=== PATIENT | male | born 1965 | race African-American/Black ===

== ENCOUNTER 2023-01-06 08:31 | Inpatient (IN) | payer MEDICAID, SELFPAY ==
[2023-01-06] VITALS (7 sets, daily range): BP systolic 112–145; BP diastolic 61–96; PULSE 72–96; RESP 14–16; TEMP 36.4–36.8; O2SAT 95–100; BMI 23.1; BMI 22.1
--- NOTE | 2023-01-06 08:40 | ED.VIS.LOWEX ---
HPI History of Present Illness HPI Narrative: Patient presents with pain in his left fifth toe that has been getting worse over the past 2 months. Patient states he has poor circulation in his left leg. Patient states he has been unable to see his doctor for this. Patient states the pain is gradually getting worse. Patient describes it as aching and throbbing. Patient states nothing makes it worse and nothing makes it better. Patient denies any fevers or chills. Patient denies any paresthesias or weakness. Patient denies any trauma or injury. Chief Complaint: Lower Extremity Injury Informant: patient Onset/Context/Timing Onset: Month(s) Context: Gradual Onset Timing: Continuous Quality of Pain: Aching and Throbbing Location: Left fifth toe Worsened by: Nothing Relieved by: Nothing Associated Symptoms Associated Symptoms: Negative for Parasthesia, Weakness or Loss of Funtion PFSH PFS Medical History (Updated 01/06/23 @ 10:[address] Richard Mosley DO) Peripheral arterial disease Home Medications naproxen sodium 220 mg capsule (Aleve) 220 mg PO Q6H PRN pain 01/06/23 [History Last Taken 01/06/23] Allergy/AdvReac Type Severity Reaction Status Date / Time No Known Allergies Allergy Verified 01/06/23 08:32 Surgical History no surgical history no surgical history Social History (Updated 01/06/23 @ 08:[address] Richard Mosley DO) Smoking Status: Current every day smoker tobacco type: cigarettes Smoking packs per day: 0.5 Smoking cigarettes per day: 10.0 ROS ROS ED Constitutional Constitutional ED: Denies chills or fever(s) Eyes Eyes: Denies blurry vision or change in vision ENT ENT ED: Denies rhinorrhea or sore throat Cardiovascular Cardiovascular: Denies chest pain or palpitations Respiratory/Chest Respiratory/Chest: Denies cough or dyspnea Gastrointestinal Gastrointestinal: Denies nausea or vomiting Genitourinary Genitourinary ED: Denies dysuria or hematuria Musculoskeletal Musculoskeletal: Denies back pain or neck pain Integumentary Reports rash; Denies abscess Neurologic Neurologic: Denies headache(s) or weakness Allergic/Immunologic Allergic/Immunologic ED: Denies mouth swelling or urticaria EXAM Physical Exam Const Vital Signs: 01/06/23 08:32 Temperature 97.6 F L Temperature Source Temporal Pulse Rate 96 Respiratory Rate 14 Blood Pressure 128/82 H Blood Pressure Mean 97 Pulse Ox 100 Oxygen Delivery Method Room Air Positive well nourished and well developed General Appearance ED: well developed and NAD HEENT Reports moist mucous membranes Neck full ROM and supple Extremity Extremity Narrative: There is dry gangrene noted of the left fifth toe. Sensation was intact to light touch in all digits. Capillary refill was less than 2 seconds in the first through fourth toes. Pedal pulse is palpable. There is no calf tenderness noted. There is full range of motion. Neuro oriented x3, CN's II-XII intact bilaterally, moves all extremities and no sensory deficits noted Sensorium / Orientation: alert Motor Exam: strength 5/5 throughout Psych mental status grossly normal Skin Skin Narrative: There are superficial skin ulcerations noted over the dorsum of the left foot and anterior aspect of the left lower leg. There is no surrounding erythema. There is no discharge or drainage noted. MDM MDM MDM Narrative Medical decision making narrative: Differential diagnosis includes dry gangrene, osteomyelitis, cellulitis, and sepsis. X-rays of the left foot will be obtained to assess for osteomyelitis. CBC will be obtained to assess for leukocytosis and anemia. Basic metabolic profile will be obtained to assess for electrolyte abnormality and renal function. Serum lactate will be obtained to assess for sepsis. PT with INR and PTT will be obtained to assess for coagulopathy. Lab Data Attestation: I reviewed the patient's lab results. Lab results narrative: BC was reviewed. There is a mild anemia with a hemoglobin of 12.8 and hematocrit 38.1. White blood cell count was normal. PT was INR and PTT were reviewed and were within normal limits. Basic metabolic profile was reviewed and was within normal limits. Labs: Laboratory Results - last 24 hr 01/06/23 09:08 WBC 8.9 RBC 4.11 L Hgb 12.8 L Hct 38.1 L MCV 92.7 MCH 31.1 MCHC 33.6 RDW Std Deviation 46.4 H RDW Coeff of Mario Alberto 13.4 Plt Count 349 MPV 8.5 Immature Gran % (Auto) 0.200 Neut % (Auto) 62.6 Lymph % (Auto) 21.0 [place] % (Auto) 14.8 H Eos % (Auto) 1.1 Baso % (Auto) 0.3 Absolute Neuts (auto) 5.6 Absolute Lymphs (auto) 1.88 Nucleated RBC % 0 PT 13.3 INR 1.0 APTT 34.9 Sodium 137 Potassium 3.8 Chloride 99 Carbon Dioxide 30.0 Anion Gap 8 BUN 15 Creatinine 0.93 Estim Creat Clear Calc 97.43 Est GFR (MDRD) Af Amer 107 Est GFR (MDRD) Non-Af 89 BUN/Creatinine Ratio 16.1 Glucose 82 Lactic Acid 1.7 Calcium 9.2 Radiography Diagnostic Testing: Clinical Impression(s) from Imaging Studies Foot X-Ray 01/06/23 09:10 IMPRESSION: Soft tissue swelling overlying the fifth oh. No bony destruction is seen at this time. Electronically Signed: Abbe Smith MD at 9:58 EDT , X-rays of the left foot were obtained. There are 3 views. On my independent interpretation, there is soft tissue swelling over the fifth toe but there is no bony destruction or gas formation. There is no evidence of osteomyelitis. Radiologist also interpreted the x-rays and agrees. Management Discussion w/another healthcare provider: Hospitalist and Forensic Social Worker Treatment and Re-Evaluation Narrative: Patient was given a dose of Unasyn here. Patient was given a tetanus booster. Case was discussed with Dr. Sandhu from podiatry. He will see the patient in consultation. Case was discussed with the hospitalist. He will admit the patient to his service. Patient understood and was agreeable with plan. All questions were answered. Discharge Plan Dx/Rx/DC Orders Clinical Impression: Peripheral vascular disease, Gangrene of toe of left foot Disposition Disposition: Acute Care Hospital [facility]
--- NOTE | 2023-01-06 09:10 | RAD_ITS ---
STUDY: X-RAY - LEFT FOOT CLINICAL: Male, 57 years old. Infection. Necrotic changes overlying the fifth digit. TECHNIQUE: 3 view(s) of the foot. COMPARISON: None. FINDINGS: Normal talus, calcaneus, and tarsal bones. Normal visualized subtalar, talonavicular, calcaneocuboid, tarsal and tarsometatarsal articulations. Normal metatarsi. Normal metatarsophalangeal joint of the great toe. Normal tibial and fibular sesamoid bones. Normal interphalangeal joint of the great toe. Normal phalanges of the great toe. Normal second through fifth metatarsophalangeal joints. Normal interphalangeal joints and phalanges of the lesser toes. Soft tissue swelling overlying the fifth toe. No bony destruction is seen at this time. RAD/Foot min 3 Views IMPRESSION: Soft tissue swelling overlying the fifth oh. No bony destruction is seen at this time. Electronically Signed: Abbe Smith MD at 9:58 EDT ,
[2023-01-06 09:19] LABS: Absolute Lymphocyte Count 1.88 X10^3/uL (0.83-4.51); Absolute Neutrophil Count 5.6 X10^3/uL (2.0-7.7); Basophil# 0.03 X10^3/uL; Basophil% 0.3 % (0-1); Eosinophils% 1.1 % (0-5); Hematocrit 38.1 % (40-54); Hemoglobin 12.8 g/dL (13.0-16.5); Lymphocyte # 1.88 X10^3/ul (0.83-4.51); Mean Corp Hgb Conc 33.6 g/dL (32-36); Mean Corpuscular Hgb 31.1 pg (27.0-32.0); Mean Corpuscular Volume 92.7 fL (80-94); Mean Platelet Vol. 8.5 fl (6.2-12.0); Monocyte# 1.32 X10^3/uL; Monocyte% 14.8 % (0-10); NRBC Flagged by Analyzer 0 % (0-5); Neutrophil # 5.59 X10^3/uL (2.7-7.7); Neutrophil % 62.6 % (47-70); Platelet Count 349 K/mm3 (150-450); RBC Distribution Width CV 13.4 % (11.6-14.6); RBC Distribution Width SD 46.4 fl (35.1-43.9); Red Blood Count 4.11 M/mm3 (4.6-6.2); White Blood Count 8.9 K/mm3 (4.4-11.0)
[2023-01-06 09:26] LABS: Prothrombin Time (Protime)PT. 13.3 SECONDS (11.7-14.9)
[2023-01-06 09:34] LABS: Anion Gap 8 (5-15); BUN 15 mg/dL (7-18); BUN/Creat Ratio 16.1 RATIO (10-20); Calcium,Total 9.2 mg/dL (8.5-10.1); Chloride 99 mmol/L (98-107); Creatinine, Serum 0.93 mg/dL (0.70-1.30); EST Glomerular Filtration Rate 89 mL/min (>60); Est Glom Filt Rate - Afr Amer 107 mL/min (>60); Estimated Creatinine Clearance 97.43 ml/min; Glucose 82 mg/dL (74-106); Partial Thromboplast Time 34.9 Seconds (24.1-36.2); Potassium 3.8 mmol/L (3.5-5.1); Sodium Level 137 mmol/L (136-145)
[2023-01-06 09:48] LABS: Lactic Acid 1.7 mmol/L (0.4-1.9)
[2023-01-06] MEDS: Diphth,Pertuss(Acell),Tet Vac 0.5 ML Vial IM (10:03)
[2023-01-06] MEDS: Ampicillin/Sulbactam 3 GM in 0.9% Normal Saline (100mL MB+) 100 ML IV ×3 (10:03→21:01)
--- NOTE | 2023-01-06 10:38 | PCM.PN.HOSP ---
Subjective Subjective 57-year-old male presents to the hospital with no medical history as he does not see doctors. He has low blood flow in his left lower extremity and was recently at [facility] where they want to put stents in however he refused. His left fifth toe appears to be necrotic and so he was admitted for podiatry evaluation and possibly surgical intervention. No fevers or chills and white count in the ER is normal, does not appear to be infected though he was covered with a dose of Unasyn Objective Data Objective Data Vital Signs: Vital Signs Temp Pulse Resp BP Pulse Ox O2 Del Method 97.6 F L 96 14 128/82 H 100 Room Air 01/06/23 08:32 01/06/23 08:32 01/06/23 08:32 01/06/23 08:32 01/06/23 08:32 01/06/23 08:32 Oxygen Delivery Method Room Air Weight: 175 lb 6.4 oz Body Mass Index (BMI) 23.1 Lab / Micro Data 01/06/23 09:08 01/06/23 09:08 Labs: Laboratory Results - last 24 hr 01/06/23 09:08: WBC 8.9, RBC 4.11 L, Hgb 12.8 L, Hct 38.1 L, MCV 92.7, MCH 31.1, MCHC 33.6, RDW Std Deviation 46.4 H, RDW Coeff of Mario Alberto 13.4, Plt Count 349, MPV 8.5, Immature Gran % (Auto) 0.200, Neut % (Auto) 62.6, Lymph % (Auto) 21.0, [place] % (Auto) 14.8 H, Eos % (Auto) 1.1, Baso % (Auto) 0.3, Absolute Neuts (auto) 5.6, Absolute Lymphs (auto) 1.88, Nucleated RBC % 0, PT 13.3, INR 1.0, APTT 34.9, Sodium 137, Potassium 3.8, Chloride 99, Carbon Dioxide 30.0, Anion Gap 8, BUN 15, Creatinine 0.93, Estim Creat Clear Calc 97.43, Est GFR (MDRD) Af Amer 107, Est GFR (MDRD) Non-Af 89, BUN/Creatinine Ratio 16.1, Glucose 82, Lactic Acid 1.7, Calcium 9.2 Radiography Diagnostic Testing: Radiology Impression Foot X-Ray 01/06/23 09:10 IMPRESSION: Soft tissue swelling overlying the fifth oh. No bony destruction is seen at this time. Electronically Signed: Abbe Smith MD at 9:58 EDT , Physical Exam Narrative General: Alert, Oriented x3, Cooperative, No apparent distress HEENT: Atraumatic, PERRLA, EOMI, Normocephalic Oral: Moist Mucosa Neck: Supple, No JVD Lungs: Diminished, Normal air movement, basilar rhonchi, No wheeze, No rales Cardiovascular: Regular rate, Regular Rhythm, Normal S1, Normal S2, No murmurs Abdomen: Soft, Non Tender, Non-Distended, No Hepato-splenomegaly Extremities: No edema, Capillary Refill Less than 3 Seconds Skin: Gangrenous necrotic left fifth toe, very little to no hair on his shins and he does have an anterior left fabian wound that is currently healing Musculoskeletal: No Tenderness to Palpation of Joints or Extremities Neurological: Cranial nerves II-XII grossly intact, Motor Exam 5/5 strength throughout, Sensory exam intact to light touch and pain Psych/Mental Status: Normal Affect, Appropriate Assessment & Plan Assessment/Plan (1) Atherosclerosis of both lower extremities with rest pain: (2) Gangrene of toe of left foot: (3) Peripheral vascular disease: PLAN: Plan 1. Gangrene of the left toe with rest pain atherosclerosis/tobacco abuse ? Intervention per primary ? We will obtain arterial studies as he will likely need vascular intervention as well ? Will obtain an A1c and a lipid panel as he does not see any healthcare professional in the outpatient side ? He does smoke so provided with a 14 mg patch, discussed cessation ? We will continue with Unasyn ? He is low risk for surgery DVT: Ambulation Charges/Coding Visit Charges Inpatient E&M: 81623 Subs Hosp L2
[2023-01-06] MEDS: Morphine 4 MG/ML Syringe IV (11:55)
--- NOTE | 2023-01-06 13:50 | ART_ITS ---
Reason For Study: Gangrene Procedure A bilateral lower extremity continuous wave Doppler with analog waveform analysis,segmental pressures,and ankle brachial indexes without exercise. Left Segmental Pressures Left brachial= 177mmHg. Left thigh = 105mmHg. Left calf = 40mmHg. Left posterior tibial artery = 24mmHg. Left dorsalis pedis artery = 24mmHg. Left digit = 0 mmHg. The left dorsalis pedis waveforms are monophasic. The left posterior tibial artery waveforms are monophasic. Right Segmental Pressures Right brachial= 184mmHg. Right thigh = 134mmHg. Right calf = 93mmHg. Right posterior tibial artery = 82mmHg. Right dorsalis pedis artery = 84mmHg. Right digit = 67 mmHg. The right dorsalis pedis waveforms are monophasic. The right posterior tibial artery waveforms are monophasic. Indices The right ankle brachial index by the dorsalis pedis is 0.46. The right ankle brachial index by the posterior tibial artery is 0.45. The right digital-brachial index is 0.36. The left ankle brachial index by the dorsalis pedis is 0.13. The left ankle brachial index by the posterior tibial artery is 0.13. . Preliminary report given to Dr. Sandhu and Meli BERGERON. VL/Lower Ext Art Exam w/o Exercis Interpretation Summary Right RONI 0.46, severe arterial insufficieny. Doppler/PVR waveforms and segment al pressures reveal [id number] femoral, distal SFA/popliteal disease. Left RONI 0.13, critical arterial insufficiency. Doppler/PVR waveforms and segme ntal pressures reveal [id number] femoral, distal SFA/popliteal disease Ordering Physician: Bronson Castillo Performed By: Marilia Fritz RVT
--- NOTE | 2023-01-06 14:20 | WOUNDNOTE ---
wound photo: left lower leg
--- NOTE | 2023-01-06 14:20 | WOUNDNOTE ---
wound photo: left foot
--- NOTE | 2023-01-06 14:20 | PCM.HP.STD ---
HPI - General General Date of Admission: 01/06/23 Date of Service: 01/06/23 Chief Complaint: Fifth digit dry gangrene HPI Narrative ALON MERRITT, is a 57 M who presented to [facility] emergency department with a chief complaint of pain to the left fifth digit. Patient admits that the toe has been, more painful the past 2 months. He was currently at an outside facility where it was recommended for him to have intervention to the left lower extremity secondary to decreased blood flow. The patient declined. Thus presenting to the hospital today for a more worsening condition of the left foot. He mitts his pain is aching and throbbing in nature. He was told that his toe has dry gangrene. He admits to cramping in the buttock thighs and calfs and has to get up or hang his legs over the side of the bed to help decrease his pain. Patient admits to being a smoker, half a pack per day for 37+ years. He denies any trauma to the area. Denies constitutional symptoms. Patient will be admitted under podiatry with consultation to medicine for medical management and vascular surgery for intervention. No other pedal complaints at this time. [facility] Medical History Peripheral arterial disease Home Medications naproxen sodium 220 mg capsule (Aleve) 220 mg PO Q6H PRN pain 01/06/23 [History Last Taken 01/06/23] Allergy/AdvReac Type Severity Reaction Status Date / Time No Known Allergies Allergy Verified 01/06/23 08:32 Surgical History no surgical history Social History Smoking Status: Current every day smoker tobacco type: cigarettes Smoking packs per day: 0.5 Smoking cigarettes per day: 10.0 Vital Signs Vital Signs Vital Signs: 01/06/23 08:32 Temperature 97.6 F L Temperature Source Temporal Pulse Rate 96 Respiratory Rate 14 Blood Pressure 128/82 H Blood Pressure Mean 97 Pulse Ox 100 Oxygen Delivery Method Room Air Weight Weight: 79.56 kg Body Mass Index (BMI) 23.1 Physical Exam Narrative Vascular: DP and PT pulses are faintly palpable. CFT is delayed. Evidence of dry gangrene appreciated to the left fifth digit. Skin temperature gradient is warm to cool from proximal ankle to distal digits bilateral. No increase in warmth appreciated to the fifth ray of the left foot. Neurological: Light touch intact. Protective sensation is slightly diminished. Patient does respond to painful stimuli. Dermatological: Dry gangrene with mild erythema appreciated to the left fifth ray. No drainage. No proximal streaking. Concern for underlying infection. Musculoskeletal: Severe palpatory tenderness appreciated to the left fifth digit. No evidence of palpable bogginess is appreciated. No pain with calf compression. Const alert, oriented x3 and no apparent distress General Appearance: cooperative and comfortable Orientation / Consciousness: awake Results Lab / Micro Data 01/06/23 09:08 01/06/23 09:08 Labs: Laboratory Results - last 24 hr 01/06/23 09:08: WBC 8.9, RBC 4.11 L, Hgb 12.8 L, Hct 38.1 L, MCV 92.7, MCH 31.1, MCHC 33.6, RDW Std Deviation 46.4 H, RDW Coeff of Mario Alberto 13.4, Plt Count 349, MPV 8.5, Immature Gran % (Auto) 0.200, Neut % (Auto) 62.6, Lymph % (Auto) 21.0, [place] % (Auto) 14.8 H, Eos % (Auto) 1.1, Baso % (Auto) 0.3, Absolute Neuts (auto) 5.6, Absolute Lymphs (auto) 1.88, Nucleated RBC % 0, PT 13.3, INR 1.0, APTT 34.9, Sodium 137, Potassium 3.8, Chloride 99, Carbon Dioxide 30.0, Anion Gap 8, BUN 15, Creatinine 0.93, Estim Creat Clear Calc 97.43, Est GFR (MDRD) Af Amer 107, Est GFR (MDRD) Non-Af 89, BUN/Creatinine Ratio 16.1, Glucose 82, Lactic Acid 1.7, Calcium 9.2 Radiology Impression Foot X-Ray 01/06/23 09:10 IMPRESSION: Soft tissue swelling overlying the fifth oh. No bony destruction is seen at this time. Electronically Signed: Abbe Smith MD at 9:58 EDT , Assessment & Plan Assessment/Plan (1) Gangrene of toe of left foot: PLAN: Patient was examined and evaluated. All findings were discussed with the patient. All questions were answered to the patient's satisfaction. Discussion with the patient and family present at bedside regarding fifth ray amputation with advancement flap closure, left foot. Patient is currently n.p.o. and will be added on for afternoon case today. Patient would like to move forward with surgery. All risk and benefits were discussed with the patient in great detail. Noninvasive vascular studies: Right: PT and DP are monophasic, TBI: 0.36, RONI 0.46 Left: PT and DP are monophasic, TBI: 0.00, RONI 0.13 Consultation will be put in for vascular intervention. Dr. Valle's PA will see and evaluate the patient today. Medicine: On board for medical management Emergency department: Patient was given 1 dose of Unasyn. Tetanus updated. Please reach out to Dr. Sandhu with any questions or concerns. (2) Peripheral vascular disease: PLAN: Based on noninvasive vascular studies recommend surgical intervention by vascular team.
--- NOTE | 2023-01-06 14:21 | WOUNDNOTE ---
wound photo: left foot
--- NOTE | 2023-01-06 14:30 | FOOT_PTH ---
PATIENT: ALON MERRITT LOC: ICU U#:[id number] AGE/SX: 57/M ROOM: [place] [address] RE01/06/[address]: Dr. Amor Beaver MD : 1965 BED: 1 DIS: 01/10/2023 SPEC #: [id number] RECD: 01/06/23 18:30 STATUS: [place] RERic #: [id number] GE: 01/06/23 14:[address]: Hebert Sandhu DEPT: SURGICAL PATHOLOGY RECD BY: Ese Arreaga ENTERED: 01/09/23 08:00 SP TYPE: FOOT OTHR DR: Dr. Bronson Castillo MD Tissues: Toe, NOS Procedures: Decalcification bone/plaque Surgery Specimen Level IV HEADER OPERATION: Incision left fifth ray with advancement flap PRE-OP DIAGNOSIS: Gangrene of toe of left foot TISSUE SUBMITTED: fifth toe left foot MICROSCOPIC DIAGNOSIS Fifth toe left foot, amputation: Skin and soft tissue with ulceration and associated acute and chronic inflammation and granulation. Bone with acute osteomyelitis. AM:suzy 01/12/2023 MICROSCOPIC DESCRIPTION Slides are reviewed. GROSS DESCRIPTION Received in fixative is one container labeled with the patient's name and designated fifth toe left foot. The specimen consists of a portion of toe measuring 4.5 x 2.0 x 2.0 cm. The skin is brownish-black and gangrenous. Scissors Sharpener sections are submitted in three cassettes as follows: 1 - skin, 2 & 3 - bone after decalcification. / ANDRÉS:suzy 01/09/2023 TC:2 CPT: 97976, 78415
--- NOTE | 2023-01-06 14:55 | CT_ITS ---
ACR Level 3 findings have been noted. An addendum which confirms receipt of the report will follow. EXAM: CT ANGIOGRAPHY ABDOMEN AND PELVIS WITH RUNOFF TO THE LOWER EXTREMITIES WITH INTRAVENOUS CONTRAST CLINICAL INDICATION: LLE gangrene TECHNIQUE: Helically acquired angiography images were obtained of the abdomen, pelvis and lower extremities with intravenous contrast using CTA runoff protocol. This CT exam was performed using one or more of the following dose reduction techniques: automated exposure control, adjustment of the mA and/or kV according to patient size, and/or use of iterative reconstruction technique. MIP reconstructed images were created and reviewed. CONTRAST: IV 100mL Isovue-370 RADIATION DOSE: CTDIvol = multiple values provided for. mGy, DLP = 1068.60 mGy-cm. COMPARISON: No relevant prior studies available. FINDINGS: VASCULATURE: AORTA: Distal descending thoracic aorta is 2.8 cm. Moderately calcified, no aneurysm or dissection. CELIAC TRUNK AND MESENTERIC ARTERIES: No acute findings. No occlusion or significant stenosis. No dissection. RENAL ARTERIES: No acute findings. No occlusion or significant stenosis. No dissection. RIGHT ILIAC ARTERIES: No acute findings. No occlusion or significant stenosis. Calcifications and mild narrowing of right common iliac and proximal external iliac artery. No dissection. RIGHT FEMORAL/POPLITEAL ARTERIES: Heavily calcified and stenotic right femoral artery bifurcation. Patent profunda. Occluded right SFA at its origin. Peripherally calcified nonopacified SFA to the level of the mid to distal thigh. Recanalized flow into the distal SFA proximal to the adductor canal by a muscular branch. Heavily calcified and markedly stenotic segment proximal to the popliteal artery. Mildly small but patent popliteal artery with moderate stenosis just proximal to the knee. RIGHT CALF/FOOT ARTERIES: Calcification and narrowing at the proximal calf arteries. Long segment of calcifications and high-grade stenoses of proximal segment of SHARON. Small mid to distal SHARON is patent to the dorsalis pedis. Patent [employer]W MEMBER to the level of the medial foot, only slight flow in the foot. Calcification at its origin. Multifocal calcifications and multifocal long segment occlusion of proximal-mid peroneal artery, it is recanalized at the mid calf, and patent to the distal calf. LEFT ILIAC ARTERIES: Moderately peripherally calcified moderate narrowing, and proximal and mid external iliac, at least moderate stenosis. LEFT FEMORAL/POPLITEAL ARTERIES: Heavily calcified left common femoral artery, patent bifurcation. Patent left SFA to the level of the proximal-mid thigh. SFA is occluded throughout the remainder of the thigh, with slight recanalized flow in popliteal artery. Collateral vessel supplies small popliteal artery. LEFT CALF/FOOT ARTERIES: Heavily calcified proximal calf arteries. Heavily calcified subtotal stenosis of a segment of peroneal artery. It is patent to the distal calf with discontinuous flow superior to the ankle. Coarse calcification and high-grade stenosis origin of posterior tibial artery and roughly 1 cm distal to its origin. There is discontinuous flow in the artery at the level of the distal calf. Heavily calcified segment of proximal SHARON with severe stenosis and discontinuous flow proximally. Flow demonstrated in the mid to distal vessel and dorsalis pedis. LOWER THORAX: Calcified granuloma in the left lingula. Lung bases are clear. No cardiomegaly. No significant pericardial effusion. ABDOMEN: LIVER: Unremarkable. Homogeneous. No focal mass. GALLBLADDER AND BILE DUCTS: Unremarkable. No calcified gallstones. No gallbladder distention or wall edema. No intra- or extrahepatic biliary ductal dilation. PANCREAS: Unremarkable. No focal cystic or solid mass. SPLEEN: Unremarkable. Normal size without focal cystic or solid mass. ADRENALS: Unremarkable. No nodules. KIDNEYS AND URETERS: Unremarkable. Normal renal size and position. No hydronephrosis. STOMACH AND BOWEL: Moderate fluid and gas in the stomach, tortuous distended pylorus, mild fluid in duodenal bulb. No dilated small bowel loops. Moderate gas in much of the colon. No stomach or bowel distention. No focal inflammatory change. PELVIS: APPENDIX: No evidence of acute appendicitis. BLADDER: Unremarkable. REPRODUCTIVE: Unremarkable as visualized. No mass. ABDOMEN, PELVIS and LOWER EXTREMITIES: INTRAPERITONEAL SPACE: Unremarkable. No ascites or other fluid collection. No free air. BONES/JOINTS: Marked disc space narrowing at L5-S1 with moderate sclerosis of the opposing vertebral bodies. Mild vacuum disc at L3-4 and L4-5 with mild endplate sclerosis. Straightening of the usual lordotic curvature of the lumbar spine, at least mild multilevel spinal canal narrowing. SOFT TISSUES: small presumed lipoma in right lateral lower chest wall muscle,, 2 cm maximum diameter. LYMPH NODES: Unremarkable. No enlarged lymph nodes. CT/CTA Abd w/Runoff W/WO Contrast IMPRESSION: Bilateral SFA occlusions. Recanalized flow to both distal SFA-popliteal arteries. Multifocal stenoses of distal SFAs and popliteal arteries. Discontinuous flow in the calf arteries, multifocal stenoses and occlusions of runoff vessels. No visible flow in distal left [employer]W MEMBER the distal calf or foot. Heavily calcified aortoiliac vessels and iliac narrowing. No high-grade iliac stenosis. Amputation of left fifth digit distal to the metatarsal. Soft tissue swelling. Single tiny soft tissue gas bubble inferior to the distal left fifth metatarsal. No enhancing vessels in the foot distal to the dorsalis pedis at the dorsum of the foot. Electronically Signed: Lyla Cartagena MD at 9:28 EDT ,
--- NOTE | 2023-01-06 15:01 | PCM.OPRPT ---
Problems Associated Problem List Diagnoses (1) Gangrene of toe of left foot: (2) Peripheral vascular disease: (3) Atherosclerosis of left lower extremity with gangrene: Report of Operation Date of Procedure: 01/06/23 Pre-Operative Diagnosis: 1. Dry gangrene, fifth digit, left foot 2. Peripheral vascular disease, bilateral lower extremity Post-Operative Diagnosis: 1. Dry gangrene, fifth digit, left foot 2. Peripheral vascular disease, bilateral lower extremity Surgery/Procedure Performed:: 1. Incision of bone cortex, fifth digit, left foot 2. Advancement flap closure, left foot Description of Surgical Findings:: 1. Removal of the mummified dry gangrene fifth digit, left foot 2. Advancement flap type closure, left foot 3. Evidence of sanguinous drainage appreciated at amputation site of the left foot. 4. Soft bone to the proximal phalanx of the left fifth digit. Surgeon: Hebert Sandhu front line supervisor: Mara Penny Type of Anesthesia: Local and MAC Anesthesiologist: Luciano Pretty Special Medications: None Specimen's removed: 1. Fifth digit bone, microbiology culture and sensitivity, left foot 2. Fifth digit, pathology, left foot Drains: None Estimated Blood Loss (mL): 5 mL Fluids Replaced: Per anesthesia Description of Procedure: Indications For Operation: Mr. Medina is a 57-year-old male who was admitted to [facility] for worsening dry gangrene to left fifth digit. Patient admits this has been ongoing for the last few months. He admits to rest pain to the bilateral lower extremity. He has a smoking history for half a pack for the past 37 years. The patient did admit to not seeing doctors and does not follow-up with doctors for care. Due to nature of the worsening dry gangrene and concern for wet gangrene the patient will be sent to the operating room for incision of bone cortex with advancement flap of the left foot. The patient has diminished pulses as seen on initial presentation and will be consulted for vascular intervention. The nature of the problem, anticipated procedures, postop recovery/convalences and risk/complications include but not limited to infection, wound healing complications, hypertrophic scarring, numbness, tingling, chronic pain, CRPS, over and under correction, recurrence of deformity, DVT and or PE and the need for further surgery have been discussed in great detail with the patient. All questions have been answered to the patient's satisfaction. There are no guarantees given as to the outcome of the procedure. Description of Procedure: Under mild sedation, the patient was brought into the operating room and placed on the operating table in supine position. Once the patient was under monitored anesthesia care anesthesia, the left lower extremity was blocked using approximately 20 cc 0.5% Marcaine plain. No tourniquet was used to the left lower extremity. Next, the left lower extremity was prepped and draped in normal aseptic manner. Next, a timeout was then undertaken verifying the correct patient, extremity, visibility of preoperative markings, availability of the equipment. Next, attention was directed to the left lower extremity to the level of the fifth digit. Using a sterile skin marker a racquet type incision was marked out. Using a #15 blade the incision was carried down to bone along the fifth metatarsal circumferentially around the dry gangrene mummified left digit. The left fifth digit was disarticulated from the metatarsal phalangeal joint and passed the back table to be split for half to pathology and have to be sent off for microbiology culture and sensitivity. Using a [place] the integrity of the fifth metatarsal head showed no evidence of softening nor did the surgical neck and diaphysis of the metatarsal. The adjacent skin was undermined and via blunt dissection to allow for advancement flap type closure. It was noted that there was evidence of sanguinous drainage to the amputation site. The incision was flushed with copious primitivo of normal warm saline. The deep layer was reapproximated with 3-0 Vicryl in running locking suture technique. The skin was closed via advancement flap closure, and reapproximated using 2-0 nylon in horizontal and simple interrupted suture technique. An additional 10 cc of 0.5% Marcaine plain was administered to the fifth metatarsal ray. The left lower extremities were cleaned and patted dry. The incision was dressed with Betadine soaked Adaptic, dry sterile dressing and a light single layer Larson compression bandage was donned. The patient tolerated the procedure and anesthesia well and apparent satisfactory condition and was transported to the PACU for further monitoring prior to discharge back to the floor. Vital signs stable and vascular status intact to all digits bilateral. Post Operative Plan: Weightbearing: No weightbearing to the left foot. Full weightbearing to right lower extremity Antibiotics: Unasyn per medicine DVT Prophylaxis: Ambulation Anderson: None Dressing: Betadine soaked Adaptic, dry sterile dressing and a light single layer Larson compression bandage X-Rays: None Pain Medication: Percocet 5/325, 1 mg morphine as needed Follow-up: Patient will be staying in the hospital for vascular work-up and will be followed by Dr. Valle. Grafts/Implants Used: None Complications None Admit VTE Documentation VTE Present on Admission: Yes VTE Mechan Device Prophylaxis: SCD's VTE Pharm Prophylaxis ordered?: No Reason prophylaxis not ordered:: Procedure Not Indicated
--- NOTE | 2023-01-06 15:45 | EX.PCM.CON.S ---
Assessment & Plan Assessment/Plan (1) Atherosclerosis of left lower extremity with gangrene: QUALIFIERS: Peripheral atherosclerosis artery type: [place] artery Qualified Code(s): I70.262 - Atherosclerosis of [place] arteries of extremities with gangrene, left leg PLAN: Dr. Valle is going to be out of town next week but will be available through Monday. Case was discussed with both Dr. Sandhu and Dr. Valle. Patient will be going for fifth digit amputation by Dr. Sandhu this afternoon and we will plan to coordinate subsequent revascularization pending advanced imaging. Plan is for CTA with runoff to determine if his disease would be amenable to endovascular versus open surgical intervention. If endovascular intervention, anticipate angiogram with intervention on Tuesday 01/09. If he will require open surgical intervention, then would need further imaging/work-up and plan would be for surgery when Dr. Valle returns the week of 01/16 (ideally Monday) pending OR availability. If his symptoms or surgical site were to deteriorate in the interval then would need to transfer to outside hospital for more urgent intervention. We will initiate atorvastatin 80 mg daily. Additionally, once acceptable by Dr. Sandhu following surgery today, would recommend initiating aspirin 81 mg daily and Plavix 75 mg daily. Further plan will be pending imaging as noted above. We will continue to follow closely. HPI Consult Data Date of Consult: 01/06/23 HPI Narrative HPI Narrative: ALON MERRITT, is a 57 M who presented to the [facility] ER today with complaint of worsening pain in left fifth toe. He has dry gangrene of the left fifth toe which he states has been present for approximately 2 months and just continuing to worsen. He tells me that he has had bilateral lower extremity thigh and calf claudication for many years and it has just gotten progressively worse especially over the last year. He does have rest pain in the left foot that is constantly aching/throbbing. This is somewhat relieved by dangling his leg at the edge of the bed/chair and covering with a blanket for warmth. He he was previously evaluated at [facility] and informed that he should see vascular surgery, but he has not yet followed up with any vascular specialist. He has never been treated for peripheral arterial disease. He does not have a primary care and really has not had any medical attention for many years. He does not take any medications at home other than OTC pain relievers. To his knowledge, no history of heart disease, kidney disease, lung disease, diabetes, VTE, CVA/TIA, GI bleeding. He is a current daily smoker, somewhere between 1/2 to 2 packs/day for the last 20 to 30 years. He does not have any nausea, vomiting, fevers, chills. LEAS was completed in the ER and revealed right RONI 0.46 and left RONI 0.13. He has not yet had any more advanced imaging. He has been evaluated by podiatry and is admitted under Dr. Sandhu. He is currently on IV Unasyn. Plan is for left fifth ray amputation with advancement flap closure this afternoon. [facility] Medical History Peripheral arterial disease Home Medications naproxen sodium 220 mg capsule (Aleve) 220 mg PO Q6H PRN pain 01/06/23 [History Last Taken 01/06/23] Allergy/AdvReac Type Severity Reaction Status Date / Time No Known Allergies Allergy Verified 01/06/23 08:32 Surgical History no surgical history Social History Smoking Status: Current every day smoker tobacco type: cigarettes Smoking packs per day: 0.5 Smoking cigarettes per day: 10.0 Physical Exam Const alert, oriented x3 and no apparent distress General Appearance: cooperative HEENT normocephalic, head/scalp atraumatic, hearing grossly normal bilaterally and external ears normal Eyes EOMs intact bilaterally General Eye: normal appearance of both eyes Resp normal respiratory effort, no retractions and no use of accessory muscles Effort and Inspection: able to speak in complete sentences Cardio Rate: regular rate Rhythm: regular rhythm Extremity Extremity Narrative: Left 5th toe with dry gangrene. No extending erythema, focal swelling, notable drainage, foul odor. The L foot is not excessively cool to touch or pale/cyanotic, no other toes with apparent ischemic tissue damage There are three small ulcerations to the L fabian which have dry bases with no surrounding erythema, focal swelling, fluctuance/induration, foul odor. Do not appear to have significant depth. L DP/PT doppler signals weakly monophasic, R DP/PT doppler signals monophasic Skin Skin Narrative: Wounds as noted above. Neuro oriented x3, CN's II-XII intact bilaterally, moves all extremities and no focal motor deficits Psych mental status grossly normal Appearance: grossly normal Attitude: calm and engaged Activity / Motor Behavior: appropriate eye contact Speech: normal speech Mood & Affect: euthymic mood Judgement: judgement good Lab / Micro Data 01/06/23 09:08 01/06/23 09:08 Labs: Laboratory Results - last 24 hr 01/06/23 09:08: WBC 8.9, RBC 4.11 L, Hgb 12.8 L, Hct 38.1 L, MCV 92.7, MCH 31.1, MCHC 33.6, RDW Std Deviation 46.4 H, RDW Coeff of Mario Alberto 13.4, Plt Count 349, MPV 8.5, Immature Gran % (Auto) 0.200, Neut % (Auto) 62.6, Lymph % (Auto) 21.0, [place] % (Auto) 14.8 H, Eos % (Auto) 1.1, Baso % (Auto) 0.3, Absolute Neuts (auto) 5.6, Absolute Lymphs (auto) 1.88, Nucleated RBC % 0, PT 13.3, INR 1.0, APTT 34.9, Sodium 137, Potassium 3.8, Chloride 99, Carbon Dioxide 30.0, Anion Gap 8, BUN 15, Creatinine 0.93, Estim Creat Clear Calc 97.43, Est GFR (MDRD) Af Amer 107, Est GFR (MDRD) Non-Af 89, BUN/Creatinine Ratio 16.1, Glucose 82, Lactic Acid 1.7, Calcium 9.2 Radiology Impression Foot X-Ray 01/06/23 09:10 IMPRESSION: Soft tissue swelling overlying the fifth oh. No bony destruction is seen at this time. Electronically Signed: Abbe Smith MD at 9:58 EDT , Charges/Coding Visit Charges Inpatient E&M: 68114 Init Hosp L2
[2023-01-06] MEDS: Bupivacaine Mpf 0.5% 30 ML VIAL (16:30)
[2023-01-06 18:17] LABS: Hemoglobin A1c 5.6 % (3.8-5.6)
[2023-01-06] MEDS: oxyCODONE 5 MG Tablet PO (18:54)
[2023-01-06] MEDS: 0.9% Normal Saline (250mL Bag) 250 ML 15 ML IV (21:00)
[2023-01-06] MEDS: 0.9% Saline Lock 10 ML Syringe IV (21:01)
[2023-01-06] MEDS: Morphine 2 MG/ML Syringe 1 MG IV (21:01)
[2023-01-06] MEDS: Atorvastatin Calcium 80 MG Tablet PO (21:01)
[2023-01-07 03:00] VITALS: BP 146/85; PULSE 76; RESP 16; TEMP 36.7; O2SAT 98
[2023-01-07] MEDS: Ampicillin/Sulbactam 3 GM in 0.9% Normal Saline (100mL MB+) 100 ML IV ×3 (05:58→21:32)
[2023-01-07] MEDS: Morphine 2 MG/ML Syringe 1 MG IV ×3 (06:40→20:48)
[2023-01-07] MEDS: 0.9% Saline Lock 10 ML Syringe IV ×5 (06:41→22:36)
[2023-01-07] MEDS: oxyCODONE 5 MG Tablet PO ×3 (07:47→19:42)
[2023-01-07 08:37] LABS: Absolute Lymphocyte Count 1.65 X10^3/uL (0.83-4.51); Basophil# 0.03 X10^3/uL; Basophil% 0.5 % (0-1); Eosinophil# 0.13 X10^3/uL; Hematocrit 38.8 % (40-54); Hemoglobin 12.6 g/dL (13.0-16.5); Lymphocyte # 1.65 X10^3/ul (0.83-4.51); Lymphocyte % 25.5 % (19-41); Mean Corp Hgb Conc 32.5 g/dL (32-36); Mean Corpuscular Hgb 30.2 pg (27.0-32.0); Mean Platelet Vol. 9.1 fl (6.2-12.0); Monocyte# 0.68 X10^3/uL; Monocyte% 10.5 % (0-10); NRBC Flagged by Analyzer 0 % (0-5); Neutrophil # 3.97 X10^3/uL (2.7-7.7); Neutrophil % 61.3 % (47-70); Platelet Count 358 K/mm3 (150-450); RBC Distribution Width CV 13.8 % (11.6-14.6); RBC Distribution Width SD 46.7 fl (35.1-43.9); Red Blood Count 4.17 M/mm3 (4.6-6.2); White Blood Count 6.5 K/mm3 (4.4-11.0)
[2023-01-07 09:00] VITALS: BP 126/76; PULSE 91; RESP 16; TEMP 37.2; O2SAT 98
[2023-01-07 09:03] LABS: Anion Gap 2 (5-15); BUN 13 mg/dL (7-18); BUN/Creat Ratio 14.5 RATIO (10-20); Chloride 105 mmol/L (98-107); Cholesterol 157 mg/dL (200); EST Glomerular Filtration Rate 93 mL/min (>60); Est Glom Filt Rate - Afr Amer 112 mL/min (>60); Estimated Creatinine Clearance 96.55 ml/min; Glucose 135 mg/dL (74-106); High Density Lipoprotein 60 mg/dL; Potassium 3.8 mmol/L (3.5-5.1); Sodium Level 134 mmol/L (136-145); Triglycerides 66 mg/dL; Very Low Density Lipoprotein 13 mg/dL (5-40)
[2023-01-07 09:18] VITALS: RESP 18
--- NOTE | 2023-01-07 09:18 | PCM.PN.SRG ---
Subjective Subjective Mr. Medina is a 57-year-old male seen at bedside today with family present for left lower extremity dressing change. Patient is status post incision of bone cortex to left fifth digit with advancement flap to left foot. Patient denies any pain to the left lower extremity at today's interview. Patient admits to using 1 Percocet and 1 IV push of morphine after the surgery but otherwise is pain-free. He denies any cramping to the left calf or pain to the left foot specifically at the surgery site. He denies any weightbearing to the left lower extremity. Dressing was left clean dry and intact. He denies constitutional symptoms. No other pedal complaints at this time. Objective Data Objective Data Vital Signs: Vital Signs Temp Pulse Resp BP Pulse Ox O2 Del Method 98.1 F 76 16 146/85 H 98 Room Air 01/07/23 03:00 01/07/23 03:00 01/07/23 03:00 01/07/23 03:00 01/07/23 03:00 01/07/23 05:00 Oxygen Delivery Method Room Air Weight: 76.3 kg Body Mass Index (BMI) 22.1 Intake & Output: Intake and Output for Last 24 Hours 01/05/23 01/06/23 01/07/23 23:59 23:59 23:59 Intake Total 336 / 836 812 / 812 Balance 336 / 836 812 / 812 Lab / Micro Data Attestation: I reviewed the patient's lab results. 01/07/23 07:40 01/07/23 07:40 Labs: Laboratory Results - last 24 hr 01/06/23 09:08: WBC 8.9, RBC 4.11 L, Hgb 12.8 L, Hct 38.1 L, MCV 92.7, MCH 31.1, MCHC 33.6, RDW Std Deviation 46.4 H, RDW Coeff of Mario Alberto 13.4, Plt Count 349, MPV 8.5, Immature Gran % (Auto) 0.200, Neut % (Auto) 62.6, Lymph % (Auto) 21.0, [place] % (Auto) 14.8 H, Eos % (Auto) 1.1, Baso % (Auto) 0.3, Absolute Neuts (auto) 5.6, Absolute Lymphs (auto) 1.88, Nucleated RBC % 0, PT 13.3, INR 1.0, APTT 34.9, Sodium 137, Potassium 3.8, Chloride 99, Carbon Dioxide 30.0, Anion Gap 8, BUN 15, Creatinine 0.93, Estim Creat Clear Calc 97.43, Est GFR (MDRD) Af Amer 107, Est GFR (MDRD) Non-Af 89, BUN/Creatinine Ratio 16.1, Glucose 82, Hemoglobin A1c 5.6, Lactic Acid 1.7, Calcium 9.2 01/07/23 07:40: WBC 6.5, RBC 4.17 L, Hgb 12.6 L, Hct 38.8 L, MCV 93.0, MCH 30.2, MCHC 32.5, RDW Std Deviation 46.7 H, RDW Coeff of Mario Alberto 13.8, Plt Count 358, MPV 9.1, Immature Gran % (Auto) 0.200, Neut % (Auto) 61.3, Lymph % (Auto) 25.5, [place] % (Auto) 10.5 H, Eos % (Auto) 2.0, Baso % (Auto) 0.5, Absolute Neuts (auto) 4.0, Absolute Lymphs (auto) 1.65, Nucleated RBC % 0, Sodium 134 L, Potassium 3.8, Chloride 105, Carbon Dioxide 27.0, Anion Gap 2 L, BUN 13, Creatinine 0.90, Estim Creat Clear Calc 96.55, Est GFR (MDRD) Af Amer 112, Est GFR (MDRD) Non-Af 93, BUN/Creatinine Ratio 14.5, Glucose 135 H, Calcium 9.0, Triglycerides 66, Cholesterol 157, LDL Cholesterol 84, VLDL Cholesterol 13, HDL Cholesterol 60 Radiography Diagnostic Testing: Radiology Impression Foot X-Ray 01/06/23 09:10 IMPRESSION: Soft tissue swelling overlying the fifth oh. No bony destruction is seen at this time. Electronically Signed: Abbe Smith MD at 9:58 EDT , Physical Exam Narrative Neurovascular status is unchanged. Nonpitting edema appreciated to the left foot incision site. Advancement flap is well coapted with suture. No evidence of drainage, surgical wound dehiscence, erythema, proximal streaking or sign of infection. Mild pain on palpation to the incision site of the left foot. Active and passive range of motion of left digits to left foot is pain-free. No pain with calf pressure. Const alert, oriented x3 and no apparent distress Assessment & Plan Assessment/Plan (1) Gangrene of toe of left foot: PLAN: Patient was examined and evaluated. All findings were discussed with the patient. All questions were answered to the patient's satisfaction. Patient is recovering well from his surgery consisting of incision of bone cortex of the left fifth digit with advancement flap to left lower extremity. There is no evidence of flap failure at this time. The incision was dressed with Betadine soaked Adaptic, dry sterile dressing and a light single layer Larson compression bandage was applied. Patient is to be nonweightbearing to the left foot. Full weightbearing to the right lower extremity with crutches or walker. WBC: 8.9 -> 6.5 HbA1c: 5.6 Sx Cx (Bone): pending Pathology: pending PT/OT: Consult pending Medicine: On board, medical management Vascular surgery: On board, optimizing patient for Endo versus open vascular surgery. Plan for ECHO, Vein Mapping. Angio Schedule for 01/16 pending environmental laboratory technician availability. CTA: CTA shows L popliteal occlusion, which reconstitutes distally. Please reach out to Dr. Sandhu with any questions or concerns. (2) Atherosclerosis of both lower extremities with rest pain: (3) Atherosclerosis of left lower extremity with gangrene: QUALIFIERS: Peripheral atherosclerosis artery type: [place] artery Qualified Code(s): I70.262 - Atherosclerosis of [place] arteries of extremities with gangrene, left leg
[2023-01-07] MEDS: Aspirin 81 MG TAB.CHEW PO (10:15)
[2023-01-07] MEDS: Clopidogrel Bisulfate 75 MG Tablet PO (10:16)
--- NOTE | 2023-01-07 12:15 | CASEMGMT ---
RN CM Face to Face with patient for initial transition planning/care coordination assessment. RN CM introduced self and role at [facility]. Patient lying in bed, alert and oriented, at bedside. Patient willing to participate in assessment and is able to answer all questions appropriately. Care providers, pharmacy, and demographics verified. Patient wishes to discharge home, will monitor for HHC or outpatient care pending course of treatment. Patient states he has no further needs or concerns at this time. CM to follow for discharge planning needs that may arise. PCP: No PCP, list provided to patient Specialists: none Preferred Pharmacy: [facility] Insurance: [employer] Prescription Benefit: yes Living Will/HPOA: none LNOK: , daughter Living Arrangements: Patient lives with in a 2 story home with 4 steps and railing to enter the home. Patient states he is independent at home and able to ambulate stairs Transportation: daughter DME/HHC: Patient denies DME in the home. Will monitor for walker. No previous HHC or SNF Disposition Plan: Patient to discharge home. Will monitor for HHC vs outpatient care pending course of treatment. Marilia PRIEST, RN, CM
--- NOTE | 2023-01-07 14:13 | PCM.PN.SRG ---
Subjective Subjective Patient was seen today with his family at bedside. He is s/p incision of bone cortex to left fifth digit with advancement flap to left foot. He tolerated the surgery well. Dr. Sandhu noted sanguineous drainage at the operative site. He reports significant improvement in his L foot pain following surgery. He denies any N/V, F/C, CP, SOB. Objective Data Objective Data Vital Signs: Vital Signs Temp Pulse Resp BP Pulse Ox O2 Del Method 98.9 F 91 18 126/76 H 98 Room Air 01/07/23 09:00 01/07/23 09:00 01/07/23 09:18 01/07/23 09:00 01/07/23 09:00 01/07/23 09:18 Oxygen Delivery Method Room Air Weight: 168 lb 3.403 oz Body Mass Index (BMI) 22.1 Intake & Output: Intake and Output for Last 24 Hours 01/05/23 01/06/23 01/07/23 23:59 23:59 23:59 Intake Total 336 / 836 1792 / 1792 Balance 336 / 836 1792 / 1792 Lab / Micro Data 01/07/23 07:40 01/07/23 07:40 Labs: Laboratory Results - last 24 hr 01/06/23 09:08: Hemoglobin A1c 5.6 01/07/23 07:40: WBC 6.5, RBC 4.17 L, Hgb 12.6 L, Hct 38.8 L, MCV 93.0, MCH 30.2, MCHC 32.5, RDW Std Deviation 46.7 H, RDW Coeff of Mario Alberto 13.8, Plt Count 358, MPV 9.1, Immature Gran % (Auto) 0.200, Neut % (Auto) 61.3, Lymph % (Auto) 25.5, [place] % (Auto) 10.5 H, Eos % (Auto) 2.0, Baso % (Auto) 0.5, Absolute Neuts (auto) 4.0, Absolute Lymphs (auto) 1.65, Nucleated RBC % 0, Sodium 134 L, Potassium 3.8, Chloride 105, Carbon Dioxide 27.0, Anion Gap 2 L, BUN 13, Creatinine 0.90, Estim Creat Clear Calc 96.55, Est GFR (MDRD) Af Amer 112, Est GFR (MDRD) Non-Af 93, BUN/Creatinine Ratio 14.5, Glucose 135 H, Calcium 9.0, Triglycerides 66, Cholesterol 157, LDL Cholesterol 84, VLDL Cholesterol 13, HDL Cholesterol 60 Micro: Microbiology 01/06/23 Unknown Bone - Toe Wound Culture - Preliminary Staphylococcus aureus GNR lactose bingo attendant Radiography Diagnostic Testing: Radiology Impression Abdomen/Pelvis CTA 01/06/23 14:55 IMPRESSION: Bilateral SFA occlusions. Recanalized flow to both distal SFA-popliteal arteries. Multifocal stenoses of distal SFAs and popliteal arteries. Discontinuous flow in the calf arteries, multifocal stenoses and occlusions of runoff vessels. No visible flow in distal left PUNCH PRESS OPERATOR HELPER the distal calf or foot. Heavily calcified aortoiliac vessels and iliac narrowing. No high-grade iliac stenosis. Amputation of left fifth digit distal to the metatarsal. Soft tissue swelling. Single tiny soft tissue gas bubble inferior to the distal left fifth metatarsal. No enhancing vessels in the foot distal to the dorsalis pedis at the dorsum of the foot. Electronically Signed: Lyla Cartagena MD at 9:28 EDT Reading Location ID and State: [facility] / [place] Tel , Service support , ADDENDUM: 01/07/23 0950 IMPRESSION: Bilateral SFA occlusions. Recanalized flow to both distal SFA-popliteal arteries. Multifocal stenoses of distal SFAs and popliteal arteries. Discontinuous flow in the calf arteries, multifocal stenoses and occlusions of runoff vessels. No visible flow in distal left PUNCH PRESS OPERATOR HELPER the distal calf or foot. Heavily calcified aortoiliac vessels and iliac narrowing. No high-grade iliac stenosis. Amputation of left fifth digit distal to the metatarsal. Soft tissue swelling. Single tiny soft tissue gas bubble inferior to the distal left fifth metatarsal. No enhancing vessels in the foot distal to the dorsalis pedis at the dorsum of the foot. N.B. : XIANG Garcia, confirmed on 01/07/2023 09:43:57 (ET) that the healthcare facility has received the radiology report. Electronically Signed: Lyla Cartagena MD at 9:28 EDT , Physical Exam Const alert, oriented x3 and no apparent distress General Appearance: cooperative HEENT normocephalic, head/scalp atraumatic, hearing grossly normal bilaterally and external ears normal Eyes EOMs intact bilaterally General Eye: normal appearance of both eyes Resp normal respiratory effort, no retractions and no use of accessory muscles Effort and Inspection: able to speak in complete sentences Cardio Rate: regular rate Rhythm: regular rhythm Extremity Extremity Narrative: Left foot surgical site skin flap satisfactory in appearance and no signs/symptoms of infection. There are three small ulcerations to the L fabian which have dry bases with no surrounding erythema, focal swelling, fluctuance/induration, foul odor. Do not appear to have significant depth. L DP/PT doppler signals weakly monophasic, R DP/PT doppler signals monophasic Skin Skin Narrative: Wounds as noted above. Neuro oriented x3, CN's II-XII intact bilaterally, moves all extremities and no focal motor deficits Psych mental status grossly normal Appearance: grossly normal Attitude: calm and engaged Activity / Motor Behavior: appropriate eye contact Speech: normal speech Mood & Affect: euthymic mood Judgement: judgement good Assessment & Plan Assessment/Plan (1) Atherosclerosis of left lower extremity with gangrene: QUALIFIERS: Peripheral atherosclerosis artery type: [place] artery Qualified Code(s): I70.262 - Atherosclerosis of [place] arteries of extremities with gangrene, left leg PLAN: He did well with surgery yesterday and so far surgical site remains satisfactory in appearance. His pain is significantly improved. CTA runoff was reviewed with Dr. Valle and a L popliteal occlusion seems the most significant contributor to his decreased inflow to the L foot. The lesion appears like it would be amenable to endovascular intervention. I discussed this procedure, risks, benefits, and recovery with the patient and his daughter. He is agreeable to proceed. Will plan for LLE angiogram the week Dr. Valle returns from vacation, ideally 01/16 pending availability. Will obtain vein mapping and cardiac testing in case open intervention were ultimately required. Continue atorvastatin 80mg daily. Will initiate ASA 81mg daily and Plavix 75mg daily to further optimize. A1c was 5.6 and lipid levels were within normal limits. Also discussed with patient the importance of tobacco cessation. We discussed that smoking is a significant contributor to vascular disease. In addition, continuing to smoke after vascular interventions significantly increases the risk of intervention failure and need for re-intervention. We discussed the pathophysiology of smoking addiction including its dual addictive components of nicotine addiction and psychological addiction. We discussed that there are nicotine replacements and medications to assist with cessation available, he is currently using nicotine patches. We also discussed behavioral modifications such as preoccupying the mind during trigger times such as to chew gum or utilize hands for an activity such as drawing or even with a fidget-type toy. He does indicate that he intends to stop smoking now. Charges/Coding Visit Charges Inpatient E&M: 53280 Subs Hosp L2
--- NOTE | 2023-01-07 14:27 | VDLE_ITS ---
Reason For Study: BLE SVM Pre-OP RIGHT LEFT GSV Prox Thigh - 0.20cm x 0.25cm GSV Prox Thigh - 0.45cm x 0.41cm GSV Mid Thigh - 0.21cm x 0.26cm GSV Mid Thigh - 0.31cm x 0.38cm GSV Dist Thigh - 0.28cm x 0.34cm GSV Dist Thigh - 0.38cm x 0.40cm GSV Knee - 0.21cm x 0.24cm GSV Knee - 0.40cm x 0.39cm GSV Prox Calf - 0.23cm x 0.28cm GSV Prox Calf - 0.38cm x 0.49cm GSV Mid Calf - 0.21cm x 0.31cm GSV Mid Calf - 0.28cm x 0.28cm GSV Dist Calf - 0.24cm x 0.29cm GSV Dist Calf - 0.25cm x 0.31cm SSV Prox Calf - 0.37cm x 0.45cm ASV Mid Calf - 0.24cm x 0.26cm SSV Mid Calf - 0.25cm x 0.24cm ASV Dist Calf - 0.31cm x 0.36cm SSV Dist Calf - 0.23cm x 0.30cm SSV Prox Calf - 0.22cm x 0.23cm GSV is compressible throughout. SSV Mid Calf - 0.18cm x 0.20cm SSV has vein wall thickening at prox and SSV Dist Calf - 0.21cm x 0.21cm bright intraluminal echoes consistent with chronic SVT in the distal portion. GSV, SSV, ASV are compressible throughout. Procedure This is a venous duplex using B-mode, color flow and spectral Doppler. Exam performed portable in patient room. The exam was diagnostic. VL/Saphenous Vein Mapping, Bilat Interpretation Summary Right great saphenous vein patent with measurements above. Right small saphenous vein with chronic superficial vein thrombosis and measure ments above. Left great saphenous vein patent with measurements above. Left small saphenous vein patent with measurements above. Ordering Physician: Meli Edwards Referring Physician: oG Sandhu Performed By: Adán Patel RVT
[2023-01-07 15:21] VITALS: BP 144/96; PULSE 84; RESP 18; TEMP 37.2; O2SAT 98
[2023-01-07 15:39] VITALS: RESP 18
[2023-01-07] MEDS: cycloBENZAPRine HCl 10 MG Tablet PO ×2 (18:08→21:32)
[2023-01-07] MEDS: Ketorolac 15 MG/ML Vial IV (18:11)
[2023-01-07] MEDS: Gabapentin 100 MG Capsule PO ×2 (18:53→21:32)
[2023-01-07 19:46] VITALS: BP 152/72; PULSE 95; RESP 18; TEMP 36.6; O2SAT 99
[2023-01-07] MEDS: Atorvastatin Calcium 80 MG Tablet PO (20:50)
[2023-01-07] MEDS: Acetaminophen 325 MG Tablet 650 MG PO (22:36)
[2023-01-07] MEDS: Morphine 2 MG/ML Syringe IV (22:36)
[2023-01-08] MEDS: 0.9% Saline Lock 10 ML Syringe IV ×6 (00:25→18:19)
[2023-01-08] MEDS: Ketorolac 15 MG/ML Vial IV ×4 (00:26→18:19)
[2023-01-08] MEDS: Morphine 2 MG/ML Syringe IV ×3 (00:26→10:36)
[2023-01-08] MEDS: oxyCODONE 5 MG Tablet PO ×3 (01:50→20:10)
[2023-01-08 02:42] VITALS: BP 144/96; PULSE 94; RESP 16; TEMP 37.1; O2SAT 93
[2023-01-08] MEDS: Acetaminophen 325 MG Tablet 650 MG PO ×3 (05:18→22:03)
[2023-01-08] MEDS: Ampicillin/Sulbactam 3 GM in 0.9% Normal Saline (100mL MB+) 100 ML IV ×2 (05:18→14:00)
[2023-01-08] MEDS: cycloBENZAPRine HCl 10 MG Tablet PO ×3 (05:19→22:03)
[2023-01-08] MEDS: Gabapentin 100 MG Capsule PO ×3 (05:19→22:03)
[2023-01-08 08:03] VITALS: BP 149/66; PULSE 50; RESP 16; TEMP 36.8; O2SAT 94
--- NOTE | 2023-01-08 09:22 | PN.HOSP_ITS ---
Subjective Subjective No issues overnight, pain is controlled Objective Data Objective Data Vital Signs: Vital Signs Temp Pulse Resp BP Pulse Ox O2 Del Method 98.2 F 50 L 16 149/66 H 94 Room Air 01/08/23 08:03 01/08/23 08:03 01/08/23 08:03 01/08/23 08:03 01/08/23 08:03 01/08/23 08:03 Oxygen Delivery Method Room Air Weight: 168 lb 3.403 oz Body Mass Index (BMI) 22.1 Intake & Output: Intake and Output for Last 24 Hours 01/07/23 01/08/23 01/09/23 03:59 03:59 03:59 Intake Total 836 / 836 3166 / 3166 712 / 712 Balance 836 / 836 3166 / 3166 712 / 712 Lab / Micro Data 01/07/23 07:40 01/07/23 07:40 Micro: Microbiology 01/06/23 Unknown Bone - Toe Gram Stain - Final 01/06/23 Unknown Bone - Toe Wound Culture - Preliminary Staphylococcus aureus Enterobacter cloacae complex Radiography Diagnostic Testing: Radiology Impression Abdomen/Pelvis CTA 01/06/23 14:55 IMPRESSION: Bilateral SFA occlusions. Recanalized flow to both distal SFA-popliteal arteries. Multifocal stenoses of distal SFAs and popliteal arteries. Discontinuous flow in the calf arteries, multifocal stenoses and occlusions of runoff vessels. No visible flow in distal left SPRAYER OPERATOR the distal calf or foot. Heavily calcified aortoiliac vessels and iliac narrowing. No high-grade iliac stenosis. Amputation of left fifth digit distal to the metatarsal. Soft tissue swelling. Single tiny soft tissue gas bubble inferior to the distal left fifth metatarsal. No enhancing vessels in the foot distal to the dorsalis pedis at the dorsum of the foot. Electronically Signed: Lyla Cartagena MD at 9:28 EDT , ADDENDUM: 01/07/23 0950 IMPRESSION: Bilateral SFA occlusions. Recanalized flow to both distal SFA-popliteal arteries. Multifocal stenoses of distal SFAs and popliteal arteries. Discontinuous flow in the calf arteries, multifocal stenoses and occlusions of runoff vessels. No visible flow in distal left SPRAYER OPERATOR the distal calf or foot. Heavily calcified aortoiliac vessels and iliac narrowing. No high-grade iliac stenosis. Amputation of left fifth digit distal to the metatarsal. Soft tissue swelling. Single tiny soft tissue gas bubble inferior to the distal left fifth metatarsal. No enhancing vessels in the foot distal to the dorsalis pedis at the dorsum of the foot. N.B. : XIANG Garcia, confirmed on 01/07/2023 09:43:57 (ET) that the healthcare facility has received the radiology report. Electronically Signed: Lyla Cartagena MD at 9:28 EDT , Physical Exam Narrative General: Alert, Oriented x3, Cooperative, No apparent distress HEENT: Atraumatic, PERRLA, EOMI, Normocephalic Oral: Moist Mucosa Neck: Supple, No JVD Lungs: Diminished, Normal air movement, basilar rhonchi, No wheeze, No rales Cardiovascular: Regular rate, Regular Rhythm, Normal S1, Normal S2, No murmurs Abdomen: Soft, Non Tender, Non-Distended, No Hepato-splenomegaly Extremities: No edema, Capillary Refill Less than 3 Seconds Skin: Status post fifth toe amputation bandage in place Musculoskeletal: No Tenderness to Palpation of Joints or Extremities Neurological: Cranial nerves II-XII grossly intact, Motor Exam 5/5 strength throughout, Sensory exam intact to light touch and pain Psych/Mental Status: Normal Affect, Appropriate Assessment & Plan Assessment/Plan (1) Atherosclerosis of both lower extremities with rest pain: (2) Gangrene of toe of left foot: (3) Peripheral vascular disease: PLAN: Plan 1. Gangrene of the left toe with rest pain atherosclerosis status post amputation on 01/06/2023/tobacco abuse ? Intervention per primary ? We will obtain arterial studies as he will likely need vascular intervention as well ? A1c is unremarkable, and lipids were normal ? Vascular surgery has been consulted by primary recommending Lipitor as well as aspirin and Plavix ? He does smoke so provided with a 14 mg patch, discussed cessation ? We will continue with Unasyn ? Plan for stress test tomorrow for cardiac evaluation as intervention on his left lower extremity will likely happen on the week of 01/16/2023 We will continue to follow peripherally DVT: Ambulation Charges/Coding Visit Charges Inpatient E&M: 82168 Subs Hosp L2
--- NOTE | 2023-01-08 10:20 | PN.SURG_ITS ---
Subjective Subjective Mr. Medina is a 57-year-old male seen at bedside today for follow-up and evaluation of incision of bone cortex with advancement flap to left lower extremity. Patient was having pain overnight which was controlled with oral pain medication. Patient admits she is having 6-7 out of 10 pain to left lower extremity. He relates this to the anticoagulated medication and getting blood flow to the bottom of his leg. He is being weightbearing very minimally to the left lower extremity with assistance of crutches. He admits to elevating his left lower extremity however it does cause pain whenever at rest. He denies any new onset of trauma. Denies constitutional symptoms. No other pedal complaints at this time. Objective Data Objective Data Vital Signs: Vital Signs Temp Pulse Resp BP Pulse Ox O2 Del Method 98.2 F 50 L 16 149/66 H 94 Room Air 01/08/23 08:03 01/08/23 08:03 01/08/23 08:03 01/08/23 08:03 01/08/23 08:03 01/08/23 08:03 Oxygen Delivery Method Room Air Weight: 76.3 kg Body Mass Index (BMI) 22.1 Intake & Output: Intake and Output for Last 24 Hours 01/06/23 01/07/23 01/08/23 23:59 23:59 23:59 Intake Total 336 / 836 2866 / 3666 1512 / 1512 Balance 336 / 836 2866 / 3666 1512 / 1512 Lab / Micro Data Attestation: I reviewed the patient's lab results. 01/08/23 11:26 01/08/23 11:26 Micro: Microbiology 01/06/23 Unknown Bone - Toe Gram Stain - Final 01/06/23 Unknown Bone - Toe Wound Culture - Preliminary Staphylococcus aureus Enterobacter cloacae complex Assessment & Plan Assessment/Plan (1) Gangrene of toe of left foot: PLAN: Patient was examined and evaluated. All findings were discussed with the patient. All questions were answered to the patient satisfaction. 3 view foot radiographs: Postoperative films taken today at bedside for concerns of CTA showing evidence of gas bubble. Eccentric joint space loss with arthritic changes appreciated to the first metatarsophalangeal joint. No evidence of emphysema appreciated on 3 view plain films in all 3 views. Evidence of status post changes with amputation of the fifth digit. Articular cartilage as well as integrity of the fifth metatarsal shows no evidence of lytic changes or change in architecture, no concern for osteomyelitis to adjacent bones. Increase in soft tissue volume without defect. No additional abnormalities or fractures are noted. The patient's incision is well coapted with suture. There is evidence of sanguinous crust appreciated to the incision site. Evidence of sanguinous drainage to the under dressing with dressing change. Incision was dressed with Betadine soaked Adaptic, dry sterile dressing and a light single layer Larson compression bandage was applied. A1c is within normal limits (5.6). Lipid panel is normal. Discussed continued smoking sensation,14 mg nicotine patch is provided. Medicine: On board, medical management, will continue Unasyn IV antibiotics Vascular: On board, recommended Lipitor, aspirin and Plavix. We will plan for cardiac stress test for evaluation and intervention to the left lower extremity Monday. Patient will be n.p.o. midnight tonight. Plan for lower extremity intervention by vascular 01/16/2023. PT/OT: on board WBC: 8.9 -> 6.5 -> 8.0 HbA1c: 5.6 Sx Cx (Bone): S aureus, E cloacae Pathology: pending Please reach out to Dr. Sandhu with any questions or concerns. (2) Peripheral vascular disease: (3) Atherosclerosis of left lower extremity with gangrene: QUALIFIERS: Peripheral atherosclerosis artery type: [place] artery Qualified Code(s): I70.262 - Atherosclerosis of [place] arteries of extremities with gangrene, left leg (4) Atherosclerosis of both lower extremities with rest pain:
[2023-01-08] MEDS: Aspirin 81 MG TAB.CHEW PO (10:38)
[2023-01-08] MEDS: Clopidogrel Bisulfate 75 MG Tablet PO (10:38)
--- NOTE | 2023-01-08 10:50 | RAD_ITS ---
STUDY: X-RAY - LEFT FOOT CLINICAL: Male, 57 years old. post op films, left foot TECHNIQUE: 3 view(s) of the foot. COMPARISON: 01/06/2023 FINDINGS: Normal talus, calcaneus, and tarsal bones. Normal visualized subtalar, talonavicular, calcaneocuboid, tarsal and tarsometatarsal articulations. Normal metatarsi. There is degenerative arthrosis of the metatarsophalangeal joint of the hallux . Normal tibial and fibular sesamoid bones. Normal interphalangeal joint of the great toe. Normal phalanges of the great toe. Normal second through fifth metatarsophalangeal joints. Normal interphalangeal joints and phalanges of the lesser toes. Interval amputation of the fifth digit. The soft tissue structures are unremarkable. RAD/Foot min 3 Views IMPRESSION: Interval amputation of the fifth digit Electronically Signed: Ray Orantes MD at 11:20 EDT ,
[2023-01-08 11:32] LABS: Absolute Lymphocyte Count 1.55 X10^3/uL (0.83-4.51); Basophil# 0.05 X10^3/uL; Basophil% 0.6 % (0-1); Eosinophil# 0.22 X10^3/uL; Eosinophils% 2.8 % (0-5); Hematocrit 36.7 % (40-54); Hemoglobin 12.1 g/dL (13.0-16.5); Lymphocyte # 1.55 X10^3/ul (0.83-4.51); Lymphocyte % 19.4 % (19-41); Mean Corpuscular Hgb 30.2 pg (27.0-32.0); Mean Corpuscular Volume 91.5 fL (80-94); Mean Platelet Vol. 8.3 fl (6.2-12.0); Monocyte# 1.21 X10^3/uL; Monocyte% 15.1 % (0-10); NRBC Flagged by Analyzer 0 % (0-5); Neutrophil # 4.95 X10^3/uL (2.7-7.7); Neutrophil % 61.8 % (47-70); Platelet Count 314 K/mm3 (150-450); RBC Distribution Width CV 13.6 % (11.6-14.6); RBC Distribution Width SD 45.9 fl (35.1-43.9); Red Blood Count 4.01 M/mm3 (4.6-6.2)
[2023-01-08 11:44] LABS: Anion Gap 7 (5-15); BUN 18 mg/dL (7-18); Chloride 101 mmol/L (98-107); EST Glomerular Filtration Rate 82 mL/min (>60); Est Glom Filt Rate - Afr Amer 99 mL/min (>60); Glucose 107 mg/dL (74-106); Potassium 3.6 mmol/L (3.5-5.1); Sodium Level 134 mmol/L (136-145)
[2023-01-08 12:01] VITALS: BP 164/105; PULSE 90; RESP 16; TEMP 36.8; O2SAT 96
--- NOTE | 2023-01-08 13:05 | PN.SURG_ITS ---
Subjective Subjective Saw patient with his at bedside. Patient reports that he did have increased pain overnight, primarily in the area of the surgery site but also some pain that would shoot up his leg. He says since different medications were added the pain is better. The pain is also better with his leg dependent. Otherwise, no complaints. He denies any N/V, F/C, CP, SOB, palpitations, MIMS. Objective Data Objective Data Vital Signs: Vital Signs Temp Pulse Resp BP Pulse Ox O2 Del Method 98.2 F 90 16 164/105 H 96 Room Air 01/08/23 12:01 01/08/23 12:01 01/08/23 12:01 01/08/23 12:01 01/08/23 12:01 01/08/23 12:01 Oxygen Delivery Method Room Air Weight: 168 lb 3.403 oz Body Mass Index (BMI) 22.1 Intake & Output: Intake and Output for Last 24 Hours 01/06/23 01/07/23 01/08/23 23:59 23:59 23:59 Intake Total 336 / 836 2866 / 3666 1612 / 1612 Balance 336 / 836 2866 / 3666 1612 / 1612 Lab / Micro Data 01/08/23 11:26 01/08/23 11:26 Labs: Laboratory Results - last 24 hr 01/08/23 11:26: WBC 8.0, RBC 4.01 L, Hgb 12.1 L, Hct 36.7 L, MCV 91.5, MCH 30.2, MCHC 33.0, RDW Std Deviation 45.9 H, RDW Coeff of Mario Alberto 13.6, Plt Count 314, MPV 8.3, Immature Gran % (Auto) 0.300, Neut % (Auto) 61.8, Lymph % (Auto) 19.4, [place] % (Auto) 15.1 H, Eos % (Auto) 2.8, Baso % (Auto) 0.6, Absolute Neuts (auto) 5.0, Absolute Lymphs (auto) 1.55, Nucleated RBC % 0, Sodium 134 L, Potassium 3.6, Chloride 101, Carbon Dioxide 26.0, Anion Gap 7, BUN 18, Creatinine 1.00, Estim Creat Clear Calc 86.90, Est GFR (MDRD) Af Amer 99, Est GFR (MDRD) Non-Af 82, BUN/Creatinine Ratio 18.0, Glucose 107 H, Calcium 9.0 Micro: Microbiology 01/06/23 Unknown Bone - Toe Gram Stain - Final 01/06/23 Unknown Bone - Toe Wound Culture - Preliminary Staphylococcus aureus Enterobacter cloacae complex Gram negative krystian Radiography Diagnostic Testing: Radiology Impression Foot X-Ray 01/08/23 10:50 IMPRESSION: Interval amputation of the fifth digit Electronically Signed: Ray Orantes MD at 11:20 EDT , Physical Exam Const alert, oriented x3 and no apparent distress General Appearance: cooperative HEENT normocephalic, head/scalp atraumatic, hearing grossly normal bilaterally and external ears normal Eyes EOMs intact bilaterally General Eye: normal appearance of both eyes Neck General: normal visual inspection and trachea midline Carotids: Negative for bruit Resp normal respiratory effort, no retractions and no use of accessory muscles Effort and Inspection: able to speak in complete sentences Auscultation: wheezes and diminished lung sounds Cardio regular rate, regular rhythm and no murmurs Bruits: Negative for carotid bruit Extremity Extremity Narrative: Dressings C/D/I L foot. L toes are appropriately warm to touch. There is mild swelling LLE compared to RLE, but soft and without pain to palpation. There are three small ulcerations to the L fabian which have dry bases with no surrounding erythema, focal swelling, fluctuance/induration, foul odor. Skin Skin Narrative: Wounds as noted above. Neuro oriented x3, CN's II-XII intact bilaterally, moves all extremities and no focal motor deficits Psych mental status grossly normal Appearance: grossly normal Attitude: calm and engaged Activity / Motor Behavior: appropriate eye contact Speech: normal speech Mood & Affect: euthymic mood Judgement: judgement good Assessment & Plan Assessment/Plan (1) Atherosclerosis of left lower extremity with gangrene: QUALIFIERS: Peripheral atherosclerosis artery type: [place] artery Qualified Code(s): I70.262 - Atherosclerosis of [place] arteries of extremities with gangrene, left leg PLAN: Surgical site still with satisfactory appearance and some sanguineous drainage noted per podiatry. Continue ASA, Plavix, statin. Will add cilostazol 50mg BID to see if this provides additional pain control. He is instructed to notify nursing if he experiences diarrhea, SOB, palpitations, MIMS which can all be side effects of this medication, we can adjust dose/discontinue as needed. Stress test is planned for tomorrow. He will be NPO at midnight for this. Still with plan for LLE angiogram 01/16 pending availability/scheduling. Will continue to follow. Charges/Coding Visit Charges Inpatient E&M: 23746 Subs Hosp L2
[2023-01-08 15:07] VITALS: BP 148/100; PULSE 90; RESP 16; TEMP 36.7; O2SAT 99
[2023-01-08] MEDS: Cilostazol 50 MG Tablet PO (16:49)
[2023-01-08 20:03] VITALS: BP 136/91; PULSE 102; RESP 16; TEMP 36.8; O2SAT 98
[2023-01-08] MEDS: Smz/Tmp Ds Tablet 1 TABLET PO (22:02)
[2023-01-08] MEDS: Atorvastatin Calcium 80 MG Tablet PO (22:03)
[2023-01-09] VITALS (15 sets, daily range): BP systolic 128–208; BP diastolic 76–111; PULSE 98–118; RESP 16–29; TEMP 36.3–37.2; O2SAT 94–99
[2023-01-09] MEDS: Ketorolac 15 MG/ML Vial IV (00:29)
[2023-01-09] MEDS: 0.9% Saline Lock 10 ML Syringe IV ×2 (00:31→10:28)
[2023-01-09] MEDS: Gabapentin 100 MG Capsule PO (07:59)
[2023-01-09] MEDS: oxyCODONE 5 MG Tablet PO (07:59)
--- NOTE | 2023-01-09 08:20 | PCM.PN.SRG ---
Subjective Subjective Mr. Medina is a 57-year-old male status post incision bone cortex with advancement flap to left lower extremity. At time of interview patient was down to getting a stress test. Conversation with the patient's today admits that the patient's pain is improved to left lower extremity. She denies any falls while in the hospital. Denies any constitutional symptoms. No other pedal complaints at this time. Objective Data Objective Data Vital Signs: Vital Signs Temp Pulse Resp BP Pulse Ox O2 Del Method 98.3 F 106 H 18 128/94 H 96 Room Air 01/09/23 08:11 01/09/23 08:11 01/09/23 08:11 01/09/23 08:11 01/09/23 08:11 01/09/23 08:13 Oxygen Delivery Method Room Air Weight: 76.3 kg Body Mass Index (BMI) 22.1 Intake & Output: Intake and Output for Last 24 Hours 01/07/23 01/08/23 01/09/23 23:59 23:59 23:59 Intake Total 2866 / 3666 2524 / 3024 500 / 500 Balance 2866 / 3666 2524 / 3024 500 / 500 Lab / Micro Data Attestation: I reviewed the patient's lab results. 01/08/23 11:26 01/08/23 11:26 Labs: Laboratory Results - last 24 hr 01/08/23 11:26: WBC 8.0, RBC 4.01 L, Hgb 12.1 L, Hct 36.7 L, MCV 91.5, MCH 30.2, MCHC 33.0, RDW Std Deviation 45.9 H, RDW Coeff of Mario Alberto 13.6, Plt Count 314, MPV 8.3, Immature Gran % (Auto) 0.300, Neut % (Auto) 61.8, Lymph % (Auto) 19.4, [place] % (Auto) 15.1 H, Eos % (Auto) 2.8, Baso % (Auto) 0.6, Absolute Neuts (auto) 5.0, Absolute Lymphs (auto) 1.55, Nucleated RBC % 0, Sodium 134 L, Potassium 3.6, Chloride 101, Carbon Dioxide 26.0, Anion Gap 7, BUN 18, Creatinine 1.00, Estim Creat Clear Calc 86.90, Est GFR (MDRD) Af Amer 99, Est GFR (MDRD) Non-Af 82, BUN/Creatinine Ratio 18.0, Glucose 107 H, Calcium 9.0 Micro: Microbiology 01/06/23 Unknown Bone - Toe Gram Stain - Final 01/06/23 Unknown Bone - Toe Wound Culture - Preliminary Staphylococcus aureus Enterobacter cloacae complex Gram negative krystian Radiography Diagnostic Testing: Radiology Impression Foot X-Ray 01/08/23 10:50 IMPRESSION: Interval amputation of the fifth digit Electronically Signed: Ray Orantes MD at 11:20 EDT , Physical Exam Narrative Physical exam deferred secondary to patient being down and getting a stress test today. Will reeval tomorrow. Assessment & Plan Assessment/Plan (1) Gangrene of toe of left foot: PLAN: Patient was unavailable at time of interview today. Discussion with the patient's today, admitts to improvement and minimal pain. She admits to no acute events overnight. Leave left lower extremity dressing clean dry and intact will change tomorrow with wound care. A1c is within normal limits (5.6). Lipid panel is normal. Discussed continued smoking sensation,14 mg nicotine patch is provided. Stopped IV Unasyn and will place the patient on Bactrim DS for 2 weeks. Medicine: On board, medical management Vascular: On board, recommended Lipitor, aspirin and Plavix. Patient getting stress test today. PVRs: TBI Right-0.36, Left-0.00 / RONI: Right-0.46, Left-0.13 HbA1c: 5.6 Sx Cx (Bone): S aureus, E cloacae, Myroides spp Pathology: pending Please reach out to Dr. Sandhu with any questions or concerns. (2) Peripheral vascular disease: (3) Atherosclerosis of both lower extremities with rest pain:
[2023-01-09] MEDS: Morphine 2 MG/ML Syringe IV (10:28)
[2023-01-09] MEDS: Aspirin 81 MG TAB.CHEW PO (11:59)
[2023-01-09] MEDS: Clopidogrel Bisulfate 75 MG Tablet PO (11:59)
[2023-01-09] MEDS: Smz/Tmp Ds Tablet 1 TABLET PO ×2 (11:59→20:42)
[2023-01-09] MEDS: cycloBENZAPRine HCl 10 MG Tablet PO (11:59)
[2023-01-09 12:40] LABS: Absolute Lymphocyte Count 1.96 X10^3/uL (0.83-4.51); Absolute Neutrophil Count 6.4 X10^3/uL (2.0-7.7); Basophil# 0.04 X10^3/uL; Basophil% 0.4 % (0-1); Eosinophil# 0.18 X10^3/uL; Eosinophils% 1.8 % (0-5); Hematocrit 35.6 % (40-54); Hemoglobin 11.8 g/dL (13.0-16.5); Lymphocyte # 1.96 X10^3/ul (0.83-4.51); Lymphocyte % 19.9 % (19-41); Mean Corp Hgb Conc 33.1 g/dL (32-36); Mean Corpuscular Volume 90.6 fL (80-94); Mean Platelet Vol. 8.2 fl (6.2-12.0); Monocyte# 1.26 X10^3/uL; Monocyte% 12.8 % (0-10); NRBC Flagged by Analyzer 0 % (0-5); Neutrophil # 6.37 X10^3/uL (2.7-7.7); Neutrophil % 64.6 % (47-70); Platelet Count 294 K/mm3 (150-450); RBC Distribution Width CV 13.6 % (11.6-14.6); RBC Distribution Width SD 45.7 fl (35.1-43.9); Red Blood Count 3.93 M/mm3 (4.6-6.2); White Blood Count 9.9 K/mm3 (4.4-11.0)
--- NOTE | 2023-01-09 12:51 | STRESSREP_ITS ---
Stress Test Report Pharmacologic myocardial perfusion stress test. 57-year-old man with a history of peripheral vascular disease Resting EKG demonstrates sinus tachycardia with a rate of 105 bpm. Resting blood pressure is 144/90 mmHg. 0.4 mg of regadenoson was infused per usual protocol followed by rapid intravenous saline flush injection. Continuous EKG m onitoring was performed. The maximum heart rate was 123 bpm which was 75% of max impacted heart rate the maximum workload was 1 metabolic equivalent. At rest there were no ST or T wave changes noted to suggest ischemia and at peak infusion nonspecific ST changes were noted which did not meet the criteria for ischemia. No clinical angina is noted. The final blood pressure was 130/64 mmHg. Myocardial perfusion protocol. 12.0 mCi of technetium 99m sestamibi was injected at rest. 0.4 mg of regadenoson was infused per usual protocol. At peak infusion 36 mCi of technetium 99m sestamibi was injected stress images were obtained stress and rest images were reconstructed and compared in the short axis vertical long and horizontal long axis. Gated images were also obtained. Perfusion SPECT analysis: Review of the stress images demonstrate normal uptake of tracer noted in all areas of the myocardium except for the mid anterior wall with reduced perfusion. The resting images similar demonstrated normal uptake of tracer noted in all areas of the myocardium with noted improvement in the anterior wall suggestive of ischemic zone in this territory of a moderate size.. Gated SPECT analysis: The gated ejection fraction is 24%. Conclusion: Abnormal pharmacologic myocardial perfusion stress test. Reduced ejection fraction. Anterior ischemia is present.
--- NOTE | 2023-01-09 13:01 | PN.HOSP_ITS ---
Subjective Subjective Doing well, no issues overnight. Pain appears to be controlled Objective Data Objective Data Vital Signs: Vital Signs Temp Pulse Resp BP Pulse Ox O2 Del Method 98.3 F 106 H 18 128/94 H 96 Room Air 01/09/23 08:11 01/09/23 08:11 01/09/23 08:11 01/09/23 08:11 01/09/23 08:11 01/09/23 08:13 Oxygen Delivery Method Room Air Weight: 168 lb 3.403 oz Body Mass Index (BMI) 22.1 Intake & Output: Intake and Output for Last 24 Hours 01/08/23 01/09/23 01/10/23 03:59 03:59 03:59 Intake Total 3166 / 3166 2224 / 2224 Balance 3166 / 3166 2224 / 2224 Lab / Micro Data 01/09/23 12:34 01/08/23 11:26 Labs: Laboratory Results - last 24 hr 01/09/23 12:34: WBC 9.9, RBC 3.93 L, Hgb 11.8 L, Hct 35.6 L, MCV 90.6, MCH 30.0, MCHC 33.1, RDW Std Deviation 45.7 H, RDW Coeff of Mario Alberto 13.6, Plt Count 294, MPV 8.2, Immature Gran % (Auto) 0.500, Neut % (Auto) 64.6, Lymph % (Auto) 19.9, [place] % (Auto) 12.8 H, Eos % (Auto) 1.8, Baso % (Auto) 0.4, Absolute Neuts (auto) 6.4, Absolute Lymphs (auto) 1.96, Nucleated RBC % 0 Micro: Microbiology 01/06/23 Unknown Bone - Toe Gram Stain - Final 01/06/23 Unknown Bone - Toe Wound Culture - Preliminary Staphylococcus aureus Enterobacter cloacae complex Myroides spp 01/06/23 Unknown Bone - Toe Anaerobic Culture - Preliminary Checking for anaerobes, further studies to follow. Physical Exam Narrative General: Alert, Oriented x3, Cooperative, No apparent distress HEENT: Atraumatic, PERRLA, EOMI, Normocephalic Oral: Moist Mucosa Neck: Supple, No JVD Lungs: Diminished, Normal air movement, basilar rhonchi, No wheeze, No rales Cardiovascular: Regular rate, Regular Rhythm, Normal S1, Normal S2, No murmurs Abdomen: Soft, Non Tender, Non-Distended, No Hepato-splenomegaly Extremities: No edema, Capillary Refill Less than 3 Seconds Skin: Status post fifth toe amputation bandage in place Musculoskeletal: No Tenderness to Palpation of Joints or Extremities Neurological: Cranial nerves II-XII grossly intact, Motor Exam 5/5 strength t hroughout, Sensory exam intact to light touch and pain Psych/Mental Status: Normal Affect, Appropriate Assessment & Plan Assessment/Plan (1) Atherosclerosis of both lower extremities with rest pain: (2) Gangrene of toe of left foot: (3) Peripheral vascular disease: PLAN: Plan 1. Gangrene of the left toe with rest pain atherosclerosis status post amputation on 01/06/2023/tobacco abuse ? Intervention per primary ?Arterial study read still pending ? A1c is unremarkable, and lipids were normal ? Vascular surgery has been consulted by primary recommending Lipitor as well as aspirin and Plavix ? CTA with runoff shows bilateral SFA occlusions that get recanalized further down with multiple stenoses in the distal SFAs and popliteal arteries with discontinuous flow in the calf arteries and there is no flow in the distal left [employer] ? He does smoke so provided with a 14 mg patch, discussed cessation ?Continue with p.o. Bactrim, renal function is stable ?Stress test is abnormal, will likely need a heart cath. No current changes to medication management he is already on aspirin and Plavix which will need to be continued after his heart cath DVT: Ambulation Charges/Coding Visit Charges Inpatient E&M: 36950 Subs Hosp L2
[2023-01-09 13:21] LABS: Anion Gap 4 (5-15); BUN 16 mg/dL (7-18); BUN/Creat Ratio 14.3 RATIO (10-20); Calcium,Total 9.1 mg/dL (8.5-10.1); Chloride 98 mmol/L (98-107); Creatinine, Serum 1.12 mg/dL (0.70-1.30); EST Glomerular Filtration Rate 72 mL/min (>60); Est Glom Filt Rate - Afr Amer 87 mL/min (>60); Estimated Creatinine Clearance 77.59 ml/min; Glucose 91 mg/dL (74-106); Potassium 3.5 mmol/L (3.5-5.1); Sodium Level 130 mmol/L (136-145)
--- NOTE | 2023-01-09 14:27 | PCM.CONS.C ---
Assessment & Plan Assessment/Plan (1) Abnormal stress test: PLAN: The patient was noted to have an abnormal stress test and was scheduled to undergo a cardiac catheterization. This was performed and demonstrated a subtotally occluded mid left anterior descending artery lesion concurrent with the stress testing. He was recommended to undergo PCI of the above. Postprocedure therapy will be as follows. Aspirin 81 mg daily. High intensity statin with Lipitor 80 mg a day. Toprol XL 50 mg a day. PY12 inhibitor Thank you for allowing me to participate in the care of your patient. Please don't hesitate to call if any issues arise. HPI Consult Data Date of Consult: 01/09/23 HPI Narrative HPI Narrative: ALON MERRITT, is a 57 M who presents to the heart emergency room with pain in his left fifth toe. This has apparently been going on for the last 2 months and was seen at an outside facility and recommended to have an intervention on his left lower extremity secondary to reduced blood flow however he declined and presented to the hospital over the weekend with dry gangrene of his toe. He also admits to cramping of the buttocks and thighs and calf and underwent a CT scan of his abdomen pelvis which demonstrated significant vascular calcification. He underwent amputation of his toe successfully and this morning was scheduled to undergo a pharmacologic stress test which demonstrated evidence of anterior ischemia. Cardiology was called after the report was sent to the physician. He denies any chest pain paroxysmal nocturnal dyspnea or pedal edema. He does have an extensive smoking history. [facility] Medical History Peripheral arterial disease Home Medications naproxen sodium 220 mg capsule (Aleve) 220 mg PO Q6H PRN pain 01/06/23 [History Last Taken 01/06/23] Allergy/AdvReac Type Severity Reaction Status Date / Time No Known Allergies Allergy Verified 01/06/23 08:32 Surgical History no surgical history Social History Smoking Status: Current every day smoker tobacco type: cigarettes ROS Constitutional Constitutional: Denies fever(s) or weight loss Eyes Eyes: Reports systems reviewed and no addt'l complaints, except as documented ENT HEENT: Reports systems reviewed and no addt'l complaints, except as documented Cardiovascular Cardiovascular: Denies chest pain at rest, chest pain with activity, dyspnea at rest, dyspnea on exertion, edema, palpitations or paroxysmal nocturnal dyspnea Respiratory/Chest Respiratory/Chest: Denies dyspnea on exertion, productive cough, shortness of breath at rest or shortness of breath with exertion Gastrointestinal Gastrointestinal: Denies change in bowel habits, nausea, vomiting or weight changes Genitourinary Genitourinary: Denies difficulty urinating Musculoskeletal Musculoskeletal: Reports other Details: Left foot pain ; Denies joint stiffness or muscle weakness Integumentary Integumentary: Denies lesions Neurologic Neurologic: Denies dizziness or syncope Psychiatric Psychiatric: Denies anxiety Endocrine Endocrinology: Denies excessive sweating or fatigue Hematologic/Lymphatic Hematologic/Lymphatic: Denies anemia Allergic/Immunologic Allergic/Immunologic: Denies seasonal rhinorrhea Physical Exam Const alert, oriented x3 and no apparent distress General Appearance: cooperative HEENT hearing grossly normal bilaterally Head and Scalp: atraumatic Eyes EOMs intact bilaterally Neck General: normal visual inspection Chest inspection of chest normal and palpation of chest normal Resp normal respiratory effort Auscultation: clear to auscultation bilaterally Cardio regular rate, regular rhythm, S1 normal heart sound and S2 normal heart sound Jugular Venous Distention: JVD GI normal to inspection, nondistended, normoactive bowel sounds Extremity Extremity Narrative: Left foot toe amputation Peripheral Pulses: Yes pulses 2+ throughout and femoral pulses present Skin no rashes or lesions noted Neuro oriented x3 and CN's II-XII intact bilaterally Psych Appearance: grossly normal and appropriate Risk Stratification Risk Stratification Applicable: No Objective Data Vital Signs: Vital Signs Temp Pulse Resp BP Pulse Ox O2 Del Method 98.3 F 106 H 18 128/94 H 96 Room Air 01/09/23 08:11 01/09/23 08:11 01/09/23 08:11 01/09/23 08:11 01/09/23 08:11 01/09/23 08:13 Oxygen Delivery Method Room Air Weight: 168 lb 3.403 oz Body Mass Index (BMI) 22.1 Intake & Output: Intake and Output for Last 24 Hours 01/07/23 01/08/23 01/09/23 23:59 23:59 23:59 Intake Total 2866 / 3666 2524 / 3024 500 / 500 Balance 2866 / 3666 2524 / 3024 500 / 500 Lab / Micro Data 01/09/23 12:34 01/09/23 12:34 Labs: Laboratory Results - last 24 hr 01/09/23 12:34: WBC 9.9, RBC 3.93 L, Hgb 11.8 L, Hct 35.6 L, MCV 90.6, MCH 30.0, MCHC 33.1, RDW Std Deviation 45.7 H, RDW Coeff of Mario Alberto 13.6, Plt Count 294, MPV 8.2, Immature Gran % (Auto) 0.500, Neut % (Auto) 64.6, Lymph % (Auto) 19.9, [place] % (Auto) 12.8 H, Eos % (Auto) 1.8, Baso % (Auto) 0.4, Absolute Neuts (auto) 6.4, Absolute Lymphs (auto) 1.96, Nucleated RBC % 0, Sodium 130 L, Potassium 3.5, Chloride 98, Carbon Dioxide 28.0, Anion Gap 4 L, BUN 16, Creatinine 1.12, Estim Creat Clear Calc 77.59, Est GFR (MDRD) Af Amer 87, Est GFR (MDRD) Non-Af 72, BUN/Creatinine Ratio 14.3, Glucose 91, Calcium 9.1 Micro: Microbiology 01/06/23 Unknown Bone - Toe Gram Stain - Final 01/06/23 Unknown Bone - Toe Wound Culture - Preliminary Staphylococcus aureus Enterobacter cloacae complex Myroides spp 01/06/23 Unknown Bone - Toe Anaerobic Culture - Preliminary Checking for anaerobes, further studies to follow. Cardiology Labs/Tests 01/09/23 12:34: WBC 9.9, RBC 3.93 L, Hgb 11.8 L, Hct 35.6 L, MCV 90.6, MCH 30.0, MCHC 33.1, Plt Count 294, MPV 8.2, Immature Gran % (Auto) 0.500, Neut % (Auto) 64.6, Lymph % (Auto) 19.9, [place] % (Auto) 12.8 H, Eos % (Auto) 1.8, Baso % (Auto) 0.4, Absolute Neuts (auto) 6.4, Nucleated RBC % 0, Sodium 130 L, Potassium 3.5, Chloride 98, Carbon Dioxide 28.0, Anion Gap 4 L, BUN 16, Creatinine 1.12, Est GFR (MDRD) Af Amer 87, Est GFR (MDRD) Non-Af 72, BUN/Creatinine Ratio 14.3, Glucose 91, Calcium 9.1 Rhythm: EKG: ECHO: Stress Test: Cardiac Cath: PCI: CT Surgery: Holter monitor: EPS: PPM: CXR: Chest CT Scan:
--- NOTE | 2023-01-09 15:31 | CL.I_ITS ---
Patient Name: ALON MERRITT Study Date: 01/09/2023 Performing: Selam Lopez MD Ht: 73 inches 185.42 cm : 1965 Wt: 168.4 lbs 76.3 kg Age: 57 Gender: male BSA: 2 PROCEDURE(S) PERFORMED IC12-(13102/C9600)ELIZA W/WO PTCA, SINGLE CORONARY ARTERY CLINICAL PROFILE AND CO-MORBIDITIES Heart Failure: None CAD Presentations: Other: Abnormal stress test CONCLUSIONS Successful ELIZA to mLAD RECOMMENDATIONS DESCRIPTION OF PROCEDURE The patient arrived to the procedure lab. The risks and benefits of the procedure as well as a full description of our services here and current unavailability of surgical backup were fully explained to the patient and/or their significant other prior to the catheterization. The Timeout was completed, verifying the correct patient and procedure. The patient's procedural site was prepped and draped in the usual fashion. Local anesthetic was given subcutaneously to right radial region with Lidocaine 2% Using a modified Seldinger technique,arterial access was obtained via the right radial artery, a 6Fr sheath was inserted. Right Coronary Artery selective angiography was then performed in multiple views using a 5 Fr. 4.0 [place] catheter. Left Coronary Artery selective angiography was performed in multiple views using a 5 Fr. 4.0 [place] catheter. Left Ventriculography was performed in TURNER projection using a 5 Fr. Pigtail catheter. LV to AO pullback pressures were then recorded.The images were reviewed and options discussed. A decision was then made to proceed with an Intervention, IVUS or other adjunct procedure. xb3 Guide catheter was inserted and engaged into the LCA. bmw Guide wire was advanced to the LAD. whisper Guide wire was advanced to the LAD. Guide wire was inserted as a baron wire emerge 2x15 Balloon catheter was inserted. Balloon catheter was advanced across lesion in the LAD, mid. Angiogram performed pre balloon dilatation. Angiogram performed post balloon dilatation. PTCA balloon inflated at 6 atms for 7 secs. PTCA balloon inflated at 10 atms for 10 secs. PTCA balloon inflated at 8 atms for 10 secs. PTCA balloon inflated at 10 atms for 9 secs. PTCA balloon inflated at 12 atms for 5 secs. PTCA balloon inflated at 12 atms for 2 secs. Angiogram performed post balloon dilatation. yony 2.25x26 Drug Eluting stent was inserted. Drug Eluting stent was advanced across the lesion in the LAD, mid. Angiogram performed pre stent deployment. Angiogram performed post stent deployment. Angiogram performed post stent deployment. The arterial sheath was pulled and a TR Band was applied for hemostasis INTERVENTION INFORMATION LESION SITE: LAD (Mid) Lesion Complexity: High/C, chronic total occlusion: Yes, lesion at bifurcation: Yes, thrombus present: No, lesion length: 26 mm, culprit lesion: Yes, Previously treated lesion: No Pre Stenosis: 99 % Pre intervention CHRISTA flow: 1 PROCEDURE: Drug Eluting Stent with pre dilatation. Post Stenosis: 0 % Post intervention CHRISTA flow: 3 Lesion Devices: Paulino .014 190cm BMW [place] Straight Cordis 6 Fr XB3.0 100cm Guide Catheter Paulino .014 190cm HT Whisper MS Straight Leighton Sci EMERGE MR 2.00x15 BALLOON Medtronic 2.25 x 26 YONY FRONTIER ELIZA COMPLICATIONS No Complications PROCEDURE MEDICATIONS Versed 2 mg IV Fentanyl 50 mcg IV Fentanyl 25 mcg IV Fentanyl 25 mcg IV Oxygen: 2 L/min via nasal cannula Brilinta 180 mg PO @ 01/09/2023 14:42:02 Heparin given IA 01/09/2023 14:09:13 Heparin 4000 unit(s) IV 01/09/2023 14:42:24 Nitro 200 mcg IC 01/09/2023 15:00:55 IV Fluids: .9 NaCl IV started @ 100 ml/hr 01/09/2023 14:42:15 SUMMARY OF HEMODYNAMIC DATA Time AIR REST ECG 13:51:35 AO 117/76 (93) SA 14:15:39 LV 121/-1, 8 14:19:59 LV 118/1, 5 14:20:05 LV 0/4, 0 14:20:54 LV 118/2, 4 14:21:00 LVp 121/0, 3 14:21:04 AOp 126/73 (94) 14:21:09 15:19:26 Signed By Selam Lopez MD On 01/09/2023 15:31:03 Selam Lopez MD
--- NOTE | 2023-01-09 15:43 | CRPHASE1_ITS ---
Patient Communication Patient Information Former Patient:: Phase I PHII Cardiac Rehab Discussed with Patient:: Yes Guide to Cardiac Rehab Given to Patient:: Yes Cardiac Rehab Facility Choice List Given to Patient:: Yes Communication to Cardiac Rehab Sessions:: 36 sessions - 3 days/wk, 12 weeks Cardiac Rehabilitation Info Program Information Cardiac Rehabilitation Program Information: Cardiac Rehab The cardiac rehab team at [facility] consists of highly skilled exercise physiologists, nurses, respiratory therapists and physicians working together with you. Our purpose is to help you have a full recovery and achieve the goals you set for yourself. Over the years many of our patients have returned to activities they assumed they would never do again! We can help restore your confidence and motivation to make lifestyle changes that can have a significant impact on your health and quality of life! We can help answer questions and concerns you may have about exercise, lifestyle, medications, diet, stress and anxiety which are common following a hospitalization. WE monitor ECG and vital signs during exercise and discuss your progress with you and report to your physician(s). Cardiac Rehab is proven to help reduce readmissions, improve functional capacity and lower recurrence of problems with your heart. Our Cardiac Rehab program is Certified by the [place] [employer]io-Vascular and Pulmonary [employer] (AACVPR) and Accredited by the [place] [employer] through our [facility]. You can contact us at . We invite you to call us with your questions or to get started in our program. If you have other questions or concerns be sure to ask your physician/provider during your follow-up visit. WE look forward to seeing you!
--- NOTE | 2023-01-09 15:44 | CRPH1.INSTRU ---
General Education Discussed with Patient CAD and cardiac anatomy and function:: Patient communicates acknowledgment Explanation of diagnoses and procedures:: Patient communicates acknowledgment Sign/Symptoms of NV:: Patient communicates acknowledgment Antiplatelet therapy: Patient communicates acknowledgment Proper use of NTG-SL: Patient communicates acknowledgment Emergency procedures and activation of EMS: Patient communicates acknowledgment Compliance of all prescribed medications: Patient communicates acknowledgment Smoking Risk Factors Patient Nicotine/Smoking Risk Factors Are:: Cigarettes Recommendations Recommendations Include:: Smoking cessation strategies/Smoking packet Response Code Nicotine/Smoking Response Code:: Needs reinforcement Dyslipidemia Recommendations Recommendations Include:: Lipid profile not available Response Code Dyslipidemia Response Code:: Patient communicates acknowledgment Overweight/Obesity Risk Factors Patient Overweight/Obesity Risk Factors Are:: BMI Normal [18-25 & < 65 years old] Hypertension Recommendations Recommendations Include:: Maintain BP <130/85 Response Code Hypertension:: Patient communicates acknowledgment Heart Disease Recommendations Recommendations Include:: Educated family members of their risk and Educated family members of importance of prevention of heart disease Response Code Heart Disease Response Code:: Patient communicates acknowledgment Diabetes Response Code Diabetes:: Not instructed Metabolic Syndrome Risk Factors Patient Metabolic Syndrome Risk Factors Are [3 of 5]:: Hypertension Response Code Metabolic Syndrome Response Code:: Patient communicates acknowledgment Sedentary Recommendations Recommendations Include:: Benefits of regular exercise Response Code Sedentary Response Code:: Patient communicates acknowledgment Stress Recommendations Recommendations Include:: Identification of stressors, and assessment of coping skills and Stress management techniques Response Code Stress Response Code:: Patient communicates acknowledgment
--- NOTE | 2023-01-09 15:46 | CRPHASE1_ITS ---
Patient Communication Patient Information Former Patient:: Phase I PHII Cardiac Rehab Discussed with Patient:: Yes Guide to Cardiac Rehab Given to Patient:: Yes Cardiac Rehab Facility Choice List Given to Patient:: Yes Communication to Cardiac Rehab Choice Program [facility] CR PHII:: Communication Given to CR Grading Clerk:: Julian Lopez Phase II Cardiac Rehab:: Yes Sessions:: 36 sessions - 3 days/wk, 12 weeks Cardiac Rehabilitation Info Program Information Cardiac Rehabilitation Program Information: Cardiac Rehab The cardiac rehab team at [facility] consists of highly skilled exercise physiologists, nurses, respiratory therapists and physicians working together with you. Our purpose is to help you have a full recovery and achieve the goals you set for yourself. Over the years many of our patients have returned to activities they assumed they would never do again! We can help restore your confidence and motivation to make lifestyle changes that can have a significant impact on your health and quality of life! We can help answer questions and concerns you may have about exercise, lifestyle, medications, diet, stress and anxiety which are common following a hospitalization. WE monitor ECG and vital signs during exercise and discuss your progress with you and report to your physician(s). Cardiac Rehab is proven to help reduce readmissions, improve functional capacity and lower recurrence of problems with your heart. Our Cardiac Rehab program is Certified by the [place] [employer] of Cardio-Vascular and Pulmonary Rehabilitation (AACVPR) and Accredited by the [place] [employer] through our [facility]. You can contact us at . We invite you to call us with your questions or to get started in our program. If you have other questions or concerns be sure to ask your physician/provider during your follow-up visit. WE look forward to seeing you!
[2023-01-09] MEDS: 0.9% Normal Saline (1000mL) 1,000 ML 70 ML IV (16:00)
[2023-01-09] MEDS: Acetaminophen 325 MG Tablet 650 MG PO ×2 (16:00→20:41)
--- NOTE | 2023-01-09 16:04 | EKG12_ITS ---
Test Reason : POST PCI Blood Pressure : / mmHG Vent. Rate : 100 BPM Atrial Rate : 100 BPM P-R Int : 146 ms QRS Dur : 086 ms QT Int : 358 ms P-R-T Axes : 078 051 046 degrees QTc Int : 461 ms Normal sinus rhythm Normal ECG No previous ECGs available Confirmed by GUZMAN SHELLEY, ARABELLA ([id number]), tape editor MIRANDA DUKES ([id number]) on 01/11/2023 6:34:10 AM Referred By: TONY Confirmed By:ARABELLA HINDS MD
--- NOTE | 2023-01-09 16:44 | CHAPLAIN ---
Type of Pastoral Visit ___ Initial Visit ___ Follow-up Visit ___ On-call Visit ___ General Patient Visit ___ Spiritual Assessment ___ Family Conference ___ Bereavement ___ Rapid Response ___ Code Blue _x__ Other (describe below) Pastoral Care Referral From _x__ Patient ___ Family ___ Nurse ___ Physician ___ Paver Installer ___ Dope Worker ___ Other (describe below) Sacrament/Intervention ___ Active listening ___ Anointing ___ Religious ___ Bereavement ___ Communion ___ Patricia exploration ___ ___ Life review ___ Prayer ___ Reconciliation ___ Sacrament of Sick ___ Supportive presence ___ Wedding ___ Other (describe below) Pastoral Comments patient was [place] [facility] so a calling card was left
[2023-01-09] MEDS: Metoprolol(XL)Succ 50 MG Tablet PO (17:05)
[2023-01-09] MEDS: amLODIPine 5 MG Tablet PO (17:06)
[2023-01-09] MEDS: Juven (unflavored) Packet 1 PACKET PO (17:06)
[2023-01-09] MEDS: TICAGRELOR 90 MG TABLET PO (20:41)
[2023-01-09] MEDS: Gabapentin 100 MG Capsule 200 MG PO (20:41)
[2023-01-09] MEDS: Atorvastatin Calcium 80 MG Tablet PO (20:41)
[2023-01-10 02:00] VITALS: BP 138/90; PULSE 97; RESP 21; TEMP 37; O2SAT 99
[2023-01-10] MEDS: oxyCODONE 5 MG Tablet PO ×2 (02:48→10:12)
[2023-01-10 03:12] LABS: Hematocrit 38.6 % (40-54); Hemoglobin 12.7 g/dL (13.0-16.5); Mean Corp Hgb Conc 32.9 g/dL (32-36); Mean Corpuscular Hgb 30.2 pg (27.0-32.0); Mean Corpuscular Volume 91.9 fL (80-94); Mean Platelet Vol. 8.6 fl (6.2-12.0); Platelet Count 331 K/mm3 (150-450); RBC Distribution Width CV 13.5 % (11.6-14.6); RBC Distribution Width SD 45.7 fl (35.1-43.9); White Blood Count 11.7 K/mm3 (4.4-11.0)
[2023-01-10 04:10] LABS: ALB/GLOB Ratio 0.7 RATIO (0.9-2.4); AST(SGOT) 47 U/L (15-37); Alanine Aminotransfer ALT/SGPT 23 U/L (16-61); Albumin, Serum 3.4 g/dL (3.2-5.0); Alkaline Phosphatase 91 U/L (45-117); Anion Gap 6 (5-15); BUN 14 mg/dL (7-18); BUN/Creat Ratio 13.2 RATIO (10-20); Calcium,Total 9.5 mg/dL (8.5-10.1); Chloride 101 mmol/L (98-107); Creatinine, Serum 1.06 mg/dL (0.70-1.30); EST Glomerular Filtration Rate 76 mL/min (>60); Est Glom Filt Rate - Afr Amer 92 mL/min (>60); Estimated Creatinine Clearance 81.98 ml/min; Globulin 4.6 g/dL (2.2-4.2); Glucose 101 mg/dL (74-106); Potassium 3.6 mmol/L (3.5-5.1); Sodium Level 132 mmol/L (136-145)
[2023-01-10] MEDS: Gabapentin 100 MG Capsule 200 MG PO ×2 (05:41→14:55)
[2023-01-10] MEDS: Acetaminophen 325 MG Tablet 650 MG PO ×2 (05:41→14:55)
--- NOTE | 2023-01-10 07:27 | PCM.PN.SRG ---
Subjective Subjective Mr. Medina is a 57-year-old male seen at bedside today in the ICU for dressing change to left lower extremity. Patient is status post incision of bone cortex with advancement flap. Patient underwent a cardiac stress test yesterday which resulted in abnormal findings. There was evidently subtotal occluded mid left anterior descending artery. Patient underwent PCI with Dr. Spencer. Patient is recovering well. He is denying any chest pain at this time. He does admit to some pain to left lower extremity especially with a raise position. His relief in pain is when his left foot is in a dependent position. He is still being worked up by the vascular team. He denies any trauma. Denies constitutional symptoms. No other pedal complaints at this time. Objective Data Objective Data Vital Signs: Vital Signs Temp Pulse Resp BP Pulse Ox O2 Del Method 98.6 F 97 21 H 138/90 H 99 Room Air 01/10/23 02:00 01/10/23 02:00 01/10/23 02:00 01/10/23 02:00 01/10/23 02:00 01/10/23 04:00 Oxygen Delivery Method Room Air Weight: 76.3 kg Body Mass Index (BMI) 22.1 Intake & Output: Intake and Output for Last 24 Hours 01/08/23 01/09/23 01/10/23 23:59 23:59 23:59 Intake Total 2524 / 3024 500 / 500 1000 / 1000 Balance 2524 / 3024 500 / 500 1000 / 1000 Lab / Micro Data Attestation: I reviewed the patient's lab results. 01/10/23 03:00 01/10/23 03:00 Labs: Laboratory Results - last 24 hr 01/09/23 12:34: WBC 9.9, RBC 3.93 L, Hgb 11.8 L, Hct 35.6 L, MCV 90.6, MCH 30.0, MCHC 33.1, RDW Std Deviation 45.7 H, RDW Coeff of Mario Alberto 13.6, Plt Count 294, MPV 8.2, Immature Gran % (Auto) 0.500, Neut % (Auto) 64.6, Lymph % (Auto) 19.9, Glenn % (Auto) 12.8 H, Eos % (Auto) 1.8, Baso % (Auto) 0.4, Absolute Neuts (auto) 6.4, Absolute Lymphs (auto) 1.96, Nucleated RBC % 0, Sodium 130 L, Potassium 3.5, Chloride 98, Carbon Dioxide 28.0, Anion Gap 4 L, BUN 16, Creatinine 1.12, Estim Creat Clear Calc 77.59, Est GFR (MDRD) Af Amer 87, Est GFR (MDRD) Non-Af 72, BUN/Creatinine Ratio 14.3, Glucose 91, Calcium 9.1 01/10/23 03:00: WBC 11.7 H, RBC 4.20 L, Hgb 12.7 L, Hct 38.6 L, MCV 91.9, MCH 30.2, MCHC 32.9, RDW Std Deviation 45.7 H, RDW Coeff of Mario Alberto 13.5, Plt Count 331, MPV 8.6, Sodium 132 L, Potassium 3.6, Chloride 101, Carbon Dioxide 25.0, Anion Gap 6, BUN 14, Creatinine 1.06, Estim Creat Clear Calc 81.98, Est GFR (MDRD) Af Amer 92, Est GFR (MDRD) Non-Af 76, BUN/Creatinine Ratio 13.2, Glucose 101, Calcium 9.5, Total Bilirubin 0.50, AST 47 H, ALT 23, Alkaline Phosphatase 91, Total Protein 8.0, Albumin 3.4, Globulin 4.6 H, Albumin/Globulin Ratio 0.7 L Micro: Microbiology 01/06/23 Unknown Bone - Toe Gram Stain - Final 01/06/23 Unknown Bone - Toe Wound Culture - Preliminary Staphylococcus aureus Enterobacter cloacae complex Myroides spp 01/06/23 Unknown Bone - Toe Anaerobic Culture - Preliminary Checking for anaerobes, further studies to follow. Physical Exam Narrative Neurovascular status is unchanged. Evidence of nonpitting edema appreciated to left lower extremity. Evidence of partial-thickness ulceration to the dorsal aspect of the left foot stable with no sign of infection. Incision is well coapted with suture. Evidence of distal sanguinous crust appreciated to the incision. No evidence of surgical wound dehiscence drainage erythema or sign of infection to the left foot. No pain with calf compression. Assessment & Plan Assessment/Plan (1) Gangrene of toe of left foot: PLAN: Patient examined and evaluated . All findings were discussed with the patient. All questions were answered to the patient's satisfaction. Left lower extremity dressed with Betadine soaked Adaptic, dry sterile dressing and a single layer light Larson compression bandage. Educated with the patient continue to quit smoking and smoking sensation. 14 mg nicotine patch provided. Continue oral Bactrim DS for 2 weeks WBC: 8.0 -> 9.9 -> 11.7 Medicine: On board, medical management Vascular: On board, still working up for intervention. Cardiology: On board, status post PCI PVRs: TBI Right-0.36, Left-0.00 / RONI: Right-0.46, Left-0.13 Sx Cx (Bone): S aureus, E cloacae, Myroides spp Pathology: pending Please reach out to Dr. Sandhu with any questions or concerns. (2) Coronary artery disease: PLAN: Patient had abnormal stress test and was scheduled to undergo cardiac catheterization. Catheterization demonstrated subtotal occluded mid left anterior descending artery lesion concurrent with the stress test. Patient was stented. Post procedure therapy will be as follows per cardiology: Aspirin 81 mg daily. High intensity statin with Lipitor 80 mg a day. Toprol XL 50 mg a day. PY12 inhibitor (3) Peripheral vascular disease: (4) Atherosclerosis of left lower extremity with gangrene: QUALIFIERS: Peripheral atherosclerosis artery type: [place] artery Qualified Code(s): I70.262 - Atherosclerosis of [place] arteries of extremities with gangrene, left leg (5) Abnormal stress test:
--- NOTE | 2023-01-10 07:56 | PN.HOSP_ITS ---
Reason for Visit Reason for Visit: Diagnoses Atherosclerotic heart disease of [place] coronary artery without angina pectoris (01/06/23) Atherosclerosis of [place] arteries of extremities with rest pain, bilateral legs (01/06/23) Atherosclerosis of [place] arteries of extremities with gangrene, left leg (01/06/23) Peripheral vascular disease, unspecified (01/06/23) Gangrene, not elsewhere classified (01/06/23) Abnormal result of other cardiovascular function study (01/06/23) Subjective Subjective 57-year-old gentleman admitted with dry gangrene involving the left fifth toe underwent a nuclear stress test which was found to be abnormal and subsequently underwent left heart catheterization with intervention Objective Data Objective Data Vital Signs: Vital Signs Temp Pulse Resp BP Pulse Ox O2 Del Method 98.6 F 97 21 H 138/90 H 99 Room Air 01/10/23 02:00 01/10/23 02:00 01/10/23 02:00 01/10/23 02:00 01/10/23 02:00 01/10/23 04:00 Oxygen Delivery Method Room Air Weight: 76.3 kg Body Mass Index (BMI) 22.1 Intake & Output: Intake and Output for Last 24 Hours 01/08/23 01/09/23 01/10/23 23:59 23:59 23:59 Intake Total 2524 / 3024 500 / 500 1000 / 1000 Balance 2524 / 3024 500 / 500 1000 / 1000 Lab / Micro Data 01/10/23 03:00 01/10/23 03:00 Labs: Laboratory Results - last 24 hr 01/09/23 12:34: WBC 9.9, RBC 3.93 L, Hgb 11.8 L, Hct 35.6 L, MCV 90.6, MCH 30.0, MCHC 33.1, RDW Std Deviation 45.7 H, RDW Coeff of Mario Alberto 13.6, Plt Count 294, MPV 8.2, Immature Gran % (Auto) 0.500, Neut % (Auto) 64.6, Lymph % (Auto) 19.9, [place] % (Auto) 12.8 H, Eos % (Auto) 1.8, Baso % (Auto) 0.4, Absolute Neuts (auto) 6.4, Absolute Lymphs (auto) 1.96, Nucleated RBC % 0, Sodium 130 L, Potassium 3.5, Chloride 98, Carbon Dioxide 28.0, Anion Gap 4 L, BUN 16, Creatinine 1.12, Estim Creat Clear Calc 77.59, Est GFR (MDRD) Af Amer 87, Est GFR (MDRD) Non-Af 72, BUN/Creatinine Ratio 14.3, Glucose 91, Calcium 9.1 01/10/23 03:00: WBC 11.7 H, RBC 4.20 L, Hgb 12.7 L, Hct 38.6 L, MCV 91.9, MCH 30.2, MCHC 32.9, RDW Std Deviation 45.7 H, RDW Coeff of Mario Alberto 13.5, Plt Count 331, MPV 8.6, Sodium 132 L, Potassium 3.6, Chloride 101, Carbon Dioxide 25.0, Anion Gap 6, BUN 14, Creatinine 1.06, Estim Creat Clear Calc 81.98, Est GFR (MDRD) Af Amer 92, Est GFR (MDRD) Non-Af 76, BUN/Creatinine Ratio 13.2, Glucose 101, Calcium 9.5, Total Bilirubin 0.50, AST 47 H, ALT 23, Alkaline Phosphatase 91, Total Protein 8.0, Albumin 3.4, Globulin 4.6 H, Albumin/Globulin Ratio 0.7 L Micro: Microbiology 01/06/23 Unknown Bone - Toe Gram Stain - Final 01/06/23 Unknown Bone - Toe Wound Culture - Final Staphylococcus aureus Enterobacter cloacae complex Myroides spp 01/06/23 Unknown Bone - Toe Anaerobic Culture - Preliminary Checking for anaerobes, further studies to follow. Physical Exam Narrative GENERAL: cooperative HEENT: Atraumatic; normocephalic EYES; Anicteric, Normal Conjunctiva NECK; supple, normal thyroid, RESPIRATORY: Diminished to auscultation CARDIOVASCULAR: Regular S1 S2, GI: soft, normoactive bowel sounds, : No Renal angle tenderness; EXTREMITIES: Left foot in surgical dressing MUSCULOSKELETAL: no muscle wasting NEURO: Awake; no lateralizing signs. SKIN: No Rash PSYCH; Flat affect Assessment & Plan Assessment/Plan (1) Atherosclerosis of both lower extremities with rest pain: (2) Gangrene of toe of left foot: (3) Peripheral vascular disease: PLAN: Plan 57-year-old gentleman admitted with dry gangrene involving the left fifth toe underwent a nuclear stress test which was found to be abnormal and subsequently underwent left heart catheterization with intervention 1. Coronary artery disease ? Patient underwent nuclear stress test which was found to be abnormal and subsequently underwent left heart cath which demonstrated a subtotally occluded mid left anterior descending artery lesion. He underwent PCI with stent placed. Subsequently placed on guideline directed medical therapy 2. Dry gangrene, fifth digit, left foot -Status post patient of the dry gangrene fifth digit left foot on 01/07/2020. Cultures reviewed patient remains on Bactrim we will recommend ID consultation 3. Peripheral vascular disease ? Currently on antiplatelet therapy. Vascular surgery on consult 4. Tobacco dependence - Counseled on cessation, offered nicotine patch for tobacco cravings 5. DVT prophylaxis ? ND Lovenox Time spent in the patient's overall evaluation,decision-making process, review of diagnostic data, adjustment of management, discussion with other providers, nursing nursing and ancillary staff involved in patient's care documentation, 50 Minutes Charges/Coding Visit Charges Inpatient E&M: [id number] [facility] Hosp L3
--- NOTE | 2023-01-10 08:46 | WOUNDNOTE ---
wound photo: left foot
--- NOTE | 2023-01-10 08:47 | WOUNDNOTE ---
wound photo: left lower leg
--- NOTE | 2023-01-10 08:57 | PCM.PN.CARD ---
Subjective Subjective Patient seen and evaluated. Appears to be doing well. No cardiac complaints. Objective Data Vital Signs: Vital Signs Temp Pulse Resp BP Pulse Ox O2 Del Method 98.6 F 97 21 H 138/90 H 99 Room Air 01/10/23 02:00 01/10/23 02:00 01/10/23 02:00 01/10/23 02:00 01/10/23 02:00 01/10/23 04:00 Oxygen Delivery Method Room Air Weight: 168 lb 3.403 oz Body Mass Index (BMI) 22.1 Intake & Output: Intake and Output for Last 24 Hours 01/08/23 01/09/23 01/10/23 23:59 23:59 23:59 Intake Total 2524 / 3024 500 / 500 1000 / 1000 Balance 2524 / 3024 500 / 500 1000 / 1000 Lab / Micro Data 01/10/23 03:00 01/10/23 03:00 Labs: Laboratory Results - last 24 hr 01/09/23 12:34: WBC 9.9, RBC 3.93 L, Hgb 11.8 L, Hct 35.6 L, MCV 90.6, MCH 30.0, MCHC 33.1, RDW Std Deviation 45.7 H, RDW Coeff of Mario Alberto 13.6, Plt Count 294, MPV 8.2, Immature Gran % (Auto) 0.500, Neut % (Auto) 64.6, Lymph % (Auto) 19.9, [place] % (Auto) 12.8 H, Eos % (Auto) 1.8, Baso % (Auto) 0.4, Absolute Neuts (auto) 6.4, Absolute Lymphs (auto) 1.96, Nucleated RBC % 0, Sodium 130 L, Potassium 3.5, Chloride 98, Carbon Dioxide 28.0, Anion Gap 4 L, BUN 16, Creatinine 1.12, Estim Creat Clear Calc 77.59, Est GFR (MDRD) Af Amer 87, Est GFR (MDRD) Non-Af 72, BUN/Creatinine Ratio 14.3, Glucose 91, Calcium 9.1 01/10/23 03:00: WBC 11.7 H, RBC 4.20 L, Hgb 12.7 L, Hct 38.6 L, MCV 91.9, MCH 30.2, MCHC 32.9, RDW Std Deviation 45.7 H, RDW Coeff of Mario Alberto 13.5, Plt Count 331, MPV 8.6, Sodium 132 L, Potassium 3.6, Chloride 101, Carbon Dioxide 25.0, Anion Gap 6, BUN 14, Creatinine 1.06, Estim Creat Clear Calc 81.98, Est GFR (MDRD) Af Amer 92, Est GFR (MDRD) Non-Af 76, BUN/Creatinine Ratio 13.2, Glucose 101, Calcium 9.5, Total Bilirubin 0.50, AST 47 H, ALT 23, Alkaline Phosphatase 91, Total Protein 8.0, Albumin 3.4, Globulin 4.6 H, Albumin/Globulin Ratio 0.7 L Micro: Microbiology 01/06/23 Unknown Bone - Toe Gram Stain - Final 01/06/23 Unknown Bone - Toe Wound Culture - Final Staphylococcus aureus Enterobacter cloacae complex Myroides spp 01/06/23 Unknown Bone - Toe Anaerobic Culture - Preliminary Checking for anaerobes, further studies to follow. Cardiology Labs/Tests 01/09/23 12:34: WBC 9.9, RBC 3.93 L, Hgb 11.8 L, Hct 35.6 L, MCV 90.6, MCH 30.0, MCHC 33.1, Plt Count 294, MPV 8.2, Immature Gran % (Auto) 0.500, Neut % (Auto) 64.6, Lymph % (Auto) 19.9, [place] % (Auto) 12.8 H, Eos % (Auto) 1.8, Baso % (Auto) 0.4, Absolute Neuts (auto) 6.4, Nucleated RBC % 0, Sodium 130 L, Potassium 3.5, Chloride 98, Carbon Dioxide 28.0, Anion Gap 4 L, BUN 16, Creatinine 1.12, Est GFR (MDRD) Af Amer 87, Est GFR (MDRD) Non-Af 72, BUN/Creatinine Ratio 14.3, Glucose 91, Calcium 9.1 01/10/23 03:00: WBC 11.7 H, RBC 4.20 L, Hgb 12.7 L, Hct 38.6 L, MCV 91.9, MCH 30.2, MCHC 32.9, Plt Count 331, MPV 8.6, Sodium 132 L, Potassium 3.6, Chloride 101, Carbon Dioxide 25.0, Anion Gap 6, BUN 14, Creatinine 1.06, Est GFR (MDRD) Af Amer 92, Est GFR (MDRD) Non-Af 76, BUN/Creatinine Ratio 13.2, Glucose 101, Calcium 9.5, Total Bilirubin 0.50 Rhythm: EKG: ECHO: Stress Test: Cardiac Cath: PCI: CT Surgery: Holter monitor: EPS: PPM: CXR: Chest CT Scan: Physical Exam Const alert, oriented x3 and no apparent distress General Appearance: cooperative HEENT hearing grossly normal bilaterally Head and Scalp: atraumatic Eyes EOMs intact bilaterally Neck General: normal visual inspection Chest inspection of chest normal and palpation of chest normal Resp normal respiratory effort Auscultation: clear to auscultation bilaterally Cardio regular rate, regular rhythm, S1 normal heart sound and S2 normal heart sound Jugular Venous Distention: JVD GI normal to inspection, nondistended, normoactive bowel sounds Extremity normal capillary refill and no pedal edema Peripheral Pulses: Yes pulses 2+ throughout and femoral pulses present Skin no rashes or lesions noted Neuro oriented x3 and CN's II-XII intact bilaterally Psych Appearance: grossly normal and appropriate Assessment & Plan Assessment/Plan (1) Abnormal stress test: PLAN: The patient was noted to have an abnormal stress test and was scheduled to undergo a cardiac catheterization. This was performed and demonstrated a subtotally occluded mid left anterior descending artery lesion concurrent with the stress testing. He was recommended to undergo PCI of the above. This was successful and this morning he feels well. Postprocedure therapy will be as follows. Aspirin 81 mg daily. High intensity statin with Lipitor 80 mg a day. Toprol XL 50 mg a day. PY12 inhibitor Thank you for allowing me to participate in the care of your patient. Please don't hesitate to call if any issues arise. (2) HTN (hypertension), benign: PLAN: His blood pressure appears to be under better control at this time. The plan will be to continue him on the current medical therapy.
--- NOTE | 2023-01-10 10:00 | EKG12_ITS ---
Test Reason : AM EKG Blood Pressure : / mmHG Vent. Rate : 094 BPM Atrial Rate : 094 BPM P-R Int : 118 ms QRS Dur : 082 ms QT Int : 370 ms P-R-T Axes : 000 086 130 degrees QTc Int : 462 ms Poor data quality, interpretation may be adversely affected Normal sinus rhythm with sinus arrhythmia Low voltage QRS Cannot rule out Inferior infarct , age undetermined Cannot rule out Anterior infarct , age undetermined Abnormal ECG When compared with ECG of 09-JAN-2023 15:54, Nonspecific T wave abnormality now evident in Lateral leads Confirmed by TONY SHELLEY, MIREILLE ([id number]), staff editor ZORAIDA GARCIA ([id number]) on 01/23/2023 11:09:57 AM Referred By: Richard Valle Confirmed By:JULISA JIMENEZ MD
[2023-01-10] MEDS: Cilostazol 50 MG Tablet PO ×2 (10:13→16:22)
[2023-01-10] MEDS: TICAGRELOR 90 MG TABLET PO (10:13)
[2023-01-10] MEDS: Aspirin 81 MG TAB.CHEW PO (10:14)
[2023-01-10] MEDS: Juven (unflavored) Packet 1 PACKET PO (10:14)
[2023-01-10] MEDS: Smz/Tmp Ds Tablet 1 TABLET PO (10:15)
[2023-01-10 10:16] VITALS: BP 138/90; PULSE 96
[2023-01-10] MEDS: Metoprolol(XL)Succ 50 MG Tablet PO (10:16)
[2023-01-10] MEDS: amLODIPine 5 MG Tablet PO (10:18)
[2023-01-10] MEDS: Enoxaparin 40 MG/0.4 ML Syringe SC (10:19)
[2023-01-10 10:26] VITALS: BP 138/90; PULSE 99; RESP 20; TEMP 36.3; O2SAT 94
--- NOTE | 2023-01-10 15:09 | CHAPLAIN ---
Type of Pastoral Visit _x__ Initial Visit ___ Follow-up Visit ___ On-call Visit ___ General Patient Visit ___ Spiritual Assessment ___ Family Conference ___ Bereavement ___ Rapid Response ___ Code Blue ___ Other (describe below) Pastoral Care Referral From _x__ Patient ___ Family ___ Nurse ___ Physician ___ Horseradish Grinder ___ Laboratory Tech ___ Other (describe below) Sacrament/Intervention _x__ Active listening ___ Anointing ___ Oriental Orthodox ___ Bereavement ___ Communion ___ Patricia exploration ___ ___ Life review ___ Prayer ___ Reconciliation ___ Sacrament of Sick _x__ Supportive presence ___ Wedding ___ Other (describe below) Pastoral Comments introduced self and role to this patient; pt begins by saying how disappointed he is that he is not being able to have his leg treated at this time; SO is also in the room and joins in the conversation; pt says that he can come back to be admitted but definitely wants to come back to this hospital; pt says that RN is checking on the latest information about his situation; pt then asks why he has visit with the [employer] [facility]; pt was not aware that [employer] would be stopping; pt declines spiritual care support; however pt is given time to talk about his discouragement and offered support emotionally; offer of any future support is given
--- NOTE | 2023-01-10 16:00 | CASEMGMT ---
Social Work KAMERON spoke with ELYSSA Garrison. Dr. Valle is not in network with pt's managed care plan. SW met with pt, pt's mother and daughter. Pt's daughter stating she called medicaid and switched pt's plan to [employer] and it will be effective tomorrow and she provided SW with the policy number. KAMERON informed dgt that this policy number is the old [employer] policy number and a new [employer] policy number is needed. Dgt calling Medicaid back to get new policy number. KAMERON called registration and provided information. Registration will look policy up tomorrow to confirm plan has been correctly changed. Pt and dgt updated. Message sent to ELYSSA Garrison and information provided. LORRIE Valadez
--- NOTE | 2023-01-10 16:56 | PCM.DC.SUM ---
Providers Date of Admission: 01/06/23 Date of Discharge: 01/10/23 Primary Care Physician: Dr. Hebert Sandhu, DPM Consultations 01/06/23 13:50 Consult: Onc/Wound/chief electrician Routine Comment: 01/07/23 17:18 Consult: Hospitalist Routine Consulting Provider: Bronson Castillo Reason for Consult: medical management EMERGENT Consult: No MD Notified: Yes Date Notified: 01/06/23 Time Notified: 17:18 Method of Notification: Dr. sandhu to Dr. Castillo 01/10/23 09:50 Consult: Vascular Surgery Routine Consulting Provider: Richard Valle Reason for Consult: abnormal RONI's EMERGENT Consult: No MD Notified: Yes Date Notified: 01/06/23 Time Notified: 15:00 Method of Notification: Verbal Reason For Visit: GANGRENE Diagnosis Discharge Diagnosis (1) Abnormal stress test: Status: Acute Code(s): R94.39 - Abnormal result of other cardiovascular function study (2) HTN (hypertension), benign: Status: Acute Code(s): I10 - Essential (primary) hypertension (3) Atherosclerosis of left lower extremity with gangrene: Status: Acute Code(s): I70.262 - Atherosclerosis of [place] arteries of extremities with gangrene, left leg Qualifiers: Peripheral atherosclerosis artery type: [place] artery Qualified Code(s): I70.262 - Atherosclerosis of [place] arteries of extremities with gangrene, left leg (4) Gangrene of toe of left foot: Status: Acute Code(s): I96 - Gangrene, not elsewhere classified (5) Peripheral vascular disease: Status: Acute Code(s): I73.9 - Peripheral vascular disease, unspecified (6) Coronary artery disease: Status: Acute Code(s): I25.10 - Atherosclerotic heart disease of [place] coronary artery without angina pectoris Medications at Discharge Home Medications amlodipine 5 mg tablet 5 mg PO DAILY #90 tabs 01/10/23 aspirin 81 mg chewable tablet 81 mg PO BREAKFAST #90 tabs 01/10/23 atorvastatin 80 mg tablet 80 mg PO QHS #90 tabs 01/10/23 cilostazol 50 mg tablet 50 mg PO BIDAC #60 tabs 01/10/23 metoprolol succinate 50 mg tablet,extended release 24 hr 50 mg PO DAILY #90 tabs 01/10/23 sulfamethoxazole 800 mg-trimethoprim 160 mg tablet 1 tab PO BID #14 tabs 01/10/23 ticagrelor 90 mg tablet (Brilinta) 90 mg PO BID #180 tabs 01/10/23 Hospital Course Summary of Care Provided Minutes Spent on Discharge: 30 Hospital Course: Adam is a 57-year-old male who was eventually admitted to [facility] after visiting the ED with a chief complaint of dry gangrene to the left fifth toe. At the time of admission the patient had surgery by podiatry, Dr. Sandhu for incision of bone cortex advancement flap of the left foot. Patient was also worked up by the vascular team for peripheral arterial disease. Patient is planned to go under intervention on 01/16/2023. At the time of the patient's admission he underwent cardiac stress test and found occlusion to the LAD of the heart underwent PCI by cardiology and had an eventful recovery. Patient was also seen by the medicine team as well as physical therapy/OT as well as social work discharge planning. Patient will be discharged home given a walker for partial to no weightbearing to left lower extremity. He will follow-up with Dr. Valle for vascular intervention to the left lower extremity. Physical Exam Narrative GENERAL: cooperative HEENT: Atraumatic; normocephalic EYES; Anicteric, Normal Conjunctiva NECK; supple, normal thyroid, RESPIRATORY: Diminished to auscultation CARDIOVASCULAR: Regular S1 S2, GI: soft, normoactive bowel sounds, : No Renal angle tenderness; EXTREMITIES: Left foot in surgical dressing MUSCULOSKELETAL: no muscle wasting NEURO: Awake; no lateralizing signs. SKIN: No Rash PSYCH; Flat affect LLE: Neurovascular status is unchanged. Evidence of nonpitting edema appreciated to left lower extremity. Evidence of partial-thickness ulceration to the dorsal aspect of the left foot stable with no sign of infection. Incision is well coapted with suture. Evidence of distal sanguinous crust appreciated to the incision. No evidence of surgical wound dehiscence drainage erythema or sign of infection to the left foot. No pain with calf compression. Weight / BMI Weight Weight: 76.3 kg Body Mass Index (BMI) 22.1 ABG / Lab / Microbiology Data 01/10/23 03:00 01/10/23 03:00 Laboratory: Laboratory Results - last 24 hr 01/10/23 03:00: WBC 11.7 H, RBC 4.20 L, Hgb 12.7 L, Hct 38.6 L, MCV 91.9, MCH 30.2, MCHC 32.9, RDW Std Deviation 45.7 H, RDW Coeff of Mario Alberto 13.5, Plt Count 331, MPV 8.6, Sodium 132 L, Potassium 3.6, Chloride 101, Carbon Dioxide 25.0, Anion Gap 6, BUN 14, Creatinine 1.06, Estim Creat Clear Calc 81.98, Est GFR (MDRD) Af Amer 92, Est GFR (MDRD) Non-Af 76, BUN/Creatinine Ratio 13.2, Glucose 101, Calcium 9.5, Total Bilirubin 0.50, AST 47 H, ALT 23, Alkaline Phosphatase 91, Total Protein 8.0, Albumin 3.4, Globulin 4.6 H, Albumin/Globulin Ratio 0.7 L Microbiology: Microbiology 01/06/23 Unknown Bone - Toe Gram Stain - Final 01/06/23 Unknown Bone - Toe Wound Culture - Final Staphylococcus aureus Enterobacter cloacae complex Myroides spp 01/06/23 Unknown Bone - Toe Anaerobic Culture - Preliminary Checking for anaerobes, further studies to follow. D/C Instructions Discharge Diet: No restrictions Discharge Activity: May Not Shower and Use Walker May resume sexual activity in: No Restrictions Weight Bearing Status: Partial weight bearing Keep extremity elevated above heart level: Operative Extremity Call your doctor if your incision/area has: Sudden Increased Bleeding, Increased Pain/ Swelling and Foul Smelling Discharge Call your doctor if you observe: Fever of 101 or Higher, Numbness or Tingling, Change in Color, Chest pain and Calf discomfort Suture Line Care: Avoid Pulling/Pushing and Avoid Pinching/Bending Change Dressing in: do not change dressing Remove Dressing in: do not remove dressing Cleanse incision/area with: Keep Dressing Clean & Dry Please Follow Up With: Hebert Sandhu DPM When: 1 Week post discharge Meaningful Use Info Meaningful Use Diagnoses (Choose all that apply): None applicable Discharge Plan Admission Admit Date/Time: 01/06/23 10:36 Attending Provider: Amor Beaver Primary Care Provider: Hebert Sandhu Consulting Providers: Bronson Castillo; Hebert Sandhu; Richard Valle Instructions Additional Instructions / Restrictions: 1. Keep left lower extremity dressing clean dry and intact do not remove. 2. No weightbearing to the forefoot of the left foot. Partial weightbearing to left heel with walker 3. Office of Dr. Sandhu for follow-up 1 week postdischarge. 4. Follow-up with vascular surgery for intervention, 01/16/23 Discharge Orders/Prescriptions Prescriptions: New atorvastatin 80 mg Tablet 80 mg PO QHS Qty: 90 0RF cilostazol 50 mg Tablet 50 mg PO BIDAC Qty: 60 0RF metoprolol succinate 50 mg Tablet Extended Release 24 Hr 50 mg PO DAILY Qty: 90 0RF amlodipine 5 mg Tablet 5 mg PO DAILY Qty: 90 0RF sulfamethoxazole-trimethoprim 800-160 mg Tablet 1 tab PO BID Qty: 14 0RF aspirin 81 mg Tablet,Chewable 81 mg PO BREAKFAST Qty: 90 0RF Brilinta 90 mg Tablet 90 mg PO BID Qty: 180 0RF Discontinued naproxen sodium [Aleve] 220 mg capsule 220 mg PO Q6H PRN (Reason: pain) Referrals / Follow Up: Richard Valle MD [Med Staff - Active Staff] - (Call the office of Dr. Valle to schedule outpatient intervention for 01/16/2023) Hebert Sandhu DPM [Primary Care Provider] - (The office of Dr. Sandhu 1 week postdischarge for appointment time) Care Physician,No Primary [Non-Staff] - Disposition Discharge Orders: Discharge Patient (Routine); Ordered 01/10/23 Ordered By: Dr. Hebert Sandhu
[2023-01-10 17:20] VITALS: BP 133/85; PULSE 93; RESP 16; TEMP 36.7; O2SAT 95
--- NOTE | 2023-01-11 09:09 | CL.D_ITS ---
Patient Name: ALON MERRITT Study Date: 01/09/2023 Performing: Raul Spencer MD Ht: 73 inches 185.42 cm : 1965 Wt: 168.4 lbs 76.3 kg Age: 57 Gender: male BSA: 2 PROCEDURE(S) PERFORMED DC01-(05810)LHC/COR/LV IC12-(54403/C9600)ELIZA W/WO PTCA, SINGLE CORONARY ARTERY CLINICAL PROFILE AND INDICATIONS Heart Failure: None CAD Presentations: Other: Abnormal stress test CONCLUSIONS Subtotally occluded left anterior descending artery and minimal disease in the other vessels with preserved ejection fraction RECOMMENDATIONS Referred for immediate PCI DESCRIPTION OF PROCEDURE The patient arrived to the procedure lab. The risks and benefits of the procedure as well as a full description of our services here and current unavailability of surgical backup were fully explained to the patient and/or their significant other prior to the catheterization. The Timeout was completed, verifying the correct patient and procedure. The patient's procedural site was prepped and draped in the usual fashion. Local anesthetic was given subcutaneously to right radial region with Lidocaine 2%. Using a modified Seldinger technique, arterial access was obtained via the right radial artery, a 6Fr sheath was inserted. Right Coronary Artery selective angiography was then performed in multiple views using a 5 Fr. 4.0 [place] catheter. Left Coronary Artery selective angiography was performed in multiple views using a 5 Fr. 4.0 [place] catheter. Left Ventriculography was performed in TURNER projection using a 5 Fr. [place] catheter. LV to AO pullback pressures were then recorded.The arterial sheath was pulled and a TR Band was applied for hemostasis CORONARY ANGIOGRAPHY DOMINANCE: Right Dominant LEFT HEART ASSESSMENT Left Ventricular Ejection Fraction: by LV Gram 55 % Normal Left Ventricular systolic function LEFT MAIN: Mild calcification, No significant disease noted LEFT ANTERIOR DESCENDING ARTERY: The mid left anterior descending artery is subtotally occluded with distal collaterals noted CIRCUMFLEX ARTERY: Mild luminal irregularities RIGHT CORONARY ARTERY: Mild luminal irregularities COMPLICATIONS No Complications PROCEDURE MEDICATIONS Versed 2 mg IV Fentanyl 50 mcg IV Fentanyl 25 mcg IV Fentanyl 25 mcg IV Oxygen: 2 L/min via nasal cannula Brilinta 180 mg PO @ 01/09/2023 14:42:02 Heparin given IA 01/09/2023 14:09:13 Heparin 4000 unit(s) IV 01/09/2023 14:42:24 Nitro 200 mcg IC 01/09/2023 15:00:55 IV Fluids: .9 NaCl IV started @ 100 ml/hr 01/09/2023 14:42:15 SUMMARY OF HEMODYNAMIC DATA Time AIR REST ECG 13:51:35 AO 117/76 (93) SA 14:15:39 LV 121/-1, 8 14:19:59 LV 118/1, 5 14:20:05 LV 0/4, 0 14:20:54 LV 118/2, 4 14:21:00 LVp 121/0, 3 14:21:04 AOp 126/73 (94) 14:21:09 AIR REST 15:19:26 Signed By Raul Spencer MD On 01/11/2023 09:08:02 Raul Spencer MD
--- NOTE | 2023-01-11 11:06 | CASEMGMT ---
Social Work SW received message from [employer] with [facility] [employer]. Uegenia states pt has been approved with [facility] and account will be activated within the next 24 hours. Return number for [employer] is [phone]. ELYSSA Alvares with LORRIE Mathews
== END 2023-01-10 17:15 | disposition home or self-care (01) | DRG 175 ==
LOC: ED 10:39 → MS3 12:06 → ICU 01-10 07:18
PROVIDERS: Physician Assistant; Specialist; Admitting Provider Family Medicine; Emergency Provider Emergency Medicine; PCP Podiatrist Foot & Ankle Surgery; Visit Provider Internal Medicine
PROC: 0Y6Y0Z0 Detachment at Left 5th Toe, Complete, Open Approach (ICD-10-PCS; principal; 2023-01-06 14:20)
DX: I70.262 Atherosclerosis of native arteries of extremities with gangrene, left leg (principal); I51.3 Intracardiac thrombosis, not elsewhere classified; L97.229 Non-pressure chronic ulcer of left calf with unspecified severity; L97.529 Non-pressure chronic ulcer of other part of left foot with unspecified severity; I10 Essential (primary) hypertension; F17.210 Nicotine dependence, cigarettes, uncomplicated; I25.10 Atherosclerotic heart disease of native coronary artery without angina pectoris; Z79.82 Long term (current) use of aspirin; Z79.02 Long term (current) use of antithrombotics/antiplatelets; Z79.899 Other long term (current) drug therapy; Z23 Encounter for immunization; R94.39 Abnormal result of other cardiovascular function study
CPT/HCPCS: 36415; 73630; 75635; 78452; 80048; 80053; 80061; 83036; 83605; 85025; 85027; 85610; 85730; 87070; 87075; 87077; 87102; 87186; 87205; 87206; 88305; 88307; 88311; 90715; 92928; 93005; 93017; 93458; 93923; 93970; 97162; 97165; 99152; 99153; 99282; 99406; A9500; J7030; J7040; J7050; Q9967; A4216; C1725; C1769; C1874; C1887; C1894; C9600; J0295; J2405; J2785

== ENCOUNTER 2023-01-16 12:12 | Inpatient (IN) | payer MEDICAID, SELFPAY ==
[2023-01-16 07:44] VITALS: BMI 22.1
--- NOTE | 2023-01-16 13:14 | OP.PCM_ITS ---
Report of Operation Date of Procedure: 01/16/23 Pre-Operative Diagnosis: atherosclerosis with gangrene, left lower extremity Post-Operative Diagnosis: same, embolic occlusion of pedal vessels Surgery/Procedure Performed:: aortogram, left lower extremity runoff Surgeon: Richard Valle Type of Anesthesia: Local and Sedation,Conscious Estimated Blood Loss (mL): 2 Description of Procedure: HPI: Patient is a 57-year-old male with atherosclerosis with gangrene of the left lower extremity. He had noninvasive vascular studies that revealed critical arterial insufficiency. He is taken now for angiogram with possible intervention. Description of procedure: Upon obtaining informed consent and verification correct patient procedure site patient taken to Airplane Technician where he was positioned prepped and draped in usual fashion. Time was performed conscious sedation ministered Versed and fentanyl. The right common femoral artery was anesthetized with 1% lidocaine the vessel accessed under ultrasound guidance with a micropuncture needle wire. This was exchanged for micropuncture sheath routine injection iliofemoral angiograms performed revealing satisfactory placement with no extravasation or dissection. Through the micropuncture sheath Bentson wire is advanced into the abdominal aorta and the micropuncture sheath exchanged for a short 6 [place] sheath. Through the 6 [place] sheath Omni Flush catheter was advanced into the abdominal aorta and a distal traction aortogram pelvic angiogram was performed. We then utilized the Omni Flush catheter and glide advantage wire to navigate into the contralateral leg system and exchanged out our Omni Flush catheter for a angled glide catheter which was advanced into the external iliac artery. From this position subtraction angiography was performed sequential views of the left lower extremity. This revealed occlusion of the distal SFA with reconstitution of a diseased mid popliteal and three-vessel runoff to the foot. Is felt this was potentially amenable to endovascular treatment however his aortic bifurcation was very steep so the skin overlying the left common femoral artery was then anesthetized with 1% lidocaine. Under ultrasound guidance with a micropuncture needle and wire we accessed the common femoral artery in antegrade fashion and exchanged for micropuncture sheath. Through the micropuncture sheath Bentson wire was advanced navigate into the superficial femoral artery and the micropuncture sheath exchanged for a 6 [place] sheath. Through the 6 [place] sheath cross catheter was then advanced and multiple wire and catheter selection utilized to attempt to cross the occlusion. We ultimately were able to begin crossing the lesion unfortunately or in a subintimal plane. We able to make fairly significant progress in crossing however at the distal endpoint of the occlusion we were unable to continue navigating within the vessel and had what appeared to be perforation in a couple of different locations within the occlusion and were ultimately unable to traverse and reenter. The right femoral access sheath was then closed with a Mynx followed by 2 minutes of manual pressure with satisfactory hemostasis noted. Next the left femoral access was closed with a minx device followed by 2 minutes of manual pressure with satisfactory stasis noted. Patient was then awake from sedation taken recovery room with plans to admit and perform bypass. Radiographic interpretation: Abdominal aorta normal caliber no significant atherosclerosis or stenosis. Iliac artery widely patent with minimal calcifications but no stenosis. Right external iliac artery widely patent no atherosclerosis or stenosis. Left common iliac artery widely patent with minimal calcification but no stenosis. Left external iliac artery widely patent no atherosclerosis or stenosis. Left common femoral artery patent with no significant atherosclerosis or stenosis and a variant profunda 2 separate origins both of which were without significant atherosclerosis or stenosis. Superficial femoral artery proximally was patent with moderate diffuse stenosis and atherosclerosis throughout with distal SFA occlusion. There is reconstitution of the P2 segment of the popliteal artery which appeared to be highly diseased with ultimately P3 segment returning to normal caliber with no significant atherosclerosis. Intact anterior tibial posterior tibial artery runoff to the ankle at the ankle there appeared to be abrupt occlusion though contrast transit throughout both was very delayed in part given the more proximal occlusion.
[2023-01-16 14:50] VITALS: BP 145/74; PULSE 100; RESP 16; O2SAT 98
[2023-01-16 14:58] VITALS: RESP 16; BMI 22.3
[2023-01-16] MEDS: oxyCODONE 5 MG Tablet 10 MG PO (15:29)
[2023-01-16 16:00] VITALS: BP 142/80; PULSE 89; RESP 16; TEMP 36.6; O2SAT 98
[2023-01-16] MEDS: Cilostazol 50 MG Tablet PO (16:14)
[2023-01-16] MEDS: Acetaminophen 500 MG Tablet 1000 MG PO ×2 (16:14→20:11)
[2023-01-16] MEDS: Smz/Tmp Ds Tablet 1 TABLET PO (16:15)
[2023-01-16] MEDS: 0.9% Normal Saline (1000mL) 1,000 ML 100 ML IV (16:17)
[2023-01-16 17:58] VITALS: BP 143/77; PULSE 94; RESP 16; O2SAT 98
[2023-01-16 20:03] VITALS: BP 144/75; PULSE 96; RESP 16; TEMP 36.8; O2SAT 99
[2023-01-16 20:04] VITALS: BP 144/75; PULSE 96; RESP 16; TEMP 36.8; O2SAT 99
[2023-01-16] MEDS: Atorvastatin Calcium 80 MG Tablet PO (20:11)
[2023-01-16] MEDS: TICAGRELOR 90 MG TABLET PO (20:11)
[2023-01-16] MEDS: Famotidine 20 MG Tablet PO (20:11)
[2023-01-17] VITALS (13 sets, daily range): BP systolic 112–161; BP diastolic 71–91; PULSE 75–97; RESP 12–22; TEMP 36–36.9; O2SAT 96–100; BMI 22.3
[2023-01-17] MEDS: 0.9% Normal Saline (1000mL) 1,000 ML 100 ML IV ×2 (03:34→16:57)
[2023-01-17 03:51] LABS: Anion Gap 8 (5-15); BUN 12 mg/dL (7-18); BUN/Creat Ratio 15.2 RATIO (10-20); Calcium,Total 9.2 mg/dL (8.5-10.1); Chloride 102 mmol/L (98-107); Creatinine, Serum 0.79 mg/dL (0.70-1.30); EST Glomerular Filtration Rate 107 mL/min (>60); Est Glom Filt Rate - Afr Amer 129 mL/min (>60); Estimated Creatinine Clearance 110.51 ml/min; Glucose 126 mg/dL (74-106); Potassium 3.8 mmol/L (3.5-5.1); Sodium Level 133 mmol/L (136-145)
[2023-01-17 04:01] LABS: Absolute Lymphocyte Count 1.54 X10^3/uL (0.83-4.51); Absolute Neutrophil Count 6.6 X10^3/uL (2.0-7.7); Basophil# 0.03 X10^3/uL; Basophil% 0.3 % (0-1); Eosinophil# 0.15 X10^3/uL; Eosinophils% 1.6 % (0-5); Hematocrit 35.7 % (40-54); Hemoglobin 11.6 g/dL (13.0-16.5); Lymphocyte # 1.54 X10^3/ul (0.83-4.51); Lymphocyte % 16.2 % (19-41); Mean Corp Hgb Conc 32.5 g/dL (32-36); Mean Corpuscular Hgb 29.4 pg (27.0-32.0); Mean Corpuscular Volume 90.4 fL (80-94); Mean Platelet Vol. 8.2 fl (6.2-12.0); Monocyte# 1.19 X10^3/uL; Monocyte% 12.6 % (0-10); NRBC Flagged by Analyzer 0 % (0-5); Neutrophil # 6.55 X10^3/uL (2.7-7.7); Neutrophil % 69.1 % (47-70); Platelet Count 474 K/mm3 (150-450); RBC Distribution Width CV 13.6 % (11.6-14.6); RBC Distribution Width SD 45.3 fl (35.1-43.9); Red Blood Count 3.95 M/mm3 (4.6-6.2); White Blood Count 9.5 K/mm3 (4.4-11.0)
[2023-01-17] MEDS: Lactated Ringers 1,000 ML 15 ML IV (06:15)
--- NOTE | 2023-01-17 07:30 | MISC_PTH ---
PATIENT: ALON MERRITT LOC: ICU U#:[id number] AGE/SX: 57/M ROOM: ICU02 RE01/17/[address]: Dr. Richard Valle MD : 1965 BED: 1 DIS: 01/18/2023 SPEC #: [id number] RECD: 01/18/23 18:31 STATUS: [place] [facility]OPE #: [id number] GE: 01/17/23 07:[address]: Richard Valle DEPT: SURGICAL PATHOLOGY RECD BY: Ese Arreaga ENTERED: 01/18/23 11:04 SP TYPE: MISC J LUIS DR: Dr. Hebert Sandhu, DPM Tissues: BLOOD CLOT, NOS Procedures: Surgery Specimen Level III HEADER OPERATION: Left fem-pop bypass with saphenous vein tibial thrombectomy PRE-OP DIAGNOSIS: Atherosclerosis of left lower extremity with gangrene TISSUE SUBMITTED: Pedal embolism MICROSCOPIC DIAGNOSIS Pedal embolism, thrombectomy: Organized blood clot. SJ: 01/19/2023 MICROSCOPIC DESCRIPTION Slides are reviewed. GROSS DESCRIPTION Received is one container labeled with the patient name and designated pedal embolism. The specimen consists of a piece of brown soft tissue that measures 0.4 x 0.1 x 0.1 cm. The specimen is totally submitted in one cassette. /ANDRÉS:chase 01/18/23 TC:5 CPT: 30544
--- NOTE | 2023-01-17 07:31 | PN.SURG_ITS ---
Subjective Subjective Left foot continued rest pain. No access site complaints. Ready for surgery. Objective Data Objective Data Vital Signs: Vital Signs Temp Pulse Resp BP Pulse Ox O2 Del Method 97.5 F L 96 16 149/85 H 99 Room Air 01/17/23 03:00 01/17/23 03:00 01/17/23 03:00 01/17/23 03:00 01/17/23 03:00 01/17/23 03:00 Oxygen Delivery Method Room Air Weight: 169 lb Body Mass Index (BMI) 22.3 Intake & Output: Intake and Output for Last 24 Hours 01/15/23 01/16/23 01/17/23 23:59 23:59 23:59 Intake Total 240 / 290 1316.67 / 1316.67 Balance 240 / 290 1316.67 / 1316.67 Lab / Micro Data 01/17/23 02:26 01/17/23 02:26 Labs: Laboratory Results - last 24 hr 01/16/23 16:15: Antibody Screen NEGATIVE, Crossmatch See Detail 01/17/23 02:26: WBC 9.5, RBC 3.95 L, Hgb 11.6 L, Hct 35.7 L, MCV 90.4, MCH 29.4, MCHC 32.5, RDW Std Deviation 45.3 H, RDW Coeff of Mario Alberto 13.6, Plt Count 474 H, MPV 8.2, Immature Gran % (Auto) 0.200, Neut % (Auto) 69.1, Lymph % (Auto) 16.2 L, [place] % (Auto) 12.6 H, Eos % (Auto) 1.6, Baso % (Auto) 0.3, Absolute Neuts (auto) 6.6, Absolute Lymphs (auto) 1.54, Nucleated RBC % 0, Sodium 133 L, Potassium 3.8, Chloride 102, Carbon Dioxide 23.0, Anion Gap 8, BUN 12, Creatinine 0.79, Estim Creat Clear Calc 110.51, Est GFR (MDRD) Af Amer 129, Est GFR (MDRD) Non-Af 107, BUN/Creatinine Ratio 15.2, Glucose 126 H, Calcium 9.2 Physical Exam Const alert, oriented x3, no apparent distress and healthy appearing General Appearance: cooperative; Negative for combative or lethargic Orientation / Consciousness: awake Exam Limitations: no limitations HEENT Head and Scalp: normocephalic and atraumatic Eyes EOMs intact bilaterally General Eye: normal appearance of both eyes Neck full ROM, no lymphadenopathy and thyroid normal General: trachea midline; Negative for lymphadenopathy or tenderness Thyroid: thyroid normal Lymph Lymphatic: Negative for no lymphadenopathy noted Resp normal respiratory effort, no use of accessory muscles and clear to auscultation bilaterally Effort and Inspection: Negative for labored, stridor or audible wheezes Cardio regular rate and regular rhythm Peripheral Pulses: radial pulses present Back/Spine Cervical Spine: cervical ROM normal Extremity full ROM, normal capillary refill and no clubbing, cyanosis or edema Skin no rashes or lesions noted Neuro oriented x3, CN's II-XII intact bilaterally, no focal motor deficits and no sensory deficits noted Psych thought process normal, cooperative, affect normal, speech normal and activity/motor behavior normal Assessment & Plan Assessment/Plan (1) Atherosclerosis of left lower extremity with gangrene: QUALIFIERS: Peripheral atherosclerosis artery type: [place] artery Qualified Code(s): I70.262 - Atherosclerosis of [place] arteries of extremities with gangrene, left leg PLAN: -progressive gangrene of left foot, unable to fix endovascular -angio also revealed embolic occlusion of DP and PT -plan left fem-pop, embolectomy
[2023-01-17] MEDS: Cefazolin 2 GM in 0.9% Normal Saline (100mL Bag) 100 ML IV ×2 (07:45→11:45)
[2023-01-17] MEDS: Heparin Injection (Vial) 5,000 UNIT/ML VIAL 5000 UNIT (08:32)
[2023-01-17] MEDS: Alteplase 2 MG/2 ML Vial IV (13:27)
--- NOTE | 2023-01-17 14:43 | OP.PCM_ITS ---
Report of Operation Date of Procedure: 01/17/23 Pre-Operative Diagnosis: atherosclerosis with gangrene left lower extremity Post-Operative Diagnosis: same Surgery/Procedure Performed:: left femoral-below knee popliteal bypass with reversed GSV Anterior tibial/posterior tibial thrombectomy via foot incision Surgeon: Richard Valle Type of Anesthesia: General Specimen's removed: chronic thrombus Estimated Blood Loss (mL): 150 Description of Procedure: HPI: Patient is a 49-year-old male with atherosclerosis and gangrene left lower extremity with SFA popliteal occlusion with unsuccessful endovascular efforts at revascularization. He has adequate saphenous veins who presents now for femoral to below the knee popliteal bypass with reverse saphenous vein. There is also suspicion of embolic occlusion of the dorsalis pedis and posterior tibial arteries in the foot so we will also perform pedal artery cutdown and thrombectomy. Description of procedure: Upon obtaining form consent and verification correct patient procedure site patient taken the operating was placed under anesthesia. He was then positioned prepped and draped in a sterile fashion a time was performed. An oblique incision made over the palpable left common femoral artery by electrocautery dissect down through subcutaneous tissue. Self- retaining were then put in position further dissection carried down the femoral sheath. The femoral sheath was incised vertically exposing the femoral vessels at which point sharp dissection was dissect free proximal to the inguinal ligament and distally down onto the SFA and the profunda. Writing was used to place a vessel loop drain to the vessels individually we then turned attention to the popliteal exposure. Ultrasound had been used to gini the saphenous vein and course and a longitudinal incision 2 fingerbreadths medial to the tibia and avoiding the saphenous vein was then created. Both electrocautery then used dis sect down through subcutaneous tissue and soft and tracked up in position. Further dissection was then carried on with the fascia and the fascia was incised after which the retractors removed deeper in the wound. Combination of Bovie and blunt dissection then used to dissect into the popliteal space and once we encountered the neurovascular bundle sharp dissection used to dissect free the popliteal artery with care taken to identify protect the adjacent vein and nerve. Once a satisfactory length the vessel was dissected free circumferentially running was used to place a vessel loop. We then performed our saphenous vein harvest via skip incisions with side branches ligated with silk ties and divided. Once a satisfactory length of the saphenous was mobilized the tunneler was then used to tunnel anatomically from the popliteal surgical field to the femoral. The patient was then heparinized allowed to circulate for 3 minutes after which the saphenous vein ligated the distal lower leg with medium clips and divided it was then pulled through to the harvest skip incisions up to the femoral incision site. Patient was then heparinized and allowed to circulate and subsequent heparin dosing performed every hour. The saphenofemoral junction was then clamped with a Margi clamp guided distally. The vein was then placed in heparinized saline and the saphenofemoral junction oversewn with 5-0 Prolene in a running fashion. After completing suture line clamps removed satisfactory stasis was noted. Next of the common femoral artery was occluded with Vesseloops longitudinal arteriotomy created 11 blade extended Mayfield scissors. The vein was then oriented in reverse fashion and beveled to match the arteriotomy. Anastomosis was then performed using a 6-0 Prolene running fashion. After completing suture line vessels were flushed into the graft needed flow reestablished. The graft was then inspected for hemostasis and any side branches were reinforced 6-0 Prolene U stitches as needed. Vein was then marked to maintain orientation and secured to the tunneler and pulled through the popliteal surgical field. Popliteal artery was then occluded with Vesseloops proximal and distal and longitudinal arteriotomy created 11 blade extended Mayfield scissors. The graft was then cut the length and beveled to match the arteriotomy and anastomosis performed using a 6-0 Prolene running fashion. After completing the suture line the vessels and graft were flushed and after completing the suture line there is palpable pulse in the graft in the outflow vessel and satisfactory stasis was noted. Doppler signal in the graft now for the vessel was low resistance in nature however there were no Doppler signals in the foot. We then performed a longitudinal skin incision posterior to the medial malleolus and electrocautery used to dissect down through subcutaneous tissue to the level of the fascia, and self-retaining retractors were put in position. Further dissection was carried on the vessels and the posterior tibial artery mobilized with sharp dissection. Writing was used to close vessel proximal and distal and a transverse arteriotomy was created. A 2 Lyla was then passed proximally with no thrombus returned however there is now brisk arterial inflow. We then passed the Lyla distally with some chronic thrombus or plaque returned. The distal vessel was then flushed with 2 mg of tPA mixed with heparinized saline. This was then repaired with 7-0 Prolene in transverse orientation. Next longitudinal incision made over the dorsalis pedis and Bovie cautery to dissect down through subcutaneous tissue down to level the fascia. Fascia incised and soft retractor put in position. Further dissection was carried down to the level of the dorsalis pedis artery and sharp dissection to dissect free proximal distal. A right angle was then used to place Vesseloops and a transverse arteriotomy created with 11 blade. The 2 Lyla then advanced proximally thrombus returned. Then advanced distally again with no thrombus returned and there was some backbleeding as well as moderate amount of nonpulsatile blood arterial inflow. This was then flushed heparinized vein and additional 2 mg of tPA infused distally in the foot. Transverse arteriotomy was then repaired with 7-0 Prolen. Incision was then inspected for hemostasis. The vein harvest sites were closed with 3-0 Vicryl followed by 4-0 Monocryl. Femoral-popliteal exposure sites were closed with 2-0 Vicryl, 3-0 Vicryl for Monocryl and Dermabond for skin. The pedal artery cutdown sites were closed with interrupted 2-0 nylon. At the conclusion there is now a dopplerable signal in the dorsalis pedis and posterior tibial arteries in the foot. Patient was then awakened anesthesia taken recovery in anticipated admission to the intensive care unit for hemodynamic and vascular monitoring.
[2023-01-17] MEDS: Cilostazol 50 MG Tablet PO (17:06)
[2023-01-17] MEDS: Smz/Tmp Ds Tablet 1 TABLET PO (17:06)
[2023-01-17] MEDS: Aspirin 81 MG TAB.CHEW PO (17:54)
[2023-01-17] MEDS: TICAGRELOR 90 MG TABLET PO (21:06)
[2023-01-17] MEDS: Famotidine 20 MG Tablet PO (21:07)
[2023-01-17] MEDS: Atorvastatin Calcium 80 MG Tablet PO (21:07)
[2023-01-17] MEDS: Acetaminophen 500 MG Tablet 1000 MG PO (21:07)
[2023-01-18] VITALS (20 sets, daily range): BP systolic 120–164; BP diastolic 65–85; PULSE 77–104; RESP 11–24; TEMP 36.6–37; O2SAT 95–100; BMI 21.9
[2023-01-18] MEDS: oxyCODONE 5 MG Tablet 10 MG PO ×4 (02:22→16:56)
[2023-01-18] MEDS: 0.9% Normal Saline (1000mL) 1,000 ML 100 ML IV ×2 (02:22→12:13)
[2023-01-18 02:30] LABS: Absolute Lymphocyte Count 2.03 X10^3/uL (0.83-4.51); Absolute Neutrophil Count 9.4 X10^3/uL (2.0-7.7); Basophil# 0.02 X10^3/uL; Basophil% 0.1 % (0-1); Eosinophil# 0.02 X10^3/uL; Eosinophils% 0.1 % (0-5); Hematocrit 28.2 % (40-54); Hemoglobin 9.1 g/dL (13.0-16.5); Lymphocyte # 2.03 X10^3/ul (0.83-4.51); Lymphocyte % 15.2 % (19-41); Mean Corp Hgb Conc 32.3 g/dL (32-36); Mean Corpuscular Hgb 29.4 pg (27.0-32.0); Mean Corpuscular Volume 91.3 fL (80-94); Mean Platelet Vol. 8.1 fl (6.2-12.0); Monocyte# 1.89 X10^3/uL; Monocyte% 14.1 % (0-10); NRBC Flagged by Analyzer 0 % (0-5); Neutrophil # 9.38 X10^3/uL (2.7-7.7); Neutrophil % 70.3 % (47-70); POSITIVE DIFFERENTIAL YES; Platelet Count 382 K/mm3 (150-450); RBC Distribution Width CV 13.9 % (11.6-14.6); RBC Distribution Width SD 47.2 fl (35.1-43.9); Red Blood Count 3.09 M/mm3 (4.6-6.2); White Blood Count 13.4 K/mm3 (4.4-11.0)
[2023-01-18 02:31] LABS: Differential Indicated SCAN CRITERIA MET
[2023-01-18 02:44] LABS: Anion Gap 5 (5-15); BUN 11 mg/dL (7-18); BUN/Creat Ratio 10.9 RATIO (10-20); Calcium,Total 8.5 mg/dL (8.5-10.1); Chloride 105 mmol/L (98-107); Creatinine, Serum 1.01 mg/dL (0.70-1.30); EST Glomerular Filtration Rate 81 mL/min (>60); Est Glom Filt Rate - Afr Amer 98 mL/min (>60); Estimated Creatinine Clearance 86.44 ml/min; Glucose 115 mg/dL (74-106); Magnesium 2.2 mg/dL (1.6-2.6); Potassium 3.9 mmol/L (3.5-5.1); Sodium Level 137 mmol/L (136-145)
[2023-01-18 03:00] LABS: Phosphorus 3.6 mg/dL (2.5-4.9)
[2023-01-18 03:50] LABS: Differential Comment SCANNED; Hypochromasia 1+
[2023-01-18] MEDS: Acetaminophen 500 MG Tablet 1000 MG PO ×2 (05:59→14:13)
[2023-01-18] MEDS: Cilostazol 50 MG Tablet PO ×2 (05:59→16:51)
[2023-01-18] MEDS: Aspirin 81 MG TAB.CHEW PO (07:53)
[2023-01-18] MEDS: Smz/Tmp Ds Tablet 1 TABLET PO ×2 (07:54→16:51)
[2023-01-18] MEDS: amLODIPine 5 MG Tablet PO (09:25)
[2023-01-18] MEDS: Enoxaparin 40 MG/0.4 ML Syringe SC (09:25)
[2023-01-18] MEDS: Metoprolol(XL)Succ 50 MG Tablet PO (09:25)
[2023-01-18] MEDS: TICAGRELOR 90 MG TABLET PO (09:25)
[2023-01-18] MEDS: Famotidine 20 MG Tablet PO (09:25)
[2023-01-18 10:38] LABS: International Normalized Ratio 1.1; Prothrombin Time (Protime)PT. 14.6 SECONDS (11.7-14.9)
[2023-01-18 10:39] LABS: Partial Thromboplast Time 40.1 Seconds (24.1-36.2)
--- NOTE | 2023-01-18 10:42 | WOUNDNOTE ---
Mepilex AG dressings intact to the left leg. small amount of old dry drainage noted on the dressing near left anterior ankle. Prevena wound VAC intact to the left groin. good seal noted. dressings are to remain in place per ELYSSA Garrison. will monitor.
--- NOTE | 2023-01-18 10:45 | PCM.PN.SRG ---
Subjective Subjective Mr. Medina is s/p left fem-below knee popliteal bypass with reversed GSV. He is doing well today, his L foot rest pain is resolved and he is able to rest comfortable with his legs elevated on the bed. He reports overall minimal discomfort at the groin and leg incision site. He does report pain with movement at the most distal incision site near the foot. This morning he got up to the chair without issue and tolerated a normal breakfast. Anderson catheter was removed just around 10 am and he has not voided yet. He denies any urge to void. He denies any abdominal pain. Objective Data Objective Data Vital Signs: Vital Signs Temp Pulse Resp BP Pulse Ox O2 Del Method 98.6 F 92 18 134/71 H 100 Room Air 01/18/23 08:00 01/18/23 10:00 01/18/23 10:00 01/18/23 10:00 01/18/23 10:00 01/18/23 10:00 Oxygen Delivery Method Room Air Weight: 166 lb 0.129 oz Body Mass Index (BMI) 21.9 Intake & Output: Intake and Output for Last 24 Hours 01/16/23 01/17/23 01/18/23 23:59 23:59 23:59 Intake Total 240 / 290 1917.92 / 1917.92 1201.67 / 1201.67 Output Total 1475 / 1700 1100 / 1100 Balance 240 / 290 442.92 / 217.92 101.67 / 101.67 Lab / Micro Data 01/18/23 02:15 01/18/23 02:15 Labs: Laboratory Results - last 24 hr 01/18/23 02:15: WBC 13.4 H, RBC 3.09 L, Hgb 9.1 L, Hct 28.2 L, MCV 91.3, MCH 29.4, MCHC 32.3, RDW Std Deviation 47.2 H, RDW Coeff of Mario Alberto 13.9, Plt Count 382, MPV 8.1, Immature Gran % (Auto) 0.200, Neut % (Auto) 70.3 H, Lymph % (Auto) 15.2 L, [place] % (Auto) 14.1 H, Eos % (Auto) 0.1, Baso % (Auto) 0.1, Absolute Neuts (auto) 9.4 H, Absolute Lymphs (auto) 2.03, Nucleated RBC % 0, Differential Comment SCANNED, Diff Path Review May foll, Hypochromasia 1+, Sodium 137, Potassium 3.9, Chloride 105, Carbon Dioxide 27.0, Anion Gap 5, BUN 11, Creatinine 1.01, Estim Creat Clear Calc 86.44, Est GFR (MDRD) Af Amer 98, Est GFR (MDRD) Non-Af 81, BUN/Creatinine Ratio 10.9, Glucose 115 H, Calcium 8.5, Phosphorus 3.6, Magnesium 2.2 01/18/23 10:20: PT 14.6, INR 1.1, APTT 40.1 H Physical Exam Const alert, oriented x3, no apparent distress and healthy appearing General Appearance: cooperative; Negative for combative or lethargic Orientation / Consciousness: awake Exam Limitations: no limitations HEENT Head and Scalp: normocephalic and atraumatic Eyes EOMs intact bilaterally General Eye: normal appearance of both eyes Neck full ROM, no lymphadenopathy and thyroid normal General: trachea midline; Negative for lymphadenopathy or tenderness Thyroid: thyroid normal Lymph Lymphatic: Negative for no lymphadenopathy noted Resp normal respiratory effort, no use of accessory muscles and clear to auscultation bilaterally Effort and Inspection: Negative for labored, stridor or audible wheezes Cardio regular rate and regular rhythm Peripheral Pulses: radial pulses present Back/Spine Cervical Spine: cervical ROM normal Extremity full ROM, normal capillary refill and no clubbing, cyanosis or edema Extremity Narrative: Groin incision site with Prevena wound dressing C/D/I, maintaining good seal. Incisions along medial aspect of L leg and L foot with silver post-op dressings C/D/I. No focal swelling, redness, excessive warmth, drainage. Mild swelling of L foot. L foot is appropriately warm. The L lower leg compartments are all soft and nontender to palpation. L PT and DP signals multiphasic, significantly improved from prior to surgery. Skin Wounds: wounds noted Wound Narrative: Prior L 5th toe amputation site with some sanguineous drainage Neuro oriented x3, CN's II-XII intact bilaterally, no focal motor deficits and no sensory deficits noted Psych thought process normal, cooperative, affect normal, speech normal and activity/motor behavior normal Assessment & Plan Assessment/Plan (1) Atherosclerosis of left lower extremity with gangrene: QUALIFIERS: Peripheral atherosclerosis artery type: [place] artery Qualified Code(s): I70.262 - Atherosclerosis of [place] arteries of extremities with gangrene, left leg PLAN: Plan Patient is s/p L fem-BK pop bypass with in-situ GSV, POD#1. His rest pain is resolved. Overall post-operative pain is well-controlled. He has several incisions down the medial left leg and on the left foot which are covered by silver dressings. Plan is to leave these in place x 1 week as long as they remain C/D/I. Additionally, he has a L groin incision which is covered by a Prevena vacuum dressings. Plan is to leave this in place x 1 week as long as it continued to maintain a good seal. Will continue low-dose heparin while inpatient in addition to his Brilinta and ASA. Prior to discharge, will consider addition of Xarelto 2.5mg BID to this regimen to maximize medical therapy. Patient has not voided since Anderson catheter was removed though he does not report urge. I have added Flomax to see if this helps. Will continue to monitor. Consulted wound care nurse to help manage L foot wound while he is inpatient. 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 PT/OT will evaluate patient. Did sign prescription for a walker for him to go home with. He will need to continue with partial weight-bearing to the L heel only with walker as per podiatry.
[2023-01-18] MEDS: HEPARIN/D5w 25,000 UNITS 25,000 UNITS/250 ML IV.SOLN. 5 UNITS CONT INF (10:46)
--- NOTE | 2023-01-18 10:48 | WOUNDNOTE ---
wound photo: left foot
[2023-01-18] MEDS: HYDROmorphone 1 MG/ML Syringe IV (10:54)
--- NOTE | 2023-01-18 16:12 | CASEMGMT ---
RADHA CRESPO readmission note: Index admission: Admitted 01/06/23 w/gangrene left fifth toe. Pt had surgery by podiatry, Dr Sandhu, for incision of bone cortex advancement flap of lt foot. Pt also had w/u by vascular for PAD. During hospitalization pt had Stress test, occlusion to LAD of heart found, and pt had PCI. Discharged home 01/10/23 w/plans to undergo intervention to LLE on 01/16. Pt lives w/his , is independent @ baseline, and denied having any discharge needs. Current admission: Admitted 01/17/23 for elective scheduled aortogram, LLE runoff. Pt went to OR and had left fem-below knee popliteal bypass w/reversed GSV, anterior tib/post tib thrombectomy via foot incision, for progressive gangrene of left foot failed endovascular surgery. RADHA CRESPO to room. Pt states he has been doing well at home. He has all meds needed and has been taking meds as prescribed at home. He states he has a walker that he has borrowed from a friend, but it is raggedy and he would like to get a new one. He denies having preference of DME co and is okay w/[facility]. Script obtained from physician and sent to [employer] via [employer]. VM left w/Gregg @ [employer] to notify her pt is discharging today and will need FWW delivered to his room. Pt denies having other discharge planning needs or concerns. Robby PRIEST RN, CM
--- NOTE | 2023-01-18 16:26 | PCM.DC.SUM ---
Providers Date of Admission: 01/17/23 Date of Discharge: 01/18/23 Primary Care Physician: Dr. Hebert Sandhu, DPM Consultations 01/18/23 09:12 Consult: Onc/Wound/staffing mgr Routine Comment: Reason For Visit: PVD Diagnosis Discharge Diagnosis (1) Atherosclerosis of left lower extremity with gangrene: Status: Acute Code(s): I70.262 - Atherosclerosis of marshall arteries of extremities with gangrene, left leg Qualifiers: Peripheral atherosclerosis artery type: marshall artery Qualified Code(s): I70.262 - Atherosclerosis of marshall arteries of extremities with gangrene, left leg Plan Patient is s/p L fem-BK pop bypass with reversed GSV, POD#1. His rest pain is resolved. Overall post-operative pain is well-controlled. He has several incisions down the medial left leg and on the left foot which are covered by silver dressings. Plan is to leave these in place x 1 week as long as they remain C/D/I. Additionally, he has a L groin incision which is covered by a Prevena vacuum dressings. Plan is to leave this in place x 1 week as long as it continued to maintain a good seal. Will continue low-dose heparin while inpatient in addition to his Brilinta and ASA. Prior to discharge, will consider addition of Xarelto 2.5mg BID to this regimen to maximize medical therapy. Patient has not voided since Anderson catheter was removed though he does not report urge. I have added Flomax to see if this helps. Will continue to monitor. Consulted wound care nurse to help manage L foot wound while he is inpatient. 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 PT/OT will evaluate patient. Did sign prescription for a walker for him to go home with. He will need to continue with partial weight-bearing to the L heel only with walker as per podiatry. Medications at Discharge Home Medications amlodipine 5 mg tablet 5 mg PO DAILY #90 tabs 01/10/23 aspirin 81 mg chewable tablet 81 mg PO BREAKFAST #90 tabs 01/10/23 atorvastatin 80 mg tablet 80 mg PO QHS #90 tabs 01/10/23 cilostazol 50 mg tablet 50 mg PO BIDAC #60 tabs 01/10/23 metoprolol succinate 50 mg tablet,extended release 24 hr 50 mg PO DAILY #90 tabs 01/10/23 sulfamethoxazole 800 mg-trimethoprim 160 mg tablet 1 tab PO BID #14 tabs 01/10/23 ticagrelor 90 mg tablet (Brilinta) 90 mg PO BID #180 tabs 01/10/23 oxycodone 5 mg tablet 5 mg PO Q8H PRN PRN Pain Score 4-10 7 days #21 tabs 01/18/23 rivaroxaban 2.5 mg tablet (Xarelto) 2.5 mg PO BID #60 tabs 01/18/23 Hospital Course Operations - (L fem-pop bypass with reversed GSV) Summary of Care Provided Hospital Course: Mr. Medina had an angiogram on 01/16/2023 to try to address his LLE atherosclerosis endovascularly and unfortunately were unable to cross the lesion so he was admitted for observation and he then underwent left femoral to below knee popliteal bypass with reversed GSV and anterior tibial/posterior tibial thrombectomy via foot incision on 01/17/2023. This procedure was performed due to patient's progressive left lower extremity rest pain and nonhealing wounds of the left lower extremity. He tolerated the procedure well and was routinely admitted to the ICU postoperatively for close hemodynamic monitoring. He has remained hemodynamically stable throughout his admission. He has had no signs/symptoms concerning for compartment syndrome. Postoperatively, his LLE rest pain has resolved, his L foot is warm and has good doppler signals at both the DP and PT, significantly improved from prior to surgery. Prior to surgery, he was on ASA and Brilinta secondary to recent cardiac PCI in addition to his PAD. While admitted, has been on low dose heparin in addition to this and without any signs/symptoms of bleeding. He will continue with ASA, Brilinta, and statin. Xarelto 2.5mg BID has been shown to significantly reduce the rate of more proximal amputation in patients with PAD so we will also add this to maximize his medical management. He has a L groin incision which is closed with skin glue and is covered by a Prevena vacuum dressing. He has multiple incisions down the medial aspect of his left lower leg which were closed with skin glue and are covered with silver post-operative dressings. He has an incision on the medial dorsal aspect of his foot which is closed with sutures and covered with a silver post-op dressing. All dressings have remained C/D/I. The vacuum dressing has been maintaining seal. Plan is for these dressings to remain in place x7 days, then patient can remove at home. He will need to return to the office in 2 weeks for post-operative evaluation and for removal of stitches from the L foot incision site. He will continue to follow with podiatry Dr. Sandhu for management of his L 5th digit amputation which was performed on 01/06/23 and his L foot wounds. He will need to follow-up with Dr. Sandhu in 1 week. We discussed that it is very important for him to continue with podiatry to ensure the wounds do not worsen further. His pain has been well-controlled post-operatively. He has tolerated a normal diet without issue. He has been able to void. He feels comfortable ambulating with a walker as directed by podiatry. He is eager for discharge and both he and his feel comfortable with him returning home. He is discharged in medically stable condition with close outpatient follow-up scheduled. It was emphasized with the patient and his that he needs to ensure he keeps his outpatient appointments, they acknowledged understanding. Physical Exam Const alert, oriented x3, no apparent distress and healthy appearing General Appearance: cooperative; Negative for combative or lethargic Orientation / Consciousness: awake Exam Limitations: no limitations HEENT Head and Scalp: normocephalic and atraumatic Eyes EOMs intact bilaterally General Eye: normal appearance of both eyes Neck full ROM, no lymphadenopathy and thyroid normal General: trachea midline; Negative for lymphadenopathy or tenderness Thyroid: thyroid normal Lymph Lymphatic: Negative for no lymphadenopathy noted Resp normal respiratory effort, no use of accessory muscles and clear to auscultation bilaterally Effort and Inspection: Negative for labored, stridor or audible wheezes Cardio regular rate and regular rhythm Peripheral Pulses: radial pulses present Back/Spine Cervical Spine: cervical ROM normal Extremity full ROM, normal capillary refill and no clubbing, cyanosis or edema Extremity Narrative: Groin incision site with Prevena wound dressing C/D/I, maintaining good seal. Incisions along medial aspect of L leg and L foot with silver post-op dressings C/D/I. No focal swelling, redness, excessive warmth, drainage. Mild swelling of L foot. L foot is appropriately warm. The L lower leg compartments are all soft and nontender to palpation. L PT and DP signals multiphasic, significantly improved from prior to surgery. Skin Wounds: wounds noted Wound Narrative: Prior L 5th toe amputation site with some sanguineous drainage Neuro oriented x3, CN's II-XII intact bilaterally, no focal motor deficits and no sensory deficits noted Psych thought process normal, cooperative, affect normal, speech normal and activity/motor behavior normal Weight / BMI Weight Weight: 166 lb 0.129 oz Body Mass Index (BMI) 21.9 ABG / Lab / Microbiology Data 01/18/23 02:15 01/18/23 02:15 Laboratory: Laboratory Results - last 24 hr 01/18/23 02:15: WBC 13.4 H, RBC 3.09 L, Hgb 9.1 L, Hct 28.2 L, MCV 91.3, MCH 29.4, MCHC 32.3, RDW Std Deviation 47.2 H, RDW Coeff of Mario Alberto 13.9, Plt Count 382, MPV 8.1, Immature Gran % (Auto) 0.200, Neut % (Auto) 70.3 H, Lymph % (Auto) 15.2 L, [place] % (Auto) 14.1 H, Eos % (Auto) 0.1, Baso % (Auto) 0.1, Absolute Neuts (auto) 9.4 H, Absolute Lymphs (auto) 2.03, Nucleated RBC % 0, Differential Comment SCANNED, Diff Path Review May foll, Hypochromasia 1+, Sodium 137, Potassium 3.9, Chloride 105, Carbon Dioxide 27.0, Anion Gap 5, BUN 11, Creatinine 1.01, Estim Creat Clear Calc 86.44, Est GFR (MDRD) Af Amer 98, Est GFR (MDRD) Non-Af 81, BUN/Creatinine Ratio 10.9, Glucose 115 H, Calcium 8.5, Phosphorus 3.6, Magnesium 2.2 01/18/23 10:20: PT 14.6, INR 1.1, APTT 40.1 H D/C Instructions Discharge Diet: No restrictions May shower in (days): 1 Weight Bearing Status: Partial weight bearing (Partial weightbearing to the L heel only with walker. Nonweightbearing to the L forefoot as per podiatry.) Lifting Restricted to (Lbs): 20 Lifting Restrictions: Do not lift greater than 20 pounds for 3 weeks. Call your doctor if your incision/area has: Sudden Increased Bleeding, Increased Pain/ Swelling and Foul Smelling Discharge Call your doctor if you observe: Fever of 101 or Higher, Coldness, Increased Pain and Uncontrolled pain Remove Dressing in: 1 week Additional Instructions: Instructions regarding care of your surgical incisions: You have 1 incision in the groin which is covered by the vacuum dressing. The vacuum dressing should remain on for 7 days (until 01/24/2023) as long as it remains clean, dry, and continues to have a good seal. You will know if it has a bad seal if it begins to alarm, is running constantly, or the dressing puffs up instead of remaining suctioned down. If this happens, call the office for guidance or you can remove the dressing early if needed. To remove this vacuum dressing do the following as demonstrated prior to discharge: Hold down the power button until the unit shuts off. Then twist the white connector to disconnect the tubing. At that point, the purple foam should puff up and then you can just peel the dressing off. Once the dressing is off, you can throw it all away in your garbage at home. You have several other incisions down the inside of your left leg and one incision on your left foot which are all covered by simple adhesive dressings. These dressings contain silver which helps to prevent infection so you should leave these dressings in place for 7 days (until 01/24/2023) as well, as long as they remain clean and dry. Once 7 days has passed, you may simply peel these dressings off and throw them away. The groin and leg incisions are all covered with skin glue which will continue to protect them even after the adhesive dressings have been removed. This glue will peel/flake away on its own over the next few weeks, do not pick at it. The foot incision is closed with stitches. These stitches will need to stay in place for 2 weeks, and we will remove them at your first post-operative appointment. Do not submerge any of the incision sites in water such as to take a bath, go swimming, etc. for 3 weeks. Do not lift more than 20 pounds for 3 weeks. Otherwise, you may proceed with activity as tolerated. Remember that you are not to bear any weight on the front of your left foot. Continue to use the walker as instructed to ensure you are safely walking. Continue to elevate your left leg when resting. Instructions regarding care of the wounds and toe amputation: Continue with wound care for your left toe amputation site and left foot wounds as per Dr. Sandhu's instructions. Dr. Sandhu wants you to see him in his office next week. Please call his office at [phone]. They are located at [address] [place] [address] in [place]. Instructions about your medications: Continue to take all of the following medications as directed as you had been prior to this surgery: - Brilinta (Ticagrelor) 90mg by mouth twice daily - Aspirin 81mg by mouth once daily - Atorvastatin (Lipitor) 80mg by mouth once daily - Metoprolol Succinate 50 mg by mouth once daily - Amlodipine 5mg by mouth once daily You have been prescribed the following NEW medications: 1. Xarelto 2.5 mg to be taken by mouth twice daily. 2. Oxycodone 5mg to be taken by mouth every 8 hours as needed for pain. Do not take this in combination with any other pain medications. You may take this with Tylenol (acetaminophen) as needed. Follow-up: You have a follow-up appointment scheduled in our office on 01/31/2023 at 1:00 PM. If you need to change this appointment time or have any questions/concerns please call our office at [phone]. Please Follow Up With: Meli Edwards PA When: 2 weeks Meaningful Use Info Meaningful Use Diagnoses (Choose all that apply): None applicable Discharge Plan Admission Admit Date/Time: 01/17/23 08:19 Attending Provider: Richard Valle Primary Care Provider: Hebert Sandhu Instructions Additional Instructions / Restrictions: Instructions regarding care of your surgical incisions: You have 1 incision in the groin which is covered by the vacuum dressing. The vacuum dressing should remain on for 7 days (until 01/24/2023) as long as it remains clean, dry, and continues to have a good seal. You will know if it has a bad seal if it begins to alarm, is running constantly, or the dressing puffs up instead of remaining suctioned down. If this happens, call the office for guidance or you can remove the dressing early if needed. To remove this vacuum dressing do the following as demonstrated prior to discharge: Hold down the power button until the unit shuts off. Then twist the white connector to disconnect the tubing. At that point, the purple foam should puff up and then you can just peel the dressing off. Once the dressing is off, you can throw it all away in your garbage at home. You have several other incisions down the inside of your left leg and one incision on your left foot which are all covered by simple adhesive dressings. These dressings contain silver which helps to prevent infection so you should leave these dressings in place for 7 days (until 01/24/2023) as well, as long as they remain clean and dry. Once 7 days has passed, you may simply peel these dressings off and throw them away. The groin and leg incisions are all covered with skin glue which will continue to protect them even after the adhesive dressings have been removed. This glue will peel/flake away on its own over the next few weeks, do not pick at it. The foot incision is closed with stitches. These stitches will need to stay in place for 2 weeks, and we will remove them at your first post-operative appointment. Do not submerge any of the incision sites in water such as to take a bath, go swimming, etc. for 3 weeks. Do not lift more than 20 pounds for 3 weeks. Otherwise, you may proceed with activity as tolerated. Remember that you are not to bear any weight on the front of your left foot. Continue to use the walker as instructed to ensure you are safely walking. Continue to elevate your left leg when resting. Instructions regarding care of the wounds and toe amputation: Continue with wound care for your left toe amputation site and left foot wounds as per Dr. Sandhu's instructions. Dr. Sandhu wants you to see him in his office next week. Please call his office at [phone]. They are located at [address] [place] [address] A in [place]. Instructions about your medications: Continue to take all of the following medications as directed as you had been prior to this surgery: - Brilinta (Ticagrelor) 90mg by mouth twice daily - Aspirin 81mg by mouth once daily - Atorvastatin (Lipitor) 80mg by mouth once daily - Metoprolol Succinate 50 mg by mouth once daily - Amlodipine 5mg by mouth once daily You have been prescribed the following NEW medications: 1. Xarelto 2.5 mg to be taken by mouth twice daily. 2. Oxycodone 5mg to be taken by mouth every 8 hours as needed for pain. Do not take this in combination with any other pain medications. You may take this with Tylenol (acetaminophen) as needed. Follow-up: You have a follow-up appointment scheduled in our office on 01/31/2023 at 1:00 PM. If you need to change this appointment time or have any questions/concerns please call our office at [phone]. Discharge Orders/Prescriptions Prescriptions: New oxycodone 5 mg Tablet 5 mg PO Q8H PRN PRN (Reason: Pain Score 4-10) 7 Days Qty: 21 0RF Xarelto 2.5 mg tablet 2.5 mg PO BID Qty: 60 2RF Continued atorvastatin 80 mg Tablet 80 mg PO QHS Qty: 90 0RF cilostazol 50 mg Tablet 50 mg PO BIDAC Qty: 60 0RF metoprolol succinate 50 mg Tablet Extended Release 24 Hr 50 mg PO DAILY Qty: 90 0RF amlodipine 5 mg Tablet 5 mg PO DAILY Qty: 90 0RF sulfamethoxazole-trimethoprim 800-160 mg Tablet 1 tab PO BID Qty: 14 0RF aspirin 81 mg Tablet,Chewable 81 mg PO BREAKFAST Qty: 90 0RF Brilinta 90 mg Tablet 90 mg PO BID Qty: 180 0RF Referrals / Follow Up: Hebert Sandhu DPM [Primary Care Provider] - Disposition Disposition (needs filled in before D/C Order can be placed): Home, Self Care
[2023-01-18] MEDS: Juven (unflavored) Packet 1 PACKET PO (16:51)
[2023-01-18] MEDS: Tamsulosin HCl 0.4 MG Capsule PO (16:56)
[2023-01-19 09:26] LABS: Pathologist Review Reviewed
== END 2023-01-18 18:03 | disposition home or self-care (01) | DRG 181 ==
LOC: PCU 15:23 → ICU 01-17 07:53
PROVIDERS: Physician Assistant; Admitting Provider Surgery Trauma Surgery; PCP Podiatrist Foot & Ankle Surgery; Referring Provider Surgery Trauma Surgery; Visit Provider Surgery Trauma Surgery
PROC: 041L09L Bypass Left Femoral Artery to Popliteal Artery with Autologous Venous Tissue, Open Approach (ICD-10-PCS; principal; 2023-01-17 07:00)
DX: I70.262 Atherosclerosis of native arteries of extremities with gangrene, left leg (principal); I74.3 Embolism and thrombosis of arteries of the lower extremities; Z89.422 Acquired absence of other left toe(s); F17.210 Nicotine dependence, cigarettes, uncomplicated; Z53.09 Procedure and treatment not carried out because of other contraindication; Z79.82 Long term (current) use of aspirin; Z79.02 Long term (current) use of antithrombotics/antiplatelets; Z79.01 Long term (current) use of anticoagulants
CPT/HCPCS: 36200; 36245; 36415; 75625; 75710; 76937; 80048; 83735; 84100; 85025; 85610; 85730; 86850; 86900; 86901; 86920; 86922; 88304; 94668; 97802; 99152; 99153; 99252; A4648; C1760; C1769; C1887; J2997; J7030; J7040; J7120; Q9967; C1757; G0463; J2405

== ENCOUNTER → 2023-01-31 | Outpatient (CLI) | payer MEDICAID, SELFPAY | END | disposition home or self-care (01) | PROVIDERS: PCP Podiatrist Foot & Ankle Surgery; Visit Provider Podiatrist Foot & Ankle Surgery | DX: L97.528 Non-pressure chronic ulcer of other part of left foot with other specified severity (principal) | CPT/HCPCS: 87070; 87075; 87077; 87101; 87186; 87205 ==

== ENCOUNTER → 2023-02-07 | Outpatient (CLI) | payer MEDICAID, SELFPAY ==
--- NOTE | 2023-02-07 11:39 | ADUL_ITS ---
Reason For Study: S/P Lt Fem-pop BPG / AT-PT Atherectomy Left Velocities Ext. Iliac Artery, dist = 202.7 cm./sec. Common Femoral Artery, mid = 180.2 cm./sec. Supf Femoral Artery, prox = 145.1 cm./sec. Supf Femoral Artery, mid = 182.1 cm./sec. Supf Femoral Artery, dist. = 0.0 cm./sec. Dist SFA appears occluded. Profunda Femoral Artery = 116.0 cm./sec. Post. Tibial Artery, prox = 144.2 cm./sec. Post. Tibial Artery, mid = 105.4 cm./sec. Post. Tibial Artery, dist = 150.6 cm./sec. Peroneal Artery, prox = 202.4 cm./sec. Peroneal Artery, mid = 74.2 cm./sec. Peroneal Artery,dist = 50.1 cm./sec. Ant. Tibial Artery, prox = 195.9 cm./sec. Ant. Tibial Artery, mid = 108.6 cm./sec. Ant. Tibial Artery, dist = 83.0 cm./sec. S/P SHARON and NEGATIVE ASSEMBLER Thrombectomy . BPG noted from Prox SFA to Dist POP A. Bypass graft, prox lac vieux vessel = 298.3 cm./sec. Bypass graft, prox. anastamosis = 342.6 cm./sec. Bypass graft, mid = 127.1 cm./sec. Bypass graft, dist anastamosis = 150.6 cm./sec. Bypass graft, dist lac vieux vessel = 151.9 cm./sec. Procedure The exam was diagnostic. Exam performed in department. /US Art Duplex Unilat Lower Ext Interpretation Summary Left SFA-popliteal bypass patent with elevated velocities at proximal anastomos is that are not significantly increased over previous segment. Ordering Physician: Meli Edwards Referring Physician: Hebert Sandhu Performed By: Adán Patel RVT
== END | disposition home or self-care (01) ==
LOC: CVS 11:37
PROVIDERS: PCP Podiatrist Foot & Ankle Surgery; Referring Provider Physician Assistant; Visit Provider Physician Assistant
DX: I70.262 Atherosclerosis of native arteries of extremities with gangrene, left leg (principal); Z98.890 Other specified postprocedural states
CPT/HCPCS: 93926

== ENCOUNTER 2023-02-10 15:08 | Inpatient (IN) | payer MEDICAID, SELFPAY ==
[2023-02-10 15:09] VITALS: BP 127/70; PULSE 88; RESP 18; TEMP 36.8; O2SAT 100
--- NOTE | 2023-02-10 15:21 | EDS_ITS ---
HPI History of Present Illness Chief Complaint: Wound Check Detail of Chief Complaint: Left foot wound Informant: patient Narrative Narrative: Patient presents secondary to continued left foot wound. He has been following with Dr. Sandhu. Patient states he was seen today and advised to come get admitted and will need additional surgery for debridement. Patient was admitted in late December and had his left fifth toe amputated at that time. He states he just finished a course of antibiotics today but does not know what he was on. He denies fever or chills. [facility] Medical History (Updated 02/10/23 @ 17:[address] Imelda Mayorga MD) Amputation of toe of left foot Coronary artery disease HTN (hypertension), benign Peripheral arterial disease Home Medications amlodipine 5 mg tablet 5 mg PO DAILY #90 tabs 01/10/23 [Rx Last Taken Unknown] aspirin 81 mg chewable tablet 81 mg PO BREAKFAST #90 tabs 01/10/23 [Rx Last Taken Unknown] atorvastatin 80 mg tablet 80 mg PO QHS #90 tabs 01/10/23 [Rx Last Taken Unknown] cilostazol 50 mg tablet 50 mg PO BIDAC #60 tabs 01/10/23 [Rx Last Taken Unknown] metoprolol succinate 50 mg tablet,extended release 24 hr 50 mg PO DAILY #90 tabs 01/10/23 [Rx Last Taken Unknown] ticagrelor 90 mg tablet (Brilinta) 90 mg PO BID #180 tabs 01/10/23 [Rx Last Taken Unknown] oxycodone 5 mg tablet 5 mg PO Q8H PRN PRN Pain Score 4-10 7 days #21 tabs 01/18/23 [Rx Last Taken Unknown] rivaroxaban 2.5 mg tablet (Xarelto) 2.5 mg PO BID #60 tabs 01/18/23 [Rx Last Taken Unknown] oxycodone-acetaminophen 5 mg-325 mg tablet (Percocet) 1 tab PO Q8H PRN pain 7 days #21 tabs 02/06/23 [Rx Last Taken Unknown] Allergy/AdvReac Type Severity Reaction Status Date / Time No Known Allergies Allergy Verified 02/10/23 15:11 Surgical History H/O heart artery stent Social History Smoking Status: Current every day smoker tobacco type: cigarettes ROS ROS ED Constitutional Constitutional ED: Denies chills or fever(s) Eyes Eyes: Denies discharge from eye(s) ENT ENT ED: Denies discharge from eye(s), rhinorrhea or sore throat Cardiovascular Cardiovascular: Denies chest pain Respiratory/Chest Respiratory/Chest: Denies cough or dyspnea Gastrointestinal Gastrointestinal: Denies abdominal pain, nausea or vomiting Musculoskeletal Musculoskeletal: Reports extremity pain; Denies back pain Integumentary Reports other Details: Left foot wounds ; Denies Abrasions or rash Neurologic Neurologic: Denies headache(s) or weakness Psychiatric Psychiatric: Denies anxiety or depression Endocrine Endocrinology: Denies polydipsia or polyuria Allergic/Immunologic Allergic/Immunologic ED: Denies lip swelling or urticaria EXAM Physical Exam Const Vital Signs: 02/10/23 15:09 Temperature 98.2 F Temperature Source Temporal Pulse Rate 88 Respiratory Rate 18 Blood Pressure 127/70 H Blood Pressure Mean 89 Pulse Ox 100 Oxygen Delivery Method Room Air Positive well nourished and well developed General Appearance ED: well developed HEENT Reports moist mucous membranes Eyes EOMs intact bilaterally Chest Wall inspection of chest normal Resp normal respiratory effort Cardio regular rate and regular rhythm Extremity Extremity Narrative: 2 chronic wounds noted to the left foot. Over the top proximal portion of the foot there is a 3 x 3.5 cm wound with healing edges. No discharge or drainage at this time. There is a 4 x 2 cm wound over the site of the distal fifth metatarsal at his amputation site. No drainage noted from the site. Foul odor is noted. Neuro oriented x3 MDM MDM MDM Narrative Medical decision making narrative: IV line established. Labwork obtained to evaluate for leukocytosis, anemia, and electrolyte derangement. Left foot x-rays obtained to evaluate for any bony destruction or subcutaneous air. Lab Data Attestation: I reviewed the patient's lab results. Labs: Laboratory Results - last 24 hr 02/10/23 16:00 WBC 5.7 RBC 3.44 L Hgb 10.3 L Hct 32.3 L MCV 93.9 MCH 29.9 MCHC 31.9 L RDW Std Deviation 52.3 H RDW Coeff of Mario Alberto 15.3 H Plt Count 325 MPV 8.7 Immature Gran % (Auto) 0.200 Neut % (Auto) 45.0 L Lymph % (Auto) 35.4 [place] % (Auto) 12.9 H Eos % (Auto) 5.8 H Baso % (Auto) 0.7 Absolute Neuts (auto) 2.6 Absolute Lymphs (auto) 2.03 Nucleated RBC % 0 Sodium 137 Potassium 3.4 L Chloride 104 Carbon Dioxide 29.0 Anion Gap 4 L BUN 19 H Creatinine 1.06 Estim Creat Clear Calc 80.41 Est GFR (MDRD) Af Amer 92 Est GFR (MDRD) Non-Af 76 BUN/Creatinine Ratio 17.9 Glucose 83 Lactic Acid 1.6 Calcium 9.0 Radiography Diagnostic Testing: Clinical Impression(s) from Imaging Studies Foot X-Ray 02/10/23 16:05 IMPRESSION: Worsening osteolysis of the head of the fifth metatarsal suspicious for osteomyelitis. Worsening soft tissue wounds. Electronically Signed: Anam Jain MD at 16:29 EST , Treatment and Re-Evaluation :: White blood cell count is normal at 5.7 with normal differential. Hemoglobin is 10.3. Chemistry studies reveal slightly low potassium at 3.4. Lactic acid is normal at 1.6. Left foot x-rays per my interpretation reveal chronic changes. Radiology interpretation is reviewed and does feel that there is worsening osteolysis in the head of the fifth metatarsal suspicious for osteomyelitis. I spoke with Dr. Virgen, on-call for podiatry. After speaking with Dr. Sandhu she states patient is to be started on antibiotics and plan will be for OR this weekend. Apparently Dr. Reed had already spoken with the hospitalist and I will call them now. Discharge Plan Triage Chief Complaint: Wound Check ED Provider: Imelda Mayorga Dx/Rx/DC Orders Clinical Impression: Left foot infection, Osteomyelitis Prescriptions: No Action oxycodone 5 mg Tablet 5 mg PO Q8H PRN PRN (Reason: Pain Score 4-10) 7 Days Qty: 21 0RF Xarelto 2.5 mg tablet 2.5 mg PO BID Qty: 60 2RF atorvastatin 80 mg Tablet 80 mg PO QHS Qty: 90 0RF cilostazol 50 mg Tablet 50 mg PO BIDAC Qty: 60 0RF metoprolol succinate 50 mg Tablet Extended Release 24 Hr 50 mg PO DAILY Qty: 90 0RF amlodipine 5 mg Tablet 5 mg PO DAILY Qty: 90 0RF aspirin 81 mg Tablet,Chewable 81 mg PO BREAKFAST Qty: 90 0RF Brilinta 90 mg Tablet 90 mg PO BID Qty: 180 0RF oxycodone-acetaminophen [Percocet] 5-325 mg tablet 1 tab PO Q8H PRN (Reason: pain) 7 Days Qty: 21 0RF Primary Care Provider: Hebert Sandhu Referrals: Hebert Sandhu DPM [Primary Care Provider] - Disposition Disposition: Acute Care Hospital [facility]
[2023-02-10 15:22] VITALS: BMI 21.7
[2023-02-10] MEDS: oxyCODONE 5 MG Tablet PO ×2 (15:55→20:16)
--- NOTE | 2023-02-10 16:05 | RAD_ITS ---
STUDY: X-RAY - LEFT FOOT CLINICAL: Male, 57 years old. infection TECHNIQUE: 3 view(s) of the foot. COMPARISON: 01/06/2023, 01/08/2023. FINDINGS: Again seen a recent postoperative changes status post amputation of the fifth digit. Osteolysis is seen of the head of the fifth metatarsal suspicious for osteomyelitis. Extensive soft tissue irregularities of the stump of the fifth digit amputation are significantly worse consistent with soft tissue infection-correlate with physical exam. Large soft tissue wound seen of the anterior ankle are new since prior exam, correlate with physical exam. No other bone or joint abnormalities. RAD/Foot min 3 Views IMPRESSION: Worsening osteolysis of the head of the fifth metatarsal suspicious for osteomyelitis. Worsening soft tissue wounds. Electronically Signed: Anam Jain MD at 16:29 EST ,
[2023-02-10 16:14] LABS: Absolute Lymphocyte Count 2.03 X10^3/uL (0.83-4.51); Absolute Neutrophil Count 2.6 X10^3/uL (2.0-7.7); Basophil# 0.04 X10^3/uL; Basophil% 0.7 % (0-1); Eosinophil# 0.33 X10^3/uL; Eosinophils% 5.8 % (0-5); Hematocrit 32.3 % (40-54); Hemoglobin 10.3 g/dL (13.0-16.5); Lymphocyte # 2.03 X10^3/ul (0.83-4.51); Lymphocyte % 35.4 % (19-41); Mean Corp Hgb Conc 31.9 g/dL (32-36); Mean Corpuscular Hgb 29.9 pg (27.0-32.0); Mean Corpuscular Volume 93.9 fL (80-94); Mean Platelet Vol. 8.7 fl (6.2-12.0); Monocyte# 0.74 X10^3/uL; Monocyte% 12.9 % (0-10); NRBC Flagged by Analyzer 0 % (0-5); Neutrophil # 2.58 X10^3/uL (2.7-7.7); Platelet Count 325 K/mm3 (150-450); RBC Distribution Width CV 15.3 % (11.6-14.6); RBC Distribution Width SD 52.3 fl (35.1-43.9); Red Blood Count 3.44 M/mm3 (4.6-6.2); White Blood Count 5.7 K/mm3 (4.4-11.0)
[2023-02-10 16:28] LABS: Anion Gap 4 (5-15); BUN 19 mg/dL (7-18); BUN/Creat Ratio 17.9 RATIO (10-20); Chloride 104 mmol/L (98-107); Creatinine, Serum 1.06 mg/dL (0.70-1.30); EST Glomerular Filtration Rate 76 mL/min (>60); Est Glom Filt Rate - Afr Amer 92 mL/min (>60); Estimated Creatinine Clearance 80.41 ml/min; Glucose 83 mg/dL (74-106); Potassium 3.4 mmol/L (3.5-5.1); Sodium Level 137 mmol/L (136-145)
[2023-02-10 16:54] LABS: Lactic Acid 1.6 mmol/L (0.4-1.9)
--- NOTE | 2023-02-10 17:23 | PCM.HP.STD ---
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 Patient seen at bedside in the ED, present. Patient sitting comfortably in bed, conversing normally, no acute distress. Patient was just given a dose of oxycodone for his left foot pain and states this was helpful for him. Foot was currently open to air on my interview, patient was asking for it to be rewrapped as he had moderate pain with any contact with the foot. Patient has had a fairly complicated history with regard to his left foot wound, left leg PAD, CAD since the end of December. Please see assessment plan below for further details. Patient saw Dr. Sandhu in the office earlier today and was instructed to come into the emergency department with plan for a podiatry procedure this weekend. Aside from his foot pain, patient denies any other acute pain or discomfort at this time. He did complete his course of p.o. antibiotics prescribed Dr. Sandhu, unclear on which antibiotics he was prescribed. Patient denies any fevers or chills. Denies any chest pain, shortness of breath, abdominal pain or discomfort. No other acute concerns at this time. [facility] Medical History (Updated 02/10/23 @ 17:[address] Imelda Mayorga MD) Amputation of toe of left foot Coronary artery disease HTN (hypertension), benign Peripheral arterial disease Home Medications amlodipine 5 mg tablet 5 mg PO DAILY #90 tabs 01/10/23 [Rx Last Taken Unknown] aspirin 81 mg chewable tablet 81 mg PO BREAKFAST #90 tabs 01/10/23 [Rx Last Taken Unknown] atorvastatin 80 mg tablet 80 mg PO QHS #90 tabs 01/10/23 [Rx Last Taken Unknown] cilostazol 50 mg tablet 50 mg PO BIDAC #60 tabs 01/10/23 [Rx Last Taken Unknown] metoprolol succinate 50 mg tablet,extended release 24 hr 50 mg PO DAILY #90 tabs 01/10/23 [Rx Last Taken Unknown] ticagrelor 90 mg tablet (Brilinta) 90 mg PO BID #180 tabs 01/10/23 [Rx Last Taken Unknown] oxycodone 5 mg tablet 5 mg PO Q8H PRN PRN Pain Score 4-10 7 days #21 tabs 01/18/23 [Rx Last Taken Unknown] rivaroxaban 2.5 mg tablet (Xarelto) 2.5 mg PO BID #60 tabs 01/18/23 [Rx Last Taken Unknown] oxycodone-acetaminophen 5 mg-325 mg tablet (Percocet) 1 tab PO Q8H PRN pain 7 days #21 tabs 02/06/23 [Rx Last Taken Unknown] Allergy/AdvReac Type Severity Reaction Status Date / Time No Known Allergies Allergy Verified 02/10/23 15:11 Surgical History H/O heart artery stent Social History Smoking Status: Current every day smoker tobacco type: cigarettes ROS Constitutional Constitutional: Denies change in weight, chills, fatigue, fever(s) or weakness Eyes Eyes: Denies change in vision Cardiovascular Cardiovascular: Denies chest pain or dyspnea on exertion Respiratory/Chest Respiratory/Chest: Denies cough, shortness of breath at rest or wheezing Gastrointestinal Gastrointestinal: Denies abdominal pain Genitourinary Genitourinary: Denies dysuria Musculoskeletal Musculoskeletal: Reports joint pain; Denies arthralgias Neurologic Neurologic: Denies dizziness, focal weakness, headache(s), numbness or paresthesias Vital Signs Vital Signs Vital Signs: 02/10/23 15:09 Temperature 98.2 F Temperature Source Temporal Pulse Rate 88 Respiratory Rate 18 Blood Pressure 127/70 H Blood Pressure Mean 89 Pulse Ox 100 Oxygen Delivery Method Room Air Weight Weight: 74.843 kg Body Mass Index (BMI) 21.7 Physical Exam Const alert, oriented x3, no apparent distress, average body habitus, healthy appearing and well nourished Constitutional Narrative: Pleasant middle-age male, sitting comfortably in bed, conversing normally, no acute distress. General Appearance: cooperative and comfortable HEENT normocephalic, head/scalp atraumatic, hearing grossly normal bilaterally, nasal mucous membranes and turbinates normal and moist oral mucous membranes Eyes PERRL, EOMs intact bilaterally and conjunctivae normal Neck full ROM, no lymphadenopathy and supple Lymph Lymphatic: no lymphadenopathy noted Chest inspection of chest normal Resp normal respiratory effort, normal air movement, no use of accessory muscles and clear to auscultation bilaterally Cardio regular rate, regular rhythm, no murmurs and peripheral pulses 2+ throughout GI normal to inspection, nondistended, normoactive bowel sounds, soft to palpation, non-tender and non-distended no CVA tenderness Back/Spine normal ROM Extremity Extremity Narrative: Severe left foot wound noted. Neuro moves all extremities and no focal motor deficits Speech: speech normal Psych mental status grossly normal Results Lab / Micro Data 02/10/23 16:00 02/10/23 16:00 Labs: Laboratory Results - last 24 hr 02/10/23 16:00: WBC 5.7, RBC 3.44 L, Hgb 10.3 L, Hct 32.3 L, MCV 93.9, MCH 29.9, MCHC 31.9 L, RDW Std Deviation 52.3 H, RDW Coeff of Mario Alberto 15.3 H, Plt Count 325, MPV 8.7, Immature Gran % (Auto) 0.200, Neut % (Auto) 45.0 L, Lymph % (Auto) 35.4, [place] % (Auto) 12.9 H, Eos % (Auto) 5.8 H, Baso % (Auto) 0.7, Absolute Neuts (auto) 2.6, Absolute Lymphs (auto) 2.03, Nucleated RBC % 0, Sodium 137, Potassium 3.4 L, Chloride 104, Carbon Dioxide 29.0, Anion Gap 4 L, BUN 19 H, Creatinine 1.06, Estim Creat Clear Calc 80.41, Est GFR (MDRD) Af Amer 92, Est GFR (MDRD) Non-Af 76, BUN/Creatinine Ratio 17.9, Glucose 83, Lactic Acid 1.6, Calcium 9.0 Imagaing Radiology Impression Foot X-Ray 02/10/23 16:05 IMPRESSION: Worsening osteolysis of the head of the fifth metatarsal suspicious for osteomyelitis. Worsening soft tissue wounds. Electronically Signed: Anam Jain MD at 16:29 EST , Assessment & Plan Assessment/Plan (1) Left foot infection: PLAN: Plan Patient is a 57-year-old male who presented to [facility] ED on 02/10/2023 with worsening left foot wound. 1. Left fifth metatarsal osteomyelitis, recent left fifth toe dry gangrene s/p amputation Follows with podiatry. S/p left fifth toe amputation with Dr. Sandhu on 01/06. Also had peripheral vascular procedure done on 01/18 as noted below. [address] Dr[address] Sandhu in the office on 01/24, noted to have poor wound healing, plan was for operative debridement and skin graft substitute placement. Saw Dr. Sandhu in the office today, sent in for admission for operation this weekend. Patient notably just completed course of p.o. antibiotics, unclear which antibiotics he was on. Wound cultures from 01/31 1+ MSSA, 1+ Enterococcus faecalis, both sensitive to vancomycin. Left foot x-ray on admit showed worsening osteolysis of head of fifth metatarsal suspicious for osteomyelitis, worsening soft tissue wounds. WBC count normal, afebrile, normotensive in ED. ? Admit under inpatient status to [facility]. Podiatry consulted. N.p.o. at midnight for possible procedure, however will need to clarify with podiatry on timing of procedure given suspected need for washout of AC/antiplatelet agents as noted below. Preoperative evaluation as noted below. Will start IV vancomycin and IV Unasyn for now for expanded coverage. Low threshold to consult infectious disease. Pain management with oxycodone 5 mg every 4 hours as needed, Tylenol as needed. 2. Preoperative evaluation ? NSQIP score: Patient has significantly below average risk of serious complications or any complications given his risk factors of age, male, mild systemic disease, smoker, BMI 21. ? Labs: Hemoglobin 10.3, creatinine 1.06, labs otherwise benign. Follow-up postop CBC and BMP. ? Imaging: No need for chest x-ray given recent cardiac workup as noted below. ? Cardiac workup: Recent stress test followed by left heart cath on 01/09 with stent placed. EKG on this admission with normal sinus rhythm, no ST changes. ? Medications: Holding aspirin, Brilinta, Xarelto as noted above. Will defer to podiatry on timing of restarting these medications postoperatively. Okay to continue amlodipine and Toprol on day of procedure going forward. ? Previous procedural complications: None. ? Recommendation: Patient is medically optimized for procedure, no further preoperative testing required at this time. 3. Chronic normocytic anemia Hemoglobin 10.3, MCV 93 on admit. Hemoglobin was 9.1 on 01/18 after recent vascular procedure as noted below. Stable, no active bleeding noted. ? Monitor CBC daily. Iron studies, B12, folate ordered for completeness sake. 4. CAD s/p recent stenting, PAD s/p recent procedure, hypertension, hyperlipidemia Patient with recent hospitalization from 01/06 to 01/11. Initially presented for left fifth toe gangrene as noted above, had toe amputation done on 01/06. Cardiac stress test for preop eval for procedure for PAD was positive for ischemia, had left heart cath done on 01/09 s/p ELIZA x 1 to mLAD lesion. Patient was discharged and had outpatient procedure with vascular surgery, s/p left femoral to below knee popliteal bypass with reversed GSV and anterior tibial/posterior tibial thrombectomy on 01/18/[address] Valle. Currently on aspirin 81 mg daily, Brilinta 90 mg twice daily, Xarelto 2.5 mg twice daily postoperatively. ? Holding aspirin, Brilinta, Xarelto as noted above. Will defer to podiatry on timing of procedure and on restarting AC/antiplatelet agents. Continue home cilostazol. Continue home statin, amlodipine, Toprol. 5. Current cigarette smoker ? Current smoker, 14 mg patch provided on previous admission. Patient denied need for nicotine patch in the ED, monitor. DVT prophylaxis: SCDs CODE STATUS: Full code, verified Expected disposition: TBD Total clinical time spent by myself addressing the patient's medical issues, reviewing all the data, and collaborating with patient's care team: 55 minutes. Charges/Coding Visit Charges Inpatient E&M: 98669 Init Hosp L2
[2023-02-10] MEDS: Piperacil/Tazobactam 3.375 GM in 0.9% Normal Saline (50mL MB+) 50 ML IV (17:58)
[2023-02-10] MEDS: Vancomycin IV 1,000 MG/200 ML BAG 200 MG IV (18:35)
[2023-02-10 18:41] VITALS: BP 117/76; PULSE 79; RESP 16; TEMP 36.6; O2SAT 98
[2023-02-10 18:42] VITALS: BP 117/76; PULSE 67; RESP 16; TEMP 36.6; O2SAT 100
[2023-02-10 18:50] LABS: CRP 9.56 mg/L (0.0-3.0); Ferritin 61 ng/mL (26-388); Iron 29 ug/dL (65-175); Iron Binding Capacity,Total 322 ug/dL (250-450)
[2023-02-10 19:12] VITALS: BMI 21.2
[2023-02-10 19:17] VITALS: BP 133/57; PULSE 71; RESP 16; TEMP 36.9; O2SAT 95
--- NOTE | 2023-02-10 20:12 | PCM.RX.CS ---
Consult Antibiotic Management Pharmacy has been consulted to manage selected antiobiotic: Vancomycin Type of Intervention Type of Consult: New start Suspected Infection Suspected Infection: Skin/Soft tissue Labs Labs: Sodium 137 mmol/L (136-145) 02/10/23 16:00 Potassium 3.4 mmol/L (3.5-5.1) L 02/10/23 16:00 Chloride 104 mmol/L (98-107) 02/10/23 16:00 Carbon Dioxide 29.0 mmol/L (21.0-32.0) 02/10/23 16:00 Anion Gap 4 (5-15) L 02/10/23 16:00 BUN 19 mg/dL (7-18) H 02/10/23 16:00 Creatinine 1.06 mg/dL (0.70-1.30) 02/10/23 16:00 Est GFR (MDRD) Af Amer 92 mL/min (>60) 02/10/23 16:00 Est GFR (MDRD) Non-Af 76 mL/min (>60) 02/10/23 16:00 BUN/Creatinine Ratio 17.9 RATIO (10-20) 02/10/23 16:00 Glucose 83 mg/dL (74-106) 02/10/23 16:00 Goal Trough Goal Trough: 15-20 mcg/mL Pharmacy Plan for Drug Dosing Pharmacy Plan for Drug Dosing: NEW START IV VANCOMYCIN Consulting Physician: Dr. Velasquez Indication: Left foot infection Goal Trough: 15-20 SrCr: 1.06 CrCl: 80 mL/min Comments: Patient had initial ER dose of vancomycin 1000mg IV x1 02/10/23 @1835 Vancomycin Dose: Will start patient on vancomycin 1250mg IV Q12hr to start 02/11/23 @0400. Note: patient was ordered a loading dose, which would have been 1750mg. Instead of giving additional supplemental dose, will just start scheduled dosing ~8hrs from last administered dose. Pending Level: 02/12/23 @0330, prior to 4th total dose of vancomycin Pharmacy Service will continue to monitor and adjust dosing as required.
[2023-02-10] MEDS: Acetaminophen 325 MG Tablet 650 MG PO (20:15)
[2023-02-10] MEDS: 0.9% Saline Lock 10 ML Syringe IV (20:19)
[2023-02-10] MEDS: 0.9% Normal Saline (250mL Bag) 250 ML 15 ML IV (20:19)
[2023-02-10 20:56] VITALS: O2SAT 97
[2023-02-10] MEDS: Atorvastatin Calcium 80 MG Tablet PO (23:36)
[2023-02-10] MEDS: Ampicillin/Sulbactam 3 GM in 0.9% Normal Saline (100mL MB+) 100 ML IV (23:36)
[2023-02-10 23:46] VITALS: BP 117/50; PULSE 62; RESP 16; TEMP 36.9; O2SAT 96
[2023-02-11] VITALS (12 sets, daily range): BP systolic 104–168; BP diastolic 63–103; PULSE 61–85; RESP 16–20; TEMP 36.1–36.8; O2SAT 96–100; BMI 21.3
[2023-02-11] MEDS: oxyCODONE 5 MG Tablet PO ×3 (03:07→19:52)
[2023-02-11] MEDS: Vancomycin HCl 1,250 MG in 0.9% Normal Saline (250mL Bag) 250 ML 167 MG IV ×2 (03:08→14:59)
[2023-02-11] MEDS: Acetaminophen 325 MG Tablet 650 MG PO ×2 (03:08→14:59)
[2023-02-11] MEDS: Ampicillin/Sulbactam 3 GM in 0.9% Normal Saline (100mL MB+) 100 ML IV ×4 (04:54→23:28)
[2023-02-11 08:57] LABS: Hematocrit 31.9 % (40-54); Mean Corp Hgb Conc 31.3 g/dL (32-36); Mean Corpuscular Volume 92.5 fL (80-94); Mean Platelet Vol. 8.7 fl (6.2-12.0); Platelet Count 316 K/mm3 (150-450); RBC Distribution Width CV 15.1 % (11.6-14.6); RBC Distribution Width SD 51.4 fl (35.1-43.9); Red Blood Count 3.45 M/mm3 (4.6-6.2); White Blood Count 5.1 K/mm3 (4.4-11.0)
--- NOTE | 2023-02-11 09:02 | PCM.CONS.GEN ---
Assessment & Plan Assessment/Plan (1) Osteomyelitis: QUALIFIERS: Osteomyelitis type: subacute Osteomyelitis location: foot Laterality: left Qualified Code(s): M86.272 - Subacute osteomyelitis, left ankle and foot PLAN: Patient was examined and evaluated. All findings were discussed with the patient. All questions were answered to the patient satisfaction. Plan will be to take the patient to the operating room to perform partial excision of fifth metatarsal, surgical skin graft site prep with application of skin graft substitute and wound VAC application to the left foot. All risk and benefits were discussed with the patient in great detail. Patient understands all complications and would like to move forward with surgical intervention at this time. The patient is currently n.p.o. and cleared by medicine. We will move forward with surgical intervention. WBC: 5.1 CRP:9.56 HbA1c: 5.6 (01/06/23) Medicine: On board, medical management, IV Unasyn and vancomycin. Podiatry will continue to follow while patient is in house. Please reach out to Dr. Sandhu with any questions or concerns. Thank you for the patient consult! (2) Non-pressure ulcer of left lower extremity with necrosis of bone: (3) Left foot infection: (4) Peripheral vascular disease: HPI Consult Data Date of Consult: 02/11/23 HPI Narrative Reason for Consultation: Exposed bone, full-thickness ulceration, left foot HPI Narrative: ALON MERRITT, is a 57 M who presents to emergency department for admission on 02/10/[address] Sandhu's recommendation after consultation in the office on of this week. Patient presented with worsening full-thickness wound as well as exposed fifth metatarsal to the left foot. We were trying to get the patient cleared medically at as an outpatient for outpatient surgery however the patient had missed a few of his primary care doctor's appointment and was unfortunately dropped from that doctors service. Patient had also been placed on oral antibiotics, doxycycline x 2 rounds and has failed outpatient oral antibiotics. When this news was found out I instructed the patient to present to the operating room for admission, IV antibiotics, medical clearance and care as well as surgical intervention by podiatry. Patient understands all risk and benefits. He is currently hemodynamically stable. He is currently getting IV antibiotics on the floor. He denies any trauma. He denies any bleeding or malodor to the area. He denies constitutional symptoms. No other pedal complaints at this time. [facility] Medical History Amputation of toe of left foot Coronary artery disease HTN (hypertension), benign Hypertension Peripheral arterial disease Smoker Home Medications amlodipine 5 mg tablet 5 mg PO DAILY #90 tabs 01/10/23 [Rx Last Taken Unknown] aspirin 81 mg chewable tablet 81 mg PO BREAKFAST #90 tabs 01/10/23 [Rx Last Taken Unknown] atorvastatin 80 mg tablet 80 mg PO QHS #90 tabs 01/10/23 [Rx Last Taken Unknown] cilostazol 50 mg tablet 50 mg PO BIDAC #60 tabs 01/10/23 [Rx Last Taken Unknown] metoprolol succinate 50 mg tablet,extended release 24 hr 50 mg PO DAILY #90 tabs 01/10/23 [Rx Last Taken Unknown] ticagrelor 90 mg tablet (Brilinta) 90 mg PO BID #180 tabs 01/10/23 [Rx Last Taken Unknown] oxycodone 5 mg tablet 5 mg PO Q8H PRN PRN Pain Score 4-10 7 days #21 tabs 01/18/23 [Rx Last Taken Unknown] rivaroxaban 2.5 mg tablet (Xarelto) 2.5 mg PO BID #60 tabs 01/18/23 [Rx Last Taken Unknown] oxycodone-acetaminophen 5 mg-325 mg tablet (Percocet) 1 tab PO Q8H PRN pain 7 days #21 tabs 02/06/23 [Rx Last Taken Unknown] Allergy/AdvReac Type Severity Reaction Status Date / Time No Known Allergies Allergy Verified 02/10/23 15:11 Surgical History H/O heart artery stent Social History Smoking Status: Current every day smoker tobacco type: cigarettes Physical Exam Narrative Vascular: DP and PT pulses are audible on Doppler. +1 pitting edema appreciated to left lower extremity. Skin temperature great is warm to warm from proximal ankle to distal digit. No evidence of focal increase is appreciated. Neurological: Light touch intact. Patient does respond to painful stimuli. Dermatological: Full-thickness ulceration appreciated to left anterior ankle. Wound base is fibrogranular nature. There is evidence of dry eschar laterally to the anterior ankle as well. Eschar is stable with no evidence of wet gangrene. Full-thickness ulceration appreciated to the lateral foot at the level of the fifth metatarsal with exposed bone. Wound base is fibrogranular nature with exposed fifth metatarsal head. Cannot rule out osteomyelitis at this time. Positive probe to bone. No tunneling is appreciated. mild malodor is appreciated. Musculoskeletal: Muscle strength was deferred. Moderate palpatory tenderness appreciated to both ulcerations to left lower extremity. No pain with calf compression. Const alert, oriented x3 and no apparent distress Lab / Micro Data 02/11/23 07:48 02/10/23 16:00 Labs: Laboratory Results - last 24 hr 02/10/23 16:00: WBC 5.7, RBC 3.44 L, Hgb 10.3 L, Hct 32.3 L, MCV 93.9, MCH 29.9, MCHC 31.9 L, RDW Std Deviation 52.3 H, RDW Coeff of Mario Alberto 15.3 H, Plt Count 325, MPV 8.7, Immature Gran % (Auto) 0.200, Neut % (Auto) 45.0 L, Lymph % (Auto) 35.4, [place] % (Auto) 12.9 H, Eos % (Auto) 5.8 H, Baso % (Auto) 0.7, Absolute Neuts (auto) 2.6, Absolute Lymphs (auto) 2.03, Nucleated RBC % 0, Sodium 137, Potassium 3.4 L, Chloride 104, Carbon Dioxide 29.0, Anion Gap 4 L, BUN 19 H, Creatinine 1.06, Estim Creat Clear Calc 80.41, Est GFR (MDRD) Af Amer 92, Est GFR (MDRD) Non-Af 76, BUN/Creatinine Ratio 17.9, Glucose 83, Lactic Acid 1.6, Calcium 9.0, Iron 29 L, TIBC 322, Iron Saturation 9.0 L, Ferritin 61, C-React Prot Ext Range 9.56 H, Folate 7.50 02/11/23 07:48: WBC 5.1, RBC 3.45 L, Hgb 10.0 L, Hct 31.9 L, MCV 92.5, MCH 29.0, MCHC 31.3 L, RDW Std Deviation 51.4 H, RDW Coeff of Mario Alberto 15.1 H, Plt Count 316, MPV 8.7 Imagaing Radiology Impression Foot X-Ray 02/10/23 16:05 IMPRESSION: Worsening osteolysis of the head of the fifth metatarsal suspicious for osteomyelitis. Worsening soft tissue wounds. Electronically Signed: Anam Jain MD at 16:29 EST ,
[2023-02-11 09:34] LABS: Anion Gap 4 (5-15); BUN 15 mg/dL (7-18); BUN/Creat Ratio 17.6 RATIO (10-20); Calcium,Total 9.1 mg/dL (8.5-10.1); Chloride 108 mmol/L (98-107); Creatinine, Serum 0.85 mg/dL (0.70-1.30); EST Glomerular Filtration Rate 98 mL/min (>60); Est Glom Filt Rate - Afr Amer 118 mL/min (>60); Estimated Creatinine Clearance 97.88 ml/min; Glucose 92 mg/dL (74-106); Potassium 3.7 mmol/L (3.5-5.1); Sodium Level 140 mmol/L (136-145)
--- NOTE | 2023-02-11 09:34 | OP.PCM_ITS ---
Problems Associated Problem List Diagnoses (1) Osteomyelitis: (2) Non-pressure ulcer of left lower extremity with necrosis of bone: (3) Left foot infection: Report of Operation Date of Procedure: 02/11/23 Pre-Operative Diagnosis: 1. Osteomyelitis, left foot 2. Nonpressure ulcer with bone exposed, left foot 3. Nonpressure ulcer with fat exposed, left ankle 4. Peripheral arterial disease, left lower extremity Post-Operative Diagnosis: 1. Osteomyelitis, left foot 2. Nonpressure ulcer with bone exposed, left foot 3. Nonpressure ulcer with fat exposed, left ankle 4. Peripheral arterial disease, left lower extremity Surgery/Procedure Performed:: 1. Partial excision of bone, fifth metatarsal, left foot 2. Surgical skin graft site prep, left lower extremity 3. Application of skin graft substitute, left lower extremity 4. Delayed primary closure, left ankle 5. Application of negative pressure wound VAC, left foot and ankle Description of Surgical Findings:: 1. After Misonix debridement, evidence of healthy granular tissue with sanguinous drainage and no sign of infection. 2. Removal of soft infected bone to the fifth metatarsal with clean margin 3. Closure of medial ankle ulceration 4. Successful application of negative pressure VAC Surgeon: Hebert Sandhu farm mechanic: None Type of Anesthesia: General and Local Anesthesiologist: Luciano Pretty Special Medications: None Specimen's removed: 1. Fifth metatarsal bone, half sent to pathology, half sent to microbiology for culture and sensitivity. 2. Fifth metatarsal bone, clean margin, sent to pathology Drains: None Estimated Blood Loss (mL): 50 mL Fluids Replaced: Per anesthesia Description of Procedure: Indications For Operation: Mr. Medina is a 57-year-old male who was admitted to [facility] for left lower extremity of full-thickness ulceration after failing 2 rounds of oral outpatient antibiotics. Patient is well-known to the office and has prior history of amputation secondary to dry gangrene of the fifth digit with flap closure date of surgery was 01/06/2023. Patient also had vascular intervention by the vascular surgeon here at the hospital Dr. Valle date of surgery 01/16/2023. The patient had been recovering well after all procedures and intervention. However the patient did not show up to his primary doctors appointments and was dropped from their service after attempt to get medical clearance for additional debridement to the left lower extremity. Since the patient's last visit with Dr. Sandhu, he had evidence of malodor to the wound as well as exposed fifth metatarsal head for approximately 3 weeks. After failing 2 rounds of oral antibiotics it was suggested for the patient to present to the ED at [facility] for admission, medical clearance and IV antibiotics for preparation for surgical intervention. Due to to the nature of the patient's full-thickness wounds with progression of fibrotic tissue and confer concern for osteomyelitis it had been necessary at this time to take the patient to the operating room to perform the above procedures to help not only relieve him of pain but also to help stimulate healthy bleeding tissue so that the patient may heal his wounds.. The nature of the problem, anticipated procedures, postop recovery/convalences and risk/complications include but not limited to infection, wound healing complications, hypertrophic scarring, numbness, tingling, chronic pain, CRPS, over and under correction, recurrence of deformity, DVT and or PE and the need for further surgery have been discussed in great detail with the patient. All questions have been answered to the patient's satisfaction. There are no guarantees given as to the outcome of the procedure. Description of Procedure: Under mild sedation, the patient was brought into the operating room and placed on the operating table in supine position. Once the patient was under general anesthesia with laryngeal mask airway, the left lower extremity was blocked using approximately 20 cc 0.5% Marcaine plain. No tourniquet was used to the left lower extremity. Next, the left lower extremity was prepped and draped in normal aseptic manner. Next, a timeout was then undertaken verifying the correct patient, extremity, visibility of preoperative markings, availability of the equipment. Next, attention was directed to the level of the fifth metatarsal of the left foot. Using a 15 blade a full-thickness incision down to bone was carried out approximately 1-1/2 cm in length. Further blunt dissection was carried down around the fifth metatarsal. There show evidence of periosteal reaction and softening of the bone. Using a sagittal saw with #111 blade, partial excision of bone to the fifth metatarsal was carried out and removed and passed the back table to be for half to be sent to pathology and the other half to be sent to microbiology for culture and sensitivity. Next, again using the sagittal saw with #111 blade, a clean margin was removed from the fifth metatarsal shaft and sent to the back table to be sent for pathology. The incision area was irrigated with copious primitivo of normal warm saline. The deep tissue was closed with 3-0 Vicryl to the level of the ulceration on the left foot. The incision skin was reapproximated and closed with 2-0 nylon in simple interrupted suture technique. Next, using the ProtoStar debridement machine, excisional debridement with surgical skin graft prep was performed on all full-thickness ulcerations were debrided down to and including subcutaneous tissue to the level of the anterior ankle, anterior lateral ankle, lateral foot at the level of the fifth metatarsal as well as to the medial ankle. Let it be noted that the medial full-thickness ulceration had a depth of approximately 0.5 cm after debridement. At this time a decision was made to perform a delayed primary closure on the medial ulceration. The ulceration on the medial ankle was flushed with couple primitivo of normal saline. Big bite sutures were taken and the medial ankle ulceration was closed with 2-0 nylon in horizontal mattress suture technique. After debridement all ulcerations to the anterior ankle, anterior lateral ankle and the full-thickness ulceration to the level of the fifth metatarsal showed evidence of healthy granular tissue with healthy sanguinous drainage. No evidence of malodor was present. The left lower extremity was wiped clean and patted dry. Next, application of skin graft substitute was applied using 2000 milligrams of amnio fill was moistened with sterile saline and made into a paste. The amnio fill was placed on all of the full-thickness ulcerations with healthy granular tissue to the level of the anterior ankle, anterior lateral ankle and the fifth metatarsal ulceration. Next, a BioSkin by [employer] measuring 4 cm x 4 cm was applied to the anterior ankle and anterior lateral ankle ulceration. Next, BioSkin by [employer] measuring 4 cm x 4 cm was applied to the lateral ulceration at the level of the fifth metatarsal. All graft sites were covered with Adaptic and secured in place with Steri-Strips. The left lower extremity was carefully wiped clean and patted dry. The medial incision was covered with Adaptic and tape donned with Steri-Strips. The negative wound pressure VAC was applied per the [employer] plant anatomy teacher's recommendation with clear plastic over the Adaptic, which was cut out to the size of the wounds followed by GranuFoam which was securely placed using the clear tape. A small hole was cut out for the wound VAC saucer to be placed without incident. The wound VAC was turned on to 125 mmHg continuous flow at low intensity and no leaks were noted at this time. The remainder of the proximal left lower extremity was wiped clean and patted dry. The medial incision was covered with 4 x 4's and the left lower extremity was wrapped with Kerlix, cast padding and a light single layer Larson compression bandage was applied. The patient was placed in a knee immobilizer due to constant contraction and to aid in better perfusion to the left lower extremity. The patient tolerated the procedure and anesthesia well and apparent satisfactory condition and was transported to the PACU for further monitoring prior to discharge back to the floor. Vital signs stable and vascular status intact to all digits bilateral. Post Operative Plan: Weightbearing: Partial weightbearing to heel to the left lower extremity. Full weightbearing to the right lower extremity. Antibiotics: Per medicine, IV antibiotics vancomycin and Unasyn DVT Prophylaxis: Per medicine Anderson: None Dressing: Skin graft substitute, Adaptic, 4 x 4's, Kerlix, negative pressure VAC, single layer Larson compression bandage Pain Medication: Percocet, gabapentin, ketorolac, Dilaudid Follow-up: Patient will remain in hospital until cultures return. Continue empiric IV antibiotics. The wound VAC will stay on until Monday and will be changed by nursing. The patient will follow-up with Dr. Sandhu 1 week postop at the wound care center. Grafts/Implants Used: 1. [employer] medical BioSkin, 4 cm x 4 (x2). 2. Amnio fill 2000 mg Complications None Admit VTE Documentation VTE Present on Admission: Yes VTE Mechan Device Prophylaxis: SCD's VTE Pharm Prophylaxis ordered?: Yes
--- NOTE | 2023-02-11 10:10 | BON_PTH ---
PATIENT: ALON MERRITT LOC: [facility] U#:[id number] AGE/SX: 57/M ROOM: [facility] [place] RE02/10/[address]: Dr. Geo Real MD : 1965 BED: 1 DIS: 02/16/2023 SPEC #: [id number] RECD: 02/13/23 10:13 STATUS: [place] RERic #: [id number] GE: 02/11/23 10:[address]: Hebert Sandhu DEPT: SURGICAL PATHOLOGY RECD BY: Radha Tovar ENTERED: 02/13/23 11:23 SP TYPE: Bone OTHR DR: Dr. Brennen Velasquez, DO Dr. Hebert Sandhu, DPM Dr. Anum Wilson MD No Primary Care Phys Tissues: A - Toe, NOS B - Toe, NOS Procedures: Decalcification bone/plaque Surgery Specimen Level IV Comments: @ Ordering doctor for DEC edited from to DR.JMOSS Sharda RAMIREZ at 02/13/23 1511 @ Ordering doctor for SUIV edited from to DR.JMOSS Sharda RAMIREZ at 02/13/23 1511 @ Submitting doctor edited from to DR.JMOSS Sharda RAMIREZ at 02/13/23 1511 HEADER OPERATION: Left lower extremity / partial excision of bone fifth metatarsal PRE-OP DIAGNOSIS: Left foot osteomyelitis, full thickness wound TISSUE SUBMITTED: A - Fifth metatarsal bone/left foot, B - Clean margin fifth metatarsal bone/left foot MICROSCOPIC DIAGNOSIS A. Fifth metatarsal bone of left foot, biopsy: Acute osteomyelitis. B. Clearance margin bone, first metatarsal of left foot, excision: No evidence of osteomyelitis. Reactive and reparative change. AM:suzy 02/15/2023 MICROSCOPIC DESCRIPTION Slides are reviewed. GROSS DESCRIPTION A - Received in fixative is one container labeled with the patient's name and designated fifth metatarsal bone left foot. The specimen consists of a piece of bone measuring 1.2 x 1.0 x 1.0 cm. The entire specimen is submitted in one cassette after decalcification. B - Received in fixative is one container labeled with the patient's name and designated clear margin fifth metatarsal bone left foot. The specimen consists of a piece of bone measuring 1.0 x 1.0 x 0.6 cm. The entire specimen is submitted in one cassette after decalcification. / ANDRÉS:suzy 02/13/2023 TC:2 CPT: 94462 x2, 61055 x2
[2023-02-11] MEDS: Bupivacaine Mpf 0.5% 30 ML VIAL (10:22)
--- NOTE | 2023-02-11 12:18 | PN_ITS ---
Subjective Subjective Patient seen and examined. and daughter were by his bedside. He had no active complaints. Review of systems is otherwise negative. He is due for surgery today Objective Data Objective Data Vital Signs: Vital Signs Temp Pulse Resp BP Pulse Ox O2 Del Method 97 F L 62 16 164/91 H 99 Room Air 02/11/23 12:00 02/11/23 12:00 02/11/23 12:00 02/11/23 12:00 02/11/23 12:00 02/11/23 12:00 Oxygen Delivery Method Room Air Weight: 161 lb 0.728 oz Body Mass Index (BMI) 21.3 Intake & Output: Intake and Output for Last 24 Hours 02/09/23 02/10/23 02/11/23 23:59 23:59 23:59 Intake Total 650 / 650 524 / 524 Balance 650 / 650 524 / 524 Lab / Micro Data 02/11/23 07:48 02/11/23 07:48 Labs: Laboratory Results - last 24 hr 02/10/23 16:00: WBC 5.7, RBC 3.44 L, Hgb 10.3 L, Hct 32.3 L, MCV 93.9, MCH 29.9, MCHC 31.9 L, RDW Std Deviation 52.3 H, RDW Coeff of Mario Alberto 15.3 H, Plt Count 325, MPV 8.7, Immature Gran % (Auto) 0.200, Neut % (Auto) 45.0 L, Lymph % (Auto) 35.4, [place] % (Auto) 12.9 H, Eos % (Auto) 5.8 H, Baso % (Auto) 0.7, Absolute Neuts (auto) 2.6, Absolute Lymphs (auto) 2.03, Nucleated RBC % 0, Sodium 137, Potassium 3.4 L, Chloride 104, Carbon Dioxide 29.0, Anion Gap 4 L, BUN 19 H, Creatinine 1.06, Estim Creat Clear Calc 80.41, Est GFR (MDRD) Af Amer 92, Est GFR (MDRD) Non-Af 76, BUN/Creatinine Ratio 17.9, Glucose 83, Lactic Acid 1.6, Calcium 9.0, Iron 29 L, TIBC 322, Iron Saturation 9.0 L, Ferritin 61, C-React Prot Ext Range 9.56 H, Folate 7.50 02/11/23 07:48: WBC 5.1, RBC 3.45 L, Hgb 10.0 L, Hct 31.9 L, MCV 92.5, MCH 29.0, MCHC 31.3 L, RDW Std Deviation 51.4 H, RDW Coeff of Mario Alberto 15.1 H, Plt Count 316, MPV 8.7, Sodium 140, Potassium 3.7, Chloride 108 H, Carbon Dioxide 28.0, Anion Gap 4 L, BUN 15, Creatinine 0.85, Estim Creat Clear Calc 97.88, Est GFR (MDRD) Af Amer 118, Est GFR (MDRD) Non-Af 98, BUN/Creatinine Ratio 17.6, Glucose 92, Calcium 9.1 Radiography Diagnostic Testing: Radiology Impression Foot X-Ray 02/10/23 16:05 IMPRESSION: Worsening osteolysis of the head of the fifth metatarsal suspicious for osteomyelitis. Worsening soft tissue wounds. Electronically Signed: Anam Jain MD at 16:29 EST , Physical Exam Const alert, oriented x3, no apparent distress and well nourished General Appearance: cooperative and well developed HEENT normocephalic, head/scalp atraumatic, moist oral mucous membranes and oropharynx normal Eyes PERRL and EOMs intact bilaterally Neck no lymphadenopathy, supple and no JVD Lymph Lymphatic: no lymphadenopathy noted and no lymphedema noted Resp normal respiratory effort, normal air movement and clear to auscultation bilaterally Cardio regular rate, regular rhythm, S1 normal heart sound and S2 normal heart sound GI normal to inspection, nondistended, normoactive bowel sounds, soft to palpation, non-tender and non-distended Extremity Extremity Narrative: left foot wrapped in bandage. Skin Skin Narrative: left foot wrapped in bandage Neuro CN's II-XII intact bilaterally and no focal motor deficits Motor Exam: strength 5/5 throughout Psych thought process normal and cooperative Appearance: appropriate Assessment & Plan Assessment/Plan (1) Osteomyelitis: QUALIFIERS: Osteomyelitis type: subacute Osteomyelitis location: foot Laterality: left Qualified Code(s): M86.272 - Subacute osteomyelitis, left ankle and foot (2) Left foot infection: PLAN: Plan #Left fifth metatarsal osteomyelitis * recently had left fifth toe amputation by podiatry on 01/06/2023. * subsequently had poor wound healing and is being admitted for operative debridement and skin graft substitute placement. * recently completed a course of PO antibiotics afte wound cultures from 01/31 grew MSSA and Enterococcus * left foot xray on admission showed worsening osteolysis of the head of fifth metatarsal suspicious for osteomyelitis and worsening soft tissue wounds. * podiatry on board * on IV vancomycin and unasyn * for debridement and skin graft substitute placement. * #Chronic anemia: Hb is 10.3. Stable. Will monitor #CAD s/p stent: on aspirin and brilinta. #PAD s/p recent fem POP bypass and thrombectomy * on aspirin, brilinta and xarelto. on Cilostazol * on high intensity statin. * #Nicotine dependence: counseled to quit. On nicotine patch 21mg daily #Hypertension; on amlodipine and metoprolol. DVT prophylaxis: SCDs. Charges/Coding Visit Charges Inpatient E&M: 08653 Subs Hosp L2
[2023-02-11] MEDS: Gabapentin 100 MG Capsule PO ×2 (13:07→16:55)
[2023-02-11] MEDS: Ensure Plus High Protein 120 ML LIQUID PO ×3 (13:07→20:23)
--- NOTE | 2023-02-11 15:15 | CASEMGMT ---
RN CM readmission note: The following was taken from this RN CM readmission note from 01/18/23: Index admission: Admitted 01/06/23 w/gangrene left fifth toe. Pt had surgery by podiatry, Dr Sandhu, for incision of bone cortex advancement flap of lt foot. Pt also had w/u by vascular for PAD. During hospitalization pt had Stress test, occlusion to LAD of heart found, and pt had PCI. Discharged home 01/10/23 w/plans to undergo intervention to LLE on 01/16. Pt lives w/his , is independent @ baseline, and denied having any discharge needs. Readmission: Admitted 01/17/23 for elective scheduled aortogram, LLE runoff. Pt went to OR and had left fem-below knee popliteal bypass w/reversed GSV, anterior tib/post tib thrombectomy via foot incision, for progressive gangrene of left foot failed endovascular surgery. RADHA CRESPO met w/pt who denied having any discharge planning needs other than needing a new walker. RN ZAK assisted pt w/getting a WW @ discharge. Current readmission: Admitted again 02/10/23 w/left foot osteomyelitis. Pt went to OR w/Dr Sandhu today 02/11 for partial excision of bone, fifth metatarsal, left foot. Pt also had surgical skin graft LLE and wound vac placed to left foot/ankle. Per Dr Sandhu note today, Patient will remain in hospital until cultures return. Continue empiric IV antibiotics. The wound VAC will stay on until Monday and will be changed by nursing. The patient will follow-up with Dr. Sandhu 1 week postop at the wound care center. RADHA CRESPO to room. Introduced self and role. Pt resting in bed. , Delaney, @ bedside. Pt states he has been taking his medications as prescribed since last admission and just completed his antibiotics. He did f/u with Dr Sandhu and just had an appt with him this past week on , which is when he was instructed to come to [facility] to get admitted for debridement. Pt states he does not currently have a PCP. He states he received a letter from an office that states he was a no call/no show x 2 and that they would not take him back. He does not recall what office/physician this was and was not aware of appts that were scheduled, nor does he know who scheduled them. He was made aware he can be provided w/a list of PCP's in his area on Monday. Discussed discharge planning. Questions answered re: HHC and SNF. Pt and both wish for pt to discharge home w/HHC. They were made aware a list of HHC's can be provided on Monday for them to review. Wound cx's pending. Pt and state, if IV atb's are needed @ discharge that would be willing to learn how to administer them. Further questions answered. Pt states he has crutches, a WW, and can borrow a shower chair from a friend. He denies needing further DME. Plan: Home w/HHC for SN: wound vac care/dsg changes and possible IV atb's. Robby ESPARZAN RN CM
[2023-02-11] MEDS: Cilostazol 50 MG Tablet PO (16:55)
[2023-02-11] MEDS: 0.9% Normal Saline (250mL Bag) 250 ML 15 ML IV (18:52)
[2023-02-11] MEDS: 0.9% Saline Lock 10 ML Syringe IV ×2 (19:53→20:20)
[2023-02-11] MEDS: Ketorolac 30 MG/ML Syringe IM (20:18)
[2023-02-11] MEDS: Atorvastatin Calcium 80 MG Tablet PO (20:21)
[2023-02-12] VITALS (8 sets, daily range): BP systolic 115–123; BP diastolic 58–87; PULSE 55–68; RESP 16–18; TEMP 36.6–37.2; O2SAT 95–100
[2023-02-12] MEDS: oxyCODONE 5 MG Tablet PO ×3 (02:44→21:42)
[2023-02-12] MEDS: Acetaminophen 325 MG Tablet 650 MG PO ×3 (02:46→21:43)
[2023-02-12 02:52] LABS: Absolute Lymphocyte Count 1.32 X10^3/uL (0.83-4.51); Absolute Neutrophil Count 2.6 X10^3/uL (2.0-7.7); Basophil# 0.03 X10^3/uL; Basophil% 0.6 % (0-1); Eosinophils% 7.9 % (0-5); Hematocrit 28.3 % (40-54); Hemoglobin 8.9 g/dL (13.0-16.5); Lymphocyte # 1.32 X10^3/ul (0.83-4.51); Lymphocyte % 25.9 % (19-41); Mean Corp Hgb Conc 31.4 g/dL (32-36); Mean Corpuscular Hgb 29.1 pg (27.0-32.0); Mean Corpuscular Volume 92.5 fL (80-94); Mean Platelet Vol. 8.6 fl (6.2-12.0); Monocyte# 0.79 X10^3/uL; Monocyte% 15.5 % (0-10); NRBC Flagged by Analyzer 0 % (0-5); Neutrophil # 2.55 X10^3/uL (2.7-7.7); Neutrophil % 50.1 % (47-70); Platelet Count 253 K/mm3 (150-450); RBC Distribution Width CV 15.2 % (11.6-14.6); RBC Distribution Width SD 51.6 fl (35.1-43.9); Red Blood Count 3.06 M/mm3 (4.6-6.2); White Blood Count 5.1 K/mm3 (4.4-11.0)
[2023-02-12 03:16] LABS: Anion Gap 4 (5-15); BUN 13 mg/dL (7-18); BUN/Creat Ratio 15.4 RATIO (10-20); Calcium,Total 8.3 mg/dL (8.5-10.1); Chloride 109 mmol/L (98-107); Creatinine, Serum 0.85 mg/dL (0.70-1.30); EST Glomerular Filtration Rate 99 mL/min (>60); Est Glom Filt Rate - Afr Amer 120 mL/min (>60); Estimated Creatinine Clearance 97.88 ml/min; Glucose 110 mg/dL (74-106); Potassium 3.8 mmol/L (3.5-5.1); Sodium Level 140 mmol/L (136-145)
[2023-02-12 03:18] LABS: Vancomycin, Trough Level 12.1 ug/mL (5.0-15.0)
--- NOTE | 2023-02-12 03:24 | PCM.RX.CS ---
Consult Antibiotic Management Pharmacy has been consulted to manage selected antiobiotic: Vancomycin Type of Intervention Type of Consult: Follow-up Labs Labs: Sodium 140 mmol/L (136-145) 02/12/23 02:38 Potassium 3.8 mmol/L (3.5-5.1) 02/12/23 02:38 Chloride 109 mmol/L (98-107) H 02/12/23 02:38 Carbon Dioxide 27.0 mmol/L (21.0-32.0) 02/12/23 02:38 Anion Gap 4 (5-15) L 02/12/23 02:38 BUN 13 mg/dL (7-18) 02/12/23 02:38 Creatinine 0.85 mg/dL (0.70-1.30) 02/12/23 02:38 Est GFR (MDRD) Af Amer 120 mL/min (>60) 02/12/23 02:38 Est GFR (MDRD) Non-Af 99 mL/min (>60) 02/12/23 02:38 BUN/Creatinine Ratio 15.4 RATIO (10-20) 02/12/23 02:38 Glucose 110 mg/dL (74-106) H 02/12/23 02:38 Vancomycin Trough 12.1 ug/mL (5.0-15.0) 02/12/23 02:38 Goal Trough Goal Trough: 15-20 mcg/mL Pharmacy Plan for Drug Dosing Pharmacy Plan for Drug Dosing: Pharmacy Service will continue to monitor and adjust dosing as required. TROUGH 12.1 @ 11.5 HOURS. INCREASE TO 1500MG Q12H AND FOLLOW UP TROUGH PRIOR TO 4TH DOSE Follow-Up Labs Follow-Up Labs: Trough: Vancomycin Date/Time Labs Ordered Labs to be done on [date and time ordered]: 02/13 @ 1500
[2023-02-12] MEDS: Vancomycin HCl 1,500 MG in 0.9% Normal Saline (500mL Bag) 500 ML 250 MG IV ×2 (03:47→15:57)
[2023-02-12] MEDS: Ampicillin/Sulbactam 3 GM in 0.9% Normal Saline (100mL MB+) 100 ML IV ×3 (06:04→18:30)
[2023-02-12] MEDS: Cilostazol 50 MG Tablet PO ×2 (06:04→16:00)
[2023-02-12] MEDS: amLODIPine 5 MG Tablet PO (09:12)
[2023-02-12] MEDS: Gabapentin 100 MG Capsule PO ×3 (09:12→17:40)
[2023-02-12] MEDS: Metoprolol(XL)Succ 50 MG Tablet PO (09:12)
[2023-02-12] MEDS: Ensure Plus High Protein 120 ML LIQUID PO ×4 (09:12→21:44)
--- NOTE | 2023-02-12 09:50 | PN_ITS ---
Subjective Subjective Patient seen and examined. He had no complaints and had an uneventful night. He is pOD 1 for left foot partial excision of bone of fifth metatarsal and application of skin graft. He has remained hemodynamically stable. Objective Data Objective Data Vital Signs: Vital Signs Temp Pulse Resp BP Pulse Ox O2 Del Method 98.3 F 67 18 117/58 L 100 Room Air 02/12/23 09:05 02/12/23 09:12 02/12/23 09:05 02/12/23 09:05 02/12/23 09:05 02/12/23 09:05 Oxygen Delivery Method Room Air Weight: 161 lb 0.728 oz Body Mass Index (BMI) 21.3 Intake & Output: Intake and Output for Last 24 Hours 02/10/23 02/11/23 02/12/23 23:59 23:59 23:59 Intake Total 650 / 650 1273 / 1273 754 / 754 Balance 650 / 650 1273 / 1273 754 / 754 Lab / Micro Data 02/12/23 02:38 02/12/23 02:38 Labs: Laboratory Results - last 24 hr 02/12/23 02:38: WBC 5.1, RBC 3.06 L, Hgb 8.9 L, Hct 28.3 L, MCV 92.5, MCH 29.1, MCHC 31.4 L, RDW Std Deviation 51.6 H, RDW Coeff of Mario Alberto 15.2 H, Plt Count 253, MPV 8.6, Immature Gran % (Auto) 0.000, Neut % (Auto) 50.1, Lymph % (Auto) 25.9, [place] % (Auto) 15.5 H, Eos % (Auto) 7.9 H, Baso % (Auto) 0.6, Absolute Neuts (auto) 2.6, Absolute Lymphs (auto) 1.32, Nucleated RBC % 0, Sodium 140, Potassium 3.8, Chloride 109 H, Carbon Dioxide 27.0, Anion Gap 4 L, BUN 13, Creatinine 0.85, Estim Creat Clear Calc 97.88, Est GFR (MDRD) Af Amer 120, Est GFR (MDRD) Non-Af 99, BUN/Creatinine Ratio 15.4, Glucose 110 H, Calcium 8.3 L, Vancomycin Trough 12.1 Physical Exam Const alert, oriented x3, no apparent distress, average body habitus, healthy appearing and well nourished General Appearance: cooperative, comfortable and well developed HEENT normocephalic, head/scalp atraumatic, hearing grossly normal bilaterally, nasal mucous membranes and turbinates normal, moist oral mucous membranes and oropharynx normal Eyes PERRL, EOMs intact bilaterally and conjunctivae normal Neck full ROM, no lymphadenopathy, supple and no JVD Lymph Lymphatic: no lymphadenopathy noted and no lymphedema noted Chest inspection of chest normal Resp normal respiratory effort, normal air movement, no use of accessory muscles and clear to auscultation bilaterally Cardio regular rate, regular rhythm, S1 normal heart sound, S2 normal heart sound, no murmurs and peripheral pulses 2+ throughout GI normal to inspection, nondistended, normoactive bowel sounds, soft to palpation, non-tender and non-distended no CVA tenderness Back/Spine normal ROM Extremity Extremity Narrative: left foot wrapped in bandage. Skin Skin Narrative: left foot wrapped in bandage Neuro CN's II-XII intact bilaterally, moves all extremities and no focal motor deficits Speech: speech normal Motor Exam: strength 5/5 throughout Psych mental status grossly normal, thought process normal and cooperative Appearance: appropriate Assessment & Plan Assessment/Plan (1) Osteomyelitis: QUALIFIERS: Osteomyelitis type: subacute Osteomyelitis location: foot Laterality: left Qualified Code(s): M86.272 - Subacute osteomyelitis, left ankle and foot (2) Left foot infection: PLAN: Plan #Left fifth metatarsal osteomyelitis * recently had left fifth toe amputation by podiatry on 01/06/2023. * subsequently had poor wound healing and is being admitted for operative debridement and skin graft substitute placement. * recently completed a course of PO antibiotics afte wound cultures from 01/31 grew MSSA and Enterococcus * left foot xray on admission showed worsening osteolysis of the head of fifth metatarsal suspicious for osteomyelitis and worsening soft tissue wounds. * s/p partial excision of bone and fifth metatarsal of left foot with skin graft substitute application. today is POD 1. * podiatry on board * on IV vancomycin and unasyn * wound cultures pending * #Chronic anemia: Hb is 10.3. Stable. Will monitor #CAD s/p stent: on aspirin and brilinta. #PAD s/p recent fem POP bypass and thrombectomy * on aspirin, brilinta and xarelto. on Cilostazol * on high intensity statin. * #Nicotine dependence: counseled to quit. On nicotine patch 21mg daily #Hypertension; on amlodipine and metoprolol. DVT prophylaxis: SCDs. start lovenox Charges/Coding Visit Charges Inpatient E&M: 74302 Subs Hosp L2
[2023-02-12] MEDS: Atorvastatin Calcium 80 MG Tablet PO (21:43)
[2023-02-12] MEDS: 0.9% Normal Saline (250mL Bag) 250 ML 15 ML IV (21:45)
[2023-02-13] VITALS (8 sets, daily range): BP systolic 121–142; BP diastolic 65–81; PULSE 60–80; RESP 16–18; TEMP 36.7–37.1; O2SAT 98–100
[2023-02-13] MEDS: Ampicillin/Sulbactam 3 GM in 0.9% Normal Saline (100mL MB+) 100 ML IV ×4 (00:39→19:16)
[2023-02-13] MEDS: Vancomycin HCl 1,500 MG in 0.9% Normal Saline (500mL Bag) 500 ML 250 MG IV ×2 (03:22→17:05)
[2023-02-13] MEDS: Cilostazol 50 MG Tablet PO ×2 (06:29→17:09)
[2023-02-13 06:44] LABS: Absolute Lymphocyte Count 1.71 X10^3/uL (0.83-4.51); Absolute Neutrophil Count 2.6 X10^3/uL (2.0-7.7); Basophil# 0.03 X10^3/uL; Basophil% 0.5 % (0-1); Eosinophil# 0.32 X10^3/uL; Eosinophils% 5.9 % (0-5); Hematocrit 29.5 % (40-54); Hemoglobin 9.3 g/dL (13.0-16.5); Lymphocyte # 1.71 X10^3/ul (0.83-4.51); Lymphocyte % 31.3 % (19-41); Mean Corp Hgb Conc 31.5 g/dL (32-36); Mean Corpuscular Hgb 29.1 pg (27.0-32.0); Mean Corpuscular Volume 92.2 fL (80-94); Mean Platelet Vol. 9.4 fl (6.2-12.0); Monocyte# 0.76 X10^3/uL; Monocyte% 13.9 % (0-10); NRBC Flagged by Analyzer 0 % (0-5); Neutrophil # 2.64 X10^3/uL (2.7-7.7); Neutrophil % 48.2 % (47-70); Platelet Count 252 K/mm3 (150-450); RBC Distribution Width SD 51.5 fl (35.1-43.9); White Blood Count 5.5 K/mm3 (4.4-11.0)
[2023-02-13 07:16] LABS: Anion Gap 4 (5-15); BUN 12 mg/dL (7-18); BUN/Creat Ratio 14.9 RATIO (10-20); Calcium,Total 8.5 mg/dL (8.5-10.1); Chloride 108 mmol/L (98-107); Creatinine, Serum 0.81 mg/dL (0.70-1.30); EST Glomerular Filtration Rate 104 mL/min (>60); Est Glom Filt Rate - Afr Amer 126 mL/min (>60); Estimated Creatinine Clearance 102.71 ml/min; Glucose 107 mg/dL (74-106); Potassium 3.8 mmol/L (3.5-5.1); Sodium Level 139 mmol/L (136-145)
--- NOTE | 2023-02-13 08:47 | PN.SURG_ITS ---
Subjective Subjective Mr. Medina is a 57-year-old male seen at bedside today status post partial excision of bone fifth metatarsal, surgical skin graft prep site, application of skin graft substitute with application of wound VAC to left lower extremity. Patient is POD #2, DOS: 02/11/2023. Patient is seen today at bedside for wound VAC change with wound care nurse. Patient denies any pain. He is grateful for his care. His wound is looking great. He continues to get IV antibiotics with IV. No acute events overnight. He denies trauma. Denies constitutional symptoms. No other pedal complaints at this time. Objective Data Objective Data Vital Signs: Vital Signs Temp Pulse Resp BP Pulse Ox O2 Del Method 98.2 F 60 16 134/76 H 100 Room Air 02/13/23 06:27 02/13/23 06:27 02/13/23 06:27 02/13/23 06:27 02/13/23 06:27 02/13/23 06:27 Oxygen Delivery Method Room Air Weight: 73.049 kg Body Mass Index (BMI) 21.3 Intake & Output: Intake and Output for Last 24 Hours 02/11/23 02/12/23 02/13/23 23:59 23:59 23:59 Intake Total 1273 / 1273 1758 / 1758 642 / 642 Balance 1273 / 1273 1758 / 1758 642 / 642 Lab / Micro Data Attestation: I reviewed the patient's lab results. 02/13/23 06:00 02/13/23 06:00 Labs: Laboratory Results - last 24 hr 02/13/23 06:00: WBC 5.5, RBC 3.20 L, Hgb 9.3 L, Hct 29.5 L, MCV 92.2, MCH 29.1, MCHC 31.5 L, RDW Std Deviation 51.5 H, RDW Coeff of Mario Alberto 15.0 H, Plt Count 252, M PV 9.4, Immature Gran % (Auto) 0.200, Neut % (Auto) 48.2, Lymph % (Auto) 31.3, [place] % (Auto) 13.9 H, Eos % (Auto) 5.9 H, Baso % (Auto) 0.5, Absolute Neuts (auto) 2.6, Absolute Lymphs (auto) 1.71, Nucleated RBC % 0, Sodium 139, Potassium 3.8, Chloride 108 H, Carbon Dioxide 27.0, Anion Gap 4 L, BUN 12, Creatinine 0.81, Estim Creat Clear Calc 102.71, Est GFR (MDRD) Af Amer 126, Est GFR (MDRD) Non-Af 104, BUN/Creatinine Ratio 14.9, Glucose 107 H, Calcium 8.5 Micro: Microbiology 02/11/23 Unknown Bone - Left Foot Gram Stain - Final Physical Exam Narrative Neurovascular status unchanged. Nonpitting edema appreciated to the left lower extremity. All wounds to the left foot and ankle are hard percent granular with no drainage, malodor or sign of infection. No pain with calf compression. Const oriented x3 and no apparent distress Assessment & Plan Assessment/Plan (1) Non-pressure ulcer of left lower extremity with necrosis of bone: PLAN: Patient was examined and evaluated. All findings were discussed with the patient. All questions were answered to the patient satisfaction. Left lower extremity wound VAC was changed today with nursing staff at bedside. Patient's wound are 100% granular with no sign of infection. We will need to begin home care for wound VAC changes. The patient will need to follow-up at the wound care center. Recommend PICC line antibiotics if the bone grows back bacteria. Surgical cultures: Pending Path: Pending Wound care: On board Social work: On board PT/OT: On board Medicine: On board, medical management, IV antibiotics vancomycin Unasyn Podiatry will continue to follow patient while he is in house. Please reach out to Dr. Sandhu with any questions or concerns. Thank you for letting me be involved in the patient's care. (2) Osteomyelitis: QUALIFIERS: Osteomyelitis type: subacute Osteomyelitis location: foot Laterality: left Qualified Code(s): M86.272 - Subacute osteomyelitis, left ankle and foot (3) Left foot infection:
--- NOTE | 2023-02-13 08:58 | WOUNDNOTE ---
wound photo: left foot/lower leg
[2023-02-13 09:10] LABS: Vitamin B12 425 pg/mL (211-911)
--- NOTE | 2023-02-13 09:15 | CASEMGMT ---
Addendum entered by Tayler Hartley 02/13/23 15:49: RADHA CRESPO back into pt room, pt has chosen Dr. Olvera in [place] to be PCP. Pt has chosen 1. [facility] 2. [facility] and 3. [facility]. Requested dc certified medical assistant to send [facility] referrals. TC to [facility], spoke with Silvia who states Dr. Olvera is not in [place]. She gave other options but the providers were booked out until May of 2023. She states an office in [place] can see pt this month. RADHA CRESPO into pt room with Silvia on phone. Pt is agreeable to female provider in [place]. Scheduled appt for Lesley King on Feb 23 at 9am. Pt agreeable to this. The address is [address] [place] [id number]. This information was added to pt dc instructions. Addendum entered by Tayler Hartley 02/13/23 11:33: RADHA CRESPO into pt room and provided list of HHC providers as well as PCP list created by dc certified medical assistant. Asked pt to give top three preferences for HHC and to pick PCP. Pt to review and RN ZAK to check back. Addendum entered by Tayler Hartley 02/13/23 09:17: Spoke with , who states that he will follow the [facility] until pt establishes with PCP. Original Note: RADHA CRESPO into pt room, pt lying in bed with present at bedside. Pt states post dc he will be returning back to [place] to his home. He would like a C list of agencies that go to [place] as well as a PCP list is [place]. Requested this information from dc certified medical assistant.
[2023-02-13] MEDS: Enoxaparin 40 MG/0.4 ML Syringe SC (09:25)
[2023-02-13] MEDS: Gabapentin 100 MG Capsule PO ×3 (09:25→17:11)
[2023-02-13] MEDS: Metoprolol(XL)Succ 50 MG Tablet PO (09:25)
[2023-02-13] MEDS: amLODIPine 5 MG Tablet PO (09:26)
[2023-02-13] MEDS: Oxycodone/Apap 5/325 Tablet PO ×2 (09:28→20:37)
--- NOTE | 2023-02-13 11:19 | CASEMGMT ---
Discharge Planning A list of?HH and PCP providers including quality and resource use data and consistent with the patient's preferred geographic region, medical needs, and insurance network was created in [employer] Guide.? This list was provided to the RN ZAK. Shaye Estrada, Discharge Planning Asst.
[2023-02-13] MEDS: oxyCODONE 5 MG Tablet PO ×2 (13:09→17:15)
[2023-02-13] MEDS: Acetaminophen 325 MG Tablet 650 MG PO (13:10)
--- NOTE | 2023-02-13 13:11 | PN_ITS ---
Subjective Subjective Patient seen and examined. He complained of pain in his foot, but said he had just been given pain meds. He had no other complaints. Review of systems is otherwise negative. Objective Data Objective Data Vital Signs: Vital Signs Temp Pulse Resp BP Pulse Ox O2 Del Method 98.7 F 64 18 131/81 H 99 Room Air 02/13/23 10:00 02/13/23 10:00 02/13/23 10:00 02/13/23 10:00 02/13/23 10:00 02/13/23 10:00 Oxygen Delivery Method Room Air Weight: 161 lb 0.728 oz Body Mass Index (BMI) 21.3 Intake & Output: Intake and Output for Last 24 Hours 02/11/23 02/12/23 02/13/23 23:59 23:59 23:59 Intake Total 1273 / 1273 1758 / 1758 754 / 754 Balance 1273 / 1273 1758 / 1758 754 / 754 Lab / Micro Data 02/13/23 06:00 02/13/23 06:00 Labs: Laboratory Results - last 24 hr 02/11/23 07:48: Vitamin B12 425 02/13/23 06:00: WBC 5.5, RBC 3.20 L, Hgb 9.3 L, Hct 29.5 L, MCV 92.2, MCH 29.1, MCHC 31.5 L, RDW Std Deviation 51.5 H, RDW Coeff of Mario Alberto 15.0 H, Plt Count 252, MPV 9.4, Immature Gran % (Auto) 0.200, Neut % (Auto) 48.2, Lymph % (Auto) 31.3, [place] % (Auto) 13.9 H, Eos % (Auto) 5.9 H, Baso % (Auto) 0.5, Absolute Neuts (auto) 2.6, Absolute Lymphs (auto) 1.71, Nucleated RBC % 0, Sodium 139, Potassium 3.8, Chloride 108 H, Carbon Dioxide 27.0, Anion Gap 4 L, BUN 12, Creatinine 0.81, Estim Creat Clear Calc 102.71, Est GFR (MDRD) Af Amer 126, Est GFR (MDRD) Non-Af 104, BUN/Creatinine Ratio 14.9, Glucose 107 H, Calcium 8.5 Micro: Microbiology 02/10/23 16:00 Blood Culture (Wb) - Anticubital Left Blood Culture - Preliminary No growth in 48 hours. 02/10/23 16:00 Blood Culture (Wb) - Anticubital Right Blood Culture - Preliminary No growth in 48 hours. 02/11/23 Unknown Bone - Left Foot Gram Stain - Final 02/11/23 Unknown Bone - Left Foot Wound Culture - Preliminary Gram negative krystian GPC Poss Enterococcus sp Physical Exam Const alert, oriented x3, no apparent distress, average body habitus, healthy appearing and well nourished General Appearance: cooperative, comfortable and well developed HEENT normocephalic, head/scalp atraumatic, hearing grossly normal bilaterally, nasal mucous membranes and turbinates normal, moist oral mucous membranes and oropharynx normal Eyes PERRL, EOMs intact bilaterally and conjunctivae normal Neck full ROM, no lymphadenopathy, supple and no JVD Lymph Lymphatic: no lymphadenopathy noted and no lymphedema noted Resp normal respiratory effort, normal air movement, no use of accessory muscles and clear to auscultation bilaterally Cardio regular rate, regular rhythm, S1 normal heart sound, S2 normal heart sound, no murmurs and peripheral pulses 2+ throughout GI normal to inspection, nondistended, normoactive bowel sounds, soft to palpation, non-tender and non-distended Back/Spine normal ROM Extremity Extremity Narrative: left foot wrapped in bandage. Skin Skin Narrative: left foot wrapped in bandage Neuro CN's II-XII intact bilaterally, moves all extremities and no focal motor deficits Speech: speech normal Motor Exam: strength 5/5 throughout Psych mental status grossly normal, thought process normal and cooperative Appearance: appropriate Assessment & Plan Assessment/Plan (1) Osteomyelitis: QUALIFIERS: Osteomyelitis type: subacute Osteomyelitis location: foot Laterality: left Qualified Code(s): M86.272 - Subacute osteomyelitis, left ankle and foot (2) Left foot infection: PLAN: Plan #Left fifth metatarsal osteomyelitis * recently had left fifth toe amputation by podiatry on 01/06/2023. * subsequently had poor wound healing and is being admitted for operative debridement and skin graft substitute placement. * recently completed a course of PO antibiotics afte wound cultures from 01/31 grew MSSA and Enterococcus * left foot xray on admission showed worsening osteolysis of the head of fifth metatarsal suspicious for osteomyelitis and worsening soft tissue wounds. * s/p partial excision of bone and fifth metatarsal of left foot with skin graft substitute application. today is POD 2. has wound vac in place * podiatry on board * on IV vancomycin and unasyn * wound and bone cultures pending * #Chronic anemia: Hb is 9.3. Stable. Will monitor #CAD s/p stent: on aspirin and brilinta. #PAD s/p recent fem POP bypass and thrombectomy * on aspirin, brilinta and xarelto. on Cilostazol * on high intensity statin. * #Nicotine dependence: counseled to quit. On nicotine patch 21mg daily #Hypertension; on amlodipine and metoprolol. DVT prophylaxis: SCDs. start lovenox Charges/Coding Visit Charges Inpatient E&M: 87159 Subs Hosp L2
[2023-02-13 15:41] LABS: Vancomycin, Trough Level 14.5 ug/mL (5.0-15.0)
--- NOTE | 2023-02-13 15:58 | PCM.RX.CS ---
Consult Antibiotic Management Pharmacy has been consulted to manage selected antiobiotic: Vancomycin Type of Intervention Type of Consult: Follow-up Suspected Infection Suspected Infection: Osteomyelitis Labs Labs: Sodium 139 mmol/L (136-145) 02/13/23 06:00 Potassium 3.8 mmol/L (3.5-5.1) 02/13/23 06:00 Chloride 108 mmol/L (98-107) H 02/13/23 06:00 Carbon Dioxide 27.0 mmol/L (21.0-32.0) 02/13/23 06:00 Anion Gap 4 (5-15) L 02/13/23 06:00 BUN 12 mg/dL (7-18) 02/13/23 06:00 Creatinine 0.81 mg/dL (0.70-1.30) 02/13/23 06:00 Est GFR (MDRD) Af Amer 126 mL/min (>60) 02/13/23 06:00 Est GFR (MDRD) Non-Af 104 mL/min (>60) 02/13/23 06:00 BUN/Creatinine Ratio 14.9 RATIO (10-20) 02/13/23 06:00 Glucose 107 mg/dL (74-106) H 02/13/23 06:00 Vancomycin Trough 14.5 ug/mL (5.0-15.0) 02/13/23 15:00 Microbiology Microbiology: Microbiology 02/10/23 16:00 Blood Culture (Wb) - Anticubital Left Blood Culture - Preliminary No growth in 48 hours. 02/10/23 16:00 Blood Culture (Wb) - Anticubital Right Blood Culture - Preliminary No growth in 48 hours. 02/11/23 Unknown Bone - Left Foot Gram Stain - Final 02/11/23 Unknown Bone - Left Foot Wound Culture - Preliminary Gram negative krystian GPC Poss Enterococcus sp Pharmacy Plan for Drug Dosing Pharmacy Plan for Drug Dosing: VANCOMYCIN LEVEL RECEIVED Current Vancomycin Dose: 1500MG Q12 Number of Doses Received: 6 Vancomycin Level: 14.5 MG/DL Hours Since Last Dose: 12 Renal Function: SCR 0.81 MG/DL, CRCL 102 ML/MIN Renal Function Trend: STABLE Lab/Micro: ENTEROCOCCUS Vancomycin Plan/Comments: 12 HOUR TROUGH IS SLIGHTLY SUBTHERAPEUTIC. WILL CONTINUE CURRENT DOSING THE GOAL IS 15-20 AND THE LEVEL IS 14.5. WILL ORDER A TROUGH IN 24 HOURS TO SEE IF IT HAS ACHIEVED GOAL. Pending Level: 02/14/23 @ 1500 Pharmacy Service will continue to monitor and adjust dosing as required.
--- NOTE | 2023-02-13 16:19 | CASEMGMT ---
Addendum entered by Shaye Estrada 02/14/23 15:59: Discharge Planning [facility] declined referral. RN CM updated. Shaye Estrada, Discharge Planning Asst. Addendum entered by Shaye Estrada 02/14/23 13:29: Discharge Planning [facility] declined referral d/t staffing. Referral sent to patients [facility] via [facility]. Shaye Estrada, Discharge Planning Asst. Addendum entered by Shaye Estrada 02/13/23 16:31: Discharge Planning [facility] declined referral. Referral sent to patients [facility] via [facility]. Shaye Estrada, Discharge Planning Asst. Original Note: Discharge Planning HH referral sent via [facility] to [facility]. Shaye Estrada, Discharge Planning Asst.
[2023-02-13] MEDS: Atorvastatin Calcium 80 MG Tablet PO (20:37)
[2023-02-14] MEDS: Ampicillin/Sulbactam 3 GM in 0.9% Normal Saline (100mL MB+) 100 ML IV ×4 (00:59→19:25)
[2023-02-14 03:30] VITALS: BP 145/65; PULSE 61; RESP 16; TEMP 36.7; O2SAT 97
[2023-02-14] MEDS: Acetaminophen 325 MG Tablet 650 MG PO ×3 (03:33→22:25)
[2023-02-14] MEDS: Vancomycin HCl 1,500 MG in 0.9% Normal Saline (500mL Bag) 500 ML 250 MG IV ×2 (03:35→16:47)
--- NOTE | 2023-02-14 06:39 | WOUNDNOTE ---
Home VAC approved.
[2023-02-14] MEDS: Cilostazol 50 MG Tablet PO ×2 (06:48→17:52)
[2023-02-14 08:13] LABS: Absolute Lymphocyte Count 1.74 X10^3/uL (0.83-4.51); Absolute Neutrophil Count 2.2 X10^3/uL (2.0-7.7); Basophil# 0.03 X10^3/uL; Basophil% 0.6 % (0-1); Eosinophil# 0.35 X10^3/uL; Hematocrit 29.8 % (40-54); Hemoglobin 9.3 g/dL (13.0-16.5); Lymphocyte # 1.74 X10^3/ul (0.83-4.51); Lymphocyte % 34.9 % (19-41); Mean Corp Hgb Conc 31.2 g/dL (32-36); Mean Corpuscular Hgb 28.6 pg (27.0-32.0); Mean Corpuscular Volume 91.7 fL (80-94); Mean Platelet Vol. 9.2 fl (6.2-12.0); Monocyte# 0.66 X10^3/uL; Monocyte% 13.2 % (0-10); NRBC Flagged by Analyzer 0 % (0-5); Neutrophil % 44.1 % (47-70); Platelet Count 267 K/mm3 (150-450); RBC Distribution Width CV 14.8 % (11.6-14.6); RBC Distribution Width SD 49.9 fl (35.1-43.9); Red Blood Count 3.25 M/mm3 (4.6-6.2)
[2023-02-14 08:34] LABS: Anion Gap 3 (5-15); BUN 9 mg/dL (7-18); BUN/Creat Ratio 10.7 RATIO (10-20); Calcium,Total 8.5 mg/dL (8.5-10.1); Chloride 108 mmol/L (98-107); Creatinine, Serum 0.84 mg/dL (0.70-1.30); EST Glomerular Filtration Rate 99 mL/min (>60); Est Glom Filt Rate - Afr Amer 120 mL/min (>60); Estimated Creatinine Clearance 99.04 ml/min; Glucose 92 mg/dL (74-106); Potassium 3.5 mmol/L (3.5-5.1); Sodium Level 140 mmol/L (136-145)
[2023-02-14 09:06] VITALS: PULSE 80
[2023-02-14] MEDS: Metoprolol(XL)Succ 50 MG Tablet PO (09:06)
[2023-02-14] MEDS: Enoxaparin 40 MG/0.4 ML Syringe SC (09:06)
[2023-02-14] MEDS: Gabapentin 100 MG Capsule PO ×3 (09:06→16:47)
[2023-02-14] MEDS: amLODIPine 5 MG Tablet PO (09:07)
[2023-02-14] MEDS: oxyCODONE 5 MG Tablet PO ×2 (09:11→22:24)
[2023-02-14 09:30] VITALS: BP 120/68; PULSE 70; RESP 18; TEMP 36.7; O2SAT 96
--- NOTE | 2023-02-14 11:09 | PN_ITS ---
Subjective Subjective Patient seen and examined. He was complaining of some pain in the right foot. Review of systems is otherwise negative. He has remained hemodynamically stable. Objective Data Objective Data Vital Signs: Vital Signs Temp Pulse Resp BP Pulse Ox O2 Del Method 98.0 F 70 18 120/68 96 Room Air 02/14/23 09:30 02/14/23 09:30 02/14/23 09:30 02/14/23 09:30 02/14/23 09:30 02/14/23 09:30 Oxygen Delivery Method Room Air Weight: 161 lb 0.728 oz Body Mass Index (BMI) 21.3 Intake & Output: Intake and Output for Last 24 Hours 02/12/23 02/13/23 02/14/23 23:59 23:59 23:59 Intake Total 1758 / 1758 1758 / 1758 642 / 642 Output Total 400 / 400 Balance 1758 / 1758 1758 / 1758 242 / 242 Lab / Micro Data 02/14/23 07:46 02/14/23 07:46 Labs: Laboratory Results - last 24 hr 02/13/23 15:00: Vancomycin Trough 14.5 02/14/23 07:46: WBC 5.0, RBC 3.25 L, Hgb 9.3 L, Hct 29.8 L, MCV 91.7, MCH 28.6, MCHC 31.2 L, RDW Std Deviation 49.9 H, RDW Coeff of Mario Alberto 14.8 H, Plt Count 267, MPV 9.2, Immature Gran % (Auto) 0.200, Neut % (Auto) 44.1 L, Lymph % (Auto) 34.9, [place] % (Auto) 13.2 H, Eos % (Auto) 7.0 H, Baso % (Auto) 0.6, Absolute Neut s (auto) 2.2, Absolute Lymphs (auto) 1.74, Nucleated RBC % 0, Sodium 140, Potassium 3.5, Chloride 108 H, Carbon Dioxide 29.0, Anion Gap 3 L, BUN 9, Creati nine 0.84, Estim Creat Clear Calc 99.04, Est GFR (MDRD) Af Amer 120, Est GFR (MDRD) Non-Af 99, BUN/Creatinine Ratio 10.7, Glucose 92, Calcium 8.5 Micro: Microbiology 02/11/23 Unknown Bone - Left Foot Gram Stain - Final 02/11/23 Unknown Bone - Left Foot Wound Culture - Preliminary Enterobacter cloacae complex GPC Poss Enterococcus sp 02/11/23 Unknown Bone - Left Foot Anaerobic Culture - Preliminary Checking for anaerobes, further studies to follow. 02/10/23 16:00 Blood Culture (Wb) - Anticubital Left Blood Culture - P reliminary No growth in 48 hours. 02/10/23 16:00 Blood Culture (Wb) - Anticubital Right Blood Culture - Preliminary No growth in 48 hours. Physical Exam Const alert, oriented x3, no apparent distress, average body habitus, healthy appearing and well nourished General Appearance: cooperative, comfortable and well developed HEENT normocephalic, head/scalp atraumatic, hearing grossly normal bilaterally, nasal mucous membranes and turbinates normal, moist oral mucous membranes and oropharynx normal Eyes PERRL, EOMs intact bilaterally and conjunctivae normal Neck full ROM, no lymphadenopathy, supple and no JVD Lymph Lymphatic: no lymphadenopathy noted and no lymphedema noted Chest inspection of chest normal Resp normal respiratory effort, normal air movement, no use of accessory muscles and clear to auscultation bilaterally Cardio regular rate, regular rhythm, S1 normal heart sound, S2 normal heart sound, no murmurs and peripheral pulses 2+ throughout GI normal to inspection, nondistended, normoactive bowel sounds, soft to palpation, non-tender and non-distended no CVA tenderness Back/Spine normal ROM Extremity Extremity Narrative: left foot wrapped in bandage. Skin Skin Narrative: left foot wrapped in bandage Neuro CN's II-XII intact bilaterally, moves all extremities and no focal motor deficits Speech: speech normal Motor Exam: strength 5/5 throughout Psych mental status grossly normal, thought process normal and cooperative Appearance: appropriate Assessment & Plan Assessment/Plan (1) Osteomyelitis: QUALIFIERS: Osteomyelitis type: subacute Osteomyelitis location: foot Laterality: left Qualified Code(s): M86.272 - Subacute osteomyelitis, left ankle and foot (2) Left foot infection: PLAN: Plan #Left fifth metatarsal osteomyelitis * recently had left fifth toe amputation by podiatry on 01/06/2023. * subsequently had poor wound healing and is being admitted for operative debridement and skin graft substitute placement. * recently completed a course of PO antibiotics afte wound cultures from 01/31 grew MSSA and Enterococcus * left foot xray on admission showed worsening osteolysis of the head of fifth metatarsal suspicious for osteomyelitis and worsening soft tissue wounds. * s/p partial excision of bone and fifth metatarsal of left foot with skin graft substitute application. today is POD 3. has wound vac in place * podiatry on board * on IV vancomycin and unasyn * wound and bone cultures growing Enterobacter and gram-positive cocci possible Enterococcus. Speciation is pending. Blood culture showed no growth at 48 hours. Await podiatry commendations about antibiotics. * #Chronic anemia: Hb is 9.3. Stable. Will monitor #CAD s/p stent: on aspirin and brilinta. #PAD s/p recent fem POP bypass and thrombectomy * on aspirin, brilinta and xarelto. on Cilostazol * on high intensity statin. * #Nicotine dependence: counseled to quit. On nicotine patch 21mg daily #Hypertension; on amlodipine and metoprolol. DVT prophylaxis: SCDs. on lovenox Charges/Coding Visit Charges Inpatient E&M: 32208 Subs Hosp L2
[2023-02-14 15:00] VITALS: BP 134/61; PULSE 76; RESP 18; TEMP 36.7; O2SAT 96
[2023-02-14 16:04] LABS: Vancomycin, Trough Level 15.4 ug/mL (5.0-15.0)
--- NOTE | 2023-02-14 16:26 | PCM.RX.CS ---
Consult Antibiotic Management Pharmacy has been consulted to manage selected antiobiotic: Vancomycin Type of Intervention Type of Consult: Follow-up Suspected Infection Suspected Infection: Skin/Soft tissue and Osteomyelitis Prior Doses of Antibiotics Prior Doses of Antibiotics Received/Current Regimen: Current order is 1500mg iv q12h. Labs Labs: Sodium 140 mmol/L (136-145) 02/14/23 07:46 Potassium 3.5 mmol/L (3.5-5.1) 02/14/23 07:46 Chloride 108 mmol/L (98-107) H 02/14/23 07:46 Carbon Dioxide 29.0 mmol/L (21.0-32.0) 02/14/23 07:46 Anion Gap 3 (5-15) L 02/14/23 07:46 BUN 9 mg/dL (7-18) 02/14/23 07:46 Creatinine 0.84 mg/dL (0.70-1.30) 02/14/23 07:46 Est GFR (MDRD) Af Amer 120 mL/min (>60) 02/14/23 07:46 Est GFR (MDRD) Non-Af 99 mL/min (>60) 02/14/23 07:46 BUN/Creatinine Ratio 10.7 RATIO (10-20) 02/14/23 07:46 Glucose 92 mg/dL (74-106) 02/14/23 07:46 Vancomycin Trough 15.4 ug/mL (5.0-15.0) H 02/14/23 15:17 Microbiology Microbiology: Microbiology 02/11/23 Unknown Bone - Left Foot Gram Stain - Final 02/11/23 Unknown Bone - Left Foot Wound Culture - Preliminary Enterobacter cloacae complex GPC Poss Enterococcus sp 02/11/23 Unknown Bone - Left Foot Anaerobic Culture - Preliminary Checking for anaerobes, further studies to follow. 02/10/23 16:00 Blood Culture (Wb) - Anticubital Left Blood Culture - Preliminary No growth in 48 hours. 02/10/23 16:00 Blood Culture (Wb) - Anticubital Right Blood Culture - Preliminary No growth in 48 hours. Dosing Weight Weight used for dosin kg Estimated Creatinine Clearance Estimated Creatinine Clearance: 99 ml/min Goal Trough Goal Trough: 15-20 mcg/mL Pharmacy Plan for Drug Dosing Pharmacy Plan for Drug Dosing: Trough today 12 hrs post dose was 15.4 and in therapeutic range of 15-20. Recommend continuing same dose and repeat trough before another 4th dose. Pharmacy Service will continue to monitor and adjust dosing as required. Follow-Up Labs Follow-Up Labs: Trough: Vancomycin (12.7.23 0230 before 0300 dose)
--- NOTE | 2023-02-14 16:44 | CASEMGMT ---
Addendum entered by Shaye Estrada 02/15/23 08:19: Discharge Planning Patient has been declined by [facility]. Shaye Estrada, Discharge Planning Asst. Addendum entered by Shaye Estrada 02/14/23 16:58: Discharge Planning Patient has been declined by [facility]. Shaye Estrada, Discharge Planning Asst. Original Note: Discharge Planning Referral sent via [facility] to [facility], [facility], [facility], [facility], [facility], [facility], [facility] , [facility], [place], and [facility]. Shaye Estrada, Discharge Planning Asst.
[2023-02-14] MEDS: Oxycodone/Apap 5/325 Tablet PO (17:51)
[2023-02-14 22:20] VITALS: BP 115/68; PULSE 55; RESP 18; TEMP 36.6; O2SAT 99
[2023-02-14] MEDS: Atorvastatin Calcium 80 MG Tablet PO (22:24)
[2023-02-15] MEDS: Ampicillin/Sulbactam 3 GM in 0.9% Normal Saline (100mL MB+) 100 ML IV ×3 (00:50→11:54)
[2023-02-15] MEDS: Vancomycin HCl 1,500 MG in 0.9% Normal Saline (500mL Bag) 500 ML 250 MG IV (03:54)
[2023-02-15 05:18] VITALS: BP 146/81; PULSE 59; RESP 18; TEMP 36.5; O2SAT 97
[2023-02-15] MEDS: oxyCODONE 5 MG Tablet PO ×4 (05:24→21:26)
[2023-02-15] MEDS: Acetaminophen 325 MG Tablet 650 MG PO ×3 (05:24→21:26)
[2023-02-15] MEDS: Cilostazol 50 MG Tablet PO ×2 (06:52→16:51)
[2023-02-15] MEDS: Oxycodone/Apap 5/325 Tablet PO (06:52)
[2023-02-15 08:36] VITALS: BP 136/62; PULSE 64; RESP 18; TEMP 36.6; O2SAT 100
[2023-02-15] MEDS: Enoxaparin 40 MG/0.4 ML Syringe SC (08:39)
[2023-02-15 08:40] VITALS: BP 136/62; PULSE 64
[2023-02-15] MEDS: Metoprolol(XL)Succ 50 MG Tablet PO (08:40)
[2023-02-15] MEDS: Gabapentin 100 MG Capsule PO ×3 (08:40→16:52)
[2023-02-15] MEDS: amLODIPine 5 MG Tablet PO (08:40)
[2023-02-15 08:48] LABS: Absolute Lymphocyte Count 1.44 X10^3/uL (0.83-4.51); Absolute Neutrophil Count 2.2 X10^3/uL (2.0-7.7); Basophil# 0.03 X10^3/uL; Basophil% 0.7 % (0-1); Eosinophil# 0.32 X10^3/uL; Hematocrit 28.9 % (40-54); Lymphocyte # 1.44 X10^3/ul (0.83-4.51); Lymphocyte % 31.4 % (19-41); Mean Corp Hgb Conc 31.1 g/dL (32-36); Mean Corpuscular Volume 93.2 fL (80-94); Mean Platelet Vol. 9.3 fl (6.2-12.0); Monocyte# 0.57 X10^3/uL; Monocyte% 12.4 % (0-10); NRBC Flagged by Analyzer 0 % (0-5); Neutrophil # 2.21 X10^3/uL (2.7-7.7); Neutrophil % 48.3 % (47-70); Platelet Count 256 K/mm3 (150-450); White Blood Count 4.6 K/mm3 (4.4-11.0)
[2023-02-15 09:06] LABS: Anion Gap 6 (5-15); BUN 11 mg/dL (7-18); BUN/Creat Ratio 13.4 RATIO (10-20); Calcium,Total 8.4 mg/dL (8.5-10.1); Chloride 110 mmol/L (98-107); Creatinine, Serum 0.82 mg/dL (0.70-1.30); EST Glomerular Filtration Rate 102 mL/min (>60); Est Glom Filt Rate - Afr Amer 124 mL/min (>60); Estimated Creatinine Clearance 101.46 ml/min; Glucose 134 mg/dL (74-106); Potassium 3.3 mmol/L (3.5-5.1); Sodium Level 141 mmol/L (136-145)
--- NOTE | 2023-02-15 09:11 | PN.SURG_ITS ---
Subjective Subjective Mr. Medina is a 57-year-old male seen at bedside today for wound VAC change to left lower extremity. Patiient is status post partial excision of bone fifth metatarsal, surgical skin graft prep site, application of skin graft substitute with application of wound VAC to left lower extremity. Patient is POD #4, DOS: 02/11/2023. Patient is resting comfortably in bed. Denies any pain. No acute events overnight. Patient is wondering when he will be discharged home. He is aware that we are still looking for a home health care to do wound VAC changes while at home. He denies any trauma. Denies constitutional symptoms. No other pedal complaints at this time. Objective Data Objective Data Vital Signs: Vital Signs Temp Pulse Resp BP Pulse Ox O2 Del Method 97.8 F 64 18 136/62 H 100 Room Air 02/15/23 08:36 02/15/23 08:40 02/15/23 08:36 02/15/23 08:40 02/15/23 08:36 02/15/23 08:36 Oxygen Delivery Method Room Air Weight: 73.049 kg Body Mass Index (BMI) 21.3 Intake & Output: Intake and Output for Last 24 Hours 02/13/23 02/14/23 02/15/23 23:59 23:59 23:59 Intake Total 1758 / 1758 3074 / 3074 754 / 754 Output Total 400 / 400 Balance 1758 / 1758 2674 / 2674 754 / 754 Lab / Micro Data Attestation: I reviewed the patient's lab results. 02/15/23 07:25 02/15/23 07:25 Labs: Laboratory Results - last 24 hr 02/14/23 15:17: Vancomycin Trough 15.4 H 02/15/23 07:25: WBC 4.6, RBC 3.10 L, Hgb 9.0 L, Hct 28.9 L, MCV 93.2, MCH 29.0, MCHC 31.1 L, RDW Std Deviation 51.0 H, RDW Coeff of Mario Alberto 15.0 H, Plt Count 256, MPV 9.3, Immature Gran % (Auto) 0.200, Neut % (Auto) 48.3, Lymph % (Auto) 31.4, [place] % (Auto) 12.4 H, Eos % (Auto) 7.0 H, Baso % (Auto) 0.7, Absolute Neuts (auto) 2.2, Absolute Lymphs (auto) 1.44, Nucleated RBC % 0, Sodium 141, Potassium 3.3 L, Chloride 110 H, Carbon Dioxide 25.0, Anion Gap 6, BUN 11, Creatinine 0.82, Estim Creat Clear Calc 101.46, Est GFR (MDRD) Af Amer 124, Est GFR (MDRD) Non-Af 102, BUN/Creatinine Ratio 13.4, Glucose 134 H, Calcium 8.4 L Micro: Microbiology 02/11/23 Unknown Bone - Left Foot Gram Stain - Final 02/11/23 Unknown Bone - Left Foot Wound Culture - Final Enterobacter cloacae complex Enterococcus faecalis 02/11/23 Unknown Bone - Left Foot Anaerobic Culture - Final No anaerobic bacteria isolated. 02/10/23 16:00 Blood Culture (Wb) - Anticubital Left Blood Culture - Preliminary No growth in 48 hours. 02/10/23 16:00 Blood Culture (Wb) - Anticubital Right Blood Culture - Preliminary No growth in 48 hours. Physical Exam Narrative Neurovascular status unchanged. Nonpitting edema appreciated to the left lower extremity. All wounds to the left foot and ankle are hard percent granular with no drainage, malodor or sign of infection. No pain with calf compression. Const oriented x3 and no apparent distress Assessment & Plan Assessment/Plan (1) Non-pressure ulcer of left lower extremity with necrosis of bone: PLAN: Patient was examined and evaluated. All findings were discussed with the patient. All questions were answered to the patient satisfaction. Left lower extremity wound VAC was changed today with nursing staff at bedside. Patient's wound are 100% granular with no sign of infection. We will need to begin home care for wound VAC changes. The patient will need to follow-up at the wound care center. Surgical cultures: E. cloacae, E faecalis. Recommend PICC line antibiotics and ID consultation for recommendations. Path: Pending Wound care: On board Social work: On board PT/OT: On board Medicine: On board, medical management, IV antibiotics vancomycin Podiatry will continue to follow patient while he is in house. Once the patient has been set up with home health care for wound VAC changes and infectious disease has made the recommendation for either p.o. versus IV antibiotic treatment the patient is cleared for discharge from a podiatry perspective. Please reach out to Dr. Sandhu with any questions or concerns. Thank you for letting me be involved in the patient's care. (2) Osteomyelitis: QUALIFIERS: Osteomyelitis type: subacute Osteomyelitis location: foot Laterality: left Qualified Code(s): M86.272 - Subacute osteomyelitis, left ankle and foot (3) Left foot infection:
[2023-02-15] MEDS: 0.9% Normal Saline (250mL Bag) 250 ML 15 ML IV (11:58)
--- NOTE | 2023-02-15 13:00 | CASEMGMT ---
Addendum entered by Tayler Hartley 02/15/23 14:04: RN ZAK into pt room, pt is aware that [facility] has accepted him and he is agreeable to this. Pt is agreeable to IV atb in the home. Pt states he will be able to do himself. Pt states he will be going to the [facility] on Wednesdays to see . Confirmed with this morning. Provided pt with a verbal local in network list of Infusion [facility], pt chose [facility]. DC medical assistant dermatology will notify [facility] of order for IV atb and that pt will be going to the [facility] on Wednesdays as well as send referral to [facility]. Original Note: Pt has been accepted by [facility]. Spoke with who would like a picc line placed and ID consult. Updated charge nurse for orders.
--- NOTE | 2023-02-15 13:45 | CON.PCM.ID_ITS ---
Assessment & Plan Assessment/Plan (1) Osteomyelitis: QUALIFIERS: Osteomyelitis type: subacute Osteomyelitis location: foot Laterality: left Qualified Code(s): M86.272 - Subacute osteomyelitis, left ankle and foot PLAN: Pedal osteomyelitis in a patient with underlying peripheral vascular disease status post surgical debridement of the left foot 4 days ago. At this point be reasonable to be aggressive and treat with parenteral antibiotic therapy, based on the culture data of the left foot will treat with meropenem 1 g IV every 8 hours. Will treat for 4 weeks in total through March 14. Cecelia scussed with hospitalist about PICC placement for IV access. HPI Consult Data Date of Consult: 02/15/23 HPI Narrative Reason for Consultation: Left pedal osteomyelitis HPI Narrative: ALON MERRITT, is a 57 M who presents increasing pain in his left foot with ulcerated changes and concerns of pedal osteomyelitis of left foot. Patient was taken to surgery for surgical debridement of left foot on February 11. Patient does have a history of extensive tobacco use and known peripheral vascular disease of the left lower extremity with previous surgical intervention of the left leg. No fevers or chills. No significant constitutional symptoms. Microbiology data of the left foot from the surgical tissue noted. Patient currently on vancomycin plus Unasyn. No history of underlying diabetes. Still has discomfort in his left foot. Podiatry surgical note from February 11 reviewed. [facility] Medical History Amputation of toe of left foot Coronary artery disease HTN (hypertension), benign Hypertension Peripheral arterial disease Smoker Home Medications amlodipine 5 mg tablet 5 mg PO DAILY #90 tabs 01/10/23 [Rx Last Taken Unknown] aspirin 81 mg chewable tablet 81 mg PO BREAKFAST #90 tabs 01/10/23 [Rx Last Taken 02/10/23] atorvastatin 80 mg tablet 80 mg PO QHS #90 tabs 01/10/23 [Rx Last Taken Unknown] cilostazol 50 mg tablet 50 mg PO BIDAC #60 tabs 01/10/23 [Rx Last Taken Unknown] metoprolol succinate 50 mg tablet,extended release 24 hr 50 mg PO DAILY #90 tabs 01/10/23 [Rx Last Taken Unknown] ticagrelor 90 mg tablet (Brilinta) 90 mg PO BID #180 tabs 01/10/23 [Rx Last Taken 02/10/23] oxycodone 5 mg tablet 5 mg PO Q8H PRN PRN Pain Score 4-10 7 days #21 tabs 01/18/23 [Rx Last Taken Unknown] rivaroxaban 2.5 mg tablet (Xarelto) 2.5 mg PO BID #60 tabs 01/18/23 [Rx Last Taken 02/10/23] oxycodone-acetaminophen 5 mg-325 mg tablet (Percocet) 1 tab PO Q8H PRN pain 7 days #21 tabs 02/06/23 [Rx Last Taken Unknown] Allergy/AdvReac Type Severity Reaction Status Date / Time No Known Allergies Allergy Verified 02/10/23 15:11 Surgical History H/O heart artery stent Social History Smoking Status: Current every day smoker tobacco type: cigarettes ROS ROS Narrative As stated in history of present illness others negative Physical Exam Narrative Alert responsive does not appear toxic lungs are clear heart exam S1-S2 abdomen soft nontender. Left foot and left leg dressings are in place. I did see the pictures of his left leg he has chronic skin ulcerations along his left lower leg Lab / Micro Data 02/15/23 07:25 02/15/23 07:25 Labs: Laboratory Results - last 24 hr 02/14/23 15:17: Vancomycin Trough 15.4 H 02/15/23 07:25: WBC 4.6, RBC 3.10 L, Hgb 9.0 L, Hct 28.9 L, MCV 93.2, MCH 29.0, MCHC 31.1 L, RDW Std Deviation 51.0 H, RDW Coeff of Mario Alberto 15.0 H, Plt Count 256, MPV 9.3, Immature Gran % (Auto) 0.200, Neut % (Auto) 48.3, Lymph % (Auto) 31.4, [place] % (Auto) 12.4 H, Eos % (Auto) 7.0 H, Baso % (Auto) 0.7, Absolute Neuts (auto) 2.2, Absolute Lymphs (auto) 1.44, Nucleated RBC % 0, Sodium 141, Potassium 3.3 L, Chloride 110 H, Carbon Dioxide 25.0, Anion Gap 6, BUN 11, Creatinine 0.82, Estim Creat Clear Calc 101.46, Est GFR (MDRD) Af Amer 124, Est GFR (MDRD) Non-Af 102, BUN/Creatinine Ratio 13.4, Glucose 134 H, Calcium 8.4 L Micro: Microbiology 02/11/23 Unknown Bone - Left Foot Gram Stain - Final 02/11/23 Unknown Bone - Left Foot Wound Culture - Final Enterobacter cloacae complex Enterococcus faecalis 02/11/23 Unknown Bone - Left Foot Anaerobic Culture - Final No anaerobic bacteria isolated.
[2023-02-15 14:10] VITALS: BP 120/72; PULSE 56; RESP 18; TEMP 36.5; O2SAT 98
--- NOTE | 2023-02-15 14:11 | CASEMGMT ---
Discharge Planning Updates sent via [facility] to [facility] regarding PICC line and wound center appts. Shaye Estrada, Discharge Planning Asst.
--- NOTE | 2023-02-15 14:18 | CASEMGMT ---
Discharge Planning Referral sent to [facility] via [facility]. Shaye Estrada, Discharge Planning Asst.
[2023-02-15] MEDS: Meropenem 1 GM in 0.9% Normal Saline (100mL MB+) 100 ML IV ×2 (14:27→21:27)
--- NOTE | 2023-02-15 16:49 | PN.HOSP_ITS ---
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 (02/10/23) Subacute osteomyelitis, left ankle and foot (02/10/23) Objective Data Objective Data Vital Signs: Vital Signs Temp Pulse Resp BP Pulse Ox O2 Del Method 97.7 F L 56 L 18 120/72 98 Room Air 02/15/23 14:10 02/15/23 14:10 02/15/23 14:10 02/15/23 14:10 02/15/23 14:10 02/15/23 14:10 Oxygen Delivery Method Room Air Weight: 161 lb 0.728 oz Body Mass Index (BMI) 21.3 Intake & Output: Intake and Output for Last 24 Hours 02/13/23 02/14/23 02/15/23 23:59 23:59 23:59 Intake Total 1758 / 1758 3074 / 3074 887.25 / 887.25 Output Total 400 / 400 Balance 1758 / 1758 2674 / 2674 887.25 / 887.25 Lab / Micro Data 02/15/23 07:25 02/15/23 07:25 Labs: Laboratory Results - last 24 hr 02/15/23 07:25: WBC 4.6, RBC 3.10 L, Hgb 9.0 L, Hct 28.9 L, MCV 93.2, MCH 29.0, MCHC 31.1 L, RDW Std Deviation 51.0 H, RDW Coeff of Mario Alberto 15.0 H, Plt Count 256, MPV 9.3, Immature Gran % (Auto) 0.200, Neut % (Auto) 48.3, Lymph % (Auto) 31.4, [place] % (Auto) 12.4 H, Eos % (Auto) 7.0 H, Baso % (Auto) 0.7, Absolute Neuts (auto) 2.2, Absolute Lymphs (auto) 1.44, Nucleated RBC % 0, Sodium 141, Potassium 3.3 L, Chloride 110 H, Carbon Dioxide 25.0, Anion Gap 6, BUN 11, Creatinine 0.82, Estim Creat Clear Calc 101.46, Est GFR (MDRD) Af Amer 124, Est GFR (MDRD) Non-Af 102, BUN/Creatinine Ratio 13.4, Glucose 134 H, Calcium 8.4 L Micro: Microbiology 02/11/23 Unknown Bone - Left Foot Gram Stain - Final 02/11/23 Unknown Bone - Left Foot Wound Culture - Final Enterobacter cloacae complex Enterococcus faecalis 02/11/23 Unknown Bone - Left Foot Anaerobic Culture - Final No anaerobic bacteria isolated. 02/10/23 16:00 Blood Culture (Wb) - Anticubital Left Blood Culture - Preliminary No growth in 48 hours. 02/10/23 16:00 Blood Culture (Wb) - Anticubital Right Blood Culture - Preliminary No growth in 48 hours. Physical Exam Narrative Seen and examined. Patient is states he cut down his smoking from half pack to 1 cigarettes daily. History of severe PAD. Advised to quit smoking altogether. Physical exam General: Alert, Oriented x3, Cooperative HEENT: Atraumatic, PERRLA, EOMI, Normocephalic Oral: No Gingival or Mucosal Lesions/ Ulcerations Neck: Supple, No JVD, Negative Carotid Bruits Lungs: Air entry diminished in bilateral lung bases. No crepitation/rhonchi Cardiovascular: Regular rate, Regular Rhythm, Normal S1, Normal S2, No murmurs. Left leg status post femoropopliteal bypass. Abdomen: Bowel Sounds Present, Soft, Non Tender, Non-Distended : No renal angle tenderness. No suprapubic tenderness. Extremities: No edema, Capillary Refill Less than 3 Seconds Skin: Left lower leg and foot surgical dressing with Tyler wrap bandage. Musculoskeletal: Mild tenderness over operative site. ROM restricted of left ankle and foot. Neurological: Cranial nerves II-XII grossly intact, DTR 2+/4. No acute focal neurological deficit. Psych/Mental Status: Normal Affect, Appropriate. Assessment & Plan Assessment/Plan (1) Osteomyelitis: QUALIFIERS: Osteomyelitis type: subacute Osteomyelitis location: foot Laterality: left Qualified Code(s): M86.272 - Subacute osteomyelitis, left ankle and foot (2) Left foot infection: PLAN: Plan #Left fifth metatarsal osteomyelitis * recently had left fifth toe amputation by podiatry on 01/06/2023. * subsequently had poor wound healing and is being admitted for operative debridement and skin graft substitute placement. * recently completed a course of PO antibiotics afte wound cultures from 01/31 grew MSSA and Enterococcus * left foot xray on admission showed worsening osteolysis of the head of fifth metatarsal suspicious for osteomyelitis and worsening soft tissue wounds. * s/p partial excision of bone and fifth metatarsal of left foot with skin graft substitute application. today is POD 3. has wound vac in place * podiatry on board * on IV vancomycin and unasyn * wound and bone cultures growing Enterobacter and Enterococcus faecalis. On anaerobic culture, bacteria isolated from bone culture. Blood culture showed no growth at 48 hours. ID consulted. 02/15: ID consulted. Patient has left foot osteomyelitis. Meropenem 1 g IV every 8 hourly for 4 weeks through March 14, 2023. PICC line ordered. #Chronic anemia: Hb is 9.3. Stable. Will monitor #CAD s/p stent: on aspirin and brilinta. #PAD s/p recent fem POP bypass and thrombectomy * on aspirin, brilinta and xarelto. on Cilostazol * on high intensity statin. * Advised to quit smoking. * #Nicotine dependence: counseled to quit. On nicotine patch 21mg daily #Hypertension; on amlodipine and metoprolol. DVT prophylaxis: SCDs. on lovenox Charges/Coding Visit Charges Inpatient E&M: 83563 Subs Hosp L2
[2023-02-15 21:15] VITALS: BP 137/80; PULSE 62; RESP 20; TEMP 37.1; O2SAT 100
[2023-02-15] MEDS: Atorvastatin Calcium 80 MG Tablet PO (21:26)
[2023-02-16 06:00] VITALS: BP 135/82; PULSE 75; RESP 18; TEMP 36.9; O2SAT 99
[2023-02-16] MEDS: Meropenem 1 GM in 0.9% Normal Saline (100mL MB+) 100 ML IV ×2 (06:20→13:18)
[2023-02-16] MEDS: oxyCODONE 5 MG Tablet PO ×2 (06:20→11:42)
[2023-02-16] MEDS: Cilostazol 50 MG Tablet PO (06:20)
[2023-02-16] MEDS: Acetaminophen 325 MG Tablet 650 MG PO (06:20)
[2023-02-16 08:01] LABS: Absolute Lymphocyte Count 1.89 X10^3/uL (0.83-4.51); Absolute Neutrophil Count 2.5 X10^3/uL (2.0-7.7); Basophil# 0.03 X10^3/uL; Basophil% 0.5 % (0-1); Eosinophil# 0.37 X10^3/uL; Eosinophils% 6.7 % (0-5); Hematocrit 29.7 % (40-54); Hemoglobin 9.3 g/dL (13.0-16.5); Lymphocyte # 1.89 X10^3/ul (0.83-4.51); Lymphocyte % 34.4 % (19-41); Mean Corp Hgb Conc 31.3 g/dL (32-36); Mean Corpuscular Hgb 28.4 pg (27.0-32.0); Mean Corpuscular Volume 90.8 fL (80-94); Mean Platelet Vol. 9.5 fl (6.2-12.0); Monocyte# 0.72 X10^3/uL; Monocyte% 13.1 % (0-10); NRBC Flagged by Analyzer 0 % (0-5); Neutrophil # 2.47 X10^3/uL (2.7-7.7); Neutrophil % 45.1 % (47-70); Platelet Count 271 K/mm3 (150-450); RBC Distribution Width CV 14.7 % (11.6-14.6); RBC Distribution Width SD 49.9 fl (35.1-43.9); Red Blood Count 3.27 M/mm3 (4.6-6.2); White Blood Count 5.5 K/mm3 (4.4-11.0)
[2023-02-16] MEDS: Gabapentin 100 MG Capsule PO ×2 (08:09→11:42)
--- NOTE | 2023-02-16 08:48 | WOUNDNOTE ---
Pt getting PICC line placed at this time. possible discharge home today if home care for IV antibiotics can be arranged.
[2023-02-16 08:51] LABS: Anion Gap 7 (5-15); BUN 9 mg/dL (7-18); BUN/Creat Ratio 9.4 RATIO (10-20); Calcium,Total 8.6 mg/dL (8.5-10.1); Chloride 107 mmol/L (98-107); Creatinine, Serum 0.95 mg/dL (0.70-1.30); EST Glomerular Filtration Rate 86 mL/min (>60); Est Glom Filt Rate - Afr Amer 104 mL/min (>60); Estimated Creatinine Clearance 87.57 ml/min; Glucose 105 mg/dL (74-106); Potassium 3.6 mmol/L (3.5-5.1); Sodium Level 138 mmol/L (136-145)
[2023-02-16 09:28] VITALS: BP 154/75; PULSE 64; RESP 16; TEMP 36.8; O2SAT 100
--- NOTE | 2023-02-16 09:34 | PCM.OP.PRO ---
Procedure Report Date of Procedure: 02/16/23 Assessment & Plan Assessment/Plan (1) Osteomyelitis: QUALIFIERS: Osteomyelitis type: subacute Osteomyelitis location: foot Laterality: left Qualified Code(s): M86.272 - Subacute osteomyelitis, left ankle and foot Procedures Radiology Radiology Access Procedures: PICC Procedure Time Out Time Out Informed consent given: Yes Consent signed: Yes Time out checklist: patient, procedure, site marked/identified, positioning of patient, supplies available, allergies confirmed and team agrees on procedure Time out verified: Yes Time out date: 02/16/23 Time out time: 08:05 PICC Line Consent Screening tool completed:: Yes Consent obtained:: Yes Consent given by (patient or responsible constitution party):: patient Line successful (if no, document why in comments):: Yes Insertion Reason for Insertion: Sales Representative Graphic Art Medication Date of Insertion: 02/16/23 Ok to use: Yes Type of PICC inserted: Single Power PICC PICC Lot #: [id number] PICC Reference #: [id number] Microintroducer Used: Yes (in kit) Ultrasound/Equipment Used: Probe Cover Kit Trimmed Length (cm): 47 Insertion Length (cm): 47 Exposed Length (cm): 0 Tip Placement: Caval Atrial Junction Placement Confirmation: 3CG Insertion Vein: Right Brachial Insertion Attempts: 1 Dressing Applied: Statlock and Tegaderm CHG Arm Measurement above site (in cm): 28 Patient Tolerated Procedure: Well Threading Difficulties: No Comments Comment: Patient tolerated the procedure well. Primary nurse and charge nurse aware PICC line is ready to use based on 3 CG tip confirmation.
[2023-02-16 09:35] VITALS: PULSE 64
[2023-02-16] MEDS: amLODIPine 5 MG Tablet PO (09:35)
[2023-02-16] MEDS: Metoprolol(XL)Succ 50 MG Tablet PO (09:35)
[2023-02-16] MEDS: Enoxaparin 40 MG/0.4 ML Syringe SC (09:35)
--- NOTE | 2023-02-16 11:21 | CASEMGMT ---
Addendum entered by Cleo Smith 02/16/23 15:24: Correction: [facility] of [facility] form was to be signed by prescriber or staff member. Form received from [facility], signed by this RADHA CRESPO, and sent back to [facility] via [employer] at this time. Addendum entered by Cleo Smith 02/16/23 14:12: Pt and made aware he will be discharging home after the 2 PM dose of IV atb's has been completed. He and both made aware [facility] will be delivering home atbs/supplies to his home late tonight. They were also made aware [facility] will be contacting them for SOC appt tomorrow AM b/w 0900 and 1000. Questions answered. They deny having further questions/concerns at this time. Addendum entered by Cleo Smith 02/16/23 13:52: Shaye planner scheduler, also to notify [facility] via [facility] re: wound vac dsg change due tomorrow. Addendum entered by Cleo Smith 02/16/23 13:46: RADHA CRESPO placed call to Sheri @ [facility]. left informing her pt is discharging home today after 2 PM dose for SOC tomorrow AM b/w 0900 and 1000. also stated that pt is due for his wound vac dressing to be changed tomorrow as well. Addendum entered by Cleo Smith 02/16/23 13:43: Dr Real aware [facility] unable to do SOC until tomorrow AM. He states is okay with pt discharging after 2 PM dose today and okay to miss the 10 PM dose tonight. Addendum entered by Cleo Smith 02/16/23 12:39: RADHA CRESPO spoke rodrick/Sheri @ [facility]. They are able to accept pt w/SOC tomorrow morning b/w 9 AM and 10 AM. Call back to [facility] and spoke rodrick/Linda. She was made aware of above. She states they kenji have the meds/supplies delivered to pt's home late tonight. She was unable to give more specific time frame. Pt made aware. PICC insertion documentation send to both [facility] and [facility] via [employer]. Original Note: RADHA CRESPO NOTE: PICC has been inserted. RN ZAK will send documentation to [facility] when it is available. RADHA CRESPO placed call to Meli @ [facility]. Benefits have been determined and pt is covered @ 100%. She will fax [facility] form to [facility] for pt to sign and RADHA CRESPO to fax or send back via [employer]. She states they can get the meds/supplies to pt's home around 7 or 8 PM today at the earliest. Call to Alea @ [facility]. She was made aware pt is medically ready to discharge, PICC has been inserted, and meds/supplies can be delivered by 7 or 8 PM today. She states they do not have the staffing to see pt for SOC today and she is not sure if they will have it tomorrow. She states will call this RN ZAK back. Robby PRIEST RN, CM
--- NOTE | 2023-02-16 13:57 | DCINST_ITS ---
Discharge Instructions Diet Discharge Diet: Low fat / Low cholesterol and 1800 Calorie Control Diet Activity Discharge Activity: Return to Normal Activity Weight Bearing Status: No weight bearing (on left foot) Dressing / Incision Call your doctor if you observe: Fever of 101 or Higher, Coldness, Increased Pain, Numbness or Tingling, Change in Color, Inability to urinate, Inability to have a bowel movement, Shortness of breath, Dizziness, Fainting spells, Swelling in the ankles, Chest pain, Prolonged hiccupping, Increased palpitations (irregular heartbeat) and Calf discomfort Follow Up Care When: IN 2 WEEKS Test Results: Test results from this visit will be discussed in further detail at your follow- up appointment, if applicable. Discharge Plan Admission Admit Date/Time: 02/10/23 17:32 Primary Reason for Your Visit: Left foot osteomyelitis with ulcer and necrosis of bone Attending Provider: Geo Real Primary Care Provider: Care Physician,No Primary Consulting Providers: Brennen Velasquez; Hebert Sandhu; Anum Wilson; Ted Martinez Discharge Orders/Prescriptions Prescriptions: New acetaminophen 325 mg Tablet 650 mg PO Q6H PRN PRN (Reason: Pain 1-10 Or Fever>100.7) Qty: 0 0RF metformin 500 mg tablet 500 mg PO BID Qty: 60 2RF Continued Xarelto 2.5 mg tablet 2.5 mg PO BID Qty: 60 2RF atorvastatin 80 mg Tablet 80 mg PO QHS Qty: 90 0RF cilostazol 50 mg Tablet 50 mg PO BIDAC Qty: 60 0RF metoprolol succinate 50 mg Tablet Extended Release 24 Hr 50 mg PO DAILY Qty: 90 0RF amlodipine 5 mg Tablet 5 mg PO DAILY Qty: 90 0RF aspirin 81 mg Tablet,Chewable 81 mg PO BREAKFAST Qty: 90 0RF Brilinta 90 mg Tablet 90 mg PO BID Qty: 180 0RF Changed oxycodone 5 mg Tablet 2.5 - 5 mg PO Q8H PRN PRN (Reason: Pain Score 4-10) 3 Days Qty: 7 0RF Discontinued oxycodone-acetaminophen [Percocet] 5-325 mg tablet 1 tab PO Q8H PRN (Reason: pain) 7 Days Qty: 21 0RF Referrals / Follow Up: Hebert Sandhu DPM [Med Staff - Active Staff] - Care Physician,No Primary [Primary Care Provider] - Disposition Disposition (needs filled in before D/C Order can be placed): Home, Self Care
--- NOTE | 2023-02-16 14:04 | DS.PCM_ITS ---
Providers Date of Admission: 02/10/23 Date of Discharge: 02/16/23 Primary Care Physician: Leonora Primary Care Phys Consultations 02/10/23 19:40 Consult: Podiatry Routine Consulting Provider: Heebrt Sandhu Reason for Consult: Left foot osteomyelitis EMERGENT Consult: No Notified: Yes Date Notified: 02/10/23 Time Notified: 07:47 Method of Notification: Text 02/11/23 12:55 Consult: Onc/Wound/staff counselor Routine Comment: Reason for Consult:: wound vac Comments:: Change wound vac Monday02/15/23 13:11 Consult: Infectious Disease Routine Consulting Provider: Ted Martinez Reason for Consult: osteo EMERGENT Consult: No MD Notified: Yes Date Notified: 02/15/23 Time Notified: 13:11 Method of Notification: Farhan spoke to balbina Reason For Visit: LEFT FOOR OSTEOMYELITIS Diagnosis Discharge Diagnosis (1) Osteomyelitis: Status: Acute Code(s): M86.9 - Osteomyelitis, unspecified Qualifiers: Laterality: left Osteomyelitis location: foot Osteomyelitis type: subacute Qualified Code(s): M86.272 - Subacute osteomyelitis, left ankle and foot Plan 57-year-old gentleman was 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 Patient complained of left foot pain, moderate in intensity localized around ulcer area. Patient has history of chronic left foot ulcer, left leg peripheral arterial disease, coronary artery disease status. #Left fifth metatarsal osteomyelitis * recently had left fifth toe amputation by podiatry on 01/06/2023. * subsequently had poor wound healing and is being admitted for operative debridement and skin graft substitute placement. * recently completed a course of PO antibiotics afte wound cultures from 01/31 grew MSSA and Enterococcus * left foot xray on admission showed worsening osteolysis of the head of fifth metatarsal suspicious for osteomyelitis and worsening soft tissue wounds. * s/p partial excision of bone and fifth metatarsal of left foot with skin graft substitute application. today is POD 3. has wound vac in place * podiatry on board * on IV vancomycin and unasyn * wound and bone cultures growing Enterobacter and Enterococcus faecalis. On anaerobic culture, bacteria isolated from bone culture. Blood culture showed no growth at 48 hours. ID consulted. 02/15: ID consulted. Patient has left foot osteomyelitis. Meropenem 1 g IV every 8 hourly for 4 weeks through March 14, 2023. PICC line ordered. 02/16: Patient is discharged home. Home wound VAC needs to be inserted. Patient discharged on meropenem. Patient also has sometimes hyperglycemia but last A1c 5.6 on 01/06/2023. Prescription metformin given that will help with the fatty liver too. #Chronic anemia: Hb is 9.3. Stable. Will monitor #CAD s/p stent: on aspirin and brilinta. #PAD s/p recent fem POP bypass and thrombectomy * on aspirin, brilinta and xarelto. on Cilostazol * on high intensity statin. * Advised to quit smoking. * #Nicotine dependence: counseled to quit. On nicotine patch 21mg daily #Hypertension; on amlodipine and metoprolol. DVT prophylaxis: SCDs. on lovenox Discharge medication reconciliation done. Discharge follow-up instructions completed. Discharge process discussed with the patient and all questions were answered to patient's satisfaction. Follow with PCP in 1 to 2 weeks. Prescription for oxycodone given. OARRS reviewed. Total time spent, exact 35 minutes on discharge meds reconciliation, exa mination, coordination of care with nurses and ancillary staff, review of imaging and blood test and discussion with the patient on follow-up instructions. Medications at Discharge Home Medications amlodipine 5 mg tablet 5 mg PO DAILY #90 tabs 01/10/23 aspirin 81 mg chewable tablet 81 mg PO BREAKFAST #90 tabs 01/10/23 atorvastatin 80 mg tablet 80 mg PO QHS #90 tabs 01/10/23 cilostazol 50 mg tablet 50 mg PO BIDAC #60 tabs 01/10/23 metoprolol succinate 50 mg tablet,extended release 24 hr 50 mg PO DAILY #90 tabs 01/10/23 ticagrelor 90 mg tablet (Brilinta) 90 mg PO BID #180 tabs 01/10/23 rivaroxaban 2.5 mg tablet (Xarelto) 2.5 mg PO BID #60 tabs 01/18/23 acetaminophen 325 mg tablet 650 mg (2 x 325 mg) PO Q6H PRN PRN Pain 1-10 Or Fever>100.7 #0 tabs 02/16/23 metformin 500 mg tablet 500 mg PO BID #60 tabs 02/16/23 oxycodone 5 mg tablet 2.5 - 5 mg (0.5 - 1 x 5 mg) PO Q8H PRN PRN Pain Score 4-10 3 days #7 tabs 02/16/23 Physical Exam Narrative Seen and examined. Patient was advised to quit his smoking. Patient is states he cut down his smoking from half pack to 1 cigarettes daily. History of severe PAD with surgical eschar of femoropopliteal bypass surgery Physical exam General: Alert, Oriented x3, Cooperative HEENT: Atraumatic, PERRLA, EOMI, Normocephalic Oral: No Gingival or Mucosal Lesions/ Ulcerations Neck: Supple, No JVD, Negative Carotid Bruits Lungs: Air entry diminished in bilateral lung bases. No crepitation/rhonchi Cardiovascular: Regular rate, Regular Rhythm, Normal S1, Normal S2, No murmurs. Left leg status post femoropopliteal bypass. Abdomen: Bowel Sounds Present, Soft, Non Tender, Non-Distended : No renal angle tenderness. No suprapubic tenderness. Extremities: No edema, Capillary Refill Less than 3 Seconds Skin: Left lower leg and foot surgical dressing with Tyelr wrap bandage. Musculoskeletal: Minimal to very mild tenderness over operative site. ROM restricted of left ankle and foot. Neurological: Cranial nerves II-XII grossly intact, DTR 2+/4. No acute focal neurological deficit. Psych/Mental Status: Normal Affect, Appropriate. Weight / BMI Weight Weight: 161 lb 0.728 oz Body Mass Index (BMI) 21.3 ABG / Lab / Microbiology Data 02/16/23 07:07 02/16/23 07:07 Laboratory: Laboratory Results - last 24 hr 02/16/23 07:07: WBC 5.5, RBC 3.27 L, Hgb 9.3 L, Hct 29.7 L, MCV 90.8, MCH 28.4, MCHC 31.3 L, RDW Std Deviation 49.9 H, RDW Coeff of Mario Alberto 14.7 H, Plt Count 271, MPV 9.5, Immature Gran % (Auto) 0.200, Neut % (Auto) 45.1 L, Lymph % (Auto) 34.4, [place] % (Auto) 13.1 H, Eos % (Auto) 6.7 H, Baso % (Auto) 0.5, Absolute Neuts (auto) 2.5, Absolute Lymphs (auto) 1.89, Nucleated RBC % 0, Sodium 138, Potassium 3.6, Chloride 107, Carbon Dioxide 24.0, Anion Gap 7, BUN 9, Creatinine 0.95, Estim Creat Clear Calc 87.57, Est GFR (MDRD) Af Amer 104, Est GFR (MDRD) Non-Af 86, BUN/Creatinine Ratio 9.4 L, Glucose 105, Calcium 8.6 Microbiology: Microbiology 02/10/23 16:00 Blood Culture (Wb) - Anticubital Right Blood Culture - Final No growth in 5 days. 02/10/23 16:00 Blood Culture (Wb) - Anticubital Left Blood Culture - Final No growth in 5 days. 02/11/23 Unknown Bone - Left Foot Gram Stain - Final 02/11/23 Unknown Bone - Left Foot Wound Culture - Final Enterobacter cloacae complex Enterococcus faecalis 02/11/23 Unknown Bone - Left Foot Anaerobic Culture - Final No anaerobic bacteria isolated. D/C Instructions Discharge Diet: Low fat / Low cholesterol and 1800 Calorie Control Diet Weight Bearing Status: No weight bearing (on left foot) Call your doctor if you observe: Fever of 101 or Higher, Coldness, Increased Pain, Numbness or Tingling, Change in Color, Inability to urinate, Inability to have a bowel movement, Shortness of breath, Dizziness, Fainting spells, Swelling in the ankles, Chest pain, Prolonged hiccupping, Increased palpitations (irregular heartbeat) and Calf discomfort When: IN 2 WEEKS Meaningful Use Info Meaningful Use Diagnoses (Choose all that apply): None applicable Discharge Plan Admission Admit Date/Time: 02/10/23 17:32 Primary Reason for Your Visit: Left foot osteomyelitis with ulcer and necrosis of bone Attending Provider: Geo Real Primary Care Provider: Care Physician,No Primary Consulting Providers: Brennen Velasquez; Hebert Sandhu; Anum Wilson; Ted Martinez Discharge Orders/Prescriptions Prescriptions: New acetaminophen 325 mg Tablet 650 mg PO Q6H PRN PRN (Reason: Pain 1-10 Or Fever>100.7) Qty: 0 0RF metformin 500 mg tablet 500 mg PO BID Qty: 60 2RF Continued Xarelto 2.5 mg tablet 2.5 mg PO BID Qty: 60 2RF atorvastatin 80 mg Tablet 80 mg PO QHS Qty: 90 0RF cilostazol 50 mg Tablet 50 mg PO BIDAC Qty: 60 0RF metoprolol succinate 50 mg Tablet Extended Release 24 Hr 50 mg PO DAILY Qty: 90 0RF amlodipine 5 mg Tablet 5 mg PO DAILY Qty: 90 0RF aspirin 81 mg Tablet,Chewable 81 mg PO BREAKFAST Qty: 90 0RF Brilinta 90 mg Tablet 90 mg PO BID Qty: 180 0RF Changed oxycodone 5 mg Tablet 2.5 - 5 mg PO Q8H PRN PRN (Reason: Pain Score 4-10) 3 Days Qty: 7 0RF Discontinued oxycodone-acetaminophen [Percocet] 5-325 mg tablet 1 tab PO Q8H PRN (Reason: pain) 7 Days Qty: 21 0RF Referrals / Follow Up: Hebert Sandhu DPM [Med Staff - Active Staff] - Care Physician,No Primary [Primary Care Provider] - Disposition Disposition (needs filled in before D/C Order can be placed): Home, Self Care Charges/Coding Visit Charges Inpatient E&M: 76185 Disch Hosp >30min
--- NOTE | 2023-02-16 14:36 | WOUNDNOTE ---
Pt switched over to the home VAC. reviewed alarms, how to change the canister, taking dressing to wound center appts, etc. with patient and . both deny questions. proof of delivery signed and faxed back to [facility].
[2023-02-16 14:56] VITALS: BP 139/68; PULSE 61; RESP 18; TEMP 36.7; O2SAT 99
--- NOTE | 2023-02-16 15:36 | CASEMGMT ---
Discharge Planning Discharge Instructions sent via [facility] to [facility]. Shaye Estrada, Discharge Planning Asst.
--- NOTE | 2023-02-20 15:01 | CASEMGMT ---
Addendum entered by Tayler Hartley 02/20/23 16:49: Received tc back from Pooja at [facility] who states pt does have an appt on the . She states she did tell the FACIAL OPERATOR who called this. DC assistant plant manager will also call FACIAL OPERATOR to make aware. Original Note: DC assistant plant manager made RADHA CRESPO aware that pt FACIAL OPERATOR called and states he is not seeing the wound center for 2 weeks. TC to [facility], left message on appt line to see if pt has an appt this week or not. Provided wound vac orders for dc assistant plant manager to send to FACIAL OPERATOR.
== END 2023-02-16 16:30 | disposition home or self-care (01) | DRG 951 ==
LOC: ED 17:21 → MS3 18:08
PROVIDERS: Podiatrist Foot & Ankle Surgery; Student in an Organized Health Care Education/Training Program; Admitting Provider Hospitalist; Emergency Provider Emergency Medicine; Visit Provider Internal Medicine
PROC: 0JBR0ZZ Excision of Left Foot Subcutaneous Tissue and Fascia, Open Approach (ICD-10-PCS; principal; 2023-02-11 10:00)
DX: I70.262 Atherosclerosis of native arteries of extremities with gangrene, left leg (principal); M86.272 Subacute osteomyelitis, left ankle and foot; L97.524 Non-pressure chronic ulcer of other part of left foot with necrosis of bone; L97.322 Non-pressure chronic ulcer of left ankle with fat layer exposed; K76.0 Fatty (change of) liver, not elsewhere classified; Z89.422 Acquired absence of other left toe(s); I10 Essential (primary) hypertension; I25.10 Atherosclerotic heart disease of native coronary artery without angina pectoris; E78.5 Hyperlipidemia, unspecified; E87.6 Hypokalemia; F17.210 Nicotine dependence, cigarettes, uncomplicated; R73.9 Hyperglycemia, unspecified; M89.572 Osteolysis, left ankle and foot; Z79.01 Long term (current) use of anticoagulants; Z79.02 Long term (current) use of antithrombotics/antiplatelets; Z79.82 Long term (current) use of aspirin; Z79.84 Long term (current) use of oral hypoglycemic drugs; Z79.899 Other long term (current) drug therapy
CPT/HCPCS: 36415; 36569; 73630; 80048; 80202; 82607; 82728; 82746; 83540; 83550; 83605; 85025; 85027; 86140; 87015; 87040; 87070; 87075; 87077; 87102; 87116; 87186; 87205; 87206; 88305; 88311; 93005; 93926; 94668; 99284; J2185; J7040; J7050; A4216; J0295; J2405

== ENCOUNTER 2023-03-08 14:45 | Outpatient (RCR) | payer MEDICAID, SELFPAY ==
[2023-02-22 14:12] VITALS: BP 149/68; PULSE 90; RESP 16; BMI 21.7
--- NOTE | 2023-02-22 15:56 | PCM.WC.HP ---
History of Present Illness Date of Service: 02/22/23 Chief Complaint: Left full-thickness wound. History of Wound: Chronic nonhealing left full-thickness wound Progress of Wound: Mr. Medina is a 57-year-old male seen in the wound care center today for follow-up and evaluation of full-thickness ulceration status post surgical skin graft prep site, delayed primary closure with application of skin graft substitute to left lower extremity. Patient was seen in the hospital by Dr. Sandhu and we have asked by Dr. Valle. Patient also had PCI by interventional cardiology. Patient was last seen in the hospital and discharged on 02/16/2023 with home health care for wound VAC changes as well as being sent home on IV home use antibiotics. Patient has been recovering well. He has been compliant with his antibiotics and wound VAC changes. He will be following up with his primary care doctor tomorrow. He denies any trauma. He denies constitutional symptoms. No other pedal complaints at this time. 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 Osteomyelitis Peripheral arterial disease Smoker Home Medications amlodipine 5 mg tablet 5 mg PO DAILY #90 tabs 01/10/23 [Rx Last Taken Unknown] aspirin 81 mg chewable tablet 81 mg PO BREAKFAST #90 tabs 01/10/23 [Rx Last Taken 02/10/23] atorvastatin 80 mg tablet 80 mg PO QHS #90 tabs 01/10/23 [Rx Last Taken Unknown] cilostazol 50 mg tablet 50 mg PO BIDAC #60 tabs 01/10/23 [Rx Last Taken Unknown] metoprolol succinate 50 mg tablet,extended release 24 hr 50 mg PO DAILY #90 tabs 01/10/23 [Rx Last Taken Unknown] ticagrelor 90 mg tablet (Brilinta) 90 mg PO BID #180 tabs 01/10/23 [Rx Last Taken 02/10/23] rivaroxaban 2.5 mg tablet (Xarelto) 2.5 mg PO BID #60 tabs 01/18/23 [Rx Last Taken 02/10/23] acetaminophen 325 mg tablet 650 mg (2 x 325 mg) PO Q6H PRN PRN Pain 1-10 Or Fever>100.7 #0 tabs 02/16/23 [Rx Last Taken Unknown] metformin 500 mg tablet 500 mg PO BID #60 tabs 02/16/23 [Rx Last Taken Unknown] oxycodone 5 mg tablet 2.5 - 5 mg (0.5 - 1 x 5 mg) PO Q8H PRN PRN Pain Score 4-10 3 days #7 tabs 02/16/23 [Rx Last Taken Unknown] oxycodone-acetaminophen 5 mg-325 mg tablet (Percocet) 1 tab PO Q6H PRN pain 7 days #28 tabs 02/22/23 [Rx Last Taken Unknown] Allergy/AdvReac Type Severity Reaction Status Date / Time No Known Allergies Allergy Verified 02/22/23 14:28 Surgical History H/O heart artery stent Social History Smoking Status: Current every day smoker tobacco type: cigarettes Vital Signs Vital Signs Vital Signs: 02/22/23 14:12 Temperature Source Temporal Pulse Rate 90 Respiratory Rate 16 Blood Pressure 149/68 H Blood Pressure Mean 95 Blood Pressure Source Monitor Blood Pressure Position Sitting Blood Pressure Location Left Arm Oxygen Delivery Method Room Air Weight Weight: 74.843 kg Body Mass Index (BMI) 21.7 Physical Exam Narrative Vascular: DP and PT pulses are audible on Doppler. +1 pitting edema appreciated to left lower extremity. Skin temperature great is warm to warm from proximal ankle to distal digit. No evidence of focal increase is appreciated. Neurological: Light touch intact. Patient does respond to painful stimuli. Dermatological: Full-thickness ulceration appreciated to the left anterior ankle and the lateral foot. The left lateral foot ulceration measures 5.5 x 3.0 x 0.3 cm. The left dorsum ankle measures 7.0 x 2.5 x 0.1 cm. Wound bases are 100% granular nature with no malodor. Excisional debridement down to and including subcutaneous tissue of the left foot lateral ulceration with a number 5 mm dermal curette without incident. Predebridement measurement is 5.3 x 2.8 x 0.1 cm. Postdebridement measurement is 5.5 x 3.0 x 0.3 cm. Scissor debridement down to and including subcutaneous tissue of the left dorsum foot/ankle with a number 5 mm dermal curette without incident. Predebridement measurement is 6.8 x 2.3 x 0.1 cm. Post right measurement is 7.0 x 2.5 x 0.1 cm. Musculoskeletal: Muscle strength was deferred. Moderate palpatory tenderness appreciated to both ulcerations to left lower extremity. No pain with calf compression. Debridement Note Debridement Note Debridement Free Text: Excisional debridement down to and including subcutaneous tissue of the left foot lateral ulceration with a number 5 mm dermal curette without incident. Predebridement measurement is 5.3 x 2.8 x 0.1 cm. Postdebridement measurement is 5.5 x 3.0 x 0.3 cm. Scissor debridement down to and including subcutaneous tissue of the left dorsum foot/ankle with a number 5 mm dermal curette without incident. Predebridement measurement is 6.8 x 2.3 x 0.1 cm. Post right measurement is 7.0 x 2.5 x 0.1 cm. Post-Debridement Measurements and Additional Note: Post-Debridement Measurements/Treatment WC - Nurse 1 - General Ulcer Assessment Start: 02/22/23 14:06 Freq: Status: Active Protocol: [email or web address] Activity Type Activity Date Activity User E-sign Co-sign Detail Recorded Client Recorded Date Recorded By Document 02/22/23 14:06 [employer] 02/22/23 14:39 [employer] Document 02/22/23 14:12 [facility] Desktop 02/22/23 14:27 [employer] 02/22/23 02/22/23 14:06 14:12 - Today's Visit Information Type of service Initial Visit Initial Visit Arrival Mode Ambulatory, Crutches Transfer Assistance None Accompanied by Patient Identification Verified (Name & Yes ) Patient Requires Transmission-Based No Precautions Height and Weight Height 6 ft 1 in Weight 74.843 kg Weight in Pounds 165.0 lbs Weight Measurement Method Stated by Patient Body Mass Index (BMI) 21.7 BMI Classification Normal BSA - Aileen 1.98 Vital Signs Temperature Source Temporal Pulse Rate (60-100) 90 Pulse Location Monitor Respiratory Rate (12-18) 16 Respiratory rate source Observation Oxygen Delivery Method Room Air Blood Pressure (90/60-120/80) 149/68 H Blood Pressure Mean 95 Source Monitor Position Sitting Blood Pressure Location Left Arm History Since Last Visit- (Skip if this is Patient's initial visit) Left Footwear Other Footwear (Comment) Right Footwear Regular Shoe Other Footwear sock to left foot Pain Scale: 0-10 Numeric Is Patient Pain Free? No No ULCER SITE -Description Throbbing wound -Description Throbbing -Intensity 5 -Duration (hours) Acute -Pain Behavior No Change in Behavior -Pain Aggravating Factors Changing Position, Standing, Sitting,Walking -Alleviating Factors/Interventions Distraction, Will continue to monitor, Patient denies need for intervention, Emotional Support Communication Assessment Preferred language [employer] Required No Able to Read Yes Able to Write Yes Communication Tools None Right Hearing Abillity Normal Left Hearing Abillity Normal Visual Assistive Devices None Teaching Assessment Preferences Verbal,Written, Audio/Visual, Demonstration Barriers to Learning None Readiness To Learn Excellent Willingness to Engage in Self Management High Activies Readiness to Engage in Self Management High Activities Anxiety Level Calm Cooperation Cooperative Perception Coherent Interest in Health Problem Asks Questions Education Importance Acknowledges Need Does Patient Smoke tobacco or other No substances Smoking Status Current every day smoker Is Patient Diabetic No Functional Assessment Recent Decline in Ability to Perform Ambulation, Transferring Culture/Religion/Care Management Coordinator Cultural/Religion Needs that may affect No Treatment Plan Teaching: Wound Center *Welcome to the Wound Center -Person Taught Patient, Significant Other -Teaching Method Discussion -Response to teaching Verbalize understanding Welcome to the Wound Care Center English SALAS - Nurse 1 - General Ulcer Measurement Start: 02/22/23 14:06 Freq: Status: Active Protocol: Activity Type Activity Date Activity User E-sign Co-sign Detail Recorded Client Recorded Date Recorded By Document 02/22/23 14:12 [facility] Desktop 02/22/23 14:27 [facility] 02/22/23 14:12 Wound Center Nurse 1 #2- L DORSAL FOOT CLUSTER -Current Size (cm) - Length 6 -Current Size (cm) - Width 5.6 -Current Size (cm) - Depth 0.1 -Total Square Cm 33.6 -Date of Last Picture (Recall this 02/22/23 field) -Photo Taken Yes -Tunneling No -Undermining/Tunneling No -Circular Undermining No -Exudate Amt Medium -Exudate Type Serosanguineous -Wound Margin Distinct, Outline Attached -Granulation Amt Small (1-33%) -Granulation Quality Red -Slough/Fibrin Yes -Necrosis Amt Large (67-100%) -Necrotic Tissue Type Adherent Slough -Texture (Jovanna-wound Skin Appearance) Assessed, Scarring -Moisture (Jovanna-wound Skin Appearance) Assessed,Dry/ Scaly -Color (Jovanna-wound Skin Appearance) Assessed -Temperature (Jovanna-wound Skin No Abnormality Appearance) (Pt Warm) -Tenderness on Palpation (Jovanna-wound No Skin Appearance) -Ulcer Cleansing Soap and Water -Foul Odor after Cleansing No -Anesthetic Used 5% Lidocaine Gel #1- L LAT FOOT POST OP -Combined with other wound No -Current Size (cm) - Length 5.9 -Current Size (cm) - Width 3 -Current Size (cm) - Depth 0.2 -Total Square Cm 17.7 -Date of Last Picture (Recall this 02/22/23 field) -Photo Taken Yes -Tunneling No -Undermining/Tunneling No -Circular Undermining No -Exudate Amt Large -Exudate Type Serosanguineous -Wound Margin Distinct, Outline Attached -Granulation Amt Large (67-100%) -Granulation Quality Red -Slough/Fibrin Yes -Necrosis Amt Small (1-33%) -Necrotic Tissue Type Adherent Slough -Texture (Jovanna-wound Skin Appearance) Assessed, Scarring -Moisture (Jovanna-wound Skin Appearance) Assessed,Dry/ Scaly -Color (Jovanna-wound Skin Appearance) Assessed -Temperature (Jovanna-wound Skin No Abnormality Appearance) (Pt Warm) -Tenderness on Palpation (Jovanna-wound No Skin Appearance) -Ulcer Cleansing Soap and Water -Foul Odor after Cleansing No -Anesthetic Used 4% Lidocaine Solution Left Calf (cm) 36 Left Ankle (cm) 24.5 WC - Nurse 2 - General Ulcer CM Notes Start: 02/22/23 14:06 Freq: Status: Active Protocol: Activity Type Activity Date Activity User E-sign Co-sign Detail Recorded Client Recorded Date Recorded By Document 02/22/23 14:47 Desktop 02/22/23 14:54 02/22/23 14:47 Wound Center Nurse 2 #2- L DORSAL FOOT CLUSTER -Time 14:47 -Correct Patient Yes -Correct Side, Site, Position Yes -Correct Procedure Yes -Procedure Performed Yes -Type of Procedure Debridement -Clinical Debridement Subcutaneous -Tissue Removed Subcutaneous -Post Debridement (cm) - Length 7.0 -Post Debridement (cm) - Width 2.5 -Post Debridement (cm) - Depth 0.1 -Total Square (Post) (cm) 17.50 -Area of Debridement (cm) - Length 7.0 -Area of Debridement (cm) - Width 2.5 -Total Square (Area) (cm) 17.50 -Tunneling No -Undermining/Tunneling No -Circular Undermining No -Wound/Ulcer Outcome Not Healed -Ulcer Cleansing Rinsed/ Irrigated with Saline -Foul Odor after Cleansing No -Bioengineered Tissue No -Bleeding Controlled with Pressure -Treatment Response Procedure Tolerated Well -Offloading No -Debridement - Subq, 1st 20sq cm Yes #1- L LAT FOOT POST OP -Time 14:48 -Correct Patient Yes -Correct Side, Site, Position Yes -Correct Procedure Yes -Procedure Performed Yes -Type of Procedure Debridement -Clinical Debridement Muscle / Fascia -Tissue Removed Muscle,Fascia -Post Debridement (cm) - Length 5.5 -Post Debridement (cm) - Width 3.0 -Post Debridement (cm) - Depth 0.3 -Total Square (Post) (cm) 16.50 -Area of Debridement (cm) - Length 5.5 -Area of Debridement (cm) - Width 3.0 -Total Square (Area) (cm) 16.50 -Tunneling No -Undermining/Tunneling No -Circular Undermining No -Wound/Ulcer Outcome Not Healed -Ulcer Cleansing Rinsed/ Irrigated with Saline -Foul Odor after Cleansing No -Bioengineered Tissue No -Bleeding Controlled with Pressure -Treatment Response Procedure Tolerated Well -Offloading No -Type of Offloading Surgical Shoe -Debridement - Muscle / Fascia, 1st Yes 20sq cm Pain Scale: 0-10 Numeric Is Patient Pain Free? Yes - Nurse 3 - General Ulcer D/C NN Start: 02/22/23 14:06 Freq: Status: Active Protocol: Activity Type Activity Date Activity User E-sign Co-sign Detail Recorded Client Recorded Date Recorded By Document 02/22/23 15:06 KW Desktop 02/22/23 15:07 KW 02/22/23 15:06 Wound Care Center Nurse 3 #2- L DORSAL FOOT CLUSTER -Negative Pressure Wound Therapy Continue -Setting (mmHg) 150 -Negative Pressure is Continuous -NPWT Application Charge NPWT & Debridement (nc ) Pain Scale: 0-10 Numeric Is Patient Pain Free? No ULCER SITE -Description Throbbing -Alleviating Factors/Interventions Medication WC - Visit Discharge Discharge Condition Stable Ambulatory Status Ambulatory, Crutches Transportation Private Auto Medication Reconcilliation completed & No provided to patient/care provider Clinical Summary of Care Provided Yes Assessment/Plan Assessment/Plan (1) Non-pressure chronic ulcer of other part of left foot with fat layer exposed: CODE(S): L97.522 - Non-pressure chronic ulcer of other part of left foot with fat layer exposed PLAN: Patient was examined and evaluated. All findings were discussed with the patient. All questions were answered to the patient's satisfaction. Excisional debridement down to and including subcutaneous tissue of the left foot lateral ulceration with a number 5 mm dermal curette without incident. Predebridement measurement is 5.3 x 2.8 x 0.1 cm. Postdebridement measurement is 5.5 x 3.0 x 0.3 cm. Scissor debridement down to and including subcutaneous tissue of the left dorsum foot/ankle with a number 5 mm dermal curette without incident. Predebridement measurement is 6.8 x 2.3 x 0.1 cm. Post right measurement is 7.0 x 2.5 x 0.1 cm. The left lower extremity was wiped clean and patted dry. A negative pressure VAC was bridged across both ulcerations. Seal was tight. There was no evidence of leaks. The wound VAC was set to 125 mmHg continuous flow. The patient will have home health care for every other day VAC changes as well as for the patient to perform self infusion of IV antibiotics. The patient will have a small prescription of Percocet #28 pills for 7 days to be taken every 6 hours as needed for pain. The patient will follow-up in 1 week. Patient will be following up with his new primary doctor tomorrow for evaluation. Follow-up 1 week. (2) Peripheral vascular disease: CODE(S): I73.9 - Peripheral vascular disease, unspecified
[2023-03-01 14:17] VITALS: BP 149/93; PULSE 88; RESP 18; BMI 21.7
--- NOTE | 2023-03-01 15:26 | PN.PCM_ITS ---
History of Present Illness Date of Service: 03/01/23 Chief Complaint: Left full-thickness wound. History of Wound: Chronic nonhealing left full-thickness wound Progress of Wound: Mr. Medina is a 57-year-old male seen in the wound care center today for follow-up and evaluation of full-thickness ulceration status post surgical skin graft prep site, delayed primary closure with application of skin graft substitute to left lower extremity. Patient was seen in the hospital by Dr. Sandhu and we have asked by Dr. Valle. Patient also had PCI by interventional cardiology. Patient was last seen in the hospital and discharged on 02/16/2023 with home health care for wound VAC changes as well as being sent home on IV home use antibiotics. Patient has been recovering well. He has been compliant with his antibiotics and wound VAC changes. He will be following up with his primary care doctor tomorrow. He denies any trauma. He denies constitutional symptoms. No other pedal complaints at this time. Subjective Subjective Mr. Medina is a 57-year-old male presenting to the wound care center today for follow-up evaluation of full-thickness ulcerations to the left lower extremity. Patient has been getting wound VAC changes by home health care at his home. He has been compliant with his dressing changes as well as weightbearing status is nonweightbearing. He has been approved for graft placement to left lower extremity full-thickness ulceration. He is grateful for his care. He denies trauma. Denies constitutional symptoms. No other pedal complaints at this time. Objective Data Objective Data Vital Signs: Vital Signs Pulse Resp BP O2 Del Method 88 18 149/93 H Room Air 03/01/23 14:17 03/01/23 14:17 03/01/23 14:17 03/01/23 14:17 Oxygen Delivery Method Room Air Weight: 74.843 kg Body Mass Index (BMI) 21.7 Physical Exam Narrative Vascular: DP and PT pulses are audible on Doppler. +1 pitting edema appreciated to left lower extremity. Skin temperature great is warm to warm from proximal ankle to distal digit. No evidence of focal increase is appreciated. Neurological: Light touch intact. Patient does respond to painful stimuli. Dermatological: Full-thickness ulceration appreciated to the left anterior ankle and the lateral foot. The left lateral foot ulceration measures 4.9 x 2.6 x 0.3 cm. The left dorsum ankle measures 6.0 x 3.1 x 0.1 cm. Wound bases are 100% granular nature with no malodor. Excisional debridement down to and including subcutaneous tissue of the left dorsum foot/ankle with a number 5 mm dermal curette without incident. Predebridement measurement is 5.8 x 2.9 x 0.1 cm. Post right measurement is 6.0 x 3.1 x 0.1 cm. Excisional debridement down to and including subcutaneous tissue and fascia of the left foot lateral ulceration with a number 5 mm dermal curette without incident. Predebridement measurement is 4.7 x 2.5 x 0.1 cm. Postdebridement measurement is 4.9 x 2.6 x 0.3 cm. EpiMesh 4 x 4.5 cm was applied to the left lateral full-thickness ulceration with 100% use. First application. The graft site was free and clear of any infection. The wound/skin graft substitute was dressed with nonadherent bandage secured in place with Steri-Strips followed by negative pressure wound VAC set to 125 mmHg continuous flow followed by a single layer Tubigrip. Musculoskeletal: Muscle strength was deferred. Moderate palpatory tenderness appreciated to both ulcerations to left lower extremity. No pain with calf compression. Debridement Note Debridement Note Debridement Free Text: Excisional debridement down to and including subcutaneous tissue of the left dorsum foot/ankle with a number 5 mm dermal curette without i ncident. Predebridement measurement is 5.8 x 2.9 x 0.1 cm. Post right measurement is 6.0 x 3.1 x 0.1 cm. Excisional debridement down to and including subcutaneous tissue and fascia of the left foot lateral ulceration with a number 5 mm dermal curette without incident. Predebridement measurement is 4.7 x 2.5 x 0.1 cm. Postdebridement measurement is 4.9 x 2.6 x 0.3 cm. EpiMesh 4 x 4.5 cm was applied to the left lateral full-thickness ulceration with 100% use. First application. The graft site was free and clear of any infection. The wound/skin graft substitute was dressed with nonadherent bandage secured in place with Steri-Strips followed by negative pressure wound VAC set to 125 mmHg continuous flow followed by a single layer Tubigrip. Post-Debridement Measurements and Additional Note: Post-Debridement Measurements/Treatment WC - Nurse 1 - General Ulcer Assessment Start: 02/22/23 14:06 Freq: Status: Active Protocol: ANTHONY Activity Type Activity Date Activity User E-sign Co-sign Detail Recorded Client Recorded Date Recorded By Document 02/22/23 14:06 KW Desktop 02/22/23 14:39 KW Document 02/22/23 14:12 BM[facility] Desktop 02/22/23 14:27 BMF Document 03/01/23 14:17 BM[facility] Desktop 03/01/23 14:32 BMF 02/22/23 02/22/23 03/01/23 14:06 14:12 14:17 WC - Today's Visit Information Type of service Initial Visit Initial Visit Follow-up Visit (Physician/JAILER ) Arrival Mode Ambulatory, Ambulatory, Crutches Walker Transfer Assistance None None Accompanied by Patient Identification Verified (Name & Yes Yes ) Patient Requires Transmission-Based No No Precautions Height and Weight Height 6 ft 1 in Weight 74.843 kg Weight in Pounds 165.0 lbs Weight Measurement Method Stated by Patient Body Mass Index (BMI) 21.7 21.7 BMI Classification Normal Normal BSA - Aileen 1.98 Vital Signs Temperature Source Temporal Pulse Rate (60-100) 90 88 Pulse Location Monitor Monitor Respiratory Rate (12-18) 16 18 Respiratory rate source Observation Observation Oxygen Delivery Method Room Air Room Air Blood Pressure (90/60-120/80) 149/68 H 149/93 H Blood Pressure Mean (mm Hg) 95 111 Source Monitor Monitor Position Sitting Sitting Blood Pressure Location Left Arm Left Arm History Since Last Visit- (Skip if this is Patient's initial visit) Have you changed medications since your No last visit? Any new allergies or adverse reactions No Had a fall/change in ADL's that may No increase risk of falls Signs or symptoms of abuse and/or No neglect since last visit Have you been in the hospital since your No last visit? Has dressing in place as prescribed Yes Has compression in place as prescribed Yes Has offloadiing in place as prescribed Yes Experienced any changes in pain level or No management Left Footwear Other Footwear (Comment) Right Footwear Regular Shoe Regular Shoe Other Footwear sock to left foot Pain Scale: 0-10 Numeric Is Patient Pain Free? No No No ULCER SITE -Description Throbbing wound -Description Throbbing Burning -Intensity 5 6 -Duration (hours) Acute Acute -Pain Behavior No Change in Facial Behavior Grimacing -Pain Aggravating Factors Changing Position, Standing, Sitting,Walking -Alleviating Factors/Interventions Distraction, Distraction, Will continue Will continue to monitor, to monitor, Patient denies Patient denies need for need for intervention, intervention, Emotional Emotional Support Support -Comments TOOK PAIN MEDS PRIOR TO COMING Communication Assessment Preferred language Sinhala Roving Or Yarn Color Checker Required No Able to Read Yes Able to Write Yes Communication Tools None Right Hearing Abillity Normal Left Hearing Abillity Normal Visual Assistive Devices None Teaching Assessment Preferences Verbal,Written, Audio/Visual, Demonstration Barriers to Learning None Readiness To Learn Excellent Willingness to Engage in Self Management High Activies Readiness to Engage in Self Management High Activities Anxiety Level Calm Cooperation Cooperative Perception Coherent Interest in Health Problem Asks Questions Education Importance Acknowledges Need Does Patient Smoke tobacco or other No substances Smoking Status Current every day smoker Is Patient Diabetic No Functional Assessment Recent Decline in Ability to Perform Ambulation, Transferring Culture/Sabianist/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 Service Representative Cultural/Sabianist Needs that may affect No Treatment Plan Teaching: Wound Center *Welcome to the Wound Center -Person Taught Patient, Significant Other -Teaching Method Discussion -Response to teaching Verbalize understanding Welcome to the Wound Care Center Sinhala WC - Nurse 1 - General Ulcer Measurement Start: 02/22/23 14:06 Freq: Status: Active Protocol: Activity Type Activity Date Activity User E-sign Co-sign Detail Recorded Client Recorded Date Recorded By Document 02/22/23 14:12 [facility] Desktop 02/22/23 14:27 [facility] Document 03/01/23 14:17 [facility] Desktop 03/01/23 14:32 [facility] 02/22/23 03/01/23 14:12 14:17 Wound Center Nurse 1 #2- L DORSAL FOOT CLUSTER -Combined with other wound No -Current Size (cm) - Length 6 5.5 -Current Size (cm) - Width 5.6 4.7 -Current Size (cm) - Depth 0.1 0.1 -Total Square Cm 33.6 25.85 -Date of Last Picture (Recall this 02/22/23 field) -Photo Taken Yes -Epithelialization Small 1-33% -Tunneling No No -Undermining/Tunneling No No -Circular Undermining No No -Exudate Amt Medium Medium -Exudate Type Serosanguineous Serosanguineous -Wound Margin Distinct, Flat & Intact Outline Attached -Granulation Amt Small (1-33%) Large (67-100%) -Granulation Quality Red Red -Slough/Fibrin Yes Yes -Necrosis Amt Large (67-100%) Small (1-33%) -Necrotic Tissue Type Adherent Slough Adherent Slough -Texture (Jovanna-wound Skin Appearance) Assessed, Assessed, Scarring Scarring -Moisture (Jovanna-wound Skin Appearance) Assessed,Dry/ Assessed,Dry/ Scaly Scaly -Color (Jovanna-wound Skin Appearance) Assessed Assessed -Temperature (Jovanna-wound Skin No Abnormality No Abnormality Appearance) (Pt Warm) (Pt Warm) -Tenderness on Palpation (Jovanna-wound No No Skin Appearance) -Ulcer Cleansing Soap and Water Soap and Water -Foul Odor after Cleansing No No -Anesthetic Used 5% Lidocaine 4% Lidocaine Gel Solution #1- L LAT FOOT POST OP -Combined with other wound No No -Current Size (cm) - Length 5.9 5.3 -Current Size (cm) - Width 3 2.4 -Current Size (cm) - Depth 0.2 1.1 -Total Square Cm 17.7 12.72 -Date of Last Picture (Recall this 02/22/23 field) -Photo Taken Yes -Epithelialization Small 1-33% -Tunneling No No -Undermining/Tunneling No No -Circular Undermining No No -Exudate Amt Large Medium -Exudate Type Serosanguineous Serosanguineous -Wound Margin Distinct, Distinct, Outline Outline Attached Attached -Granulation Amt Large (67-100%) Large (67-100%) -Granulation Quality Red Red -Slough/Fibrin Yes Yes -Necrosis Amt Small (1-33%) Small (1-33%) -Necrotic Tissue Type Adherent Slough Adherent Slough -Texture (Jovanna-wound Skin Appearance) Assessed, Assessed, Scarring Scarring -Moisture (Jovanna-wound Skin Appearance) Assessed,Dry/ Assessed,Dry/ Scaly Scaly -Color (Jovanna-wound Skin Appearance) Assessed Assessed -Temperature (Jovanna-wound Skin No Abnormality No Abnormality Appearance) (Pt Warm) (Pt Warm) -Tenderness on Palpation (Jovanna-wound No No Skin Appearance) -Ulcer Cleansing Soap and Water Soap and Water -Foul Odor after Cleansing No No -Anesthetic Used 4% Lidocaine 4% Lidocaine Solution Solution Left Calf (cm) 36 Left Ankle (cm) 24.5 WC - Nurse 2 - General Ulcer CM Notes Start: 02/22/23 14:06 Freq: Status: Active Protocol: Activity Type Activity Date Activity User E-sign Co-sign Detail Recorded Client Recorded Date Recorded By Document 02/22/23 14:47 Desktop 02/22/23 14:54 Document 03/01/23 15:11 Laptop 03/01/23 15:20 02/22/23 03/01/23 14:47 15:11 Wound Center Nurse 2 #2- L DORSAL FOOT CLUSTER -Time 14:47 15:13 -Correct Patient Yes Yes -Correct Side, Site, Position Yes Yes -Correct Procedure Yes Yes -Procedure Performed Yes Yes -Type of Procedure Debridement Debridement -Clinical Debridement Subcutaneous Subcutaneous -Tissue Removed Subcutaneous Subcutaneous -Post Debridement (cm) - Length 7.0 6.0 -Post Debridement (cm) - Width 2.5 3.1 -Post Debridement (cm) - Depth 0.1 0.1 -Total Square (Post) (cm) 17.50 18.60 -Area of Debridement (cm) - Length 7.0 6.0 -Area of Debridement (cm) - Width 2.5 3.1 -Total Square (Area) (cm) 17.50 18.60 -Tunneling No No -Undermining/Tunneling No No -Circular Undermining No No -Wound/Ulcer Outcome Not Healed Not Healed -Ulcer Cleansing Rinsed/ Rinsed/ Irrigated with Irrigated with Saline Saline -Foul Odor after Cleansing No No -Bioengineered Tissue No No -Bleeding Controlled with Pressure Pressure -Treatment Response Procedure Procedure Tolerated Well Tolerated Well -Offloading No Yes -Type of Offloading Surgical Shoe -Debridement - Subq, 1st 20sq cm Yes Yes #1- L LAT FOOT POST OP -Time 14:48 15:13 -Correct Patient Yes Yes -Correct Side, Site, Position Yes Yes -Correct Procedure Yes Yes -Procedure Performed Yes Yes -Type of Procedure Debridement Debridement -Clinical Debridement Muscle / Fascia Muscle / Fascia -Tissue Removed Muscle,Fascia Muscle,Fascia -Post Debridement (cm) - Length 5.5 4.9 -Post Debridement (cm) - Width 3.0 2.6 -Post Debridement (cm) - Depth 0.3 0.3 -Total Square (Post) (cm) 16.50 12.74 -Area of Debridement (cm) - Length 5.5 4.9 -Area of Debridement (cm) - Width 3.0 2.6 -Total Square (Area) (cm) 16.50 12.74 -Tunneling No No -Undermining/Tunneling No No -Circular Undermining No No -Wound/Ulcer Outcome Not Healed Not Healed -Ulcer Cleansing Rinsed/ Rinsed/ Irrigated with Irrigated with Saline Saline -Foul Odor after Cleansing No No -Bioengineered Tissue No Yes -Type of Bioengineered Tissue Epifix Mesh -Lot number of Saline Used [id number] -Bleeding Controlled with Pressure Pressure -Treatment Response Procedure Procedure Tolerated Well Tolerated Well -Offloading No Yes -Type of Offloading Surgical Shoe Surgical Shoe -Debridement - Subq, 1st 20sq cm No -Debridement - Muscle / Fascia, 1st Yes No 20sq cm -Apply Skin Sub - 1st 25 sq cm - Feet 1 -Epifix Mesh (per sq cm) 11 Pain Scale: 0-10 Numeric Is Patient Pain Free? Yes Yes - Nurse 3 - General Ulcer D/C NN Start: 02/22/23 14:06 Freq: Status: Active Protocol: Activity Type Activity Date Activity User E-sign Co-sign Detail Recorded Client Recorded Date Recorded By Document 02/22/23 15:06 KW Desktop 02/22/23 15:07 KW 02/22/23 15:06 Wound Care Center Nurse 3 #2- L DORSAL FOOT CLUSTER -Negative Pressure Wound Therapy Continue -Setting (mmHg) 150 -Negative Pressure is Continuous -NPWT Application Charge NPWT & Debridement (nc ) Pain Scale: 0-10 Numeric Is Patient Pain Free? No ULCER SITE -Description Throbbing -Alleviating Factors/Interventions Medication WC - Visit Discharge Discharge Condition Stable Ambulatory Status Ambulatory, Crutches Transportation Private Auto Medication Reconcilliation completed & No provided to patient/care provider Clinical Summary of Care Provided Yes Assessment/Plan Assessment/Plan (1) Non-pressure chronic ulcer of other part of left foot with fat layer exposed: CODE(S): L97.522 - Non-pressure chronic ulcer of other part of left foot with fat layer exposed PLAN: Patient was examined and evaluated. All findings were discussed with the patient. All questions were answered to the patient satisfaction. Excisional debridement down to and including subcutaneous tissue of the left dorsum foot/ankle with a number 5 mm dermal curette without incident. Predebrid ement measurement is 5.8 x 2.9 x 0.1 cm. Post right measurement is 6.0 x 3.1 x 0.1 cm. Excisional debridement down to and including subcutaneous tissue and fascia of the left foot lateral ulceration with a number 5 mm dermal curette without incident. Predebridement measurement is 4.7 x 2.5 x 0.1 cm. Postdebridement measurement is 4.9 x 2.6 x 0.3 cm. EpiMesh 4 x 4.5 cm was applied to the left lateral full-thickness ulceration with 100% use. First application. The graft site was free and clear of any infection. The wound/skin graft substitute was dressed with nonadherent bandage secured in place with Steri-Strips followed by negative pressure wound VAC set to 125 mmHg continuous flow followed by a single layer Tubigrip. Patient will follow-up in 1 week and will continue to have wound VAC changes by home health care. Patient will follow-up in 1 week. (2) Peripheral vascular disease: CODE(S): I73.9 - Peripheral vascular disease, unspecified
[2023-03-08 14:19] VITALS: BP 150/82; PULSE 96; RESP 20; TEMP 36.8; BMI 21.7
--- NOTE | 2023-03-08 15:15 | PCM.WC.PN ---
History of Present Illness Date of Service: 03/08/23 Chief Complaint: Left full-thickness wound. History of Wound: Chronic nonhealing left full-thickness wound Progress of Wound: Mr. Medina is a 57-year-old male seen in the wound care center today for follow-up and evaluation of full-thickness ulceration status post surgical skin graft prep site, delayed primary closure with application of skin graft substitute to left lower extremity. Patient was seen in the hospital by Dr. Sandhu and we have asked by Dr. Valle. Patient also had PCI by interventional cardiology. Patient was last seen in the hospital and discharged on 02/16/2023 with home health care for wound VAC changes as well as being sent home on IV home use antibiotics. Patient has been recovering well. He has been compliant with his antibiotics and wound VAC changes. He will be following up with his primary care doctor tomorrow. He denies any trauma. He denies constitutional symptoms. No other pedal complaints at this time. Subjective Subjective Mr. Medina is a 57-year-old male presenting to the wound care center today for follow-up evaluation of full-thickness ulcerations to the left lower extremity. Patient has been getting wound VAC changes by home health care at his home. He has been compliant with his dressing changes as well as weightbearing status is nonweightbearing. He has been approved for graft placement to left lower extremity full-thickness ulceration. He is grateful for his care. He denies trauma. Denies constitutional symptoms. No other pedal complaints at this time. Objective Data Objective Data Vital Signs: Vital Signs Temp Pulse Resp BP O2 Del Method 98.3 F 96 20 H 150/82 H Room Air 03/08/23 14:19 03/08/23 14:19 03/08/23 14:19 03/08/23 14:19 03/01/23 14:17 Oxygen Delivery Method Room Air Weight: 74.843 kg Body Mass Index (BMI) 21.7 Physical Exam Narrative Vascular: DP and PT pulses are audible on Doppler. +1 pitting edema appreciated to left lower extremity. Skin temperature great is warm to warm from proximal ankle to distal digit. No evidence of focal increase is appreciated. Neurological: Light touch intact. Patient does respond to painful stimuli. Dermatological: Full-thickness ulceration appreciated to the left anterior ankle and the lateral foot. The left lateral foot ulceration measures 4.9 x 2.0 x 0.3 cm. The left dorsum ankle measures 3.9 x 2.3 x 0.1 cm. Wound bases are 100% granular nature with no malodor. Excisional debridement down to and including subcutaneous tissue of the left dorsum foot/ankle with a number 5 mm dermal curette without incident. Predebridement measurement is 3.8 x 2.2 x 0.1 cm. Post right measurement is 3.9 x 2.3 x 0.1 cm. Excisional debridement down to and including subcutaneous tissue and fascia of the left foot lateral ulceration with a number 5 mm dermal curette without incident. Predebridement measurement is 4.8 x 1.9 x 0.2 cm. Postdebridement measurement is 4.9 x 2.0 x 0.3 cm. EpiMesh 4 x 4.5 cm was applied to the left lateral full-thickness ulceration with 100% use. Second application. The graft site was free and clear of any infection. The wound/skin graft substitute was dressed with nonadherent bandage secured in place with Steri-Strips followed by negative pressure wound VAC set to 125 mmHg continuous flow followed by a single layer Tubigrip. Musculoskeletal: Muscle strength was deferred. Moderate palpatory tenderness appreciated to both ulcerations to left lower extremity. No pain with calf compression. Debridement Note Debridement Note Debridement Free Text: Excisional debridement down to and including subcutaneous tissue of the left dorsum foot/ankle with a number 5 mm dermal curette without incident. Predebridement measurement is 3.8 x 2.2 x 0.1 cm. Post right measurement is 3.9 x 2.3 x 0.1 cm. Excisional debridement down to and including subcutaneous tissue and fascia of the left foot lateral ulceration with a number 5 mm dermal curette without incident. Predebridement measurement is 4.8 x 1.9 x 0.2 cm. Postdebridement measurement is 4.9 x 2.0 x 0.3 cm. EpiMesh 4 x 4.5 cm was applied to the left lateral full-thickness ulceration with 100% use. Second application. The graft site was free and clear of any infection. The wound/skin graft substitute was dressed with nonadherent bandage secured in place with Steri-Strips followed by negative pressure wound VAC set to 125 mmHg continuous flow followed by a single layer Tubigrip. Post-Debridement Measurements and Additional Note: Post-Debridement Measurements/Treatment WC - Nurse 1 - General Ulcer Assessment Start: 02/22/23 14:06 Freq: Status: Active Protocol: ANTHONY Activity Type Activity Date Activity User E-sign Co-sign Detail Recorded Client Recorded Date Recorded By Document 02/22/23 14:06 KW Desktop 02/22/23 14:39 KW Document 02/22/23 14:12 BMF Desktop 02/22/23 14:27 BMF Document 03/01/23 14:17 BMF Desktop 03/01/23 14:32 BMF Document 03/08/23 14:19 DL Desktop 03/08/23 14:30 DL 02/22/23 02/22/23 03/01/23 14:06 14:12 14:17 WC - Today's Visit Information Type of service Initial Visit Initial Visit 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 ) Arrival Mode Ambulatory, Ambulatory, Crutches Walker Transfer Assistance None None Accompanied by Patient Identification Verified (Name & Yes Yes ) Patient Requires Transmission-Based No No Precautions Height and Weight Height 6 ft 1 in Weight 74.843 kg Weight in Pounds 165.0 lbs Weight Measurement Method Stated by Patient Body Mass Index (BMI) 21.7 21.7 BMI Classification Normal Normal BSA - Aileen 1.98 Vital Signs Temperature (97.8 F-99.1 F) Temperature Source Temporal Pulse Rate (60-100) 90 88 Pulse Location Monitor Monitor Respiratory Rate (12-18) 16 18 Respiratory rate source Observation Observation Oxygen Delivery Method Room Air Room Air Blood Pressure (90/60-120/80) 149/68 H 149/93 H Blood Pressure Mean (mm Hg) 95 111 Source Monitor Monitor Position Sitting Sitting Blood Pressure Location Left Arm Left Arm History Since Last Visit- (Skip if this is Patient's initial visit) Have you changed medications since your No last visit? Any new allergies or adverse reactions No Had a fall/change in ADL's that may No increase risk of falls Signs or symptoms of abuse and/or No neglect since last visit Have you been in the hospital since your No last visit? Has dressing in place as prescribed Yes Has compression in place as prescribed Yes Has offloadiing in place as prescribed Yes Experienced any changes in pain level or No management Left Footwear Other Footwear (Comment) Right Footwear Regular Shoe Regular Shoe Other Footwear sock to left foot Pain Scale: 0-10 Numeric Is Patient Pain Free? No No No ULCER SITE -Description Throbbing wound -Description Throbbing Burning -Intensity 5 6 -Duration (hours) Acute Acute -Pain Behavior No Change in Facial Behavior Grimacing -Pain Aggravating Factors Changing Position, Standing, Sitting,Walking -Alleviating Factors/Interventions Distraction, Distraction, Will continue Will continue to monitor, to monitor, Patient denies Patient denies need for need for intervention, intervention, Emotional Emotional Support Support -Comments TOOK PAIN MEDS PRIOR TO COMING Communication Assessment Preferred language Iraqi Wedding Day Coordinator Required No Able to Read Yes Able to Write Yes Communication Tools None Right Hearing Abillity Normal Left Hearing Abillity Normal Visual Assistive Devices None Teaching Assessment Preferences Verbal,Written, Audio/Visual, Demonstration Barriers to Learning None Readiness To Learn Excellent Willingness to Engage in Self Management High Activies Readiness to Engage in Self Management High Activities Anxiety Level Calm Cooperation Cooperative Perception Coherent Interest in Health Problem Asks Questions Education Importance Acknowledges Need Does Patient Smoke tobacco or other No substances Smoking Status Current every day smoker Is Patient Diabetic No Functional Assessment Recent Decline in Ability to Perform Ambulation, Transferring Culture/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/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 Cultural/Yarsanism Needs that may affect No Treatment Plan Teaching: Wound Center *Welcome to the Wound Center -Person Taught Patient, Significant Other -Teaching Method Discussion -Response to teaching Verbalize understanding Welcome to the Wound Care Center Iraqi 03/08/23 14:19 WC - Today's Visit Information Type of service 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 ) Arrival Mode Ambulatory, Crutches Transfer Assistance None Accompanied by Patient Identification Verified (Name & Yes ) Patient Requires Transmission-Based No Precautions Height and Weight Height Weight Weight in Pounds Weight Measurement Method Body Mass Index (BMI) 21.7 BMI Classification Normal BSA - Aileen Vital Signs Temperature (97.8 F-99.1 F) 98.3 F Temperature Source Temporal Pulse Rate (60-100) 96 Pulse Location Monitor Respiratory Rate (12-18) 20 H Respiratory rate source Observation Oxygen Delivery Method Blood Pressure (90/60-120/80) 150/82 H Blood Pressure Mean (mm Hg) 104 Source Monitor Position Blood Pressure Location History Since Last Visit- (Skip if this is Patient's initial visit) Have you changed medications since your No last visit? Any new allergies or adverse reactions No Had a fall/change in ADL's that may No increase risk of falls Signs or symptoms of abuse and/or No neglect since last visit Have you been in the hospital since your No last visit? Has dressing in place as prescribed Yes Has compression in place as prescribed Yes Has offloadiing in place as prescribed Yes Experienced any changes in pain level or No management Left Footwear No Footwear Right Footwear Other Footwear Pain Scale: 0-10 Numeric Is Patient Pain Free? Yes ULCER SITE -Description wound -Description -Intensity -Duration (hours) -Pain Behavior -Pain Aggravating Factors -Alleviating Factors/Interventions -Comments Communication Assessment Preferred aerial photograph interpreter Required Able to Read Able to Write Communication Tools Right Hearing Abillity Left Hearing Abillity Visual Assistive Devices Teaching Assessment Preferences Barriers to Learning Readiness To Learn Willingness to Engage in Self Management Activies Readiness to Engage in Self Management Activities Anxiety Level Cooperation Perception Interest in Health Problem Education Importance Does Patient Smoke tobacco or other substances Smoking Status Is Patient Diabetic Functional Assessment Recent Decline in Ability to Perform Culture/Yarsanism/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 Cultural/Yarsanism Needs that may affect Treatment Plan Teaching: Wound Center *Welcome to the Wound Center -Person Taught -Teaching Method -Response to teaching Welcome to the Wound Care Center WC - Nurse 1 - General Ulcer Measurement Start: 02/22/23 14:06 Freq: Status: Active Protocol: Activity Type Activity Date Activity User E-sign Co-sign Detail Recorded Client Recorded Date Recorded By Document 02/22/23 14:12 [facility] Desktop 02/22/23 14:27 [facility] Document 03/01/23 14:17 [facility] Desktop 03/01/23 14:32 BMF Document 03/08/23 14:19 DL Desktop 03/08/23 14:30 DL 02/22/23 03/01/23 03/08/23 14:12 14:17 14:19 Wound Center Nurse 1 #2- L DORSAL FOOT CLUSTER -Combined with other wound No -Current Size (cm) - Length 6 5.5 5.5 -Current Size (cm) - Width 5.6 4.7 2.1 -Current Size (cm) - Depth 0.1 0.1 0.1 -Total Square Cm 33.6 25.85 11.55 -Date of Last Picture (Recall this 02/22/23 field) -Photo Taken Yes Yes -Epithelialization Small 1-33% -Tunneling No No -Undermining/Tunneling No No -Circular Undermining No No -Exudate Amt Medium Medium Medium -Exudate Type Serosanguineous Serosanguineous Serosanguineous -Wound Margin Distinct, Flat & Intact Distinct, Outline Outline Attached Attached -Granulation Amt Small (1-33%) Large (67-100%) Medium (34-66%) -Granulation Quality Red Red Red -Slough/Fibrin Yes Yes -Necrosis Amt Large (67-100%) Small (1-33%) Medium (34-66%) -Necrotic Tissue Type Adherent Slough Adherent Slough Adherent Slough -Structure Exposed N/A -Texture (Jovanna-wound Skin Appearance) Assessed, Assessed, Scarring Scarring Scarring -Moisture (Jovanna-wound Skin Appearance) Assessed,Dry/ Assessed,Dry/ Maceration Scaly Scaly -Color (Jovanna-wound Skin Appearance) Assessed Assessed No Abnormality -Temperature (Jovanna-wound Skin No Abnormality No Abnormality No Abnormality Appearance) (Pt Warm) (Pt Warm) (Pt Warm) -Tenderness on Palpation (Jovanna-wound No No Yes Skin Appearance) -Ulcer Cleansing Soap and Water Soap and Water Soap and Water -Foul Odor after Cleansing No No No -Anesthetic Used 5% Lidocaine 4% Lidocaine 5% Lidocaine Gel Solution Gel #1- L LAT FOOT POST OP -Combined with other wound No No -Current Size (cm) - Length 5.9 5.3 5 -Current Size (cm) - Width 3 2.4 2.4 -Current Size (cm) - Depth 0.2 1.1 0.1 -Total Square Cm 17.7 12.72 12.0 -Date of Last Picture (Recall this 02/22/23 field) -Photo Taken Yes Yes -Epithelialization Small 1-33% -Tunneling No No -Undermining/Tunneling No No -Circular Undermining No No -Exudate Amt Large Medium Medium -Exudate Type Serosanguineous Serosanguineous Serosanguineous -Wound Margin Distinct, Distinct, Distinct, Outline Outline Outline Attached Attached Attached -Granulation Amt Large (67-100%) Large (67-100%) Medium (34-66%) -Granulation Quality Red Red Red -Slough/Fibrin Yes Yes -Necrosis Amt Small (1-33%) Small (1-33%) Medium (34-66%) -Necrotic Tissue Type Adherent Slough Adherent Slough Adherent Slough -Structure Exposed N/A -Texture (Jovanna-wound Skin Appearance) Assessed, Assessed, Scarring Scarring Scarring -Moisture (Jovanna-wound Skin Appearance) Assessed,Dry/ Assessed,Dry/ Maceration Scaly Scaly -Color (Jovanna-wound Skin Appearance) Assessed Assessed No Abnormality -Temperature (Jovanna-wound Skin No Abnormality No Abnormality No Abnormality Appearance) (Pt Warm) (Pt Warm) (Pt Warm) -Tenderness on Palpation (Jovanna-wound No No No Skin Appearance) -Ulcer Cleansing Soap and Water Soap and Water Soap and Water -Foul Odor after Cleansing No No No -Anesthetic Used 4% Lidocaine 4% Lidocaine 5% Lidocaine Solution Solution Gel Left Calf (cm) 36 Left Ankle (cm) 24.5 WC - Nurse 2 - General Ulcer CM Notes Start: 02/22/23 14:06 Freq: Status: Active Protocol: Activity Type Activity Date Activity User E-sign Co-sign Detail Recorded Client Recorded Date Recorded By Document 02/22/23 14:47 Desktop 02/22/23 14:54 Document 03/01/23 15:11 Laptop 03/01/23 15:20 Document 03/08/23 14:59 Laptop 03/08/23 15:02 02/22/23 03/01/23 03/08/23 14:47 15:11 14:59 Wound Center Nurse 2 #2- L DORSAL FOOT CLUSTER -Time 14:47 15:13 -Correct Patient Yes Yes Yes -Correct Side, Site, Position Yes Yes Yes -Correct Procedure Yes Yes Yes -Procedure Performed Yes Yes Yes -Type of Procedure Debridement Debridement Debridement -Clinical Debridement Subcutaneous Subcutaneous Subcutaneous -Tissue Removed Subcutaneous Subcutaneous Subcutaneous -Post Debridement (cm) - Length 7.0 6.0 3.9 -Post Debridement (cm) - Width 2.5 3.1 2.3 -Post Debridement (cm) - Depth 0.1 0.1 0.1 -Total Square (Post) (cm) 17.50 18.60 8.97 -Area of Debridement (cm) - Length 7.0 6.0 3.9 -Area of Debridement (cm) - Width 2.5 3.1 2.3 -Total Square (Area) (cm) 17.50 18.60 8.97 -Tunneling No No No -Undermining/Tunneling No No No -Circular Undermining No No No -Wound/Ulcer Outcome Not Healed Not Healed Not Healed -Ulcer Cleansing Rinsed/ Rinsed/ Rinsed/ Irrigated with Irrigated with Irrigated with Saline Saline Saline -Foul Odor after Cleansing No No No -Bioengineered Tissue No No No -Bleeding Controlled with Pressure Pressure Pressure -Treatment Response Procedure Procedure Procedure Tolerated Well Tolerated Well Tolerated Well -Offloading No Yes Yes -Type of Offloading Surgical Shoe Surgical Shoe -Debridement - Subq, 1st 20sq cm Yes Yes Yes #1- L LAT FOOT POST OP -Time 14:48 15:13 15:00 -Correct Patient Yes Yes Yes -Correct Side, Site, Position Yes Yes Yes -Correct Procedure Yes Yes Yes -Procedure Performed Yes Yes Yes -Type of Procedure Debridement Debridement Debridement -Clinical Debridement Muscle / Fascia Muscle / Fascia Muscle / Fascia -Tissue Removed Muscle,Fascia Muscle,Fascia Muscle -Post Debridement (cm) - Length 5.5 4.9 4.9 -Post Debridement (cm) - Width 3.0 2.6 2.0 -Post Debridement (cm) - Depth 0.3 0.3 0.3 -Total Square (Post) (cm) 16.50 12.74 9.80 -Area of Debridement (cm) - Length 5.5 4.9 4.9 -Area of Debridement (cm) - Width 3.0 2.6 2.0 -Total Square (Area) (cm) 16.50 12.74 9.80 -Tunneling No No No -Undermining/Tunneling No No No -Circular Undermining No No No -Wound/Ulcer Outcome Not Healed Not Healed Not Healed -Ulcer Cleansing Rinsed/ Rinsed/ Rinsed/ Irrigated with Irrigated with Irrigated with Saline Saline Saline -Foul Odor after Cleansing No No No -Bioengineered Tissue No Yes Yes -Type of Bioengineered Tissue Epifix Mesh Epifix Mesh -Expiration Date 11/12/27 -Product Lot Number [id number] -Percent Used 100 -Lot number of Saline Used [id number] -Bleeding Controlled with Pressure Pressure Pressure -Treatment Response Procedure Procedure Procedure Tolerated Well Tolerated Well Tolerated Well -Offloading No Yes Yes -Type of Offloading Surgical Shoe Surgical Shoe Surgical Shoe -Debridement - Subq, 1st 20sq cm No No -Debridement - Muscle / Fascia, 1st Yes No No 20sq cm -Apply Skin Sub - 1st 25 sq cm - Feet 1 1 -Epifix Mesh (per sq cm) 11 11 Pain Scale: 0-10 Numeric Is Patient Pain Free? Yes Yes Yes - Nurse 3 - General Ulcer D/C NN Start: 02/22/23 14:06 Freq: Status: Active Protocol: Activity Type Activity Date Activity User E-sign Co-sign Detail Recorded Client Recorded Date Recorded By Document 02/22/23 15:06 KW Desktop 02/22/23 15:07 KW Document 03/08/23 15:09 GM Desktop 03/08/23 15:11 02/22/23 03/08/23 15:06 15:09 Wound Care Center Nurse 3 #2- L DORSAL FOOT CLUSTER -Ulcer Cleansing Not Cleansed -Foul Odor after Cleansing No -Negative Pressure Wound Therapy Continue -Setting (mmHg) 150 -Negative Pressure is Continuous -Primary Dressing Covered/Secured with Dry Gauze & Roll Gauze, Secured with Tape -NPWT Application Charge NPWT & Debridement (nc ) #1- L LAT FOOT POST OP -Ulcer Cleansing Not Cleansed -Foul Odor after Cleansing No -Negative Pressure Wound Therapy Continue -Setting (mmHg) 150 -Negative Pressure is Continuous -NPWT Application Charge NPWT & Debridement (nc ) Pain Scale: 0-10 Numeric Is Patient Pain Free? No Yes ULCER SITE -Description Throbbing -Alleviating Factors/Interventions Medication Teaching: Wound Center Wound Vac -Person Taught Patient,Family -Teaching Method Demonstration -Response to teaching Verbalize understanding WC - Visit Discharge Discharge Condition Stable Stable Ambulatory Status Ambulatory, Ambulatory Crutches Transportation Private Auto Private Auto Medication Reconcilliation completed & No Yes provided to patient/care provider Clinical Summary of Care Provided Yes Yes Assessment/Plan Assessment/Plan (1) Non-pressure chronic ulcer of other part of left foot with fat layer exposed: CODE(S): L97.522 - Non-pressure chronic ulcer of other part of left foot with fat layer exposed PLAN: Patient was examined and evaluated. All findings were discussed with the patient. All questions were answered to the patient's satisfaction. Excisional debridement down to and including subcutaneous tissue of the left dorsum foot/ankle with a number 5 mm dermal curette without incident. Predebridement measurement is 3.8 x 2.2 x 0.1 cm. Post right measurement is 3.9 x 2.3 x 0.1 cm. Excisional debridement down to and including subcutaneous tissue and fascia of the left foot lateral ulceration with a number 5 mm dermal curette without incident. Predebridement measurement is 4.8 x 1.9 x 0.2 cm. Postdebridement measurement is 4.9 x 2.0 x 0.3 cm. EpiMesh 4 x 4.5 cm was applied to the left lateral full-thickness ulceration with 100% use. Second application. The graft site was free and clear of any infection. The wound/skin graft substitute was dressed with nonadherent bandage secured in place with Steri-Strips followed by negative pressure wound VAC set to 125 mmHg continuous flow followed by a single layer Tubigrip. The dorsal wound was dressed with dry sterile dressing. Patient to continue home health care for VAC change. Follow-up at the wound care center with Dr. Sandhu in 1 week. (2) Aftercare following surgery of the circulatory system: CODE(S): Z48.812 - Encounter for surgical aftercare following surgery on the circulatory system
== END 2023-03-12 23:59 | disposition home or self-care (01) ==
LOC: WC 14:45
PROVIDERS: Referring Provider Podiatrist Foot & Ankle Surgery; Visit Provider Podiatrist Foot & Ankle Surgery
DX: L97.522 Non-pressure chronic ulcer of other part of left foot with fat layer exposed (principal); Z89.422 Acquired absence of other left toe(s); L97.329 Non-pressure chronic ulcer of left ankle with unspecified severity; I73.9 Peripheral vascular disease, unspecified; I25.10 Atherosclerotic heart disease of native coronary artery without angina pectoris; I10 Essential (primary) hypertension; F17.210 Nicotine dependence, cigarettes, uncomplicated; Z79.82 Long term (current) use of aspirin; Z79.84 Long term (current) use of oral hypoglycemic drugs; Z79.01 Long term (current) use of anticoagulants; Z79.02 Long term (current) use of antithrombotics/antiplatelets; Z79.899 Other long term (current) drug therapy
CPT/HCPCS: 11042; 11043; 15275; 99214; Q4186; G0463

== ENCOUNTER 2023-03-24 07:22 | Day surgery (SDC) | payer MEDICAID, SELFPAY ==
--- NOTE | 2023-03-24 07:33 | PCM.OPRPT ---
Problems Associated Problem List Diagnoses (1) Non-pressure chronic ulcer of other part of left foot with fat layer exposed: (2) Peripheral vascular disease: Report of Operation Date of Procedure: 03/24/23 Pre-Operative Diagnosis: 1. Full-thickness ulceration, left foot 2. Peripheral vascular disease, left lower extremity Post-Operative Diagnosis: 1. Full-thickness ulceration, left foot 2. Peripheral vascular disease, left lower extremity Surgery/Procedure Performed:: 1. Surgical skin graft preparation, left foot 2. Application of skin graft substitute, left foot Description of Surgical Findings:: 1. After debridement there showed evidence of healthy granular tissue with no sign of infection to the left foot. 2. Application of [employer] medical BioSkin 4 cm x 4 cm to the dorsal full-thickness ulcerations. 3. Application of axiofill 250 mg to the distal lateral full-thickness ulceration. Surgeon: Hebert Sandhu catering manager: None Type of Anesthesia: Local and MAC Anesthesiologist: Vinita Viera Special Medications: None Specimen's removed: None Drains: None Estimated Blood Loss (mL): 10 mL Fluids Replaced: Per anesthesia Description of Procedure: Indications For Operation: Mr. Medina is a 57-year-old male who was admitted to [facility] for for elective surgical skin graft preparation with application of skin graft substitute to the left foot. Patient is well-known to my office. Patient underwent partial excision of bone to the fifth digit and fifth metatarsal as well as having intervention by vascular surgery to left lower extremity. Since then the patient has been following up with me in the wound care center for excisional debridements and wound VAC dressing changes. Patient has been placed on skin graft substitute for the last few weeks. We have been waiting clearance since the patient has changed primary care physician and now that the patient has been cleared it has been deemed necessary at this time to take the patient to the operating room to clean up his wound to finally get the 2 wounds to the left foot to now healed. The nature of the problem, anticipated procedures, postop recovery/convalences and risk/complications include but not limited to infection, wound healing complications, hypertrophic scarring, numbness, tingling, chronic pain, CRPS, over and under correction, recurrence of deformity, DVT and or PE and the need for further surgery have been discussed in great detail with the patient. All questions have been answered to the patient's satisfaction. There are no guarantees given as to the outcome of the procedure. Description of Procedure: Under mild sedation, the patient was brought into the operating room and placed on the operating table in supine position. Once the patient was under monitored anesthesia care, the left lower extremity was blocked using approximately 26 cc 0.5% Marcaine plain. No tourniquet was used for this procedure. Next, the left lower extremity was prepped and draped in normal aseptic manner. Next, a timeout was then undertaken verifying the correct patient, extremity, visibility of preoperative markings, availability of the equipment. Procedure #1, surgical skin graft preparation Next, attention was directed to the left lower extremity at the level of the dorsum of the foot. There is evidence of 2 full-thickness ulceration. Using the Misonix debrider, surgical skin graft preparation was made down to and including subcutaneous tissue. After debridement there was evidence of 100% granular tissue with sanguinous bleeding. Next, attention was directed to the distal lateral full-thickness ulceration. Using the Misonix debrider, surgical skin graft prep site was done down to and including subcutaneous tissue. All devitalized tissue was removed. Further debridement was carried to the periwound of the distal lateral uncleration using rongeurs and all devitalized tissue was removed and passed the back table to be discarded. After debridement both the dorsum and the distal lateral full-thickness ulceration showed evidence of 100% granular tissue with no evidence of necrotic tissue or infection. Sanguinous drainage was noted to both ulcerations. All ulcerations to left foot were flushed with copious primitivo of warm saline. The left lower extremity was wiped clean and patted dry. Procedure #2, application of skin graft substitute Next, attention was directed to the dorsal foot full-thickness ulcerations of the left foot. Using [employer] BioSkin 4 cm x 4 cm which was cut in half, was applied to the 2 ulcerations on the dorsal foot. Next, 250 mg of axiofill was reconstituted with a small amount of sterile water, paste was formed, and the axiofill was applied to the full-thickness ulceration to the distal lateral aspect of the left foot. The skin grafts to the left foot were dressed with Adaptic, Steri-Strips, 4 x 4's, Kerlix and a single layer Larson compression bandage was applied to left lower extremity. The patient tolerated the procedure and anesthesia well and apparent satisfactory condition and was transported to the PACU for further monitoring prior to discharge home. Vital signs stable and vascular status intact to all digits bilateral. Post Operative Plan: Weightbearing: Weightbearing as tolerated to the left lower extremity. Full weightbearing to the right lower extremity. Antibiotics: 2 g Ancef through the IV DVT Prophylaxis: Patient is on dual antiplatelet therapy Anderson: None Dressing: [id number] 250 mg, [employer] medical BioSkin 4 cm x 4 cm, Adaptic, dry sterile dressing and a single layer Larson compression bandage Pain Medication: Percocet 5/325, Flexeril 10 mg 3 times daily Follow-up: Follow-up with Dr. Sandhu 1 week postop at the wound care center. Grafts/Implants Used: 1. Axial fill, 250 mg. 2. Mas medical BioSkin 4 cm x 4 cm Complications None Admit VTE Documentation VTE Present on Admission: No VTE Mechan Device Prophylaxis: SCD's VTE Pharm Prophylaxis ordered?: No Reason prophylaxis not ordered:: Procedure Not Indicated
--- OUTSIDE RECORDS SUMMARY | 2023-03-24 07:43 | XMS RPT_ITS | CCD ---
Author Name Unknown Address [address] [place] [address] Organization [facility] Care Team Providers Care Assistant Football Coach Name Role Phone No, Physician Primary Care Provider Unavailabl e Unavailable Primary Care Provider Unavailabl e MAHAMED SAUER Referring Unavailable MAHAMED SAUER Attending Unavailable KELLY DENNIS Referring Unavailable MAHAMED SAUER Attending Unavailable JEANNINE LOWE Attending Unavailable JEANNINE LOWE Admitting Unavailable CONSULT, PODIATRY Consulting Unavailable No, Physician Primary Care Provider Unavailabl e SYSTEM, PROVIDER NOT IN Referring Unavaila ble SYSTEM, PROVIDER NOT IN Attending Unavaila ble NO, PHYSICIAN Primary Care Unavailable Spieldenner Lyla CLEMENTS Primary Care Provide r NICHO TORRES Attending Unavailabl e NO, PHYSICIAN Primary Care Unavailable SPILYLA MENDOSA Attending Unavaila ble SPIELDENNELYLA Salas Primary Care Unavaila ble Priscila Person Unavailable Unavailable Jie Pettit RN Unavailable Unavailable MARÍA BAKER Attending LYLA Chicas Primary Care Unavaila ble NO, PHYSICIAN Primary Care Unavailable PASHA LERNER Admitting Unavailable PASHA LERNER Attending Unavailable LYLA AGOSTO Primary Care Unavaila ble SPIELDENNELYLA Salas Referring Unavaila ble SPIELDENNELYLA Salas Admitting Unavaila ble SPIDAYDAYENNELYLA Salas Attending Unavaila ble SPIELDENNELYLA Salas Referring Unavaila ble SPIELDENNELYLA Salas Primary Care Unavaila ble NICHO TORRES Referring Unavailabl e NO, PHYSICIAN Primary Care Unavailable MARÍA BAKER Attending Chiquivabobbi labcriss ACEVES, PHYSICIAN Primary Care Unavailable MARÍA BAKER Attending Guzman labLYLA Huerta Primary Care Unavaila ble MARÍA BAKER Attending LYLA Chicas [facility] Unavaila ble Medications Current Medications Medication Drug Class(es) Dates Sig (Normalized) Sig (Original) acetaminophen 325 mg / HYDROcodone bitartrate 5 mg oral tablet (1 source) Opioid Agonist Start: 12-28-2022 End: 01-04-2023 HYDROcodone-acetam inophen (NORCO) 5-325 mg per tablet Indications: Left foot pain , Critical limb ischemia of left lower extremity with gangrene (HCC) Take 1 (one) tablet by mouth every 6 (six) hours as needed for pain (Days supply per fill: 7) . 28 tablet 0 12/28/2022 01/04/2023 Active acetaminophen 325 mg / oxyCODONE hydrochloride 5 mg oral tablet (2 sources) Opioid Agonist Start: 12-28-2022 End: 12-31-2022 oxyCODONE-acetamin ophen (PERCOCET) 5-325 mg per tablet Indications: Gangrene due to peripheral vascular disease (HCC) Take 1 (one) tablet by mouth every 6 (six) hours as needed for pain (Days supply per fill: 3) . 12 tablet 0 12/28/2022 12/31/2022 Active Completed/Discontinued Medications Medication Drug Class(es) Dates Sig (Normalized) Sig (Original) acetaminophen 325 mg oral tablet (3 sources) Start: 12-20-2022 End: 12-21-2022 take 325-650 mg by mouth every four hours as needed Acetaminophen (TYLENOL) tablet 325-650 mg Problems Active Problems Problem Classification Problem Date Documented Da te Episodic/Chronic Administrative/social admission (2 sources) Persons encountering health services in other specified circumstances; Translations: [Persons encountering health services in other specified circumstances] Onset: 12-21-2022 Episodic Deficiency and other anemia (6 sources) Anemia; Translations: [Anemia, unspecified] Onset: 02-23-2023 02-23-2023 Episodic Deficiency and other anemia (2 sources) Anemia, unspecified; Translations: [Anemia, unspecified] Onset: 02-23-2023 Episodic Diabetes mellitus with complications (1 source) Diabetic foot ulcer; Translations: [Type 2 diabetes mellitus with foot ulcer] 11-10-2022 Chronic Diabetes mellitus without complication (9 sources) Impaired fasting glycemia; Translations: [Impaired fasting glucose] Onset: 02-23-2023 02-23-2023 Episodic Disorders of lipid metabolism (8 sources) Hyperlipidemia; Translations: [Hyperlipidemia, unspecified] Onset: 02-23-2023 02-23-2023 Chronic Essential hypertension (10 sources) Benign hypertension; Translations: [Essential (primary) hypertension] Onset: 12-20-2022 12-20-2022 Chronic Gangrene (9 sources) Critical lower limb ischemia ; Translations: [Atherosclerosis of [place] arteries of extremities with gangrene, left leg] Onset: 12-28-2022 12-28-2022 Chronic Gangrene (8 sources) Gangrene of toe; Translations: [Gangrene, not elsewhere classified] Onset: 12-28-2022 Resolved: 02-23-2023 12-28-2022 Episodic Infective arthritis and osteomyelitis (except that caused by tuberculosis or sexually transmitted disease) (5 sources) Acute osteomyelitis of left foot; Translations: [Acute hematogenous osteomyelitis, left ankle and foot] Onset: 12-21-2022 12-21-2022 Chronic Open wounds of extremities (8 sources) Disorder of foot; Translations: [Unspecified open wound, left foot, initial encounter] Onset: 12-28-2022 Resolved: 02-23-2023 12-28-2022 Episodic Other connective tissue disease (2 sources) Pain in left foot; Translations: [Pain in left foot] Onset: 12-28-2022 Episodic Other nervous system disorders (2 sources) Difficulty in walking, not elsewhere classified; Translations: [Difficulty in walking, not elsewhere classified] Onset: 12-28-2022 Chronic Other screening for suspected conditions (not mental disorders or infectious disease) (4 sources) Patient encounter status; Translations: [Encounter for screening for malignant neoplasm of colon] Onset: 02-23-2023 02-23-2023 Episodic Peripheral and visceral atherosclerosis (14 sources) Intermittent claudication of bilateral lower limbs co-occurrent and due to atherosclerosis; Translations: [Atherosclerosis of [place] arteries of extremities with intermittent claudication, bilateral legs] Onset: 12-21-2022 11-10-2022 Chronic Residual codes; unclassified (8 sources) Tobacco user; Translations: [Tobacco use] Onset: 12-20-2022 12-20-2022 Episodic Residual codes; unclassified (4 sources) Tobacco use; Translations: [Tobacco use] Onset: 02-23-2023 Episodic Skin and subcutaneous tissue infections (9 sources) Cellulitis and abscess of toe; Translations: [Cellulitis of left toe] Onset: 11-05-2022 11-05-2022 Episodic Unclassified (1 source) No additional problems on file Past or Other Problems Problem Classification Problem Date Documented Da te Episodic/Chronic Other connective tissue disease (6 sources) Pain in left foot; Translations: [Pain in left foot] Onset: 12-28-2022 Resolved: 02-23-2023 12-28-2022 Episodic Other nervous system disorders (6 sources) Difficulty walking; Translations: [Difficulty in walking, not elsewhere classified] Onset: 12-28-2022 Resolved: 02-23-2023 12-28-2022 Chronic NEGATED: Highlighted row has been ruled out!Unclassified (2 sources) No known active problems 11-10-2022 Results Test Name Value Interpretation Reference Range Facil ity Vital Signs Date Time Vital Sign Value Performing Clinician Clary lity 02-23-2023 09:50-0500 Diastolic blood pressure 80 mm[Hg] Lyla Spidaydayenner PATIENT SUPPORT ASSOCIATE Work Phone: [facility] 02-23-2023 09:50-0500 Systolic blood pressure 128 mm[Hg] Lyla Spidaydayenner PATIENT SUPPORT ASSOCIATE Work Phone: [facility] 02-23-2023 09:10-0500 Body height 185.4 cm Lyla Tomekaenner PATIENT SUPPORT ASSOCIATE Work Phone: [facility] 02-23-2023 09:10-0500 Body mass index (BMI) [Ratio] 23.09 kg/m2 Lyla Spieldenner PATIENT SUPPORT ASSOCIATE Work Phone: [facility] 02-23-2023 09:10-0500 Body temperature 98.49 [degF] Lyla Spidaydayenner PATIENT SUPPORT ASSOCIATE Work Phone: [facility] 02-23-2023 09:10-0500 Body weight 79.38 kg Lyla Spidaydayenner PATIENT SUPPORT ASSOCIATE Work Phone: [facility] 02-23-2023 09:10-0500 Heart rate 81 /min Lyla Spidaydayenner PATIENT SUPPORT ASSOCIATE Work Phone: [facility] 02-23-2023 09:10-0500 SaO2% (BldA) [Mass fraction] 98 % Lyla Agosto PATIENT SUPPORT ASSOCIATE Work Phone: [facility] 12-28-2022 10:29-0400 Diastolic blood pressure 90 mm[Hg] Nicho Torres MD Work Phone: [facility] 12-28-2022 10:29-0400 Heart rate 93 /min Nicho Torres MD Work Phone: [facility] 12-28-2022 10:29-0400 Systolic blood pressure 141 mm[Hg] Nicho Torres MD Work Phone: [facility] 12-28-2022 10:21-0400 Body height 185.4 cm Nicho Torres MD Work Phone: [facility] 12-28-2022 10:21-0400 Body mass index (BMI) [Ratio] 22.69 kg/m2 Nicho Torres MD Work Phone: [facility] 12-28-2022 10:21-0400 Body weight 78.02 kg Nicho Torres MD Work Phone: [facility] 12-21-2022 11:27-0400 Body temperature 97.7 [degF] Jeannine [facility] 12-21-2022 11:27-0400 Diastolic blood pressure 92 mm[Hg] [facility] Encounters Encounter Date Encounter Type Care Provider Facility Start: 03-20-2023 End: 03-21-2023 ambulatory LYLA AGOSTO [facility] Start: 03-17-2023 ambulatory Priscila Person [facility] Start: 03-15-2023 End: 03-15-2023 ambulatory MARCANTONIO C OLIVIA [facility] Start: 03-08-2023 End: 03-08-2023 ambulatory MARCANTONIO C OLIVIA [facility] Start: 03-01-2023 Orders Only Lyla mendosa CNP Work Phone: [facility] Procedures Date Procedure Procedure Detail Performing Clinician Start: 02-23-2023 Adult depression scr eening assessment Lyla Medinaviraj PATIENT SUPPORT ASSOCIATE Work Phone: Start: 12-21-2022 Cta abdl aorta&bi il iofem w/contrast&postp Mahamed Sauer DPM Work Phone: Start: 12-21-2022 Assay of lactate Ady BERGERON-C Work Phone: Start: 12-21-2022 C-reactive protein Donnell BERGERON-C Work Phone: Start: 12-21-2022 Complete blood count with white cell differential, automated Ady BERGERON-C Work Phone: Start: 12-21-2022 Renal function panel De jaime BERGERON-C Work Phone: Start: 12-20-2022 Drug test prsmv read direct optical obs pr date Ady BERGERON-C Work Phone: Start: 12-20-2022 Mri lower extrem oth /thn jt w/o contr matrl Ady BERGERON-C Work Phone: Start: 12-20-2022 Dup-scan xtr veins complete bilateral study Ady BERGERON-C Work Phone: Start: 12-20-2022 Cultyp nuc acid amp prb cult/isolate ea monique Lowe DO Start: 12-20-2022 Assay of lactate Drake Zuñiga APRN-PATIENT SUPPORT ASSOCIATE Work Phone: Start: 12-20-2022 Radex foot complete minimum 3 views Drake Zuñiga HVAC INSTALLATION TECHNICIAN-PATIENT SUPPORT ASSOCIATE Work Phone: Start: 12-20-2022 Cul bact xcpt urine blood/stool aerobic isol Drake Zuñiga HVAC INSTALLATION TECHNICIAN-PATIENT SUPPORT ASSOCIATE Work Phone: Start: 12-20-2022 Comprehensive metabo lic panel Drake Zuñiga HVAC INSTALLATION TECHNICIAN-PATIENT SUPPORT ASSOCIATE Work Phone: Start: 12-20-2022 Lipid panel Ady BERGERON-C Work Phone: Start: 12-20-2022 Lipid 1996 panel - S adolfo or Plasma Jeannine Lowe DO Start: 11-05-2022 Complete blood count with white cell differential, automated Kelly Dennis PA-C Work Phone: Start: 11-05-2022 Culture bacterial bl ood aerobic w/id isolates Kelly Dennis PA-C Work Phone: Start: 11-05-2022 Sedimentation rate r bc automated Kelly Dennis PA-C Work Phone: Start: 11-05-2022 Radex foot complete minimum 3 views Kelly Dennis PA-C Work Phone: Plan of Treatment Date Care Activity Detail Author Start: 01-06-2033 Tetanus vaccination Tetanus: Every 1 0yrs [facility] Start: 12-21-2027 Lipid panel LIPID SCREENING [facility] Start: 03-20-2025 Prostate specific an tigen measurement PSA Level [facility] Start: 03-20-2024 Screening for malign ant neoplasm of lung Low-dose CT Lung Cancer Screen [facility] Start: 02-27-2024 COVID-19 Vaccine (#1) COVID-19 Vacci ne (#1) [facility] Immunizations Immunization Date Immunization Notes Care Provider [place] craft 01-06-2023 tetanus toxoid, redu glenda diphtheria toxoid, and acellular pertussis vaccine, adsorbed Lyla Agosto PATIENT SUPPORT ASSOCIATE Work Phone: [facility] Payers Date Payer Category Payer Medicaid [id number] 2022 Medicaid [id number] 2022 Private Health Insurance [employer] [id number] 2022-Present [address] [place] [address] [id number] 2022 Private Health Insurance [id number] 1965 Unknown [id number] [id number]. 983 1964 Unknown [id number] 2.16.840.1.703410.3.579.2. 983 1964 Unknown [id number] 2.16.840.1.443702.3.579.2. 983 1964 Unknown [id number] 2.16.840.1.567031.3.579.2. 983 1964 Unknown [id number] 2.16.840.1.986366.3.579.2. 983 1964 Unknown [id number] 2.16.840.1.815690.3.579.2. 900 1964 Unknown [id number] 2.16.840.1.523663.3.579.2. 903 1964 Unknown [id number] 2.16.840.1.161503.3.579.2. 1964 Unknown [id number] 2.16.840.1.217684.3.579.2. 903 1964 Unknown [id number] 2.16.840.1.455462.3.579.2. 903 1964 Unknown [id number] 2.16.840.1.239107.3.579.2. 903 1964 Unknown [id number] 2.16.840.1.926080.3.579.2. 903 1964 Unknown [id number] 2.16.840.1.769309.3.579.2. 903 1964 Unknown [id number] 2.16.840.1.556869.3.579.2. 1964 Unknown [id number] 2.16.840.1.519881.3.579.2. 903 1964 Unknown [id number] 2.16.840.1.987953.3.579.2. 903 Unknown DENTAL ODH DENTA L ODH [id number] Effective for all dates [id number] Social History Date Type Detail Facility Tobacco smoking stat us COIS Unknown if ever smoked [facility] Start: 1965 Sex Assigned At Not on file [facility] Start: 11-05-2022 End: 12-28-2022 Tobacco smoking status NHIS Smokes tobacco daily [facility] History of tobacco use Cigarette Smoker [facility] Start: 11-05-2022 End: 02-23-2023 Cigarettes smoked current (pack per day) - Reported 0.5 [facility] Start: 11-05-2022 End: 12-28-2022 Tobacco use and exposure Smokeless tobacco non-user [facility] Start: 11-05-2022 End: 02-23-2023 Alcohol intake Current drinker of alcohol (finding) [facility] Start: 11-05-2022 End: 02-23-2023 Tobacco use panel [facility] Start: 11-05-2022 Alcohol Comment 1 can a day [facility] Start: 12-28-2022 Alcohol Comment 2 to 3 shot weekends [facility] Start: 04-05-2018 Gender identity Identifies as male gender (finding) [facility] Start: 04-05-2018 Sexual orientation Heterosexual (fin ding) [facility] Start: 02-23-2023 Alcohol Comment 2 to 3 shot we ekends/5 beers [facility] Adult Depression Screening Assessment 0 [facility] Clinical Notes 11-05-2022 to 03-21-2023 Rowena Patel MD - 03/21/2023 3:19 PM Lyla Mckee CNP - 02/23/2023 9:19 AM ESTAssessment & Plan Note - Lyla Agosto CNP - 02/23/2023 9:42 AM EST Note Date & Type Note Facility 03-21-2023 History of Presen t illness Narrative Covering for primary care provider Lesley Agosto CNP Reviewed chart, primary care provider's note, labs, preop clearance paperwork and vascular clearance. Patient is low risk for surgical prep of wound site with application of skin graft substitute. Okay to proceed with procedure OFFICE VISIT PROGRESS NOTE HPI patient here to get established Wound care yesenia-HH dressing change-PICC line q8 hours antibiotic IFG-watching diet Hypertension denies home blood pressure , states no added salt The following portions of the patient's history were reviewed and updated as appropriate: allergies, current medications and problem list. The patient's surgical, family, and social history was reviewed and updated as appropriate. Review of Systems Review of Systems Constitutional: Negative. Respiratory: Negative. Cardiovascular: Negative. Gastrointestinal: Negative. Genitourinary: Negative. Skin: Positive for wound. Neurological: Positive for numbness. Left toe Psychiatric/Behavioral: Negative. Vitals: 02/23/23 0910 02/23/23 0950 BP: (!) 147/88 128/80 Pulse: 81 Temp: 98.5 F (36.9 C) TempSrc: Temporal SpO2: 98% Weight: 79.4 kg (175 lb) Height: 6' 1 Body mass index is 23.09 kg/m . Physical Exam Physical Exam Constitutional: General: He is not in acute distress. Appearance: Normal appearance. He is normal weight. He is not ill-appearing or toxic-appearing. Neck: Vascular: No carotid bruit. Cardiovascular: Rate and Rhythm: Normal rate and regular rhythm. Pulses: Normal pulses. Heart sounds: Normal heart sounds. Pulmonary: Effort: Pulmonary effort is normal. Breath sounds: Normal breath sounds. Abdominal: General: Abdomen is flat. Bowel sounds are normal. Palpations: Abdomen is soft. Musculoskeletal: General: Tenderness present. Cervical back: Neck supple. Right lower leg: No edema. Left lower leg: No edema. Comments: Left lower ext sensitive to touch-dressing in place Skin: General: Skin is warm. Neurological: Mental Status: He is alert and oriented to person, place, and time. Psychiatric: Mood and Affect: Mood normal. Behavior: Behavior normal. Thought Content: Thought content normal. Judgment: Judgment normal. OARRS/NARxCHECK Report Received and Assessed: No data found Date controlled substance agreement signed: No data found Date of last drug screen: No data found Functional Assessment: No data found Assessment/Plan Problem List Items Addressed This Visit Benign hypertension Chronic, controlled Relevant Medications metoprolol tartrate (LOPRESSOR) 50 MG tablet amLODIPine (NORVASC) 5 MG tablet Anemia - Primary Chronic, uncontrolled MVI with iron HLD (hyperlipidemia) Chronic, control? Await labs Relevant Medications atorvastatin (LIPITOR) 80 MG tablet IFG (impaired fasting glucose) Chronic, control? Await A1c Tobacco abuse Chronic, uncontrolled Stop smoking Relevant Orders CT Lung Cancer Screening Other Visit Diagnoses Screening for colon cancer Relevant Orders [facility] Healthcare maintenance Relevant Orders CBC and Differential Comprehensive Metabolic Panel Lipid Panel Hemoglobin A1c TSH with Reflex Free T4 PSA, Total and Free Return in about 3 months (around 05/25/2023) for Recheck HTN. If any referrals were placed at today's visit the patient was instructed to call the office if they havn't heard anything about the referral within 2 weeks of today's visit. For any new medications prescribed today, patient was educated about indications for the medication, how to take the medication and potential side effects of the medications. Lyla Agosto CNP 02/23/2023 9:00 AM Depression Screening Little interest or pleasure in doing things 0 Feeling down, depressed, or hopeless 0 PHQ-2 Total Score 0 documented in this encounter [facility] 02-23-2023 Evaluation + Plan note Associated Problem(s): Anemia Chronic, uncontrolled MVI with iron [facility] 02-23-2023 Evaluation + Plan note Associated Problem(s): HLD (hyperlipidemia) Chronic, control? Await labs [facility] 02-23-2023 Evaluation + Plan note Associated Problem(s): Tobacco abuse Chronic, uncontrolled Stop smoking [facility] 02-23-2023 Miscellaneous Notes Associated Problem(s): Anemia Chronic, uncontrolled MVI with iron Associated Problem(s): HLD (hyperlipidemia) Chronic, control? Await labs Associated Problem(s): Tobacco abuse Chronic, uncontrolled Stop smoking Associated Problem(s): Benign hypertension Chronic, controlled Associated Problem(s): IFG (impaired fasting glucose) Chronic, control? Await A1c documented in this encounter [facility] 02-23-2023 Miscellaneous Notes Associated Problem(s): Anemia Chronic, uncontrolled MVI with iron Associated Problem(s): HLD (hyperlipidemia) Chronic, control? Await labs Associated Problem(s): Tobacco abuse Chronic, uncontrolled Stop smoking Associated Problem(s): Benign hypertension Chronic, controlled Associated Problem(s): IFG (impaired fasting glucose) Chronic, control? Await A1c documented in this encounter [facility] 02-23-2023 Evaluation + Plan note Associated Problem(s): Benign hypertension Chronic, controlled [facility] 02-23-2023 Evaluation + Plan note Associated Problem(s): IFG (impaired fasting glucose) Chronic, control? Await A1c [facility] 02-23-2023 History of Presen t illness Narrative OFFICE VISIT PROGRESS NOTE HPI patient here to get established Wound care yesenia-HH dressing change-PICC line q8 hours antibiotic IFG-watching diet Hypertension denies home blood pressure , states no added salt The following portions of the patient's history were reviewed and updated as appropriate: allergies, current medications and problem list. The patient's surgical, family, and social history was reviewed and updated as appropriate. Review of Systems Review of Systems Constitutional: Negative. Respiratory: Negative. Cardiovascular: Negative. Gastrointestinal: Negative. Genitourinary: Negative. Skin: Positive for wound. Neurological: Positive for numbness. Left toe Psychiatric/Behavioral: Negative. Vitals: 02/23/23 0910 02/23/23 0950 BP: (!) 147/88 128/80 Pulse: 81 Temp: 98.5 F (36.9 C) TempSrc: Temporal SpO2: 98% Weight: 79.4 kg (175 lb) Height: 6' 1 Body mass index is 23.09 kg/m . Physical Exam Physical Exam Constitutional: General: He is not in acute distress. Appearance: Normal appearance. He is normal weight. He is not ill-appearing or toxic-appearing. Neck: Vascular: No carotid bruit. Cardiovascular: Rate and Rhythm: Normal rate and regular rhythm. Pulses: Normal pulses. Heart sounds: Normal heart sounds. Pulmonary: Effort: Pulmonary effort is normal. Breath sounds: Normal breath sounds. Abdominal: General: Abdomen is flat. Bowel sounds are normal. Palpations: Abdomen is soft. Musculoskeletal: General: Tenderness present. Cervical back: Neck supple. Right lower leg: No edema. Left lower leg: No edema. Comments: Left lower ext sensitive to touch-dressing in place Skin: General: Skin is warm. Neurological: Mental Status: He is alert and oriented to person, place, and time. Psychiatric: Mood and Affect: Mood normal. Behavior: Behavior normal. Thought Content: Thought content normal. Judgment: Judgment normal. OARRS/NARxCHECK Report Received and Assessed: No data found Date controlled substance agreement signed: No data found Date of last drug screen: No data found Functional Assessment: No data found Assessment/Plan Problem List Items Addressed This Visit Benign hypertension Chronic, controlled Relevant Medications metoprolol tartrate (LOPRESSOR) 50 MG tablet amLODIPine (NORVASC) 5 MG tablet Anemia - Primary Chronic, uncontrolled MVI with iron HLD (hyperlipidemia) Chronic, control? Await labs Relevant Medications atorvastatin (LIPITOR) 80 MG tablet IFG (impaired fasting glucose) Chronic, control? Await A1c Tobacco abuse Chronic, uncontrolled Stop smoking Relevant Orders CT Lung Cancer Screening Other Visit Diagnoses Screening for colon cancer Relevant Orders [facility] maintenance Relevant Orders CBC and Differential Comprehensive Metabolic Panel Lipid Panel Hemoglobin A1c TSH with Reflex Free T4 PSA, Total and Free Return in about 3 months (around 05/25/2023) for Recheck HTN. If any referrals were placed at today's visit the patient was instructed to call the office if they havn't heard anything about the referral within 2 weeks of today's visit. For any new medications prescribed today, patient was educated about indications for the medication, how to take the medication and potential side effects of the medications. Lyla Agosto CNP 02/23/2023 9:00 AM Depression Screening Little interest or pleasure in doing things 0 Feeling down, depressed, or hopeless 0 PHQ-2 Total Score 0 documented in this encounter [facility] [place] 01-09-2023 History of Presen t illness Narrative Message left for patient to make an appointment with Dr. Torres in follow up in the out pt setting, per Dr. Vargas request. Attempted multiple times to direct admit this patient, but every time the patient was contacted by the bed coordinator, he declined for various reasons. documented in this encounter [facility] [place] 12-28-2022 Evaluation + Plan note Associated Problem(s): Critical limb ischemia of left lower extremity with gangrene (HCC) The patient clearly has critical limb ischemia. There is a monophasic dorsalis pedis Doppler signal similar to his popliteal Doppler signal. His CT angiography also shows severe occlusive disease. Plan: 1. I prescribed Percocet for the patient not realizing that Dr. Lerner had prescribed [place]. When I spoke with Dr. Lerner she told me she would discontinue the [place] prescription. He needs opiate to get him to Monday when he will be admitted and his therapy will be started. 2. The patient has not received any significant primary care. I ordered a CBC, CMP, PT/INR, lipid panel since he had not eaten, and thyroid function tests. 3. I am going to be on vacation next Monday for 2 weeks and reached out to my partner Bartolome Vargas and asked if he would assume his care on Monday. The patient is going to be admitted to Dr. Vargas. 4. The patient will need saphenous vein mapping upon admission and he will need to be prepared for conventional angiography of his left lower extremity to pick a target for bypass. This is a 57-year-old gentleman with minimal comorbidity and a presumed adequate saphenous vein. Following the data from the NIH trial ( BEST CLI) I think he would benefit from probable tibial bypass presumably to his anterior tibial artery which is in the angiosome of the gangrenous toe. Conventional angiography will define his pedal anatomy and perfusion and make a target for bypass more transparent. [facility] [place] 12-28-2022 Miscellaneous Notes Associated Problem(s): Critical limb ischemia of left lower extremity with gangrene (HCC) The patient clearly has critical limb ischemia. There is a monophasic dorsalis pedis Doppler signal similar to his popliteal Doppler signal. His CT angiography also shows severe occlusive disease. Plan: 1. I prescribed Percocet for the patient not realizing that Dr. Lerner had prescribed [place]. When I spoke with Dr. Lerner she told me she would discontinue the [place] prescription. He needs opiate to get him to Monday when he will be admitted and his therapy will be started. 2. The patient has not received any significant primary care. I ordered a CBC, CMP, PT/INR, lipid panel since he had not eaten, and thyroid function tests. 3. I am going to be on vacation next Monday for 2 weeks and reached out to my partner Bartolome Vargas and asked if he would assume his care on Monday. The patient is going to be admitted to Dr. Vargas. 4. The patient will need saphenous vein mapping upon admission and he will need to be prepared for conventional angiography of his left lower extremity to pick a target for bypass. This is a 57-year-old gentleman with minimal comorbidity and a presumed adequate saphenous vein. Following the data from the NIH trial ( BEST CLI) I think he would benefit from probable tibial bypass presumably to his anterior tibial artery which is in the angiosome of the gangrenous toe. Conventional angiography will define his pedal anatomy and perfusion and make a target for bypass more transparent. documented in this encounter [facility] [place] 12-28-2022 History of Presen t illness Narrative Assessment Critical limb ischemia of left lower extremity with gangrene (HCC) The patient clearly has critical limb ischemia. There is a monophasic dorsalis pedis Doppler signal similar to his popliteal Doppler signal. His CT angiography also shows severe occlusive disease. Plan: 1. I prescribed Percocet for the patient not realizing that Dr. Lerner had prescribed [place]. When I spoke with Dr. Lerner she told me she would discontinue the [place] prescription. He needs opiate to get him to Monday when he will be admitted and his therapy will be started. 2. The patient has not received any significant primary care. I ordered a CBC, CMP, PT/INR, lipid panel since he had not eaten, and thyroid function tests. 3. I am going to be on vacation next Monday for 2 weeks and reached out to my partner Bartolome Vargas and asked if he would assume his care on Monday. The patient is going to be admitted to Dr. Vargas. 4. The patient will need saphenous vein mapping upon admission and he will need to be prepared for conventional angiography of his left lower extremity to pick a target for bypass. This is a 57-year-old gentleman with minimal comorbidity and a presumed adequate saphenous vein. Following the data from the NIH trial ( BEST CLI) I think he would benefit from probable tibial bypass presumably to his anterior tibial artery which is in the angiosome of the gangrenous toe. Conventional angiography will define his pedal anatomy and perfusion and make a target for bypass more transparent. Imaging: I independen CT angiogram tly reviewed the from [facility] and agree with the interpretation(s) with the following comments. The patient does not have any significant inflow disease compatible with his palpable left femoral pulse. He has a monophasic dorsalis pedis Doppler signal and I could not insonate a posterior tibial artery Doppler signal. The patient appears to have severe superficial femoral artery occlusive disease with reconstitution of the P2 segment of the popliteal artery. It is difficult to tell whether the infrapopliteal arteries which have some calcification are stenotic or not. Jb Medina 1965 57 y.o. male who presents to the office in consultation for gangrene of the left fifth toe. He saw his self sealing fuel tank repairer Dr. Pasha Lerner his self sealing fuel tank repairer who immediately noted that he had significant arterial insufficiency on physical examination. She called me directly and I arranged to see him immediately in the office. The patient has rest pain and is having trouble sleeping at night. The patient's risk factor for atherosclerosis is lifelong cigarette smoking. He has not received much primary care so the status of his lipids and blood pressure is unknown. He does have a family history of coronary artery disease. Dr. Lerner immediately realized that he had critical limb ischemia. This is in contradistinction [facility] Past Medical History: Diagnosis Date Claudication (HCC) Hypertension Past Surgical History: Procedure Laterality Date TONSILLECTOMY Current Outpatient Medications Medication Sig Dispense Refill HYDROcodone-acetaminophen (NORCO) 5-325 mg per tablet Take 1 (one) tablet by mouth every 6 (six) hours as needed for pain (Days supply per fill: 7) . 28 tablet 0 naproxen sodium (Aleve) 220 MG tablet Take 3 (three) tablets (660 mg total) by mouth 2 (two) times a day as needed . No current facility-administered medications for this visit. Family History Problem Relation Age of Onset No Known Problems Mother Heart attack Father Heart attack Paternal Grandfather Social History Tobacco Use Smoking status: Every Day Packs/day: 0.50 Years: 42.00 Additional pack years: 0.00 Total pack years: 21.00 Types: Cigarettes Smokeless tobacco: Never Vaping Use Vaping Use: Never used Substance Use Topics Alcohol use: Yes Alcohol/week: 2.0 standard drinks of alcohol Types: 2 Shots of liquor per week Comment: 2 to 3 shot weekends Drug use: Never Review of Systems Constitutional: Negative for decreased appetite, malaise/fatigue and weight loss. HENT: Negative for nosebleeds. Cardiovascular: Positive for claudication and dyspnea on exertion. Respiratory: Positive for cough and sputum production. Hematologic/Lymphatic: Does not bruise/bleed easily. Skin: Positive for poor wound healing (left foot). Gastrointestinal: Negative for hematochezia and melena. Genitourinary: Negative for hematuria. Neurological: Negative for aphonia, brief paralysis and seizures. BP (!) 141/90 (BP Location: Right arm, Patient Position: Sitting) Pulse 93 Ht 6' 1 Wt 78 kg (172 lb) BMI 22.69 kg/m Physical Exam Constitutional: Appearance: He is well-developed. Comments: Very pleasant gentleman who presents with his . Odor of tobacco utilization. HENT: Head: Normocephalic and atraumatic. Eyes: General: No scleral icterus. Conjunctiva/sclera: Conjunctivae normal. Pupils: Pupils are equal, round, and reactive to light. Neck: Vascular: Normal carotid pulses. No carotid bruit or JVD. Cardiovascular: Rate and Rhythm: Normal rate and regular rhythm. Pulses: Carotid pulses are 2+ on the right side and 2+ on the left side. Radial pulses are 2+ on the right side and 2+ on the left side. Femoral pulses are 2+ on the right side and 2+ on the left side. Popliteal pulses are 0 on the right side and 0 on the left side. Dorsalis pedis pulses are 0 on the right side and 0 on the left side. Posterior tibial pulses are 0 on the right side and 0 on the left side. Heart sounds: Heart sounds not distant. No murmur heard. No gallop. Comments: The left greater saphenous vein below the knee appears to be visible when the limb is dependent and appears to be of sufficient caliber for distal bypass surgery should it be necessary. Pulmonary: Effort: Pulmonary effort is normal. Prolonged expiration present. No respiratory distress. Abdominal: General: Bowel sounds are normal. There is no distension. Palpations: Abdomen is soft. Tenderness: There is no abdominal tenderness. Musculoskeletal: General: No tenderness. Normal range of motion. Cervical back: Normal range of motion and neck supple. Feet: Comments: Gangrenous fifth toe left foot. Skin: General: Skin is warm and dry. Neurological: Mental Status: He is alert and oriented to person, place, and time. Cranial Nerves: No cranial nerve deficit. Coordination: Coordination normal. Psychiatric: Behavior: Behavior normal. Thought Content: Thought content normal. The note was dictated using [employer] dictation system. The voice recognition software is inherently subject to errors including those of syntax and sound-alike substitutions which may escape proofreading. In such instances, original meaning may be extrapolated by contextual derivation. documented in this encounter [facility] [place] 12-28-2022 Instructions Skyler Hunter MA - 12/28/2022 10:21 AM EDT How to contact your Care Team: Provider: MD Kaur Pereira CNP Jill Bender, PA Nurse: Ange Graves RN To reschedule office appointments call Scheduling [phone] In case of an emergency please call 911. When in need of refills please call the phone number listed above. Please include medication name, pharmacy name and specify 30 or 90 day supply Please check with your pharmacy within 24 hours of your request for refill. You must follow up as directed to continue current refills. Thank you! documented in this encounter [facility] [place] 12-21-2022 History of Presen t illness Narrative 12/21/22 0818 Time In/Out Time In 0818 Time Out 0839 Total Visit Time 21 minutes PT Therapy Completed Yes Initial Evaluation/Screen Completed? yes General Information RN Approved Intervention as tolerated Diagnosis cellulitis of the left lower extremity Surgical Procedure none Past Medical History No past medical history on file. Past Surgical History No past surgical history on file. Existing Precautions/Restrictions no known precautions/restrictions Home Setting Residence House Lives With significant other Second floor setup bedroom Number of stairs to enter home 2 Number of stairs in home 12 Mobility Equipment Available none used Previous Level of Function Ambulation Skills independent Assistive Device none used Level of Ambulation community General Pain Documentation (Adult, OB, Peds) Presence of Pain complains of pain/discomfort Pain Location foot, left Pain Management Interventions declines intervention Select Pain Scale (2/10) Cognitive Status Examination Orientation Status (Cognition) oriented x 4 Level of Consciousness alert Able to Follow Commands (Communication) WFL Personal Safety and Judgment intact Range of Motion (ROM) Range of Motion Examination bilateral lower extremity ROM was WFL Manual Muscle Testing (MMT) Manual Muscle Testing Results bilateral lower extremity MMT was WFL Bed Mobility Skill: Supine to Sit, Rehab Eval Level of [place]: Supine/Sit independent Transfer Skill: Sit To Stand, Rehab Eval [place] (Sit-Stand Transfers) independent Gait Skills, PT Eval Level of [place]: Gait independent Gait Distance 200 feet Gait Analysis, PT Eval Gait Pattern Used swing-through gait Balance Additional Documentation (Seated/Standing: Good) Sensory Examination Sensory Examination WFL Plan of Care Interventions Additional Comments Following evaluation pt left sitting EOB with call gallegos within reach. Assessment Assessment Narrative Pt is a 57 year old male admitted due to cellulitis of left lower extremity. Pt is at his baseline with all mobility tasks and is performing mobility tasks safely. Discussed with pt various mechanics should he be restricted with weight bearing following podiatry consult. Pt does not require further PT services. Discharge Recommendations Pt to return home. Clinical Impression Co-evaluation/co-treatment performed? No simultaneous skilled care performed Criteria for Skilled Therapeutic Interventions Met (PT Eval) no problems identified which require skilled intervention Today's Treatment Included PT evaluation and patient education Therapist Recommendations At Discharge Recommendations PT Services not recommended at Discharge Plan Plan for next session PT evaluation only 12/21/22 1107 Referral Information Arrived From home or self-care Readmission Information Was patient readmitted within 30 Days? No Information Source Information Source spouse Information Source Name Marivel Contact Information Trip Follower/SW Added to Care Team Yes This Mason Apprentice is Primary Trip Follower/SW Yes Social Work Contact Name Maine Haque AUDIO VISUAL TECHNICIAN Paint Mixer's Phone Number [phone] Living Environment Lives With spouse Living Arrangements house Provides Primary Care For no one Primary Care Provided By self Support System Immediate family Able to Return to Prior Arrangements yes Functional Status Patient's Functional Status Prior To This Admission? Independent Concerns With Patient Being Able To Care For Themselves At Discharge? No Employment/Financial Employed? No Source Of Income unable to assess Financial Concerns none Initial Discharge Planning Home Care Services ([employer]OL[employer]ER) No Home Therapies ([employer]) None DME ([employer]) None Medical Supplies ([employer]) None Anticipated discharge disposition Home Anticipated Changes Related to Illness none Transportation Available car Assessment/Concerns to be Addressed Concerns To Be Addressed no discharge needs identified AUDIO VISUAL TECHNICIAN spoke with Marivel. She states they live in a 2 story home. She reports that he is completely independent, denies DME use or home O2. states patient has access to food, medication, and transportation. Patient has no PCP and gave permission to complete a referral for an [facility] PCP. AUDIO VISUAL TECHNICIAN completed this. denies needs at this time. Discharge plan Return home, following for needs, patient independent Reviewed chart and met with patient. Patient states that he has been dealing with infection of toe since October. Patient stated that he had previously seen Dr. Sauer and had been placed on oral antibiotics which were helping. Patient said after completing the course, the infection started worsening and he decided to present to ED for treatment. Patient is already questioning discharge and stated that I have business to get to , importance of treatment stressed to patient. Patient denies current needs or questions. Will continue to follow for possible needs. Summary: MRI Foot Pt unable to tolerate exam due to pain. Motion on every set. Took patient back to room will try later after possible medication administration. Pharmacy to Dose - Vancomycin Progress Note PATIENT: Jb Medina Room/Bed: E017/E017 Indication: osteomyelitis Trough Goal: 15-20 g/mL Initial Dose: 1250 mg IV every 12 hours Next Level: 0100 12/22/22 Most Recent Labs: CREATININE SERUM Date Value Ref Range Status 12/20/2022 1.00 0.70 - 1.20 MG/DL Final 11/05/2022 1.04 0.70 - 1.20 MG/DL Final BUN Date Value Ref Range Status 12/20/2022 17 7 - 20 MG/DL Final 11/05/2022 14 7 - 20 MG/DL Final Patient's CrCl is estimated to be 79.9 mL/min Assessment and Plan: Based upon review of laboratory results and available patient information, I will initiate vancomycin at the above dose and frequency. A Pharmacist will continue to follow and order drug levels and adjust dosing as clinically appropriate. If necessary, I have modified the orders in [facility] to reflect the above plan. Please feel free to contact me with any further questions. Roge Cook [facility] Phone: [phone] Date/Time: 12/20/2022 1:43 PM documented in this encounter [facility] 12-21-2022 Hospital course Narrative Discharge Summary Name: Jb Medina Age: 57 y.o. Birthday: 1965 Admit Date: 12/20/2022 11:21 AM Discharge Date: 12/21/2022 Pt left AMA Discharge Assesment and Plan: Present on Admission: Cellulitis of left lower extremity Tobacco abuse Benign hypertension Acute hematogenous osteomyelitis of left foot PAD (peripheral artery disease) Brief Summary of Hospital Course: Patient is a 57 y.o. male presents to [facility] for evaluation of left toe cellulitis. The patient was on antibiotics as an outpatient and he has been evaluated by Podiatry. He was instructed to follow with Wound Care but has yet to have that appointment. He reports worsening swelling and pain to his toe. He presented to the ER for evaluation. X-rays negative for osteomyelitis however does show soft tissue ulceration with cellulitis. Cultures were obtained and the patient was started on IV antibiotics. He will be admitted to the hospital for evaluation of surgical Podiatry. MRI: Limited exam due to severe motion degradation, without definite evidence of osteomyelitis or T1 signal change. Questionable bone marrow edema in the fifth middle phalanx in the region of the fifth toe soft tissue wound/gas, reactive osteitis versus early osteomyelitis. Ct angio: IMPRESSION: 1. Occlusion of the proximal right SFA with distal reconstitution via collaterals from the right profunda femoris artery. Three-vessel runoff to the right foot. 2. Occlusion of the mid left SFA and proximal left popliteal artery with distal reconstitution of the left popliteal artery via collaterals from the left profunda femoris artery. Two-vessel runoff to the left foot via the anterior and posterior tibial arteries. 3. Diverticulosis without radiographic evidence of diverticulitis. 4. Mild prostatic enlargement. Patient became agitated. He wanted to go smoke. He didn't want to wait for podiatry recs. He left AMA. Consultants: gina Discharge Vital Signs: Blood pressure (!) 160/92, pulse 70, temperature 97.7 F (36.5 C), temperature source Oral, resp. rate 20, height 1.854 m (6' 1 ), weight 77.6 kg (171 lb), SpO2 97 %. O2 Sat (%): 97 % (12/21 1126) O2 Device: room air (12/21 1126) Discharge Labs: Lab Results Component Value Date WBC 7.4 12/21/2022 HGB 12.8 (L) 12/21/2022 HCT 39.1 (L) 12/21/2022 PLATELET 280 12/21/2022 MCV 93.9 12/21/2022 Lab Results Component Value Date SODIUM 135 (L) 12/21/2022 POTASSIUM 3.7 12/21/2022 CHLORIDE 100 12/21/2022 CO2 27 12/21/2022 BUN 17 12/21/2022 CREATSERUM 0.80 12/21/2022 GLUCOSE 99 12/21/2022 Lab Results Component Value Date ALT 16 12/21/2022 AST 30 12/21/2022 ALKPHOS 93 12/21/2022 BILITOTAL 0.6 12/21/2022 BILIDIRECT 0.2 12/21/2022 PHYSICAL EXAM: Discharge Medications: Medication List for when you go home ASK your doctor about these medications Mupirocin 2 % ointment Apply small amount to affected area at every bandage change. Change bandage 1x a day This will be used for about 2 weeks Commonly known as: BACTROBAN For diagnoses: Diabetic ulcer of left fifth toe traMADol 50 MG TABS Take 1 tablet by mouth every 6 hours as needed for Moderate Pain for up to 5 days. Commonly known as: ULTRAM For diagnoses: Atherosclerosis of [place] artery of both lower extremities with intermittent claudication, Diabetic ulcer of left fifth toe Discharge Activity: Resume pre-hospital activities as tolerated. Discharge Diet: Resume pre-hospital diet as tolerated. Discharge Follow-up: No follow-up provider specified. Discharge Disposition: Patient left soteroa Raul Romero CNP completing Discharge Summary for attending physician. Please note Portions of this note utilized [employer] dictation software, please excuse any typographical or grammatical errors Associated attestation - Jeannine Lowe DO - 12/21/2022 4:44 PM EDT Patient left AMA. documented in this encounter [facility] 12-21-2022 Miscellaneous Notes Pt walked to nurse station stating he was leaving. Signed AMA form, IV removed, Dr. Sauer notified pt left. Assessment is complete and remains unchanged from previous at this time with any exceptions noted in the flowsheet. Patient denies further needs and is left with call light and personals in reach. Called Dr. Sauer at this time for podiatry consult. Added to care team. Pt assessment remains unchanged with any exceptions noted in flowsheets. Pt denies any pain at this time. Pt denies any further needs at this time. Call light within reach. Pt c/o 9/10 pain in L pinky toe. Percocet given- see MAR. Pt assessment remains unchanged with any exceptions noted in flowsheets. Pt denies any pain at this time. Pt denies any further needs at this time. Call light within reach. Pt assessment complete. POC reviewed with pt. Pt denies any pain at this time. Pt denies any further needs at this time. Call light within reach. Pt sitting up in bed watching TV. Pt says he is in 10/10 pain and is requesting pain meds. Message sent to PA, awaiting orders. Will cont to monitor. Call light w/in reach. documented in this encounter [facility] 12-21-2022 Nurse Note Pt walked to nurse station stating he was leaving. Signed AMA form, IV removed, Dr. Sauer notified pt left. [facility] 12-21-2022 Nurse Note Assessment is complete and remains unchanged from previous at this time with any exceptions noted in the flowsheet. Patient denies further needs and is left with call light and personals in reach. [facility] 12-21-2022 Note CLINICAL DATA: Leg p ain and swelling PROCEDURE: Bilateral lower extremity venous duplex ultrasound TECHNIQUE: King-scale, color flow, and waveform spectral analysis was performed of the bilateral lower extremities. FINDINGS: The bilateral common femoral, profunda femoral, femoral, and popliteal veins were compressible. The saphenous veins were compressible. No venous thrombosis was seen. The veins fill with color Doppler. Augmentation was normal. IMPRESSION: 1. No acute lower extremity deep venous thrombosis. 2. No superficial venous thrombosis. [facility] 12-21-[address] Sauer at this time for podiatry consult. Added to care team. [facility] 12-21-2022 Note CLINICAL DATA: Leg p ain and swelling PROCEDURE: Bilateral lower extremity venous duplex ultrasound TECHNIQUE: King-scale, color flow, and waveform spectral analysis was performed of the bilateral lower extremities. FINDINGS: The bilateral common femoral, profunda femoral, femoral, and popliteal veins were compressible. The saphenous veins were compressible. No venous thrombosis was seen. The veins fill with color Doppler. Augmentation was normal. [facility] 12-21-2022 Nurse Note Pt assessment remains unchanged with any exceptions noted in flowsheets. Pt denies any pain at this time. Pt denies any further needs at this time. Call light within reach. [facility] 12-21-2022 Nurse Note Pt c/o 9/10 pain in L pinky toe. Percocet given- see MAR. [facility] 12-21-2022 Nurse Note Pt assessment remains unchanged with any exceptions noted in flowsheets. Pt denies any pain at this time. Pt denies any further needs at this time. Call light within reach. [facility] 12-20-2022 Nurse Note Pt assessment complete. POC reviewed with pt. Pt denies any pain at this time. Pt denies any further needs at this time. Call light within reach. [facility] 12-20-2022 Nurse Note Pt sitting up in bed watching TV. Pt says he is in 12/20 pain and is requesting pain meds. Message sent to PA, awaiting orders. Will cont to monitor. Call light w/in reach. [facility] 12-20-2022 History and physical note History and Physical Examination 12/20/22 3:43 PM Chief Complaint: Left toe cellulitis History of Present Illness: Patient is a 57 y.o. male presents to [facility] for evaluation of left toe cellulitis. The patient was on antibiotics as an outpatient and he has been evaluated by Podiatry. He was instructed to follow with Wound Care but has yet to have that appointment. He reports worsening swelling and pain to his toe. He presented to the ER for evaluation. X-rays negative for osteomyelitis however does show soft tissue ulceration with cellulitis. Cultures were obtained and the patient was started on IV antibiotics. He will be admitted to the hospital for evaluation of surgical Podiatry. Objective: Patient Active Problem List Diagnosis Date Noted Cellulitis of foot 12/20/2022 Cellulitis of left lower extremity 12/20/2022 Tobacco abuse 12/20/2022 Benign hypertension 12/20/2022 No past medical history on file. No past surgical history on file. Social History Tobacco Use Smoking status: Every Day Packs/day: .5 Types: Cigarettes Smokeless tobacco: Never Substance Use Topics Alcohol use: Yes Alcohol/week: 1.0 standard drink of alcohol Types: 1 Cans of beer per week Comment: 1 can a day History reviewed. No pertinent family history. Medications Prior to Admission Medication Sig Dispense Refill Last Dose Mupirocin 2 % ointment Apply small amount to affected area at every bandage change. Change bandage 1x a day This will be used for about 2 weeks 30 g 1 traMADol 50 MG tablet Take 1 tablet by mouth every 6 hours as needed for Moderate Pain for up to 5 days. 20 tablet 0 No Known Allergies Review of Systems: Ten systems reviewed and found to be negative unless otherwise stated in the history and present illness. PHYSICAL EXAM: Patient Vitals for the past 8 hrs: BP Temp Temp src Pulse Resp SpO2 Height Weight 12/20/22 1511 -- -- -- -- -- -- 1.854 m (6' 1 ) 79.4 kg (175 lb) 12/20/22 1445 165/79 -- -- 87 17 97 % -- -- 12/20/22 1301 169/73 -- -- 95 17 95 % -- -- 12/20/22 1120 163/90 98.3 F (36.8 C) Oral 99 16 98 % 1.854 m (6' 1 ) 79.4 kg (175 lb) General: Patient resting comfortably. Awake. No acute distress. HEENT: Normalcephalic, atraumatic. Pupils equal, round, reactive, to light and accomodation B/L. Bilateral nares patent without obvious drainage. Oral mucosa moist, pink, intact without ulcers or lesions. Neck: No JVD, no thyromegaly, no anterior or posterior lymphadenopathy. Cardiovascular: Regular rate and rhythm, without murmurs, rubs, or gallops. Respiratory: Bilateral Upper and Lower Lobes anterior and posteriorly without wheezes, rales, or rhonchi Abdomen: Soft, rounded, non-tender. Bowel sounds present x4 quadrants. No rebound. No organomegaly or masses noted upon deep palpation. Extremities: No edema, clubbing or cyanosis, pulses palpable 2+ distally. Skin: Ulceration with erythema and swelling to the left 5th Neuro: Patient awake, alert, orientedx3. Cranial nerves 2-12 grossly intact upon seated examination. No focal defiects noted. M/S: No joint errythema or pain noted; no clubbing Diagnostics: Lab Results Component Value Date WBC 8.2 12/20/2022 HGB 13.6 (L) 12/20/2022 HCT 41.6 (L) 12/20/2022 PLATELET 294 12/20/2022 MCV 92.8 12/20/2022 @LASTMAGNESIUM(1D,2)@ Lab Results Component Value Date INR 0.94 12/20/2022 PT 12.7 12/20/2022 Lab Results Component Value Date CREATSERUM 1.00 12/20/2022 BUN 17 12/20/2022 SODIUM 137 12/20/2022 POTASSIUM 3.7 12/20/2022 CHLORIDE 99 12/20/2022 CO2 27 12/20/2022 Impression and Plan: Principal Problem: Cellulitis of left lower extremity - continue vancomycin and Maxipime, MRI pending to rule out osteomyelitis, DVT study also pending, pending evaluation by Podiatry Active Problems: Tobacco abuse Benign hypertension - lisinopril started PT OT SS for dc planning GI/DVT prophylaxis with protonix and Lovenox This plan of care was initiated in collaboration with the attending physician Dr. Lowe Please note Portions of this note utilized [employer] dictation software, please excuse any typographical or grammatical errors I spent a total of 8 minutes in management of this patient. The details of my visit are listed in my documentation above. [facility] Medicine Associated attestation - Jeannine Lowe DO - 12/20/2022 7:28 PM EDT Patient seen and examined independently. Meds, labs, and radiographs reviewed. +L Foot Pain All additional ROS NEG. NAD speaking in full sentences. HEENT NC/AT PERRLA MM moist w/o ulceration No TM or JVD. Lungs diminished and heart tones regular on exam. Abdo Soft NT/ND w/ BS. L 5th toe necrosis and discoloration. No focal deficits noted on exam. CRP 24.3 Vanco/Maxipime. POD consult. Radiographs reviewed- IMPRESSION: Left foot study demonstrates degenerative changes as described. Findings compatible soft tissue ulcer in the distal aspect of the little toe soft tissue as described. No convincing evidence of osteomyelitis though air related to the presumed ulcer somewhat limits bony evaluation. Follow-up as needed. MRI ordered. All questions and concerns addressed w/ patient and at BS in regard to plan of care. I agree with assessments and plan of care. I personally spent >50% of the total time spent of 22 min on this date's billable encounter including all of the MDM for this encounter. OBS Admit. [facility] 12-20-2022 History and physical note History and Physical Examination 12/20/22 3:43 PM Chief Complaint: Left toe cellulitis History of Present Illness: Patient is a 57 y.o. male presents to [facility] for evaluation of left toe cellulitis. The patient was on antibiotics as an outpatient and he has been evaluated by Podiatry. He was instructed to follow with Wound Care but has yet to have that appointment. He reports worsening swelling and pain to his toe. He presented to the ER for evaluation. X-rays negative for osteomyelitis however does show soft tissue ulceration with cellulitis. Cultures were obtained and the patient was started on IV antibiotics. He will be admitted to the hospital for evaluation of surgical Podiatry. Objective: Patient Active Problem List Diagnosis Date Noted Cellulitis of foot 12/20/2022 Cellulitis of left lower extremity 12/20/2022 Tobacco abuse 12/20/2022 Benign hypertension 12/20/2022 No past medical history on file. No past surgical history on file. Social History Tobacco Use Smoking status: Every Day Packs/day: .5 Types: Cigarettes Smokeless tobacco: Never Substance Use Topics Alcohol use: Yes Alcohol/week: 1.0 standard drink of alcohol Types: 1 Cans of beer per week Comment: 1 can a day History reviewed. No pertinent family history. Medications Prior to Admission Medication Sig Dispense Refill Last Dose Mupirocin 2 % ointment Apply small amount to affected area at every bandage change. Change bandage 1x a day This will be used for about 2 weeks 30 g 1 traMADol 50 MG tablet Take 1 tablet by mouth every 6 hours as needed for Moderate Pain for up to 5 days. 20 tablet 0 No Known Allergies Review of Systems: Ten systems reviewed and found to be negative unless otherwise stated in the history and present illness. PHYSICAL EXAM: Patient Vitals for the past 8 hrs: BP Temp Temp src Pulse Resp SpO2 Height Weight 10/10/23 1511 -- -- -- -- -- -- 1.854 m (6' 1 ) 79.4 kg (175 lb) 12/20/22 1445 165/79 -- -- 87 17 97 % -- -- 12/20/22 1301 169/73 -- -- 95 17 95 % -- -- 12/20/22 1120 163/90 98.3 F (36.8 C) Oral 99 16 98 % 1.854 m (6' 1 ) 79.4 kg (175 lb) General: Patient resting comfortably. Awake. No acute distress. HEENT: Normalcephalic, atraumatic. Pupils equal, round, reactive, to light and accomodation B/L. Bilateral nares patent without obvious drainage. Oral mucosa moist, pink, intact without ulcers or lesions. Neck: No JVD, no thyromegaly, no anterior or posterior lymphadenopathy. Cardiovascular: Regular rate and rhythm, without murmurs, rubs, or gallops. Respiratory: Bilateral Upper and Lower Lobes anterior and posteriorly without wheezes, rales, or rhonchi Abdomen: Soft, rounded, non-tender. Bowel sounds present x4 quadrants. No rebound. No organomegaly or masses noted upon deep palpation. Extremities: No edema, clubbing or cyanosis, pulses palpable 2+ distally. Skin: Ulceration with erythema and swelling to the left 5th Neuro: Patient awake, alert, orientedx3. Cranial nerves 2-12 grossly intact upon seated examination. No focal defiects noted. M/S: No joint errythema or pain noted; no clubbing Diagnostics: Lab Results Component Value Date WBC 8.2 12/20/2022 HGB 13.6 (L) 12/20/2022 HCT 41.6 (L) 12/20/2022 PLATELET 294 12/20/2022 MCV 92.8 12/20/2022 @LASTMAGNESIUM(1D,2)@ Lab Results Component Value Date INR 0.94 12/20/2022 PT 12.7 12/20/2022 Lab Results Component Value Date CREATSERUM 1.00 12/20/2022 BUN 17 12/20/2022 SODIUM 137 12/20/2022 POTASSIUM 3.7 12/20/2022 CHLORIDE 99 12/20/2022 CO2 27 12/20/2022 Impression and Plan: Principal Problem: Cellulitis of left lower extremity - continue vancomycin and Maxipime, MRI pending to rule out osteomyelitis, DVT study also pending, pending evaluation by Podiatry Active Problems: Tobacco abuse Benign hypertension - lisinopril started PT OT SS for dc planning GI/DVT prophylaxis with protonix and Lovenox This plan of care was initiated in collaboration with the attending physician Dr. Lowe Please note Portions of this note utilized [employer] dictation software, please excuse any typographical or grammatical errors I spent a total of 8 minutes in management of this patient. The details of my visit are listed in my documentation above. [facility] Medicine Associated attestation - Jeannine Lowe, - 12/20/2022 7:28 PM EDT Patient seen and examined independently. Meds, labs, and radiographs reviewed. +L Foot Pain All additional ROS NEG. NAD speaking in full sentences. HEENT NC/AT PERRLA MM moist w/o ulceration No TM or JVD. Lungs diminished and heart tones regular on exam. Abdo Soft NT/ND w/ BS. L 5th toe necrosis and discoloration. No focal deficits noted on exam. CRP 24.3 Vanco/Maxipime. POD consult. Radiographs reviewed- IMPRESSION: Left foot study demonstrates degenerative changes as described. Findings compatible soft tissue ulcer in the distal aspect of the little toe soft tissue as described. No convincing evidence of osteomyelitis though air related to the presumed ulcer somewhat limits bony evaluation. Follow-up as needed. MRI ordered. All questions and concerns addressed w/ patient and at BS in regard to plan of care. I agree with assessments and plan of care. I personally spent >50% of the total time spent of 22 min on this date's billable encounter including all of the MDM for this encounter. OBS Admit. documented in this encounter [facility] 12-20-2022 Emergency department Note Patient transferred to [facility] room at this time. Patient taken up in stable condition and with all belongings. Patient declined to remove sweat pants. Patient was given hospital socks but declined to put them on at this time. Report sheet and extra stickers given to RADHA Mulligan [facility] 12-20-2022 Emergency department Note Patient transferred to [facility] at this time. Patient taken up in stable condition and with all belongings. Patient declined to remove sweat pants. Patient was given hospital socks but declined to put them on at this time. Report sheet and extra stickers given to RADHA Mulligan Report to RADHA Mulligan at this time [facility] gave room number [id number] Report to RADHA Onofre Patient wishes to leave his sweat pants on at this time Dr. Lowe returned my call, transferred to [facility]. Images from the original note were not included. Emergency Department Report [facility] EMERGENCY DEPARTMENT Service Date:.12/20/22 PCP: No primary care provider on file. Chief Complaint: Chief Complaint Patient presents with Wound Check Wound to left pinky toe. Was seen here for same complaint last month. Rates pain 12/20 @ this time. Wound noted to all around the left pinky toe. Temp is 98.3F oral in triage HPI Jb Medina is a 57 y.o. male presents to the ED today due to Wound. Patient was seen on November 05, 2022 in the emergency room for a wound to his left 5th toe. He was started on Keflex Bactrim and nystatin with a referral to Podiatry. He followed up with the Podiatry on 11/10/2022. Podiatry recommended following with Wound Care. Discussed that he may need surgical debridement or amputation of the toe. Patient did not follow with wound care. He states the pain has been worsening until now going to the foot. He denies any fever chills body aches nausea vomiting or diarrhea. No chest pain or shortness of breath. He denies being diabetic. He does state that he smokes cigarettes daily. Reports having high blood pressure. Denies any other medical history. Denies any prescription medication. Review of Systems: Review of Systems Constitutional: Negative. HENT: Negative. Eyes: Negative. Respiratory: Negative. Cardiovascular: Negative. Gastrointestinal: Negative. Endocrine: Negative. Genitourinary: Negative. Musculoskeletal: Negative. Skin: Positive for wound. Allergic/Immunologic: Negative. Neurological: Negative. Hematological: Negative. Psychiatric/Behavioral: Negative. Past Medical History: No past medical history on file. Past Surgical History: No past surgical history on file. Allergies: No Known Allergies Medications: Patient's Medications New Prescriptions No medications on file Previous Medications MUPIROCIN 2 % OINTMENT Apply small amount to affected area at every bandage change. Change bandage 1x a day This will be used for about 2 weeks TRAMADOL 50 MG TABLET Take 1 tablet by mouth every 6 hours as needed for Moderate Pain for up to 5 days. Modified Medications No medications on file Discontinued Medications No medications on file Family History: History reviewed. No pertinent family history. Social History: Social History Socioeconomic History Marital status: Single Spouse name: Not on file Number of children: Not on file Years of education: Not on file Highest education level: Not on file Occupational History Employer: UNEMPLOYED Tobacco Use Smoking status: Every Day Packs/day: .5 Types: Cigarettes Smokeless tobacco: Never Substance and Sexual Activity Alcohol use: Yes Alcohol/week: 1.0 standard drink of alcohol Types: 1 Cans of beer per week Comment: 1 can a day Drug use: Yes Types: Marijuana Sexual activity: Not on file Other Topics Concern Not on file Social History Narrative Not on file Social Determinants of Health Financial Resource Strain: Not on file Food Insecurity: Not on file Transportation Needs: Not on file Physical Activity: Not on file Stress: Not on file Social Connections: Not on file Intimate Partner Violence: Not on file Housing Stability: Not on file Physical Exam: Physical Exam Vitals and nursing note reviewed. Constitutional: General: He is not in acute distress. Appearance: Normal appearance. He is not ill-appearing. HENT: Head: Normocephalic and atraumatic. Eyes: Extraocular Movements: Extraocular movements intact. Conjunctiva/sclera: Conjunctivae normal. Pupils: Pupils are equal, round, and reactive to light. Cardiovascular: Rate and Rhythm: Normal rate and regular rhythm. Pulses: Normal pulses. Heart sounds: Normal heart sounds, S1 normal and S2 normal. Heart sounds not distant. No murmur heard. No friction rub. No gallop. No S3 or S4 sounds. Pulmonary: Effort: Pulmonary effort is normal. No respiratory distress. Breath sounds: No stridor, decreased air movement or transmitted upper airway sounds. Examination of the right-lower field reveals wheezing. Wheezing present. No decreased breath sounds, rhonchi or rales. Musculoskeletal: Cervical back: Normal range of motion. Right lower leg: No edema. Left lower leg: No edema. Feet: Comments: Black eschar tissue to the left 5th digit. Please see attached photos of wound Skin: General: Skin is warm and dry. Capillary Refill: Capillary refill takes less than 2 seconds. Neurological: General: No focal deficit present. Mental Status: He is alert and oriented to person, place, and time. Psychiatric: Mood and Affect: Mood normal. Thought Content: Thought content normal. Judgment: Judgment normal. Vital Signs During ED Visit Patient Vitals for the past 24 hrs: BP Temp Temp src Pulse Resp SpO2 Height Weight 12/20/22 1301 169/73 -- -- 95 17 95 % -- -- 12/20/22 1120 163/90 98.3 F (36.8 C) Oral 99 16 98 % 1.854 m (6' 1 ) 79.4 kg (175 lb) Orders/Results: Orders Placed This Encounter BLOOD CULTURE, PERIPHERAL 1ST SITE BLOOD CULTURE, PERIPHERAL 2ND SITE CULTURE WOUND MRSA NASAL SWABS TO BILATERAL NARES XR FOOT LEFT 3 VIEWS COMPREHENSIVE METABOLIC PANEL LIPASE MAGNESIUM CBC, EDIF, PLATELET PROTIME-INR LACTATE, BLOOD SEDIMENTATION RATE, AUTOMATED C REACTIVE PROTEIN Sodium chloride 0.9% IV solution traMADol (ULTRAM) tablet 50 mg DISCONTD: Vancomycin HCl in NaCl (VANCOCIN) 1,250 mg in 0.9% NS 250 mL premix IVPB piperacillin-tazobactam (ZOSYN) 3.375 g in dextrose premix IVPB piperacillin-tazobactam (ZOSYN) 3.375 g in dextrose premix IVPB Morphine sulfate (PF) injection 4 mg Results for orders placed or performed during the hospital encounter of 12/20/22 COMPREHENSIVE METABOLIC PANEL Result Value Ref Range Glucose 101 (H) 70 - 100 MG/DL BUN 17 7 - 20 MG/DL CREATININE SERUM 1.00 0.70 - 1.20 MG/DL SODIUM 137 137 - 145 MMOL/L POTASSIUM 3.7 3.5 - 5.1 MMOL/L CHLORIDE 99 98 - 107 MMOL/L CALCIUM 9.2 8.4 - 10.2 MG/DL PROTEIN, TOTAL 7.6 6.3 - 8.2 GM/DL Albumin 4.3 3.5 - 5.0 G/dl BILIRUBIN, TOTAL 0.7 0.2 - 1.3 MG/DL AST 31 17 - 59 IU/L ALKALINE PHOSPHATASE 110 38 - 126 IU/L CARBON DIOXIDE (CO2) 27 22 - 30 MMOL/L A/G Ratio 1.3 RATIO ALT 18 <50 IU/L ESTIMATED GFR, NON AMER 82 ml/min/1.73sq.m ESTIMATED GFR, 99 ml/min/1.73sq.m GFR COMMENT Average GFR for 50-59 years old = 93. LIPASE Result Value Ref Range LIPASE 147 23 - 300 U/L MAGNESIUM Result Value Ref Range MAGNESIUM 2.2 1.6 - 2.3 MG/DL CBC, EDIF, PLATELET Result Value Ref Range WBC (WHITE BLOOD COUNT) 8.2 3.6 - 11.0 10*3/uL RBC 4.48 4.0 - 6.1 10*6/uL HEMOGLOBIN (HGB) 13.6 (L) 14.0 - 18.0 G/DL HEMATOCRIT (HCT) 41.6 (L) 42.0 - 52.0 % MEAN CELL VOLUME 92.8 80.0 - 100.0 FL Mean Cell HGB 30.4 26.0 - 35.0 PG MEAN CELL HGB CONCENTRATION 32.8 27.0 - 37.0 G/DL RBC DISTRIBUTION 14.2 11.5 - 14.5 % PLATELET COUNT 294 130 - 400 10*3/uL MEAN PLATELET VOLUME 7.3 (L) 7.4 - 11.0 FL DIFFERENTIAL TYPE AUTO DIFF % NEUTROPHILS 61.5 37.0 - 75.0 % LYMPHOCYTE 25.5 20.0 - 55.0 % MONOCYTE % 10.8 (H) 0.0 - 10.0 % EOSINOPHIL % 1.8 0.0 - 11.0 % BASOPHIL % 0.4 0.0 - 2.0 % Absolute Neutrophil Count 5.0 1.4 - 6.5 10*3/uL LYMPHOCYTES, ABSOLUTE 2.1 1.2 - 3.4 10*3/uL MONOCYTES, ABSOLUTE 0.9 (H) 0.0 - 0.7 10*3/uL ABSOLUTE EOSINOPHIL COUNT 0.1 0.0 - 0.7 10*3/uL ABSOLUTE BASOPHIL COUNT 0.0 0.0 - 0.2 10*3/uL PROTIME-INR Result Value Ref Range PT 12.7 11.8 - 14.4 SEC INR 0.94 0.85 - 1.10 LACTATE, BLOOD Result Value Ref Range LACTATE 1.7 0.7 - 2.0 mmol/L SEDIMENTATION RATE, AUTOMATED Result Value Ref Range SEDIMENTATION RATE AUTOMATED 57 (H) 0 - 20 MM/HR C REACTIVE PROTEIN Result Value Ref Range C-Reactive Protein 22.7 (H) 0 - 10 MG/L Radiographic Imaging XR FOOT LEFT 3 VIEWS Final Result IMPRESSION: Left foot study demonstrates degenerative changes as described. Findings compatible soft tissue ulcer in the distal aspect of the little toe soft tissue as described. No convincing evidence of osteomyelitis though air related to the presumed ulcer somewhat limits bony evaluation. Follow-up as needed. Procedures: Procedures Moderate Sedation Procedure: No ED Summary/MDM Cellulitis of toe of the left foot. Differential diagnosis including osteomyelitis. Review of labs lactic acid 1.7 chemistries are unremarkable. Coags unremarkable slight anemia present hemoglobin 13.6 hematocrit 41.6 otherwise CBC is unremarkable sed rate is elevated at 57 C-reactive protein is 22.7 x-ray of the left foot demonstrates degenerative changes as described. Findings compatible soft tissue ulcer in the distal aspect of the little toe soft tissue as described. No convincing evidence of osteomyelitis or air related to the presumed ulcer somewhat limits bony evaluation. Follow-up as needed. Wound culture and blood cultures were obtained. Reviewed results with patient. Shared decision making regarding plan of care was discussed. Plan of care is to admit for IV antibiotics and definitive care of the wound. Contacted hospitalist Dr. Lowe. Case was discussed. Patient is accepted under Dr. Lowe care consult to Podiatry as requested. Consult is placed. ER course is consisted of IV fluids for hydration maintenance. 50 mg p.o. Ultram was given for pain relief this did not improve his symptoms. 4 mg of morphine was ordered for analgesic care. He was started on vancomycin and Zosyn empirically. Patient is alert oriented stable with no acute distress. He is admitted to the medical-surgical unit for further observation and treatment. Clinical Impression: 1. Cellulitis of toe of left foot No follow-ups on file. New Prescriptions No medications on file Discontinued Medications No medications on file An After Visit Summary was printed and given to the patient with above information. . . Drake Zuñiga, HVAC INSTALLATION TECHNICIAN-PATIENT SUPPORT ASSOCIATE 12/20/[address] Lowe Lab @ bedside for blood culture draw. documented in this encounter [facility] 12-20-2022 Emergency department Note Report to RADHA Mulligan at this time [facility] 12-20-2022 Emergency department Note [facility] gave room number [id number] [facility] 12-20-2022 Emergency department Note Report to RADHA Onofre [facility] 12-20-2022 Emergency department Note Patient wishes to leave his sweat pants on at this time [facility] [facility] 12-20-[address] Lowe returned my call, transferred to [facility]. [facility] 12-20-2022 Physician Emergency department Note Images from the original note were not included. Emergency Department Report [facility] EMERGENCY DEPARTMENT Service Date:.12/20/22 PCP: No primary care provider on file. Chief Complaint: Chief Complaint Patient presents with Wound Check Wound to left pinky toe. Was seen here for same complaint last month. Rates pain 12/20 @ this time. Wound noted to all around the left pinky toe. Temp is 98.3F oral in triage HPI Jb Medina is a 57 y.o. male presents to the ED today due to Wound. Patient was seen on November 05, 2022 in the emergency room for a wound to his left 5th toe. He was started on Keflex Bactrim and nystatin with a referral to Podiatry. He followed up with the Podiatry on 11/10/2022. Podiatry recommended following with Wound Care. Discussed that he may need surgical debridement or amputation of the toe. Patient did not follow with wound care. He states the pain has been worsening until now going to the foot. He denies any fever chills body aches nausea vomiting or diarrhea. No chest pain or shortness of breath. He denies being diabetic. He does state that he smokes cigarettes daily. Reports having high blood pressure. Denies any other medical history. Denies any prescription medication. Review of Systems: Review of Systems Constitutional: Negative. HENT: Negative. Eyes: Negative. Respiratory: Negative. Cardiovascular: Negative. Gastrointestinal: Negative. Endocrine: Negative. Genitourinary: Negative. Musculoskeletal: Negative. Skin: Positive for wound. Allergic/Immunologic: Negative. Neurological: Negative. Hematological: Negative. Psychiatric/Behavioral: Negative. Past Medical History: No past medical history on file. Past Surgical History: No past surgical history on file. Allergies: No Known Allergies Medications: Patient's Medications New Prescriptions No medications on file Previous Medications MUPIROCIN 2 % OINTMENT Apply small amount to affected area at every bandage change. Change bandage 1x a day This will be used for about 2 weeks TRAMADOL 50 MG TABLET Take 1 tablet by mouth every 6 hours as needed for Moderate Pain for up to 5 days. Modified Medications No medications on file Discontinued Medications No medications on file Family History: History reviewed. No pertinent family history. Social History: Social History Socioeconomic History Marital status: Single Spouse name: Not on file Number of children: Not on file Years of education: Not on file Highest education level: Not on file Occupational History Employer: UNEMPLOYED Tobacco Use Smoking status: Every Day Packs/day: .5 Types: Cigarettes Smokeless tobacco: Never Substance and Sexual Activity Alcohol use: Yes Alcohol/week: 1.0 standard drink of alcohol Types: 1 Cans of beer per week Comment: 1 can a day Drug use: Yes Types: Marijuana Sexual activity: Not on file Other Topics Concern Not on file Social History Narrative Not on file Social Determinants of Health Financial Resource Strain: Not on file Food Insecurity: Not on file Transportation Needs: Not on file Physical Activity: Not on file Stress: Not on file Social Connections: Not on file Intimate Partner Violence: Not on file Housing Stability: Not on file Physical Exam: Physical Exam Vitals and nursing note reviewed. Constitutional: General: He is not in acute distress. Appearance: Normal appearance. He is not ill-appearing. HENT: Head: Normocephalic and atraumatic. Eyes: Extraocular Movements: Extraocular movements intact. Conjunctiva/sclera: Conjunctivae normal. Pupils: Pupils are equal, round, and reactive to light. Cardiovascular: Rate and Rhythm: Normal rate and regular rhythm. Pulses: Normal pulses. Heart sounds: Normal heart sounds, S1 normal and S2 normal. Heart sounds not distant. No murmur heard. No friction rub. No gallop. No S3 or S4 sounds. Pulmonary: Effort: Pulmonary effort is normal. No respiratory distress. Breath sounds: No stridor, decreased air movement or transmitted upper airway sounds. Examination of the right-lower field reveals wheezing. Wheezing present. No decreased breath sounds, rhonchi or rales. Musculoskeletal: Cervical back: Normal range of motion. Right lower leg: No edema. Left lower leg: No edema. Feet: Comments: Black eschar tissue to the left 5th digit. Please see attached photos of wound Skin: General: Skin is warm and dry. Capillary Refill: Capillary refill takes less than 2 seconds. Neurological: General: No focal deficit present. Mental Status: He is alert and oriented to person, place, and time. Psychiatric: Mood and Affect: Mood normal. Thought Content: Thought content normal. Judgment: Judgment normal. Vital Signs During ED Visit Patient Vitals for the past 24 hrs: BP Temp Temp src Pulse Resp SpO2 Height Weight 12/20/22 1301 169/73 -- -- 95 17 95 % -- -- 12/20/22 1120 163/90 98.3 F (36.8 C) Oral 99 16 98 % 1.854 m (6' 1 ) 79.4 kg (175 lb) Orders/Results: Orders Placed This Encounter BLOOD CULTURE, PERIPHERAL 1ST SITE BLOOD CULTURE, PERIPHERAL 2ND SITE CULTURE WOUND MRSA NASAL SWABS TO BILATERAL NARES XR FOOT LEFT 3 VIEWS COMPREHENSIVE METABOLIC PANEL LIPASE MAGNESIUM CBC, EDIF, PLATELET PROTIME-INR LACTATE, BLOOD SEDIMENTATION RATE, AUTOMATED C REACTIVE PROTEIN Sodium chloride 0.9% IV solution traMADol (ULTRAM) tablet 50 mg DISCONTD: Vancomycin HCl in NaCl (VANCOCIN) 1,250 mg in 0.9% NS 250 mL premix IVPB piperacillin-tazobactam (ZOSYN) 3.375 g in dextrose premix IVPB piperacillin-tazobactam (ZOSYN) 3.375 g in dextrose premix IVPB Morphine sulfate (PF) injection 4 mg Results for orders placed or performed during the hospital encounter of 12/20/22 COMPREHENSIVE METABOLIC PANEL Result Value Ref Range Glucose 101 (H) 70 - 100 MG/DL BUN 17 7 - 20 MG/DL CREATININE SERUM 1.00 0.70 - 1.20 MG/DL SODIUM 137 137 - 145 MMOL/L POTASSIUM 3.7 3.5 - 5.1 MMOL/L CHLORIDE 99 98 - 107 MMOL/L CALCIUM 9.2 8.4 - 10.2 MG/DL PROTEIN, TOTAL 7.6 6.3 - 8.2 GM/DL Albumin 4.3 3.5 - 5.0 G/dl BILIRUBIN, TOTAL 0.7 0.2 - 1.3 MG/DL AST 31 17 - 59 IU/L ALKALINE PHOSPHATASE 110 38 - 126 IU/L CARBON DIOXIDE (CO2) 27 22 - 30 MMOL/L A/G Ratio 1.3 RATIO ALT 18 <50 IU/L ESTIMATED GFR, NON AMER 82 ml/min/1.73sq.m ESTIMATED GFR, 99 ml/min/1.73sq.m GFR COMMENT Average GFR for 50-59 years old = 93. LIPASE Result Value Ref Range LIPASE 147 23 - 300 U/L MAGNESIUM Result Value Ref Range MAGNESIUM 2.2 1.6 - 2.3 MG/DL CBC, EDIF, PLATELET Result Value Ref Range WBC (WHITE BLOOD COUNT) 8.2 3.6 - 11.0 10*3/uL RBC 4.48 4.0 - 6.1 10*6/uL HEMOGLOBIN (HGB) 13.6 (L) 14.0 - 18.0 G/DL HEMATOCRIT (HCT) 41.6 (L) 42.0 - 52.0 % MEAN CELL VOLUME 92.8 80.0 - 100.0 FL Mean Cell HGB 30.4 26.0 - 35.0 PG MEAN CELL HGB CONCENTRATION 32.8 27.0 - 37.0 G/DL RBC DISTRIBUTION 14.2 11.5 - 14.5 % PLATELET COUNT 294 130 - 400 10*3/uL MEAN PLATELET VOLUME 7.3 (L) 7.4 - 11.0 FL DIFFERENTIAL TYPE AUTO DIFF % NEUTROPHILS 61.5 37.0 - 75.0 % LYMPHOCYTE 25.5 20.0 - 55.0 % MONOCYTE % 10.8 (H) 0.0 - 10.0 % EOSINOPHIL % 1.8 0.0 - 11.0 % BASOPHIL % 0.4 0.0 - 2.0 % Absolute Neutrophil Count 5.0 1.4 - 6.5 10*3/uL LYMPHOCYTES, ABSOLUTE 2.1 1.2 - 3.4 10*3/uL MONOCYTES, ABSOLUTE 0.9 (H) 0.0 - 0.7 10*3/uL ABSOLUTE EOSINOPHIL COUNT 0.1 0.0 - 0.7 10*3/uL ABSOLUTE BASOPHIL COUNT 0.0 0.0 - 0.2 10*3/uL PROTIME-INR Result Value Ref Range PT 12.7 11.8 - 14.4 SEC INR 0.94 0.85 - 1.10 LACTATE, BLOOD Result Value Ref Range LACTATE 1.7 0.7 - 2.0 mmol/L SEDIMENTATION RATE, AUTOMATED Result Value Ref Range SEDIMENTATION RATE AUTOMATED 57 (H) 0 - 20 MM/HR C REACTIVE PROTEIN Result Value Ref Range C-Reactive Protein 22.7 (H) 0 - 10 MG/L Radiographic Imaging XR FOOT LEFT 3 VIEWS Final Result IMPRESSION: Left foot study demonstrates degenerative changes as described. Findings compatible soft tissue ulcer in the distal aspect of the little toe soft tissue as described. No convincing evidence of osteomyelitis though air related to the presumed ulcer somewhat limits bony evaluation. Follow-up as needed. Procedures: Procedures Moderate Sedation Procedure: No ED Summary/MDM Cellulitis of toe of the left foot. Differential diagnosis including osteomyelitis. Review of labs lactic acid 1.7 chemistries are unremarkable. Coags unremarkable slight anemia present hemoglobin 13.6 hematocrit 41.6 otherwise CBC is unremarkable sed rate is elevated at 57 C-reactive protein is 22.7 x-ray of the left foot demonstrates degenerative changes as described. Findings compatible soft tissue ulcer in the distal aspect of the little toe soft tissue as described. No convincing evidence of osteomyelitis or air related to the presumed ulcer somewhat limits bony evaluation. Follow-up as needed. Wound culture and blood cultures were obtained. Reviewed results with patient. Shared decision making regarding plan of care was discussed. Plan of care is to admit for IV antibiotics and definitive care of the wound. Contacted hospitalist Dr. Lowe. Case was discussed. Patient is accepted under Dr. Lowe care consult to Podiatry as requested. Consult is placed. ER course is consisted of IV fluids for hydration maintenance. 50 mg p.o. Ultram was given for pain relief this did not improve his symptoms. 4 mg of morphine was ordered for analgesic care. He was started on vancomycin and Zosyn empirically. Patient is alert oriented stable with no acute distress. He is admitted to the medical-surgical unit for further observation and treatment. Clinical Impression: 1. Cellulitis of toe of left foot No follow-ups on file. New Prescriptions No medications on file Discontinued Medications No medications on file An After Visit Summary was printed and given to the patient with above information. . . Drake Zuñiga APRN-STARR 12/20/22 1342 [facility] 12-20-2022 Emergency department Note Paged Dr. Lowe [facility] 12-20-2022 Emergency department Note Lab @ bedside for blood culture draw. [facility] 11-10-2022 History of Presen t illness Narrative Nurse Note: Review of Systems Constitutional: Negative for fatigue, fever and unexpected weight change. HENT: No difficulty swallowing No change in voice Respiratory: Negative for cough, shortness of breath and wheezing. Cardiovascular: Negative for chest pain, palpitations and leg swelling. Gastrointestinal: Negative for constipation, diarrhea, nausea and vomiting. Neurological: Negative for tremors, weakness and numbness. Psychiatric/Behavioral: Negative for sleep disturbance. The patient is not nervous/anxious. Nursing Assessment: Physical Exam Patient: Jb Medina Date: 11/10/2022 Approximate date ulcer/sore started: middle of October Chief Complaint: Patient is a 57 y.o. year old male who presents today with a chief complaint of an ulceration to the left 5th toe. Condition has been present for 3 weeks Patient relates that ulceration is painful Previous treatments include xrays and emergency room Patient states that the area is improving Patient denies trauma. He does get pain in legs when walking A history of this condition does not exist . Smokes 1/2ppd for as long as he can remember Patient was referred by: ED No Known Allergies Current Outpatient Medications Medication Sig cephALEXin 500 MG capsule Take 1 capsule by mouth every 6 hours for 10 days. nystatin [id number] UNIT/GM Powder powder Apply 1 Application topically 2 times daily for 7 days. Sulfamethoxazole-trimethoprim 800-160 MG per tablet Take 1 tablet by mouth 2 times daily for 10 days. No past medical history on file. No past surgical history on file. Social History Occupational History Employer: UNEMPLOYED Tobacco Use Smoking status: Every Day Packs/day: 0.50 Types: Cigarettes Smokeless tobacco: Never Substance and Sexual Activity Alcohol use: Yes Alcohol/week: 1.0 standard drink of alcohol Types: 1 Cans of beer per week Comment: 1 can a day Drug use: Yes Types: Marijuana Sexual activity: Not on file Review of Systems Nurse Note: Review of Systems Constitutional: Negative for fatigue, fever and unexpected weight change. HENT: No difficulty swallowing No change in voice Respiratory: Negative for cough, shortness of breath and wheezing. Cardiovascular: Negative for chest pain, palpitations and leg swelling. Gastrointestinal: Negative for constipation, diarrhea, nausea and vomiting. Neurological: Negative for tremors, weakness and numbness. Psychiatric/Behavioral: Negative for sleep disturbance. The patient is not nervous/anxious. Nursing Assessment: Physical Exam Objective: Vitals: 11/10/22 1352 BP: 168/88 Pulse: 98 SpO2: 98% Physical Examination: The patient is appropriately dressed, articulate, awake, alert, and oriented x 3, appears their stated age and appears to be in fair health. Vascular: Dorsalis pedis pulse is 1/4 left and 1/4 right. Posterior tibial pulses is 1/4 left and 1/4 right. Capillary fill time is delayed left 5th toe and delayed right. Dermatological: Skin temperature is cool to the right foot and left 5th toe Left 5th toe is dusky in color Ulceration #1: Ulceration location Left 5th toe medial side . Type: ischemic Wound dimensions: 11/10/22 3 cm long by 1 cm wide by 0.1 cm deep. Wound dimensions after debridement: 11/10/22 No debridement Base: Ulceration extends Partially through skin. Granular tissue present 100%. Fibrous/scar/devitalized tissue absent 0%. Necrotic tissue absent 0%. Drainage:No . drainage observed. Surrounding Area: negative odor, erythema, streaking, crepitus, calor Tovar Staging: Grade 1 - superficial ulcer of skin without subcutaneous tissue involvement, not infected Musculoskeletal: Muscle strength for all prime movers of the lower leg, ankle, and foot are graded at 5/5 bilateral lower extremities. Appropriate muscle tone and symmetry bilateral lower extremities. Neurological: diminished sharp/dull sensation bilateral. normal light touch sensation bilateral. Coordination is good MICRO Lab Results Component Value Date RESULTCULT NO GROWTH 5 DAYS 11/05/2022 Impression: ICD-10-CM 1. Atherosclerosis of [place] artery of both lower extremities with intermittent claudication I70.213 VASC ANKLE BRACHIAL INDEX AMB REFERRAL TO VASCULAR SURGERY traMADol 50 MG tablet 2. Diabetic ulcer of left fifth toe E11.621 Mupirocin 2 % ointment L97.529 VASC ANKLE BRACHIAL INDEX AMB REFERRAL TO VASCULAR SURGERY traMADol 50 MG tablet 3. Critical limb ischemia of left lower extremity I70.222 This is an acute limb threatening diagnosis Plan of Care: Patient was seen and evaluated today with a complete history and lower extremity physical exam. Comorbidity affecting healing: smoking Unique labs/ imgaing reviewed from another provider: CBC, Chemistry, xrays, ED notes 1. RONI ordered 2. Urgent referral to dr. Chatman 3. I discussed the possible causes of ulceration with patient. 4. We also talked about infection and the possibility of amputation if this does not heal. 5. If there is delayed healing I will consider surgical debridement in the operating room and application of skin grafts as appropriate. 6. I explained proper hygiene for the wound at home and that the wound should be covered at all times and not be left open to air as this can lead to infection in the wound 7. The wound will not be soaked or get wet in the shower, again, this can lead to infection in the wound 8. Excisional debridement was not performed today. see procedure note for details if debridement was performed. 9. A culture was not taken today 10. mupirocin ointment and dry sterile dressing was applied. 11. The dressing needs to be changed daily 12. Dressing will consist of: mupirocin ointment and DSD 13. rx mupirocin ointment 14. rx tramadol for pain. OARRS checked 15. Patient was given an opportunity to ask all questions to their satisfaction. Goal: 1. Complete healing of wound in 2 months or less, we will plan on regular appointments until healed 2. Keep wound free of infection. 3. We will achieve this through debridement, appropriate wound dressings, antibiotics as need, proper hygiene, and a team approach with wound care, vascular surgery, infectious disease and imaging as needed. Patient is to return to office in 2 weeks If the patient notices: increase in drainage, redness, foul odor or feel like they are getting flu-like symptoms they should contact the office during working hours or go to the emergency room after hours. Patient will contact the office sooner is any problems arise. documented in this encounter [facility] 11-10-2022 Instructions Mahamed Sauer DPM - 11/10/2022 2:[address] Sauer has ordered a test for you. Please call Central Scheduling @ [phone] Name of test: Arterial Brachial Index (RONI) Also known as a vascular ankle brachial index What is the test for? Blood flow study for your feet. Dr. Sauer's office will call you with the results. documented in this encounter [facility] 11-05-2022 Emergency department Note Pt wound dressed at this time, per providers request. [facility] 11-05-2022 Emergency department Note Pt wound dressed at this time, per providers request. Dr.Harper Milton at bedside X ray at bedside. documented in this encounter [facility] 11-05-[address]Harper Milton at bedside [facility] 11-05-2022 Emergency department Note X ray at bedside. [facility] Diagnosis Critical limb ischemia of left lower extremity- Primary Atherosclerosis of [place] artery of both lower extremities with intermittent claudication Atherosclerosis of [place] arteries of the extremities with intermittent claudication Diabetic ulcer of left fifth toe [facility] Diagnosis Cellulitis of left lower extremity- Primary Cellulitis and abscess of leg, except foot Cellulitis of toe of left foot Cellulitis and abscess of toe, unspecified Tobacco abuse Tobacco use disorder Benign hypertension Essential hypertension, benign [facility] Diagnosis Gangrene due to peripheral vascular disease (HCC)- Primary Critical limb ischemia of left lower extremity with gangrene (HCC) Left foot pain Pain in soft tissues of limb Wound of left foot PVD (peripheral vascular disease) with claudication (HCC) Unspecified peripheral vascular disease Critical limb ischemia of left lower extremity with gangrene (HCC) Difficulty walking Difficulty in walking Gangrene of toe (HCC) Gangrene [facility] Diagnosis Anemia, unspecified type- Primary Hyperlipidemia, unspecified hyperlipidemia type IFG (impaired fasting glucose) Tobacco abuse Tobacco use disorder Screening for colon cancer Special screening for malignant neoplasms, colon Benign hypertension Essential hypertension, benign Healthcare maintenance [facility] Diagnosis IFG (impaired fasting glucose)- Primary [facility] Diagnosis Anemia, unspecified type- Primary Hyperlipidemia, unspecified hyperlipidemia type IFG (impaired fasting glucose) Tobacco abuse Tobacco use disorder Screening for colon cancer Special screening for malignant neoplasms, colon Benign hypertension Essential hypertension, benign Healthcare maintenance Tobacco abuse Tobacco use disorder documented in this encounter [facility] Discharge instructions* Attachments The following attachments cannot be sent through Care Everywhere. * Cellulitis Skin Infection ([facility]) (Singaporean) [facility] for [facility] (narrative)* Consultation (Urgent) - New Request Specialty Diagnoses / Procedures Referred By Brianda espinoza Referred To Contact Podiatry Diagnoses Abscess or cellulitis of toe, left Kelly Dennis PA-C [address] [place] [id number] Mahamed Sauer DPM [address] [place] [address] Referral ID Status Reason Start Date Expiration Date V isits Requested Visits Authorized [id number] New Request 11/05/2022 11/30/2023 1 1 [facility] for referral (narrative)* Consultation (Urgent) - New Request Specialty Diagnoses / Procedures Referred By Contac t Referred To Contact Vascular Surgery Diagnoses Atherosclerosis of [place] artery of both lower extremities with intermittent claudication Diabetic ulcer of left fifth toe Mahamed Sauer DPM [address] [place] [address] Sonu Mcgrath MD [address] [place] [address] Referral ID Status Reason Start Date Expiration Date V isits Requested Visits Authorized [id number] New Request 11/10/2022 12/05/2023 1 1 * Radiology (Routine) - New Request Specialty Diagnoses / Procedures Referred By Contac t Referred To Contact Diagnoses Atherosclerosis of [place] artery of both lower extremities with intermittent claudication Diabetic ulcer of left fifth toe Procedures VASC ANKLE BRACHIAL INDEX [place] NONINVASV EXTREM EXAM,1LEVEL,BILAT Mahamed Sauer DPM [address] [place] [address] Referral ID Status Reason Start Date Expiration Date V isits Requested Visits Authorized [id number] New Request 11/10/2022 12/05/2023 1 1 [facility] (Routine) Specialty Diagnoses / Procedures Referred By Contac t Referred To Contact [facility] RE[facility] LOC [address] [place] [address] Referral ID Status Reason Start Date Expiration Date Visits Re quested Visits Authorized * (Routine) - New Request Specialty Diagnoses / Procedures Referred By Contac t Referred To Contact Procedures INPATIENT ADMISSION NOTIFICATION Jeannine Lowe, [address] [place] [address] Referral ID Status Reason Start Date Expiration Date V isits Requested Visits Authorized [id number] New Request 12/20/2022 01/14/2024 1 1 [facility] Advance Directives No Advanced Directives Records FoundLatest Code Status on File Code Status Date Activated Date Inactivated Comments Full Code 12/20/2022 1:34 PM Summary Purpose Family History No Family History Records FoundNo Family History Records FoundNo Family History Records FoundNo Family History Records Found Reason for Referral Specialty Diagnoses / Procedures Referred By Contac t Referred To Contact Radiology Diagnoses Tobacco abuse Procedures CT Lung Cancer Screening Lyla Agosto, PATIENT SUPPORT ASSOCIATE [address] [place] [address] [place] [address] [place] [address] Referral ID Status Reason Start Date Expiration Date V isits Requested Visits Authorized [id number] Authorized 02/23/2023 02/23/2024 1 1 Referral ID Status Reason Start Date Expiration Date Visits Re quested Visits Authorized [id number] Closed 02/23/2023 02/23/2024 1 1 Additional Source Comments Reason for Visit (unrecogniz ed section and content) Reason Comments Cellulitis Specialty Diagnoses / Procedures Referred By Contac t Referred To Contact Podiatry Diagnoses Abscess or cellulitis of toe, left Dennis, OCHOA Soto [address] [place] [id number] Mahamed Sauer, DPM [address] [place] [address] Referral ID Status Reason Start Date Expiration Date V isits Requested Visits Authorized [id number] New Request 11/05/2022 11/30/2023 1 1 Specialty Diagnoses / Procedures Referred By Contac t Referred To Contact Ultrasound Diagnoses Atherosclerosis of [place] artery of both lower extremities with intermittent claudication Diabetic ulcer of left fifth toe Procedures VASC ANKLE BRACHIAL INDEX [place] NONINVASV EXTREM EXAM,1LEVEL,BILAT Mahamed Sauer, DPM [address] [place] [address] [facility] [address] [place] [address] Referral ID Status Reason Start Date Expiration Date Visits Re quested Visits Authorized [id number] Closed 11/10/2022 12/05/2023 1 1 Reason Comments Wound Check Wound to left pinky toe. Was seen here for same complaint last month. Rates pain 12/20 @ this time. Wound noted to all around the left pinky toe. Temp is 98.3F oral in triage Specialty Diagnoses / Procedures Referred By Brianda espinoza Referred To Contact [facility] Referral ID Status Reason Start Date Expiration Date Visits Re quested Visits Authorized [id number] 1 1 Reason Comments Evaluation Reason Comments Establish Care Gap Closure (Health Maintenance) PSA Lev el Never doneLow-dose CT Lung Cancer Screen Never doneColorectal Cancer Screening/Monitoring Never doneCOVID-19 Vaccine(1) Never doneWellness Visit Never donePneumococcal Vaccine: Ped or At-Risk(1 - PCV) Never doneDiabetic Foot Exam Never doneDiabetic Eye Exam Never doneUrine Microalbumin Never doneDepression Screening (PHQ-2/9) Never doneHIV Screening Never doneHepatitis C Screening Never doneZoster Vaccines(1 of 2) Never doneSequential Influenza Vaccine(1) Never done Reason Onset Date Comments Care Management Referral 03/17/2023 Scheduled Active and Recently Administ ered Medications (unrecognized section and content) Scheduled Medication Order 12/19/2022 12/20/2022 12/21/2022 ceFEPIme (MAXIPIME) 2 g in sodium chloride 0.9% (MB PLUS) 100 mL (total volume) IVPB 2 g, Intravenous, Administer over 4 Hours, EVERY 8 HOURS NON-STANDARD, First dose on Mon12/20/22 at 1700, Until Discontinued, Infuse STAT doses over 30 minutes. Infuse other doses over 4 hours. 1720 ($$New Bag$$ - Provider: Ese Ruiz RN) 0037 ($$New Bag$$ - Provider: Ese Montez)0849 ($$New Bag$$ - Provider: Rachell Breen RN)1452 (Stopped - Provider: Rachell Breen RN) Enoxaparin Sodium (LOVENOX) injection 40 mg 40 mg, Subcutaneous, DAILY, First dose on Mon12/21/22 at 0900, Until Discontinued, Indications: DVT/PE prophylaxis 0849 (Given - Provid er: Rachell Breen RN) iohexol (OMNIPAQUE) 350 MG/ML injection 75 mL (COMPLETED) 75 mL, Intravenous, ONCE, 1 dose, On Mon12/21/22 at 1000, Extravasation Risk, Radiology Procedure 1008 (Given - Radiol ogy - Provider: Yadi Lerma) Lisinopril (PRINIVIL) tablet 5 mg 5 mg, Oral, DAILY, First dose on Mon12/21/22 at 0900, Until Discontinued 0849 (Given - Provid er: Rachell Breen RN) Magnesium sulfate 2 g/50 ml in sterile water premix IVPB 2 g 50 mL (total volume) 2 g, Intravenous, Administer over 4 Hours, DAILY, First dose on Mon12/21/22 at 0600, Until Discontinued, Give if magnesium is less than 2 on morning labs. Infuse at a rate of 0.5 gm/hour. 0604 (Not Given - Provider: Ese Montez - Reason: Order Parameters not met) Morphine sulfate (PF) injection 4 mg (COMPLETED) 4 mg, Intravenous, ONCE, 1 dose, On Mon12/20/22 at 1415 1339 (Given - Provider: Juli Poe RN) Pantoprazole (PROTONIX) tablet DR 40 mg 40 mg, Oral, DAILY, First dose on Mon12/21/22 at 0900, Until Discontinued, Do not crush., Indications: Inpt Stress Ulcer Prophylaxis 0849 (Given - Provid er: Rachell Breen RN) piperacillin-tazobactam (ZOSYN) 3.375 g in dextrose premix IVPB (COMPLETED) 3.375 g, Intravenous, Administer over 0.5 Hours, ONCE, 1 dose, On Mon12/20/22 at 1330, Infuse STAT doses over 30 minutes. Infuse other doses over 4 hours. Contains a penicillin., Indications: Empiric therapy 1340 ($$New Bag$$ - Provider: Juli Lui, RN)1412 (Stopped - Provider: Marcin Valerio RN) Potassium chloride (K-DUR) tablet ER 40 mEq(Linked Group 1) 40 mEq, Oral, DAILY, First dose on Mon12/21/22 at 0600, Until Discontinued, Give if potassium is 3.1 to 3.4 on morning labs and patient is able to tolerate oral medications Swallow tablets whole; do not crush, chew, or suck on tablet. Tablet may also be broken in half and each half swallowed separately. 0604 (Not Given - Provider: Ese Montez - Reason: Order Parameters not met) potassium chloride 40 mEq in 0.9% sodium chloride 500 ml IVPB(Linked Group 1) 40 mEq, Intravenous, at 125 mL/hr, Administer over 4 Hours, DAILY, First dose on Mon12/21/22 at 0600, Until Discontinued, Give if potassium is less than 3.1 on morning labs OR if potassium is 3.1 to 3.4 on morning labs and patient is UNABLE to tolerate oral medications 06 (See Alternativ e - Provider: Ese Montez) Sodium chloride 0.9% IV solution 100 mL (COMPLETED) 100 mL, Intravenous, ONCE, 1 dose, On Mon12/21/22 at 1000, Radiology Procedure 1008 ($$New Bag$$ - Provider: Yadi Lerma) traMADol (ULTRAM) tablet 50 mg (COMPLETED) 50 mg, Oral, ONCE, 1 dose, On Mon12/20/22 at 1300 1224 (Given - Provider: Marcin Valerio RN) Vancomycin (VANCOCIN) 1,750 mg in Sodium chloride 0.9%, with overfill 567.5 mL (total volume) IVPB 1,750 mg, Intravenous, EVERY 12 HOURS NON-STANDARD, First dose (after last modification) on Mon12/21/22 at 1400, Until Discontinued, Infuse at a rate of 1 gram/hour. Extravasation Risk 1400 (Canceled Entry - Provider: System Discharge - Comment: Automatically canceled at discontinue of medication order) Vancomycin HCl in NaCl (VANCOCIN) 1,250 mg in 0.9% NS 250 mL premix IVPB (CANCELED) 1,250 mg, Intravenous, EVERY 12 HOURS NON-STANDARD, First dose on Mon12/20/22 at 1400, Until Discontinued, Infuse at a rate of 1 gram/hour. Extravasation Risk 1417 ($$New Bag$$ - Provider: Marcin Valerio, RN) 0442 ($$New Bag$$ - Provider: Ese Montez - Comment: Other antibiotic running.) Continuous Medication Order 12/19/2022 12/20/2022 12/21/2022 Sodium chloride 0.9% IV solution (CANCELED) Intravenous, at 125 mL/hr, CONTINUOUS, Starting on Mon12/20/22 at 1230, Until Mon12/20/22 at 1542 1224 ($$New Bag$$ - Provider: Marcin Valerio RN) Sodium chloride 0.9% IV solution Intravenous, at 75 mL/hr, CONTINUOUS, Starting on Mon12/20/22 at 1545, Until Mon12/21/22 at 1653 1559 (Rate/Dose Change - Provider: Ese Ruiz RN) 0947 ($$New Bag$$ - Provider: Rachell Breen RN)1452 (Stopped - Provider: Rachell Breen RN) PRN Medication Order 12/19/2022 12/20/2022 12/21/2022 Acetaminophen (TYLENOL) tablet 325-650 mg 325-650 mg, Oral, EVERY 4 HOURS NEEDED, Starting on Mon12/20/22 at 1540, Until Mon12/21/22 at 1653, Mild Pain, Maximum dose of acetaminophen is 4000 mg from all sources in 24 hours. Labetalol (NORMODYNE) injection 20 mg 20 mg, Intravenous, EVERY 4 HOURS NEEDED, Starting on Mon12/20/22 at 1540, Until Mon12/21/22 at 1653, systolic blood pressure greater than 160, Administration duration: up to 20 mg over 2 minutes. Ondansetron 4mg/2ml (ZOFRAN) injection 4 mg 4 mg, Intravenous, EVERY 4 HOURS NEEDED, Starting on Mon12/20/22 at 1540, Until Mon12/21/22 at 1653, Nausea / Vomiting oxyCODONE-acetaminophen (PERCOCET) 5-325 MG per tablet 1 tablet 1 tablet, Oral, EVERY 6 HOURS NEEDED, Starting on Mon12/20/22 at 1744, Until Mon12/21/22 at 1653, Moderate Pain, Severe Pain 1802 (Given - Provider: Ese Ruiz RN) 0139 (Given - Provider: Ese Montez)0930 (Given - Provider: Rachell Breen, RADHA) Potassium phosphates 30 mmol in Sodium chloride 0.9%, with overfill 535 mL (total volume) IVPB 30 mmol, Intravenous, Administer over 6 Hours, DAILY NEEDED, Starting on Mon12/20/22 at 1540, Until Mon12/21/22 at 1653, Other, If phospate <2.5, give 30mmol, Extravasation Risk Linked Groups Order Group 1: Potassium chloride (K-DUR) tablet ER 40 mEqJump to med 40 mEq, Oral, DAILY, First dose on Mon12/21/22 at 0600, Until Discontinued
Give if potassium is 3.1 to 3.4 on morning labs and patient is able to tolerate oral medications Swallow tablets whole; do not crush, chew, or suck on tablet. Tablet may also be broken in half and each half swallowed separately.
Or potassium chloride 40 mEq in 0.9% sodium chloride 500 ml IVPBJump to med 40 mEq, Intravenous, at 125 mL/hr, Administer over 4 Hours, DAILY, First dose on Mon12/21/22 at 0600, Until Discontinued
Give if potassium is less than 3.1 on morning labs OR if potassium is 3.1 to 3.4 on morning labs and patient is UNABLE to tolerate oral medications
(unrecognized sect ion and content) No Status Records FoundNo Status Records FoundNo Status Records FoundNo Status Records Found INFORMATION SOURCE (unrecogn ized section and content) DATE CREATED AUTHOR AUTHOR'S ORGANIZ ATION 01/06/2023 [facility] DATE CREATED AUTHOR AUTHOR'S ORGANIZ ATION 02/25/2023 [facility] DATE CREATED AUTHOR AUTHOR'S ORGANIZ ATION 03/22/[address] [facility] Care Teams (unrecognized sec tion and content) Assistant Football Coach Relationship Specialty Start Date End Date No, Physician [facility] PCP - General 12/28/22 Assistant Football Coach Relationship Specialty Start Date End Date Lyla Agosto, STARR [address] [place] [address] PCP - General Nurse Practitioner 02/23/23 Assistant Football Coach Relationship Specialty Start Date End Date Lyla Agosto CNP [address] [place] [address] PCP - General Nurse Practitioner 02/23/23 Assistant Football Coach Relationship Specialty Start Date End Date Lyla Agosto CNP [address] [place] [address] PCP - General Nurse Practitioner 02/23/23 Priscila Persno Community Health Worker Case Management 03/17/23 03/17/23 Assistant Football Coach Relationship Specialty Start Date End Date Lyla Agosto CNP [address] [place] [address] PCP - General Nurse Practitioner 02/23/23 Jie Pettit, charge account authorizerSpecial Procedures Nurse 03/14/23 03/14/23 Priscila Person Community Health Worker Case Management 03/17/23 03/17/23 FOR RECORDS PERTAINING TO PATIENTS WHO ARE OR HAVE BEEN ENROLLED IN A CHEMICAL DEPENDENCY/SUBSTANCEABUSE PROGRAM, SOME INFORMATION MAY BE OMITTED. This clinical summary was aggregated from multiple sources. Caution should be exercised in using it in the provision of clinical care. This summary normalizes information from multiple sources, and as a consequence, information in this document may materially change the coding, format and clinical context of patient data. In addition, data may be omitted in some cases. CLINICAL DECISIONS SHOULD BE BASED ON THE PRIMARY CLINICAL RECORDS. [facility] [employer] [facility] provides no warranty or guarantee of the accuracy or completeness of information in this document.
[2023-03-24 12:17] VITALS: BP 137/81; PULSE 74; RESP 16; TEMP 36.6; O2SAT 100; BMI 22.1
[2023-03-24] MEDS: Lactated Ringers 1,000 ML 15 ML IV (12:29)
[2023-03-24] MEDS: Acetaminophen 500 MG Tablet 1000 MG PO (12:32)
[2023-03-24] MEDS: Gabapentin 600 MG Tablet PO (12:32)
[2023-03-24] MEDS: Cefazolin 2 GM in 0.9% Normal Saline (100mL Bag) 100 ML IV (13:22)
[2023-03-24 13:39] LABS: Bedside Glucose 105 mg/dL (74-106)
[2023-03-24] MEDS: Bupivacaine Mpf 0.5% 30 ML VIAL (13:45)
[2023-03-24 14:15] VITALS: BP 130/74; BP 137/81; PULSE 60; RESP 16; TEMP 36.7; O2SAT 97
[2023-03-24 14:20] VITALS: BP 123/80; BP 137/81; PULSE 55; RESP 16; O2SAT 98
[2023-03-24 14:25] VITALS: BP 137/81; BP 138/81; PULSE 59; RESP 16; O2SAT 98
[2023-03-24 14:30] VITALS: BP 136/81; BP 137/81; PULSE 65; RESP 16; TEMP 36.6; O2SAT 98
[2023-03-24 14:56] VITALS: BP 134/78; BP 137/81; PULSE 81; RESP 16; TEMP 36.7; O2SAT 97
== END 2023-03-24 15:26 | disposition home or self-care (01) ==
LOC: SDC 07:23 → AC 11:57
PROVIDERS: Referring Provider Podiatrist Foot & Ankle Surgery; Visit Provider Podiatrist Foot & Ankle Surgery
PROC: (CPT 15004; principal; 2023-03-24 10:05)
DX: I70.245 Atherosclerosis of native arteries of left leg with ulceration of other part of foot (principal); L97.522 Non-pressure chronic ulcer of other part of left foot with fat layer exposed; I10 Essential (primary) hypertension; E78.00 Pure hypercholesterolemia, unspecified; G25.81 Restless legs syndrome; F17.210 Nicotine dependence, cigarettes, uncomplicated; Z79.01 Long term (current) use of anticoagulants; Z79.82 Long term (current) use of aspirin; Z79.84 Long term (current) use of oral hypoglycemic drugs; Z79.899 Other long term (current) drug therapy; Z95.5 Presence of coronary angioplasty implant and graft
CPT/HCPCS: 15004; 15275; 82962; J7120; J2405

== ENCOUNTER 2023-04-12 14:45 | Outpatient (RCR) | payer MEDICAID, SELFPAY ==
[2023-03-13 00:26] VITALS: BP 150/82; PULSE 96; RESP 20; TEMP 36.8; BMI 21.7
[2023-03-15 14:45] VITALS: BP 111/79; PULSE 86; RESP 18; TEMP 36.6; BMI 21.7
--- NOTE | 2023-03-15 15:26 | PN.PCM_ITS ---
History of Present Illness Date of Service: 03/15/23 Chief Complaint: Left full-thickness wound. History of Wound: Chronic nonhealing left full-thickness wound Subjective Subjective Mr. Medina is a 57-year-old male presenting to the wound care center today for follow-up evaluation of full-thickness ulcerations to the left lower extremity. Patient has been getting wound VAC changes by home health care at his home. He has been compliant with his dressing changes as well as weightbearing status is nonweightbearing. He has been approved for graft placement to left lower extremity full-thickness ulceration. He is grateful for his care. He denies trauma. Denies constitutional symptoms. No other pedal complaints at this time. Objective Data Objective Data Vital Signs: Vital Signs Temp Pulse Resp BP 97.8 F 86 18 111/79 03/15/23 14:45 03/15/23 14:45 03/15/23 14:45 03/15/23 14:45 Weight: 74.843 kg Body Mass Index (BMI) 21.7 Physical Exam Narrative Vascular: DP and PT pulses are audible on Doppler. +1 pitting edema appreciated to left lower extremity. Skin temperature great is warm to warm from proximal ankle to distal digit. No evidence of focal increase is appreciated. Neurological: Light touch intact. Patient does respond to painful stimuli. Dermatological: Full-thickness ulceration appreciated to the left anterior ankle and the lateral foot. The left lateral foot ulceration measures 4.2 x 2.0 x 0.3 cm. The left dorsum ankle measures 3.5 x 2.0 x 0.1 cm. Wound bases are 100% granular nature with no malodor. Excisional debridement down to and including subcutaneous tissue of the left dorsum foot/ankle with a number 5 mm dermal curette without incident. Predebridement measurement is 3.3 x 1.8 x 0.1 cm. Post right measurement is 3.5 x 2.0 x 0.1 cm. Excisional debridement down to and including subcutaneous tissue and fascia of the left foot lateral ulceration with a number 5 mm dermal curette without inci dent. Predebridement measurement is 4.0 x 1.8 x 0.2 cm. Postdebridement measurement is 4.2 x 2.0 x 0.3 cm. EpiMesh 4 x 4.5 cm was applied to the left lateral full-thickness ulceration with 100% use. Third application. The graft site was free and clear of any infection. The wound/skin graft substitute was dressed with nonadherent bandage secured in place with Steri-Strips followed by bolster dressing and Tyler bandage. Musculoskeletal: Muscle strength was deferred. Moderate palpatory tenderness appreciated to both ulcerations to left lower extremity. No pain with calf compression. Debridement Note Debridement Note Debridement Free Text: Excisional debridement down to and including subcutaneous tissue of the left dorsum foot/ankle with a number 5 mm dermal curette without incident. Predebridement measurement is 3.3 x 1.8 x 0.1 cm. Post right measurement is 3.5 x 2.0 x 0.1 cm. Excisional debridement down to and including subcutaneous tissue and fascia of the left foot lateral ulceration with a number 5 mm dermal curette without incident. Predebridement measurement is 4.0 x 1.8 x 0.2 cm. Postdebridement measurement is 4.2 x 2.0 x 0.3 cm. EpiMesh 4 x 4.5 cm was applied to the left lateral full-thickness ulceration with 100% use. Third application. The graft site was free and clear of any infection. The wound/skin graft substitute was dressed with nonadherent bandage secured in place with Steri-Strips followed by bolster dressing and Tyler bandage. Post-Debridement Measurements and Additional Note: Post-Debridement Measurements/Treatment - Nurse 1 - General Ulcer Assessment Start: 03/15/23 14:42 Freq: Status: Active Protocol: .LOWEXT Activity Type Activity Date Activity User E-sign Co-sign Detail Recorded Client Recorded Date Recorded By Document 03/15/23 14:45 DL Desktop 03/15/23 14:54 DL 03/15/23 14:45 - Today's Visit Information Type of service Nurse-only Visit Arrival Mode Cane Transfer Assistance None Patient Identification Verified (Name & Yes ) Patient Requires Transmission-Based No Precautions Height and Weight Body Mass Index (BMI) 21.7 BMI Classification Normal Vital Signs Temperature (97.8 F-99.1 F) 97.8 F Temperature Source Temporal Pulse Rate (60-100) 86 Pulse Location Monitor Respiratory Rate (12-18) 18 Respiratory rate source Observation Blood Pressure (90/60-120/80) 111/79 Blood Pressure Mean (mm Hg) 89 Source Monitor History Since Last Visit- (Skip if this is Patient's initial visit) Have you changed medications since your No last visit? Any new allergies or adverse reactions No Had a fall/change in ADL's that may No increase risk of falls Signs or symptoms of abuse and/or No neglect since last visit Have you been in the hospital since your No last visit? Has dressing in place as prescribed Yes Has compression in place as prescribed Yes Has offloadiing in place as prescribed N/A Experienced any changes in pain level or No management Pain Scale: 0-10 Numeric Is Patient Pain Free? Yes WC - Nurse 1 - General Ulcer Measurement Start: 03/15/23 14:42 Freq: Status: Active Protocol: Activity Type Activity Date Activity User E-sign Co-sign Detail Recorded Client Recorded Date Recorded By Document 03/15/23 14:45 DL Desktop 03/15/23 14:54 DL 03/15/23 14:45 Wound Center Nurse 1 #2- L DORSAL FOOT CLUSTER -Current Size (cm) - Length 5.2 -Current Size (cm) - Width 1.8 -Current Size (cm) - Depth 0.1 -Total Square Cm 9.36 -Exudate Amt Medium -Exudate Type Serosanguineous -Wound Margin Distinct, Outline Attached -Granulation Amt Large (67-100%) -Granulation Quality Red -Necrosis Amt Small (1-33%) -Necrotic Tissue Type Adherent Slough -Structure Exposed N/A -Texture (Jovanna-wound Skin Appearance) Scarring -Moisture (Jovanna-wound Skin Appearance) Maceration -Color (Jovanna-wound Skin Appearance) No Abnormality -Temperature (Jovanna-wound Skin No Abnormality Appearance) (Pt Warm) -Ulcer Cleansing Soap and Water -Foul Odor after Cleansing No -Anesthetic Used 5% Lidocaine Gel #1- L LAT FOOT POST OP -Current Size (cm) - Length 4.7 -Current Size (cm) - Width 2 -Current Size (cm) - Depth 0.1 -Total Square Cm 9.4 -Exudate Amt Medium -Exudate Type Serosanguineous -Wound Margin Fibrotic Scar, Thickened Scar -Granulation Amt Medium (34-66%) -Granulation Quality Red -Necrosis Amt Medium (34-66%) -Necrotic Tissue Type Adherent Slough -Structure Exposed N/A -Texture (Jovanna-wound Skin Appearance) Scarring -Moisture (Jovanna-wound Skin Appearance) Maceration -Color (Jovanna-wound Skin Appearance) No Abnormality -Temperature (Jovanna-wound Skin No Abnormality Appearance) (Pt Warm) -Tenderness on Palpation (Jovanna-wound No Skin Appearance) -Ulcer Cleansing Soap and Water -Foul Odor after Cleansing No -Anesthetic Used 5% Lidocaine Gel WC - Nurse 2 - General Ulcer CM Notes Start: 03/15/23 14:42 Freq: Status: Active Protocol: Activity Type Activity Date Activity User E-sign Co-sign Detail Recorded Client Recorded Date Recorded By Document 03/15/23 15:13 JF Laptop 03/15/23 15:21 JF 03/15/23 15:13 Wound Center Nurse 2 #2- L DORSAL FOOT CLUSTER -Time 15:13 -Correct Patient Yes -Correct Side, Site, Position Yes -Correct Procedure Yes -Procedure Performed Yes -Type of Procedure Debridement -Clinical Debridement Subcutaneous -Tissue Removed Subcutaneous -Post Debridement (cm) - Length 3.5 -Post Debridement (cm) - Width 2.0 -Post Debridement (cm) - Depth 0.1 -Total Square (Post) (cm) 7.00 -Area of Debridement (cm) - Length 3.5 -Area of Debridement (cm) - Width 2.0 -Total Square (Area) (cm) 7.00 -Tunneling No -Undermining/Tunneling No -Circular Undermining No -Wound/Ulcer Outcome Not Healed -Ulcer Cleansing Rinsed/ Irrigated with Saline -Foul Odor after Cleansing No -Bioengineered Tissue No -Bleeding Controlled with Pressure -Treatment Response Procedure Tolerated Well -Offloading No -Debridement - Subq, 1st 20sq cm Yes #1- L LAT FOOT POST OP -Time 15:14 -Correct Patient Yes -Correct Side, Site, Position Yes -Correct Procedure Yes -Procedure Performed Yes -Type of Procedure Debridement -Clinical Debridement Muscle / Fascia -Tissue Removed Muscle -Post Debridement (cm) - Length 4.2 -Post Debridement (cm) - Width 2.0 -Post Debridement (cm) - Depth 0.3 -Total Square (Post) (cm) 8.40 -Area of Debridement (cm) - Length 4.2 -Area of Debridement (cm) - Width 2.0 -Total Square (Area) (cm) 8.40 -Tunneling No -Undermining/Tunneling No -Circular Undermining No -Wound/Ulcer Outcome Not Healed -Ulcer Cleansing Rinsed/ Irrigated with Saline -Foul Odor after Cleansing No -Bioengineered Tissue Yes -Type of Bioengineered Tissue Epifix Mesh -Expiration Date 11/12/27 -Product Lot Number [id number] -Percent Used 100 -Lot number of Saline Used [id number] -Bleeding Controlled with Pressure -Treatment Response Procedure Tolerated Well -Offloading Yes -Type of Offloading Surgical Shoe -Debridement - Muscle / Fascia, 1st No 20sq cm -Apply Skin Sub - 1st 25 sq cm - Legs 1 -Epifix Mesh (per sq cm) 11 Pain Scale: 0-10 Numeric Is Patient Pain Free? Yes Assessment/Plan Assessment/Plan (1) Non-pressure chronic ulcer of other part of left foot with fat layer exposed: CODE(S): L97.522 - Non-pressure chronic ulcer of other part of left foot with fat layer exposed PLAN: Patient was examined and evaluated. All findings were discussed with the patient. All questions were answered to the patient's satisfaction. Excisional debridement down to and including subcutaneous tissue of the left dorsum foot/ankle with a number 5 mm dermal curette without incident. Predebridement measurement is 3.3 x 1.8 x 0.1 cm. Post right measurement is 3.5 x 2.0 x 0.1 cm. Excisional debridement down to and including subcutaneous tissue and fascia of the left foot lateral ulceration with a number 5 mm dermal curette without incident. Predebridement measurement is 4.0 x 1.8 x 0.2 cm. Postdebridement measurement is 4.2 x 2.0 x 0.3 cm. EpiMesh 4 x 4.5 cm was applied to the left lateral full-thickness ulceration with 100% use. Third application. The graft site was free and clear of any infection. The wound/skin graft substitute was dressed with nonadherent bandage secured in place with Steri-Strips followed by bolster dressing and Tyler bandage. Follow-up at the wound care center with Dr. Sandhu in 1 week. 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
[2023-03-22 14:34] VITALS: BP 133/76; PULSE 83; RESP 30; TEMP 36.9; BMI 21.7
--- NOTE | 2023-03-22 15:36 | PN.PCM_ITS ---
History of Present Illness Date of Service: 03/22/23 Chief Complaint: Left full-thickness wound. History of Wound: Chronic nonhealing left full-thickness wound Subjective Subjective Mr. Medina is a 57-year-old male presenting to the wound care center today for follow-up evaluation of full-thickness ulcerations to the left lower extremity with graft. He has been compliant with his dressing changes as well as weightbearing status is nonweightbearing. He is grateful for his care. He denies trauma. Denies constitutional symptoms. No other pedal complaints at this time. Objective Data Objective Data Vital Signs: Vital Signs Temp Pulse Resp BP 98.4 F 83 30 H 133/76 H 03/22/23 14:34 03/22/23 14:34 03/22/23 14:34 03/22/23 14:34 Weight: 74.843 kg Body Mass Index (BMI) 21.7 Physical Exam Narrative Vascular: DP and PT pulses are audible on Doppler. +1 pitting edema appreciated to left lower extremity. Skin temperature great is warm to warm from proximal ankle to distal digit. No evidence of focal increase is appreciated. Neurological: Light touch intact. Patient does respond to painful stimuli. Dermatological: Full-thickness ulceration appreciated to the left anterior ankle and the lateral foot. The left lateral foot ulceration measures 3.8 x 1.4 x 0.2 cm. The left dorsum ankle measures 2.4 x 1.5 x 0.1 cm. Wound bases are 100% granular nature with no malodor. Excisional debridement down to and including subcutaneous tissue of the left dorsum foot/ankle with a number 5 mm dermal curette without incident. Predebridement measurement is 2.0 x 1.5 x 0.1 cm. Post right measurement is 2.4 x 1.5 x 0.1 cm. Excisional debridement down to and including subcutaneous tissue and fascia of the left foot lateral ulceration with a number 5 mm dermal curette without incident. Predebridement measurement is 3.7 x 1.3 x 0.2 cm. Postdebridement measurement is 3.8 x 1.4 x 0.2 cm. Musculoskeletal: Muscle strength was deferred. Moderate palpatory tenderness appreciated to both ulcerations to left lower extremity. No pain with calf compression. Debridement Note Debridement Note Debridement Free Text: Excisional debridement down to and including subcutaneous tissue of the left dorsum foot/ankle with a number 5 mm dermal curette without incident. Predebridement measurement is 2.0 x 1.5 x 0.1 cm. Post right measurement is 2.4 x 1.5 x 0.1 cm. Excisional debridement down to and including subcutaneous tissue and fascia of the left foot lateral ulceration with a number 5 mm dermal curette without incident. Predebridement measurement is 3.7 x 1.3 x 0.2 cm. Postdebridement measurement is 3.8 x 1.4 x 0.2 cm. Post-Debridement Measurements and Additional Note: Post-Debridement Measurements/Treatment - Nurse 1 - General Ulcer Assessment Start: 03/15/23 14:42 Freq: Status: Active Protocol: ANTHONY Activity Type Activity Date Activity User E-sign Co-sign Detail Recorded Client Recorded Date Recorded By Document 03/15/23 14:45 DL Desktop 03/15/23 14:54 DL Document 03/22/23 14:34 DL Desktop 03/22/23 14:43 DL 03/15/23 03/22/23 14:45 14:34 - Today's Visit Information Type of service Nurse-only Follow-up Visit Visit (Physician/SHE[employer]TER ) Arrival Mode Cane Ambulatory Transfer Assistance None None Patient Identification Verified (Name & Yes Yes ) Patient Requires Transmission-Based No No Precautions Height and Weight Body Mass Index (BMI) 21.7 21.7 BMI Classification Normal Normal Vital Signs Temperature (97.8 F-99.1 F) 97.8 F 98.4 F Temperature Source Temporal Temporal Pulse Rate (60-100) 86 83 Pulse Location Monitor Monitor Respiratory Rate (12-18) 18 30 H Respiratory rate source Observation Observation Blood Pressure (90/60-120/80) 111/79 133/76 H Blood Pressure Mean (mm Hg) 89 95 Source Monitor Monitor History Since Last Visit- (Skip if this is Patient's initial visit) Have you changed medications since your No No last visit? Any new allergies or adverse reactions No No Had a fall/change in ADL's that may No No increase risk of falls Signs or symptoms of abuse and/or No No neglect since last visit Have you been in the hospital since your No No last visit? Has dressing in place as prescribed Yes Yes Has compression in place as prescribed Yes Yes Has offloadiing in place as prescribed N/A Yes Experienced any changes in pain level or No No management Pain Scale: 0-10 Numeric Is Patient Pain Free? Yes Yes WC - Nurse 1 - General Ulcer Measurement Start: 03/15/23 14:42 Freq: Status: Active Protocol: Activity Type Activity Date Activity User E-sign Co-sign Detail Recorded Client Recorded Date Recorded By Document 03/15/23 14:45 DL Desktop 03/15/23 14:54 DL Document 03/22/23 14:34 DL Desktop 03/22/23 14:43 DL 03/15/23 03/22/23 14:45 14:34 Wound Center Nurse 1 #2- L DORSAL FOOT CLUSTER -Current Size (cm) - Length 5.2 1.8 -Current Size (cm) - Width 1.8 0.8 -Current Size (cm) - Depth 0.1 0.1 -Total Square Cm 9.36 1.44 -Exudate Amt Medium Medium -Exudate Type Serosanguineous Serosanguineous -Wound Margin Distinct, Thickened Outline Attached -Granulation Amt Large (67-100%) Medium (34-66%) -Granulation Quality Red Pale,[place] -Necrosis Amt Small (1-33%) None Present (0 %) -Necrotic Tissue Type Adherent Slough Adherent Slough -Structure Exposed N/A N/A -Texture (Jovanna-wound Skin Appearance) Scarring Scarring -Moisture (Jovanna-wound Skin Appearance) Maceration Dry/Scaly -Color (Jovanna-wound Skin Appearance) No Abnormality Hemosiderin Staining -Temperature (Jovanna-wound Skin No Abnormality Appearance) (Pt Warm) -Tenderness on Palpation (Jovanna-wound No Skin Appearance) -Ulcer Cleansing Soap and Water Soap and Water -Foul Odor after Cleansing No No -Anesthetic Used 5% Lidocaine 5% Lidocaine Gel Gel #1- L LAT FOOT POST OP -Current Size (cm) - Length 4.7 4 -Current Size (cm) - Width 2 1.1 -Current Size (cm) - Depth 0.1 0.2 -Total Square Cm 9.4 4.4 -Exudate Amt Medium Medium -Exudate Type Serosanguineous -Wound Margin Fibrotic Scar, Epibole Thickened Scar -Granulation Amt Medium (34-66%) Small (1-33%) -Granulation Quality Red -Necrosis Amt Medium (34-66%) Large (67-100%) -Necrotic Tissue Type Adherent Slough Adherent Slough -Structure Exposed N/A N/A -Texture (Jovanna-wound Skin Appearance) Scarring Scarring -Moisture (Jovanna-wound Skin Appearance) Maceration Dry/Scaly -Color (Jovanna-wound Skin Appearance) No Abnormality Hemosiderin Staining -Temperature (Jovanna-wound Skin No Abnormality No Abnormality Appearance) (Pt Warm) (Pt Warm) -Tenderness on Palpation (Jovanna-wound No Yes Skin Appearance) -Ulcer Cleansing Soap and Water Soap and Water -Foul Odor after Cleansing No No -Anesthetic Used 5% Lidocaine 5% Lidocaine Gel Gel WC - Nurse 2 - General Ulcer CM Notes Start: 03/15/23 14:42 Freq: Status: Active Protocol: Activity Type Activity Date Activity User E-sign Co-sign Detail Recorded Client Recorded Date Recorded By Document 03/15/23 15:13 Mobui Laptop 03/15/23 15:21 Document 03/22/23 15:10 Laptop 03/22/23 15:16 03/15/23 03/22/23 15:13 15:10 Wound Center Nurse 2 #2- L DORSAL FOOT CLUSTER -Time 15:13 15:11 -Correct Patient Yes Yes -Correct Side, Site, Position Yes Yes -Correct Procedure Yes Yes -Procedure Performed Yes Yes -Type of Procedure Debridement Debridement -Clinical Debridement Subcutaneous Subcutaneous -Tissue Removed Subcutaneous Subcutaneous -Post Debridement (cm) - Length 3.5 2.4 -Post Debridement (cm) - Width 2.0 1.5 -Post Debridement (cm) - Depth 0.1 0.1 -Total Square (Post) (cm) 7.00 3.60 -Area of Debridement (cm) - Length 3.5 2.4 -Area of Debridement (cm) - Width 2.0 1.5 -Total Square (Area) (cm) 7.00 3.60 -Tunneling No No -Undermining/Tunneling No No -Circular Undermining No No -Wound/Ulcer Outcome Not Healed Not Healed -Ulcer Cleansing Rinsed/ Rinsed/ Irrigated with Irrigated with Saline Saline -Foul Odor after Cleansing No No -Bioengineered Tissue No No -Bleeding Controlled with Pressure Pressure -Treatment Response Procedure Procedure Tolerated Well Tolerated Well -Offloading No No -Debridement - Subq, 1st 20sq cm Yes No #1- L LAT FOOT POST OP -Time 15:14 15:15 -Correct Patient Yes Yes -Correct Side, Site, Position Yes Yes -Correct Procedure Yes Yes -Procedure Performed Yes Yes -Type of Procedure Debridement Debridement -Clinical Debridement Muscle / Fascia Subcutaneous -Tissue Removed Muscle Subcutaneous -Post Debridement (cm) - Length 4.2 3.8 -Post Debridement (cm) - Width 2.0 1.4 -Post Debridement (cm) - Depth 0.3 0.2 -Total Square (Post) (cm) 8.40 5.32 -Area of Debridement (cm) - Length 4.2 3.8 -Area of Debridement (cm) - Width 2.0 1.4 -Total Square (Area) (cm) 8.40 5.32 -Tunneling No No -Undermining/Tunneling No -Circular Undermining No No -Wound/Ulcer Outcome Not Healed Not Healed -Ulcer Cleansing Rinsed/ Rinsed/ Irrigated with Irrigated with Saline Saline -Foul Odor after Cleansing No No -Bioengineered Tissue Yes No -Type of Bioengineered Tissue Epifix Mesh -Expiration Date 11/12/27 -Product Lot Number [id number] -Percent Used 100 -Lot number of Saline Used [id number] -Bleeding Controlled with Pressure Pressure -Treatment Response Procedure Procedure Tolerated Well Tolerated Well -Offloading Yes No -Type of Offloading Surgical Shoe -Debridement - Subq, 1st 20sq cm Yes -Debridement - Muscle / Fascia, 1st No 20sq cm -Apply Skin Sub - 1st 25 sq cm - Legs 1 -Epifix Mesh (per sq cm) 11 Pain Scale: 0-10 Numeric Is Patient Pain Free? Yes Yes - Nurse 3 - General Ulcer D/C NN Start: 03/15/23 14:42 Freq: Status: Active Protocol: Activity Type Activity Date Activity User E-sign Co-sign Detail Recorded Client Recorded Date Recorded By Document 03/15/23 16:00 JF Laptop 03/22/23 15:18 JF Document 03/22/23 15:27 KW Desktop 03/22/23 15:27 KW 03/15/23 03/22/23 16:00 15:27 Wound Care Center Nurse 3 #2- L DORSAL FOOT CLUSTER -Ulcer Cleansing Rinsed/ Irrigated with Saline -Foul Odor after Cleansing No -Primary Dressing Applied C Hydrogel ($) -Primary Dressing Covered/Secured with Dry Gauze & Dry Gauze & Roll Gauze, Roll Gauze, Secured with Secured with Tape Tape #1- L LAT FOOT POST OP -Ulcer Cleansing Rinsed/ Irrigated with Saline -Foul Odor after Cleansing No -Primary Dressing Covered/Secured with Dry Gauze & Dry Gauze & Roll Gauze, Roll Gauze, Secured with Secured with Tape Tape Left -Compression Wrap Tyler Wrap Pain Scale: 0-10 Numeric Is Patient Pain Free? Yes Yes WC - Visit Discharge Discharge Condition Stable Stable Ambulatory Status Ambulatory, Ambulatory Crutches Transportation Private Auto Private Auto Medication Reconcilliation completed & Yes No provided to patient/care provider Clinical Summary of Care Provided Yes Yes Assessment/Plan Assessment/Plan (1) Non-pressure chronic ulcer of other part of left foot with fat layer exposed: CODE(S): L97.522 - Non-pressure chronic ulcer of other part of left foot with fat layer exposed PLAN: Patient was examined and evaluated. All findings were discussed with the patient. All questions were answered to the patient's satisfaction. Excisional debridement down to and including subcutaneous tissue of the left dorsum foot/ankle with a number 5 mm dermal curette without incident. Predebridement measurement is 2.0 x 1.5 x 0.1 cm. Post right measurement is 2.4 x 1.5 x 0.1 cm. Excisional debridement down to and including subcutaneous tissue and fascia of the left foot lateral ulceration with a number 5 mm dermal curette without incident. Predebridement measurement is 3.7 x 1.3 x 0.2 cm. Postdebridement measurement is 3.8 x 1.4 x 0.2 cm. Both ulcerations were dressed with hydrogel/collagen, dry sterile dressing and a single layer Larson compression bandage. Patient was given the go ahead to begin washing the left lower extremity with warm soap and water as instructed. He showed understanding of this. Patient is cleared and will be ready for OR debridement with graft application to the left foot this 03/24/2023. Patient understands all risk and benefits would like to move forward with surgery. Follow-up at the wound care center with Dr. Sandhu in 1 week. (2) Peripheral vascular disease: CODE(S): I73.9 - Peripheral vascular disease, unspecified
[2023-03-29 15:20] VITALS: BP 139/81; PULSE 92; RESP 16; TEMP 36.1; BMI 21.7
--- NOTE | 2023-03-29 16:01 | PCM.WC.PN ---
History of Present Illness Date of Service: 03/29/23 Chief Complaint: Left full-thickness wound. History of Wound: Chronic nonhealing left full-thickness wound Subjective Subjective Mr. Medina is a 57-year-old male presenting to the wound care center for follow-up and evaluation of full-thickness ulceration to the left foot status post excisional debridement with skin graft prep with application of skin graft substitute. Date of surgery: 03/24/2022. Patient is kept his postoperative dressing clean dry and intact. He admits his pain is improved. He denies drainage. He denies constitutional symptoms. He denies trauma. No other pedal complaints at this time. Objective Data Objective Data Vital Signs: Vital Signs Temp Pulse Resp BP O2 Del Method 97 F L 92 16 139/81 H Room Air 03/29/23 15:20 03/29/23 15:20 03/29/23 15:20 03/29/23 15:20 03/29/23 15:20 Oxygen Delivery Method Room Air Weight: 74.843 kg Body Mass Index (BMI) 21.7 Physical Exam Narrative Vascular: DP and PT pulses are audible on Doppler. +1 pitting edema appreciated to left lower extremity. Skin temperature great is warm to warm from proximal ankle to distal digit. No evidence of focal increase is appreciated. Neurological: Light touch intact. Patient does respond to painful stimuli. Dermatological: Full-thickness ulceration appreciated to the left anterior ankle as well as distal lateral left foot. Both wounds are 100% granular in nature. No evidence of drainage, malodor, probe to bone or sign of infection. No debridement done at today's visit. Musculoskeletal: Muscle strength was deferred. Moderate palpatory tenderness appreciated to both ulcerations to left lower extremity. No pain with calf compression. Debridement Note Debridement Note Post-Debridement Measurements and Additional Note: Post-Debridement Measurements/Treatment WC - Nurse 1 - General Ulcer Assessment Start: 03/15/23 14:42 Freq: Status: Active Protocol: ANTHONY Activity Type Activity Date Activity User E-sign Co-sign Detail Recorded Client Recorded Date Recorded By Document 03/15/23 14:45 DL Desktop 03/15/23 14:54 DL Document 03/22/23 14:34 DL Desktop 03/22/23 14:43 DL Document 03/29/23 15:20 BMF Desktop 03/29/23 15:27 BMF 03/15/23 03/22/23 03/29/23 14:45 14:34 15:20 WC - Today's Visit Information Type of service Nurse-only Follow-up Visit Follow-up Visit Visit (Physician/SIGNING TEACHER (Physician/SIGNING TEACHER ) ) Arrival Mode Cane Ambulatory Ambulatory, Crutches Transfer Assistance None None None Accompanied by Patient Identification Verified (Name & Yes Yes Yes ) Patient Requires Transmission-Based No No No Precautions Height and Weight Body Mass Index (BMI) 21.7 21.7 21.7 BMI Classification Normal Normal Normal Vital Signs Temperature (97.8 F-99.1 F) 97.8 F 98.4 F 97 F L Temperature Source Temporal Temporal Temporal Pulse Rate (60-100) 86 83 92 Pulse Location Monitor Monitor Monitor Respiratory Rate (12-18) 18 30 H 16 Respiratory rate source Observation Observation Observation Oxygen Delivery Method Room Air Blood Pressure (90/60-120/80) 111/79 133/76 H 139/81 H Blood Pressure Mean (mm Hg) 89 95 100 Source Monitor Monitor Monitor Position Sitting Blood Pressure Location Left Forearm History Since Last Visit- (Skip if this is Patient's initial visit) Have you changed medications since your No No No last visit? Any new allergies or adverse reactions No No No Had a fall/change in ADL's that may No No No increase risk of falls Signs or symptoms of abuse and/or No No No neglect since last visit Have you been in the hospital since your No No No last visit? Has dressing in place as prescribed Yes Yes Yes Has compression in place as prescribed Yes Yes N/A Has offloadiing in place as prescribed N/A Yes Yes Experienced any changes in pain level or No No No management Pain Scale: 0-10 Numeric Is Patient Pain Free? Yes Yes Yes - Nurse 1 - General Ulcer Measurement Start: 03/15/23 14:42 Freq: Status: Active Protocol: Activity Type Activity Date Activity User E-sign Co-sign Detail Recorded Client Recorded Date Recorded By Document 03/15/23 14:45 DL Desktop 03/15/23 14:54 DL Document 03/22/23 14:34 DL Desktop 03/22/23 14:43 DL Document 03/29/23 15:20 BMF Desktop 03/29/23 15:27 BMF 03/15/23 03/22/2303/29/24 14:45 14:34 15:20 Wound Center Nurse 1 #2- L DORSAL FOOT CLUSTER -Combined with other wound No -Current Size (cm) - Length 5.2 1.8 0.1 -Current Size (cm) - Width 1.8 0.8 0.1 -Current Size (cm) - Depth 0.1 0.1 0.1 -Total Square Cm 9.36 1.44 0.01 -Exudate Amt Medium Medium -Exudate Type Serosanguineous Serosanguineous -Wound Margin Distinct, Thickened Outline Attached -Granulation Amt Large (67-100%) Medium (34-66%) -Granulation Quality Red Pale,[place] -Necrosis Amt Small (1-33%) None Present (0 %) -Necrotic Tissue Type Adherent Slough Adherent Slough -Structure Exposed N/A N/A -Texture (Jovanna-wound Skin Appearance) Scarring Scarring -Moisture (Jovanna-wound Skin Appearance) Maceration Dry/Scaly -Color (Jovanna-wound Skin Appearance) No Abnormality Hemosiderin Staining -Temperature (Jovanna-wound Skin No Abnormality Appearance) (Pt Warm) -Tenderness on Palpation (Jovanna-wound No Skin Appearance) -Ulcer Cleansing Soap and Water Soap and Water -Foul Odor after Cleansing No No -Anesthetic Used 5% Lidocaine 5% Lidocaine Gel Gel -Wound Comment(s) POST SURGICAL PRODUCT LEFT IN PLACE PER INSTRUCTIONS #1- L LAT FOOT POST OP -Combined with other wound No -Current Size (cm) - Length 4.7 4 -Current Size (cm) - Width 2 1.1 -Current Size (cm) - Depth 0.1 0.2 -Total Square Cm 9.4 4.4 -Exudate Amt Medium Medium -Exudate Type Serosanguineous -Wound Margin Fibrotic Scar, Epibole Thickened Scar -Granulation Amt Medium (34-66%) Small (1-33%) -Granulation Quality Red -Necrosis Amt Medium (34-66%) Large (67-100%) -Necrotic Tissue Type Adherent Slough Adherent Slough -Structure Exposed N/A N/A -Texture (Jovanna-wound Skin Appearance) Scarring Scarring -Moisture (Jovanna-wound Skin Appearance) Maceration Dry/Scaly -Color (Jovanna-wound Skin Appearance) No Abnormality Hemosiderin Staining -Temperature (Jovanna-wound Skin No Abnormality No Abnormality Appearance) (Pt Warm) (Pt Warm) -Tenderness on Palpation (Jovanna-wound No Yes Skin Appearance) -Ulcer Cleansing Soap and Water Soap and Water -Foul Odor after Cleansing No No -Anesthetic Used 5% Lidocaine 5% Lidocaine Gel Gel -Wound Comment(s) POST SURGICAL PRODUCT LEFT IN PLACE PER INSTRUCTIONS WC - Nurse 2 - General Ulcer CM Notes Start: 03/15/23 14:42 Freq: Status: Active Protocol: Activity Type Activity Date Activity User E-sign Co-sign Detail Recorded Client Recorded Date Recorded By Document 03/15/23 15:13 [employer] Laptop 03/15/23 15:21 Document 03/22/23 15:10 Laptop 03/22/23 15:16 Document 03/29/23 15:41 Laptop 03/29/23 15:42 03/15/23 03/22/23 03/29/23 15:13 15:10 15:41 Wound Center Nurse 2 #2- L DORSAL FOOT CLUSTER -Time 15:13 15:11 -Correct Patient Yes Yes No -Correct Side, Site, Position Yes Yes No -Correct Procedure Yes Yes No -Procedure Performed Yes Yes No -Type of Procedure Debridement Debridement -Clinical Debridement Subcutaneous Subcutaneous -Tissue Removed Subcutaneous Subcutaneous -Post Debridement (cm) - Length 3.5 2.4 -Post Debridement (cm) - Width 2.0 1.5 -Post Debridement (cm) - Depth 0.1 0.1 -Total Square (Post) (cm) 7.00 3.60 -Area of Debridement (cm) - Length 3.5 2.4 -Area of Debridement (cm) - Width 2.0 1.5 -Total Square (Area) (cm) 7.00 3.60 -Tunneling No No -Undermining/Tunneling No No -Circular Undermining No No -Wound/Ulcer Outcome Not Healed Not Healed Not Healed -Ulcer Cleansing Rinsed/ Rinsed/ Irrigated with Irrigated with Saline Saline -Foul Odor after Cleansing No No -Bioengineered Tissue No No -Bleeding Controlled with Pressure Pressure -Treatment Response Procedure Procedure Tolerated Well Tolerated Well -Offloading No No -Debridement - Subq, 1st 20sq cm Yes No #1- L LAT FOOT POST OP -Time 15:14 15:15 -Correct Patient Yes Yes No -Correct Side, Site, Position Yes Yes No -Correct Procedure Yes Yes No -Procedure Performed Yes Yes No -Type of Procedure Debridement Debridement -Clinical Debridement Muscle / Fascia Subcutaneous -Tissue Removed Muscle Subcutaneous -Post Debridement (cm) - Length 4.2 3.8 -Post Debridement (cm) - Width 2.0 1.4 -Post Debridement (cm) - Depth 0.3 0.2 -Total Square (Post) (cm) 8.40 5.32 -Area of Debridement (cm) - Length 4.2 3.8 -Area of Debridement (cm) - Width 2.0 1.4 -Total Square (Area) (cm) 8.40 5.32 -Tunneling No No -Undermining/Tunneling No -Circular Undermining No No -Wound/Ulcer Outcome Not Healed Not Healed Not Healed -Ulcer Cleansing Rinsed/ Rinsed/ Irrigated with Irrigated with Saline Saline -Foul Odor after Cleansing No No -Bioengineered Tissue Yes No -Type of Bioengineered Tissue Epifix Mesh -Expiration Date 11/12/27 -Product Lot Number [id number] -Percent Used 100 -Lot number of Saline Used [id number] -Bleeding Controlled with Pressure Pressure -Treatment Response Procedure Procedure Tolerated Well Tolerated Well -Offloading Yes No -Type of Offloading Surgical Shoe -Debridement - Subq, 1st 20sq cm Yes -Debridement - Muscle / Fascia, 1st No 20sq cm -Apply Skin Sub - 1st 25 sq cm - Legs 1 -Epifix Mesh (per sq cm) 11 Pain Scale: 0-10 Numeric Is Patient Pain Free? Yes Yes Yes WC - Nurse 3 - General Ulcer D/C NN Start: 03/15/23 14:42 Freq: Status: Active Protocol: Activity Type Activity Date Activity User E-sign Co-sign Detail Recorded Client Recorded Date Recorded By Document 03/15/23 16:00 JF Laptop 03/22/23 15:18 JF Document 03/22/23 15:27 KW Desktop 03/22/23 15:27 KW Document 03/29/23 15:48 GM Desktop 03/29/23 15:50 GM 03/15/23 03/22/23 03/29/23 16:00 15:27 15:48 Wound Care Center Nurse 3 #2- L DORSAL FOOT CLUSTER -Ulcer Cleansing Rinsed/ Not Cleansed Irrigated with Saline -Foul Odor after Cleansing No No -Negative Pressure Wound Therapy N/A -Primary Dressing Applied C Hydrogel ($) -Primary Dressing Covered/Secured with Dry Gauze & Dry Gauze & Dry Gauze & Roll Gauze, Roll Gauze, Roll Gauze, Secured with Secured with Secured with Tape Tape Tape #1- L LAT FOOT POST OP -Ulcer Cleansing Rinsed/ Not Cleansed Irrigated with Saline -Foul Odor after Cleansing No No -Negative Pressure Wound Therapy N/A -Primary Dressing Covered/Secured with Dry Gauze & Dry Gauze & Dry Gauze, Roll Gauze, Roll Gauze, Secured with Secured with Secured with Tape Tape Tape Left -Compression Wrap Tyler Wrap Tyler Wrap Pain Scale: 0-10 Numeric Is Patient Pain Free? Yes Yes Yes Teaching: Wound Center Dressing wound -Person Taught Patient,Family -Teaching Method Discussion, Demonstration -Response to teaching Verbalize understanding WC - Visit Discharge Discharge Condition Stable Stable Stable Ambulatory Status Ambulatory, Ambulatory Ambulatory Crutches Transportation Private Auto Private Auto Private Auto Medication Reconcilliation completed & Yes No Yes provided to patient/care provider Clinical Summary of Care Provided Yes Yes Yes Assessment/Plan Assessment/Plan (1) Non-pressure chronic ulcer of other part of left foot with fat layer exposed: CODE(S): L97.522 - Non-pressure chronic ulcer of other part of left foot with fat layer exposed PLAN: Patient was examined and evaluated. All findings were discussed with the patient. All questions were answered to the patient's satisfaction. No debridement was done to the left foot status post surgical skin graft site prep with application of skin graft substitute. Date of surgery was 03/24/2022. Patient was dressed with wound care veil Steri-Strips and a single layer Larson compression bandage was donned to left lower extremity. Patient was educated to continue his postoperative course as discussed during his surgical consultation. He will follow-up in 1 week for evaluation. Follow-up at the wound care center with Dr. Sandhu in 1 week.
[2023-04-05 14:19] VITALS: BP 153/73; PULSE 82; RESP 18; TEMP 36.6; BMI 21.7
--- NOTE | 2023-04-05 21:26 | PCM.WC.PN ---
History of Present Illness Date of Service: 04/05/23 Chief Complaint: Left full-thickness wound. History of Wound: Chronic nonhealing left full-thickness wound Subjective Subjective Mr. Medina is a 57-year-old male presenting to the wound care center for follow-up and evaluation of full-thickness ulceration to the left foot status post excisional debridement with skin graft prep with application of skin graft substitute. Date of surgery: 03/24/2022. Patient is kept his postoperative dressing clean dry and intact. He admits his pain is improved. He denies drainage. He denies constitutional symptoms. He denies trauma. No other pedal complaints at this time. Objective Data Objective Data Vital Signs: Vital Signs Temp Pulse Resp BP O2 Del Method 97.9 F 82 18 153/73 H Room Air 04/05/23 14:19 04/05/23 14:19 04/05/23 14:19 04/05/23 14:19 04/05/23 14:19 Oxygen Delivery Method Room Air Weight: 74.843 kg Body Mass Index (BMI) 21.7 Physical Exam Narrative Vascular: DP and PT pulses are audible on Doppler. +1 pitting edema appreciated to left lower extremity. Skin temperature great is warm to warm from proximal ankle to distal digit. No evidence of focal increase is appreciated. Neurological: Light touch intact. Patient does respond to painful stimuli. Dermatological: Full-thickness ulceration appreciated to the left anterior ankle and the lateral foot. The left lateral foot ulceration measures 4.4 x 1.7 x 0.3 cm. The left dorsum ankle measures 1.3 x 0.7 x 0.1 cm. Wound bases are 100% granular nature with no malodor. Excisional debridement down to and including subcutaneous tissue of the left dorsum foot/ankle with a number 5 mm dermal curette without incident. Predebridement measurement is 1.0 x 0.5 x 0.1 cm. Post right measurement is 1.3 x 0.7 x 0.1 cm. Excisional debridement down to and including subcutaneous tissue and fascia of the left foot lateral ulceration with a number 5 mm dermal curette without incident. Predebridement measurement is 4.2 x 1.5 x 0.2 cm. Postdebridement measurement is 4.4 x 1.7 x 0.3 cm. EpiMesh 4 x 4.5 cm was applied to the left lateral full-thickness ulceration with 100% use. Fourth application. The graft site was free and clear of any infection. The wound/skin graft substitute was dressed with nonadherent bandage secured in place with Steri-Strips followed by bolster dressing and Tyler bandage. Musculoskeletal: Muscle strength was deferred. Moderate palpatory tenderness appreciated to both ulcerations to left lower extremity. No pain with calf compression. Debridement Note Debridement Note Debridement Free Text: Excisional debridement down to and including subcutaneous tissue of the left dorsum foot/ankle with a number 5 mm dermal curette without incident. Predebridement measurement is 1.0 x 0.5 x 0.1 cm. Post right measurement is 1.3 x 0.7 x 0.1 cm. Excisional debridement down to and including subcutaneous tissue and fascia of the left foot lateral ulceration with a number 5 mm dermal curette without incident. Predebridement measurement is 4.2 x 1.5 x 0.2 cm. Postdebridement measurement is 4.4 x 1.7 x 0.3 cm. EpiMesh 4 x 4.5 cm was applied to the left lateral full-thickness ulceration with 100% use. Fourth application. The graft site was free and clear of any infection. The wound/skin graft substitute was dressed with nonadherent bandage secured in place with Steri-Strips followed by bolster dressing and Tyler bandage. Post-Debridement Measurements and Additional Note: Post-Debridement Measurements/Treatment - Nurse 1 - General Ulcer Assessment Start: 03/15/23 14:42 Freq: Status: Active Protocol: ANTHONY Activity Type Activity Date Activity User E-sign Co-sign Detail Recorded Client Recorded Date Recorded By Document 03/15/23 14:45 DL Desktop 03/15/23 14:54 DL Document 03/22/23 14:34 DL Desktop 03/22/23 14:43 DL Document 03/29/23 15:20 BMF Desktop 03/29/23 15:27 BMF Document 04/05/23 14:19 KW Desktop 04/05/23 14:33 KW 03/15/23 03/22/23 03/29/23 14:45 14:34 15:20 - Today's Visit Information Type of service Nurse-only Follow-up Visit Follow-up Visit Visit (Physician/REPLENISHMENT BUYER (Physician/REPLENISHMENT BUYER ) ) Arrival Mode Cane Ambulatory Ambulatory, Crutches Transfer Assistance None None None Accompanied by Patient Identification Verified (Name & Yes Yes Yes ) Patient Requires Transmission-Based No No No Precautions Height and Weight Body Mass Index (BMI) 21.7 21.7 21.7 BMI Classification Normal Normal Normal Vital Signs Temperature (97.8 F-99.1 F) 97.8 F 98.4 F 97 F L Temperature Source Temporal Temporal Temporal Pulse Rate (60-100) 86 83 92 Pulse Location Monitor Monitor Monitor Respiratory Rate (12-18) 18 30 H 16 Respiratory rate source Observation Observation Observation Oxygen Delivery Method Room Air Blood Pressure (90/60-120/80) 111/79 133/76 H 139/81 H Blood Pressure Mean (mm Hg) 89 95 100 Source Monitor Monitor Monitor Position Sitting Blood Pressure Location Left Forearm History Since Last Visit- (Skip if this is Patient's initial visit) Have you changed medications since your No No No last visit? Any new allergies or adverse reactions No No No Had a fall/change in ADL's that may No No No increase risk of falls Signs or symptoms of abuse and/or No No No neglect since last visit Have you been in the hospital since your No No No last visit? Has dressing in place as prescribed Yes Yes Yes Has compression in place as prescribed Yes Yes N/A Has offloadiing in place as prescribed N/A Yes Yes Experienced any changes in pain level or No No No management Left Footwear Right Footwear Pain Scale: 0-10 Numeric Is Patient Pain Free? Yes Yes Yes 04/05/23 14:19 WC - Today's Visit Information Type of service Follow-up Visit (Physician/REPLENISHMENT BUYER ) Arrival Mode Ambulatory, Crutches Transfer Assistance Accompanied by Patient Identification Verified (Name & Yes ) Patient Requires Transmission-Based Precautions Height and Weight Body Mass Index (BMI) 21.7 BMI Classification Normal Vital Signs Temperature (97.8 F-99.1 F) 97.9 F Temperature Source Temporal Pulse Rate (60-100) 82 Pulse Location Monitor Respiratory Rate (12-18) 18 Respiratory rate source Observation Oxygen Delivery Method Room Air Blood Pressure (90/60-120/80) 153/73 H Blood Pressure Mean (mm Hg) 99 Source Monitor Position Semi-Fowlers Blood Pressure Location Left Forearm History Since Last Visit- (Skip if this is Patient's initial visit) Have you changed medications since your No last visit? Any new allergies or adverse reactions No Had a fall/change in ADL's that may No increase risk of falls Signs or symptoms of abuse and/or No neglect since last visit Have you been in the hospital since your No last visit? Has dressing in place as prescribed Yes Has compression in place as prescribed N/A Has offloadiing in place as prescribed Yes Experienced any changes in pain level or No management Left Footwear Surgical Shoe with pressure relief insole Right Footwear Regular Shoe Pain Scale: 0-10 Numeric Is Patient Pain Free? Yes WC - Nurse 1 - General Ulcer Measurement Start: 03/15/23 14:42 Freq: Status: Active Protocol: Activity Type Activity Date Activity User E-sign Co-sign Detail Recorded Client Recorded Date Recorded By Document 03/15/23 14:45 DL Desktop 03/15/23 14:54 DL Document 03/22/23 14:34 DL Desktop 03/22/23 14:43 DL Document 03/29/23 15:20 BMF Desktop 03/29/23 15:27 BMF Document 04/05/23 14:19 KW Desktop 04/05/23 14:33 KW 03/15/23 03/22/23 03/29/23 14:45 14:34 15:20 Wound Center Nurse 1 #2- L DORSAL FOOT CLUSTER -Combined with other wound No -Current Size (cm) - Length 5.2 1.8 0.1 -Current Size (cm) - Width 1.8 0.8 0.1 -Current Size (cm) - Depth 0.1 0.1 0.1 -Total Square Cm 9.36 1.44 0.01 -Date of Last Picture (Recall this field) -Photo Taken -Exudate Amt Medium Medium -Exudate Type Serosanguineous Serosanguineous -Wound Margin Distinct, Thickened Outline Attached -Granulation Amt Large (67-100%) Medium (34-66%) -Granulation Quality Red Pale,[place] -Necrosis Amt Small (1-33%) None Present (0 %) -Necrotic Tissue Type Adherent Slough Adherent Slough -Structure Exposed N/A N/A -Texture (Jovanna-wound Skin Appearance) Scarring Scarring -Moisture (Jovanna-wound Skin Appearance) Maceration Dry/Scaly -Color (Jovanna-wound Skin Appearance) No Abnormality Hemosiderin Staining -Temperature (Jovanna-wound Skin No Abnormality Appearance) (Pt Warm) -Tenderness on Palpation (Jovanna-wound No Skin Appearance) -Ulcer Cleansing Soap and Water Soap and Water -Foul Odor after Cleansing No No -Anesthetic Used 5% Lidocaine 5% Lidocaine Gel Gel -Wound Comment(s) POST SURGICAL PRODUCT LEFT IN PLACE PER INSTRUCTIONS #1- L LAT FOOT POST OP -Combined with other wound No -Current Size (cm) - Length 4.7 4 -Current Size (cm) - Width 2 1.1 -Current Size (cm) - Depth 0.1 0.2 -Total Square Cm 9.4 4.4 -Date of Last Picture (Recall this field) -Photo Taken -Exudate Amt Medium Medium -Exudate Type Serosanguineous -Wound Margin Fibrotic Scar, Ep[place]ole Thickened Scar -Granulation Amt Medium (34-66%) Small (1-33%) -Granulation Quality Red -Necrosis Amt Medium (34-66%) Large (67-100%) -Necrotic Tissue Type Adherent Slough Adherent Slough -Structure Exposed N/A N/A -Texture (Jovanna-wound Skin Appearance) Scarring Scarring -Moisture (Jovanna-wound Skin Appearance) Maceration Dry/Scaly -Color (Jovanna-wound Skin Appearance) No Abnormality Hemosiderin Staining -Temperature (Jovanna-wound Skin No Abnormality No Abnormality Appearance) (Pt Warm) (Pt Warm) -Tenderness on Palpation (Jovanna-wound No Yes Skin Appearance) -Ulcer Cleansing Soap and Water Soap and Water -Foul Odor after Cleansing No No -Anesthetic Used 5% Lidocaine 5% Lidocaine Gel Gel -Wound Comment(s) POST SURGICAL PRODUCT LEFT IN PLACE PER INSTRUCTIONS Left Calf (cm) Left Ankle (cm) 04/05/23 14:19 Wound Center Nurse 1 #2- L DORSAL FOOT CLUSTER -Combined with other wound -Current Size (cm) - Length 1.5 -Current Size (cm) - Width 0.6 -Current Size (cm) - Depth 0.1 -Total Square Cm 0.90 -Date of Last Picture (Recall this 04/05/23 field) -Photo Taken Yes -Exudate Amt Small -Exudate Type Serosanguineous -Wound Margin Distinct, Outline Attached -Granulation Amt Small (1-33%) -Granulation Quality Red -Necrosis Amt Medium (34-66%) -Necrotic Tissue Type Adherent Slough -Structure Exposed -Texture (Jovanna-wound Skin Appearance) Assessed -Moisture (Jovanna-wound Skin Appearance) Assessed -Color (Jovanna-wound Skin Appearance) Assessed -Temperature (Jovanna-wound Skin No Abnormality Appearance) (Pt Warm) -Tenderness on Palpation (Jovanna-wound Yes Skin Appearance) -Ulcer Cleansing Soap and Water -Foul Odor after Cleansing No -Anesthetic Used 4% Lidocaine Solution -Wound Comment(s) #1- L LAT FOOT POST OP -Combined with other wound -Current Size (cm) - Length 4.6 -Current Size (cm) - Width 1.8 -Current Size (cm) - Depth 0.2 -Total Square Cm 8.28 -Date of Last Picture (Recall this 04/05/23 field) -Photo Taken Yes -Exudate Amt Small -Exudate Type Serosanguineous -Wound Margin Distinct, Outline Attached -Granulation Amt Small (1-33%) -Granulation Quality Red -Necrosis Amt Large (67-100%) -Necrotic Tissue Type Adherent Slough -Structure Exposed -Texture (Jovanna-wound Skin Appearance) Assessed -Moisture (Jovanna-wound Skin Appearance) Assessed -Color (Jovanna-wound Skin Appearance) Assessed -Temperature (Jovanna-wound Skin No Abnormality Appearance) (Pt Warm) -Tenderness on Palpation (Jovanna-wound Yes Skin Appearance) -Ulcer Cleansing Soap and Water -Foul Odor after Cleansing No -Anesthetic Used 4% Lidocaine Solution -Wound Comment(s) Left Calf (cm) 34.5 Left Ankle (cm) 23.5 WC - Nurse 2 - General Ulcer CM Notes Start: 03/15/23 14:42 Freq: Status: Active Protocol: Activity Type Activity Date Activity User E-sign Co-sign Detail Recorded Client Recorded Date Recorded By Document 03/15/23 15:13 Laptop 03/15/23 15:21 Document 03/22/23 15:10 Laptop 03/22/23 15:16 Document 03/29/23 15:41 Laptop 03/29/23 15:42 Document 04/05/23 15:05 Laptop 04/05/23 15:11 03/15/23 03/22/23 03/29/23 15:13 15:10 15:41 Wound Center Nurse 2 #2- L DORSAL FOOT CLUSTER -Time 15:13 15:11 -Correct Patient Yes Yes No -Correct Side, Site, Position Yes Yes No -Correct Procedure Yes Yes No -Procedure Performed Yes Yes No -Type of Procedure Debridement Debridement -Clinical Debridement Subcutaneous Subcutaneous -Tissue Removed Subcutaneous Subcutaneous -Post Debridement (cm) - Length 3.5 2.4 -Post Debridement (cm) - Width 2.0 1.5 -Post Debridement (cm) - Depth 0.1 0.1 -Total Square (Post) (cm) 7.00 3.60 -Area of Debridement (cm) - Length 3.5 2.4 -Area of Debridement (cm) - Width 2.0 1.5 -Total Square (Area) (cm) 7.00 3.60 -Tunneling No No -Undermining/Tunneling No No -Circular Undermining No No -Wound/Ulcer Outcome Not Healed Not Healed Not Healed -Ulcer Cleansing Rinsed/ Rinsed/ Irrigated with Irrigated with Saline Saline -Foul Odor after Cleansing No No -Bioengineered Tissue No No -Bleeding Controlled with Pressure Pressure -Treatment Response Procedure Procedure Tolerated Well Tolerated Well -Offloading No No -Debridement - Subq, 1st 20sq cm Yes No #1- L LAT FOOT POST OP -Time 15:14 15:15 -Correct Patient Yes Yes No -Correct Side, Site, Position Yes Yes No -Correct Procedure Yes Yes No -Procedure Performed Yes Yes No -Type of Procedure Debridement Debridement -Clinical Debridement Muscle / Fascia Subcutaneous -Tissue Removed Muscle Subcutaneous -Post Debridement (cm) - Length 4.2 3.8 -Post Debridement (cm) - Width 2.0 1.4 -Post Debridement (cm) - Depth 0.3 0.2 -Total Square (Post) (cm) 8.40 5.32 -Area of Debridement (cm) - Length 4.2 3.8 -Area of Debridement (cm) - Width 2.0 1.4 -Total Square (Area) (cm) 8.40 5.32 -Tunneling No No -Undermining/Tunneling No -Circular Undermining No No -Wound/Ulcer Outcome Not Healed Not Healed Not Healed -Ulcer Cleansing Rinsed/ Rinsed/ Irrigated with Irrigated with Saline Saline -Foul Odor after Cleansing No No -Bioengineered Tissue Yes No -Type of Bioengineered Tissue -Type of Bioengineered Tissue Epifix Mesh -Expiration Date 11/12/27 -Product Lot Number [id number] -Percent Used 100 -Lot number of Saline Used [id number] -Bleeding Controlled with Pressure Pressure -Treatment Response Procedure Procedure Tolerated Well Tolerated Well -Offloading Yes No -Type of Offloading Surgical Shoe -Debridement - Subq, 1st 20sq cm Yes -Debridement - Muscle / Fascia, 1st No 20sq cm -Apply Skin Sub - 1st 25 sq cm - Legs 1 -Epifix Mesh (per sq cm) 11 Pain Scale: 0-10 Numeric Is Patient Pain Free? Yes Yes Yes 04/05/23 15:05 Wound Center Nurse 2 #2- L DORSAL FOOT CLUSTER -Time 15:05 -Correct Patient Yes -Correct Side, Site, Position Yes -Correct Procedure Yes -Procedure Performed Yes -Type of Procedure Debridement -Clinical Debridement Subcutaneous -Tissue Removed Subcutaneous -Post Debridement (cm) - Length 1.3 -Post Debridement (cm) - Width 0.7 -Post Debridement (cm) - Depth 0.1 -Total Square (Post) (cm) 0.91 -Area of Debridement (cm) - Length 1.3 -Area of Debridement (cm) - Width 0.7 -Total Square (Area) (cm) 0.91 -Tunneling No -Undermining/Tunneling No -Circular Undermining No -Wound/Ulcer Outcome Not Healed -Ulcer Cleansing Rinsed/ Irrigated with Saline -Foul Odor after Cleansing No -Bioengineered Tissue No -Bleeding Controlled with Pressure -Treatment Response Procedure Tolerated Well -Offloading No -Debridement - Subq, 1st 20sq cm Yes #1- L LAT FOOT POST OP -Time 15:07 -Correct Patient Yes -Correct Side, Site, Position Yes -Correct Procedure Yes -Procedure Performed Yes -Type of Procedure Debridement -Clinical Debridement Subcutaneous -Tissue Removed Subcutaneous -Post Debridement (cm) - Length 4.4 -Post Debridement (cm) - Width 1.7 -Post Debridement (cm) - Depth 0.3 -Total Square (Post) (cm) 7.48 -Area of Debridement (cm) - Length 4.4 -Area of Debridement (cm) - Width 1.7 -Total Square (Area) (cm) 7.48 -Tunneling No -Undermining/Tunneling No -Circular Undermining No -Wound/Ulcer Outcome Not Healed -Ulcer Cleansing Rinsed/ Irrigated with Saline -Foul Odor after Cleansing No -Bioengineered Tissue Yes -Type of Bioengineered Tissue Epifix Mesh -Type of Bioengineered Tissue -Expiration Date 11/12/27 -Product Lot Number [id number] -Percent Used 100 -Lot number of Saline Used [id number] -Bleeding Controlled with Pressure -Treatment Response Procedure Tolerated Well -Offloading No -Type of Offloading -Debridement - Subq, 1st 20sq cm No -Debridement - Muscle / Fascia, 1st 20sq cm -Apply Skin Sub - 1st 25 sq cm - Legs -Epifix Mesh (per sq cm) Pain Scale: 0-10 Numeric Is Patient Pain Free? Yes WC - Nurse 3 - General Ulcer D/C NN Start: 03/15/23 14:42 Freq: Status: Active Protocol: Activity Type Activity Date Activity User E-sign Co-sign Detail Recorded Client Recorded Date Recorded By Document 03/15/23 16:00 [employer] Laptop 03/22/23 15:18 [employer] Document 03/22/23 15:27 KW Desktop 03/22/23 15:27 KW Document 03/29/23 15:48 GM Desktop 03/29/23 15:50 GM Document 04/05/23 15:13 GM Desktop 04/05/23 15:15 GM 03/15/23 03/22/23 03/29/23 16:00 15:27 15:48 Wound Care Center Nurse 3 #2- L DORSAL FOOT CLUSTER -Ulcer Cleansing Rinsed/ Not Cleansed Irrigated with Saline -Foul Odor after Cleansing No No -Negative Pressure Wound Therapy N/A -Primary Dressing Applied C Hydrogel ($) -Primary Dressing Covered/Secured with Dry Gauze & Dry Gauze & Dry Gauze & Roll Gauze, Roll Gauze, Roll Gauze, Secured with Secured with Secured with Tape Tape Tape #1- L LAT FOOT POST OP -Ulcer Cleansing Rinsed/ Not Cleansed Irrigated with Saline -Foul Odor after Cleansing No No -Negative Pressure Wound Therapy N/A -Primary Dressing Covered/Secured with Dry Gauze & Dry Gauze & Dry Gauze, Roll Gauze, Roll Gauze, Secured with Secured with Secured with Tape Tape Tape Left -Compression Wrap Tyler Wrap Tyler Wrap Pain Scale: 0-10 Numeric Is Patient Pain Free? Yes Yes Yes Teaching: Wound Center Dressing wound -Person Taught Patient,Family -Teaching Method Discussion, Demonstration -Response to teaching Verbalize understanding WC - Visit Discharge Discharge Condition Stable Stable Stable Ambulatory Status Ambulatory, Ambulatory Ambulatory Crutches Transportation Private Auto Private Auto Private Auto Medication Reconcilliation completed & Yes No Yes provided to patient/care provider Clinical Summary of Care Provided Yes Yes Yes 04/05/23 15:13 Wound Care Center Nurse 3 #2- L DORSAL FOOT CLUSTER -Ulcer Cleansing Not Cleansed -Foul Odor after Cleansing No -Negative Pressure Wound Therapy -Primary Dressing Applied -Primary Dressing Covered/Secured with Dry Gauze & Roll Gauze, Secured with Tape #1- L LAT FOOT POST OP -Ulcer Cleansing Not Cleansed -Foul Odor after Cleansing No -Negative Pressure Wound Therapy -Primary Dressing Covered/Secured with Dry Gauze, Secured with Tape Left -Compression Wrap Tyler Wrap Pain Scale: 0-10 Numeric Is Patient Pain Free? Yes Teaching: Wound Center Dressing wound -Person Taught Patient -Teaching Method Discussion -Response to teaching Verbalize understanding WC - Visit Discharge Discharge Condition Stable Ambulatory Status Ambulatory Transportation Private Auto Medication Reconcilliation completed & Yes provided to patient/care provider Clinical Summary of Care Provided Yes Assessment/Plan Assessment/Plan (1) Non-pressure chronic ulcer of other part of left foot with fat layer exposed: CODE(S): L97.522 - Non-pressure chronic ulcer of other part of left foot with fat layer exposed PLAN: Patient was examined and evaluated. All findings were discussed with the patient. All questions were answered to the patient satisfaction. Excisional debridement down to and including subcutaneous tissue of the left dorsum foot/ankle with a number 5 mm dermal curette without incident. Predebridement measurement is 1.0 x 0.5 x 0.1 cm. Post right measurement is 1.3 x 0.7 x 0.1 cm. Excisional debridement down to and including subcutaneous tissue and fascia of the left foot lateral ulceration with a number 5 mm dermal curette without incident. Predebridement measurement is 4.2 x 1.5 x 0.2 cm. Postdebridement measurement is 4.4 x 1.7 x 0.3 cm. EpiMesh 4 x 4.5 cm was applied to the left lateral full-thickness ulceration with 100% use. Fourth application. The graft site was free and clear of any infection. The wound/skin graft substitute was dressed with nonadherent bandage secured in place with Steri-Strips followed by bolster dressing and Tyler bandage. Patient will follow-up with Dr. Sandhu at the wound care center in 1 week.
[2023-04-12 14:39] VITALS: BP 152/85; PULSE 87; RESP 16; BMI 21.7
--- NOTE | 2023-04-12 15:51 | PCM.WC.PN ---
History of Present Illness Date of Service: 04/12/23 Chief Complaint: Left full-thickness wound. History of Wound: Chronic nonhealing left full-thickness wound Subjective Subjective Mr. Medina is a 57-year-old male presenting to the wound care center for follow-up and evaluation of full-thickness ulceration to the left foot status post excisional debridement with skin graft prep with application of skin graft substitute. Date of surgery: 03/24/2022. Patient presents today for graft application and snap application to left lower extremity. He admits his pain is improved. He denies drainage. He denies constitutional symptoms. He denies trauma. No other pedal complaints at this time. Objective Data Objective Data Vital Signs: Vital Signs Temp Pulse Resp BP O2 Del Method 97.9 F 87 16 152/85 H Room Air 04/05/23 14:19 04/12/23 14:39 04/12/23 14:39 04/12/23 14:39 04/12/23 14:39 Oxygen Delivery Method Room Air Weight: 74.843 kg Body Mass Index (BMI) 21.7 Physical Exam Narrative Vascular: DP and PT pulses are audible on Doppler. +1 pitting edema appreciated to left lower extremity. Skin temperature great is warm to warm from proximal ankle to distal digit. No evidence of focal increase is appreciated. Neurological: Light touch intact. Patient does respond to painful stimuli. Dermatological: Full-thickness ulceration appreciated to the left anterior ankle and the lateral foot. The left lateral foot ulceration measures 4.5 x 1.8 x 0.3 cm. The left dorsum ankle measures 1.2 x 0.6 x 0.1 cm. Wound bases are 100% granular nature with no malodor. Excisional debridement down to and including subcutaneous tissue of the left dorsum foot/ankle with a number 5 mm dermal curette without incident. Predebridement measurement is 0.8 x 0.4 x 0.1 cm. Post right measurement is 1.2 x 0.6 x 0.1 cm. Excisional debridement down to and including subcutaneous tissue and fascia of the left foot lateral ulceration with a number 5 mm dermal curette without incident. Predebridement measurement is 4.4 x 1.6 x 0.2 cm. Postdebridement measurement is 4.5 x 1.8 x 0.3 cm. EpiMesh 4 x 4.5 cm was applied to the left lateral full-thickness ulceration with 100% use. Fifth application. The graft site was free and clear of any infection. The wound/skin graft substitute was dressed with nonadherent bandage secured in place with Steri-Strips followed by bolster dressing and Tyler bandage. Snap negative pressure device was applied to left lower extremity. Musculoskeletal: Muscle strength was deferred. Moderate palpatory tenderness appreciated to both ulcerations to left lower extremity. No pain with calf compression. Debridement Note Debridement Note Debridement Free Text: Excisional debridement down to and including subcutaneous tissue of the left dorsum foot/ankle with a number 5 mm dermal curette without incident. Predebridement measurement is 0.8 x 0.4 x 0.1 cm. Post right measurement is 1.2 x 0.6 x 0.1 cm. Excisional debridement down to and including subcutaneous tissue and fascia of the left foot lateral ulceration with a number 5 mm dermal curette without incident. Predebridement measurement is 4.4 x 1.6 x 0.2 cm. Postdebridement measurement is 4.5 x 1.8 x 0.3 cm. EpiMesh 4 x 4.5 cm was applied to the left lateral full-thickness ulceration with 100% use. Fifth application. The graft site was free and clear of any infection. The wound/skin graft substitute was dressed with nonadherent bandage secured in place with Steri-Strips followed by bolster dressing and Tyler bandage. Snap negative pressure device was applied to left lower extremity. Post-Debridement Measurements and Additional Note: Post-Debridement Measurements/Treatment WC - Nurse 1 - General Ulcer Assessment Start: 03/15/23 14:42 Freq: Status: Active Protocol: ANTHONY Activity Type Activity Date Activity User E-sign Co-sign Detail Recorded Client Recorded Date Recorded By Document 03/15/23 14:45 DL Desktop 03/15/23 14:54 DL Document 03/22/23 14:34 DL Desktop 03/22/23 14:43 DL Document 03/29/23 15:20 BMF Desktop 03/29/23 15:27 BMF Document 04/05/23 14:19 KW Desktop 04/05/23 14:33 KW Document 04/12/23 14:39 KW Desktop 04/12/23 14:53 KW 03/15/23 03/22/23 03/29/23 14:45 14:34 15:20 - Today's Visit Information Type of service Nurse-only Follow-up Visit Follow-up Visit Visit (Physician/TUBE DRAW HELPER (Physician/TUBE DRAW HELPER ) ) Arrival Mode Cane Ambulatory Ambulatory, Crutches Transfer Assistance None None None Accompanied by Patient Identification Verified (Name & Yes Yes Yes ) Patient Requires Transmission-Based No No No Precautions Height and Weight Body Mass Index (BMI) 21.7 21.7 21.7 BMI Classification Normal Normal Normal Vital Signs Temperature (97.8 F-99.1 F) 97.8 F 98.4 F 97 F L Temperature Source Temporal Temporal Temporal Pulse Rate (60-100) 86 83 92 Pulse Location Monitor Monitor Monitor Respiratory Rate (12-18) 18 30 H 16 Respiratory rate source Observation Observation Observation Oxygen Delivery Method Room Air Blood Pressure (90/60-120/80) 111/79 133/76 H 139/81 H Blood Pressure Mean (mm Hg) 89 95 100 Source Monitor Monitor Monitor Position Sitting Blood Pressure Location Left Forearm History Since Last Visit- (Skip if this is Patient's initial visit) Have you changed medications since your No No No last visit? Any new allergies or adverse reactions No No No Had a fall/change in ADL's that may No No No increase risk of falls Signs or symptoms of abuse and/or No No No neglect since last visit Have you been in the hospital since your No No No last visit? Has dressing in place as prescribed Yes Yes Yes Has compression in place as prescribed Yes Yes N/A Has offloadiing in place as prescribed N/A Yes Yes Experienced any changes in pain level or No No No management Left Footwear Right Footwear Pain Scale: 0-10 Numeric Is Patient Pain Free? Yes Yes Yes 04/05/23 04/12/23 14:19 14:39 - Today's Visit Information Type of service Follow-up Visit Follow-up Visit (Physician/TUBE DRAW HELPER (Physician/TUBE DRAW HELPER ) ) Arrival Mode Ambulatory, Ambulatory, Crutches Crutches Transfer Assistance Accompanied by Patient Identification Verified (Name & Yes Yes ) Patient Requires Transmission-Based Precautions Height and Weight Body Mass Index (BMI) 21.7 21.7 BMI Classification Normal Normal Vital Signs Temperature (97.8 F-99.1 F) 97.9 F Temperature Source Temporal Pulse Rate (60-100) 82 87 Pulse Location Monitor Monitor Respiratory Rate (12-18) 18 16 Respiratory rate source Observation Observation Oxygen Delivery Method Room Air Room Air Blood Pressure (90/60-120/80) 153/73 H 152/85 H Blood Pressure Mean (mm Hg) 99 107 Source Monitor Monitor Position Semi-Fowlers Semi-Fowlers Blood Pressure Location Left Forearm Left Arm History Since Last Visit- (Skip if this is Patient's initial visit) Have you changed medications since your No No last visit? Any new allergies or adverse reactions No No Had a fall/change in ADL's that may No No increase risk of falls Signs or symptoms of abuse and/or No No neglect since last visit Have you been in the hospital since your No No last visit? Has dressing in place as prescribed Yes Yes Has compression in place as prescribed N/A No Has offloadiing in place as prescribed Yes Yes Experienced any changes in pain level or No No management Left Footwear Surgical Shoe Surgical Shoe with pressure with pressure relief insole relief insole Right Footwear Regular Shoe Regular Shoe Pain Scale: 0-10 Numeric Is Patient Pain Free? Yes Yes - Nurse 1 - General Ulcer Measurement Start: 03/15/23 14:42 Freq: Status: Active Protocol: Activity Type Activity Date Activity User E-sign Co-sign Detail Recorded Client Recorded Date Recorded By Document 03/15/23 14:45 DL Desktop 03/15/23 14:54 DL Document 03/22/23 14:34 DL Desktop 03/22/23 14:43 DL Document 03/29/23 15:20 [facility] Desktop 03/29/23 15:27 BMF Document 04/05/23 14:19 KW Desktop 04/05/23 14:33 KW Document 04/12/23 14:39 KW Desktop 04/12/23 14:53 KW 03/15/23 03/22/23 03/29/23 14:45 14:34 15:20 Wound Center Nurse 1 #2- L DORSAL FOOT CLUSTER -Combined with other wound No -Current Size (cm) - Length 5.2 1.8 0.1 -Current Size (cm) - Width 1.8 0.8 0.1 -Current Size (cm) - Depth 0.1 0.1 0.1 -Total Square Cm 9.36 1.44 0.01 -Date of Last Picture (Recall this field) -Photo Taken -Exudate Amt Medium Medium -Exudate Type Serosanguineous Serosanguineous -Wound Margin Distinct, Thickened Outline Attached -Granulation Amt Large (67-100%) Medium (34-66%) -Granulation Quality Red Pale,Ono -Necrosis Amt Small (1-33%) None Present (0 %) -Necrotic Tissue Type Adherent Slough Adherent Slough -Structure Exposed N/A N/A -Texture (Jovanna-wound Skin Appearance) Scarring Scarring -Moisture (Jovanna-wound Skin Appearance) Maceration Dry/Scaly -Color (Jovanna-wound Skin Appearance) No Abnormality Hemosiderin Staining -Temperature (Jovanna-wound Skin No Abnormality Appearance) (Pt Warm) -Tenderness on Palpation (Jovanna-wound No Skin Appearance) -Ulcer Cleansing Soap and Water Soap and Water -Foul Odor after Cleansing No No -Anesthetic Used 5% Lidocaine 5% Lidocaine Gel Gel -Wound Comment(s) POST SURGICAL PRODUCT LEFT IN PLACE PER INSTRUCTIONS #1- L LAT FOOT POST OP -Combined with other wound No -Current Size (cm) - Length 4.7 4 -Current Size (cm) - Width 2 1.1 -Current Size (cm) - Depth 0.1 0.2 -Total Square Cm 9.4 4.4 -Date of Last Picture (Recall this field) -Photo Taken -Exudate Amt Medium Medium -Exudate Type Serosanguineous -Wound Margin Fibrotic Scar, Epibole Thickened Scar -Granulation Amt Medium (34-66%) Small (1-33%) -Granulation Quality Red -Necrosis Amt Medium (34-66%) Large (67-100%) -Necrotic Tissue Type Adherent Slough Adherent Slough -Structure Exposed N/A N/A -Texture (Jovanna-wound Skin Appearance) Scarring Scarring -Moisture (Jovanna-wound Skin Appearance) Maceration Dry/Scaly -Color (Jovanna-wound Skin Appearance) No Abnormality Hemosiderin Staining -Temperature (Jovanna-wound Skin No Abnormality No Abnormality Appearance) (Pt Warm) (Pt Warm) -Tenderness on Palpation (Jovanna-wound No Yes Skin Appearance) -Ulcer Cleansing Soap and Water Soap and Water -Foul Odor after Cleansing No No -Anesthetic Used 5% Lidocaine 5% Lidocaine Gel Gel -Wound Comment(s) POST SURGICAL PRODUCT LEFT IN PLACE PER INSTRUCTIONS Left Calf (cm) Left Ankle (cm) 04/05/23 04/12/23 14:19 14:39 Wound Center Nurse 1 #2- L DORSAL FOOT CLUSTER -Combined with other wound -Current Size (cm) - Length 1.5 1.2 -Current Size (cm) - Width 0.6 0.5 -Current Size (cm) - Depth 0.1 0.1 -Total Square Cm 0.90 0.60 -Date of Last Picture (Recall this 04/05/23 field) -Photo Taken Yes -Exudate Amt Small Small -Exudate Type Serosanguineous Serosanguineous -Wound Margin Distinct, Distinct, Outline Outline Attached Attached -Granulation Amt Small (1-33%) Medium (34-66%) -Granulation Quality Red Red -Necrosis Amt Medium (34-66%) Small (1-33%) -Necrotic Tissue Type Adherent Slough Adherent Slough -Structure Exposed -Texture (Jovanna-wound Skin Appearance) Assessed Assessed -Moisture (Jovanna-wound Skin Appearance) Assessed Assessed -Color (Jovanna-wound Skin Appearance) Assessed Assessed -Temperature (Jovanna-wound Skin No Abnormality No Abnormality Appearance) (Pt Warm) (Pt Warm) -Tenderness on Palpation (Jovanna-wound Yes Skin Appearance) -Ulcer Cleansing Soap and Water Soap and Water -Foul Odor after Cleansing No -Anesthetic Used 4% Lidocaine 4% Lidocaine Solution Solution -Wound Comment(s) #1- L LAT FOOT POST OP -Combined with other wound -Current Size (cm) - Length 4.6 4.5 -Current Size (cm) - Width 1.8 1.7 -Current Size (cm) - Depth 0.2 0.5 -Total Square Cm 8.28 7.65 -Date of Last Picture (Recall this 04/05/23 field) -Photo Taken Yes -Exudate Amt Small Small -Exudate Type Serosanguineous Serosanguineous -Wound Margin Distinct, Distinct, Outline Outline Attached Attached -Granulation Amt Small (1-33%) Medium (34-66%) -Granulation Quality Red Red -Necrosis Amt Large (67-100%) Medium (34-66%) -Necrotic Tissue Type Adherent Slough Adherent Slough -Structure Exposed -Texture (Jovanna-wound Skin Appearance) Assessed Assessed -Moisture (Jovanna-wound Skin Appearance) Assessed Assessed -Color (Jovanna-wound Skin Appearance) Assessed Assessed -Temperature (Jovanna-wound Skin No Abnormality No Abnormality Appearance) (Pt Warm) (Pt Warm) -Tenderness on Palpation (Jovanna-wound Yes Skin Appearance) -Ulcer Cleansing Soap and Water Soap and Water -Foul Odor after Cleansing No No -Anesthetic Used 4% Lidocaine 4% Lidocaine Solution Solution -Wound Comment(s) Left Calf (cm) 34.5 Left Ankle (cm) 23.5 WC - Nurse 2 - General Ulcer CM Notes Start: 03/15/23 14:42 Freq: Status: Active Protocol: Activity Type Activity Date Activity User E-sign Co-sign Detail Recorded Client Recorded Date Recorded By Document 03/15/23 15:13 JF Laptop 03/15/23 15:21 JF Document 03/22/23 15:10 JF Laptop 03/22/23 15:16 JF Document 03/29/23 15:41 JF Laptop 03/29/23 15:42 JF Document 04/05/23 15:05 JF Laptop 04/05/23 15:11 JF Edit Result 04/05/23 15:05 JF (1) [id number] 04/06/23 07:14 PL Document 04/12/23 15:20 JF Laptop 04/12/23 15:30 JF (1) #1- L LAT FOOT POST OP - Apply Skin Sub - 1st 25 sq cm - Feet => 1 - Epifix Mesh (per sq cm) => 11 03/15/23 03/22/23 03/29/23 15:13 15:10 15:41 Wound Center Nurse 2 #2- L DORSAL FOOT CLUSTER -Time 15:13 15:11 -Correct Patient Yes Yes No -Correct Side, Site, Position Yes Yes No -Correct Procedure Yes Yes No -Procedure Performed Yes Yes No -Type of Procedure Debridement Debridement -Clinical Debridement Subcutaneous Subcutaneous -Tissue Removed Subcutaneous Subcutaneous -Post Debridement (cm) - Length 3.5 2.4 -Post Debridement (cm) - Width 2.0 1.5 -Post Debridement (cm) - Depth 0.1 0.1 -Total Square (Post) (cm) 7.00 3.60 -Area of Debridement (cm) - Length 3.5 2.4 -Area of Debridement (cm) - Width 2.0 1.5 -Total Square (Area) (cm) 7.00 3.60 -Tunneling No No -Undermining/Tunneling No No -Circular Undermining No No -Wound/Ulcer Outcome Not Healed Not Healed Not Healed -Ulcer Cleansing Rinsed/ Rinsed/ Irrigated with Irrigated with Saline Saline -Foul Odor after Cleansing No No -Bioengineered Tissue No No -Bleeding Controlled with Pressure Pressure -Treatment Response Procedure Procedure Tolerated Well Tolerated Well -Offloading No No -Debridement - Subq, 1st 20sq cm Yes No #1- L LAT FOOT POST OP -Time 15:14 15:15 -Correct Patient Yes Yes No -Correct Side, Site, Position Yes Yes No -Correct Procedure Yes Yes No -Procedure Performed Yes Yes No -Type of Procedure Debridement Debridement -Clinical Debridement Muscle / Fascia Subcutaneous -Tissue Removed Muscle Subcutaneous -Post Debridement (cm) - Length 4.2 3.8 -Post Debridement (cm) - Width 2.0 1.4 -Post Debridement (cm) - Depth 0.3 0.2 -Total Square (Post) (cm) 8.40 5.32 -Area of Debridement (cm) - Length 4.2 3.8 -Area of Debridement (cm) - Width 2.0 1.4 -Total Square (Area) (cm) 8.40 5.32 -Tunneling No No -Undermining/Tunneling No -Circular Undermining No No -Wound/Ulcer Outcome Not Healed Not Healed Not Healed -Ulcer Cleansing Rinsed/ Rinsed/ Irrigated with Irrigated with Saline Saline -Foul Odor after Cleansing No No -Bioengineered Tissue Yes No -Type of Bioengineered Tissue -Type of Bioengineered Tissue Epifix Mesh -Expiration Date 11/12/27 -Product Lot Number [id number] -Percent Used 100 -Lot number of Saline Used [id number] -Bleeding Controlled with Pressure Pressure -Treatment Response Procedure Procedure Tolerated Well Tolerated Well -Offloading Yes No -Type of Offloading Surgical Shoe -Debridement - Subq, 1st 20sq cm Yes -Debridement - Muscle / Fascia, 1st No 20sq cm -Apply Skin Sub - 1st 25 sq cm - Legs 1 -Apply Skin Sub - 1st 25 sq cm - Feet -Epifix Mesh (per sq cm) 11 Pain Scale: 0-10 Numeric Is Patient Pain Free? Yes Yes Yes 04/05/23 04/12/23 15:05 15:20 Wound Center Nurse 2 #2- L DORSAL FOOT CLUSTER -Time 15:05 15:21 -Correct Patient Yes Yes -Correct Side, Site, Position Yes Yes -Correct Procedure Yes Yes -Procedure Performed Yes Yes -Type of Procedure Debridement Debridement -Clinical Debridement Subcutaneous Subcutaneous -Tissue Removed Subcutaneous Subcutaneous -Post Debridement (cm) - Length 1.3 1.2 -Post Debridement (cm) - Width 0.7 0.6 -Post Debridement (cm) - Depth 0.1 0.1 -Total Square (Post) (cm) 0.91 0.72 -Area of Debridement (cm) - Length 1.3 1.2 -Area of Debridement (cm) - Width 0.7 0.6 -Total Square (Area) (cm) 0.91 0.72 -Tunneling No No -Undermining/Tunneling No No -Circular Undermining No No -Wound/Ulcer Outcome Not Healed Not Healed -Ulcer Cleansing Rinsed/ Rinsed/ Irrigated with Irrigated with Saline Saline -Foul Odor after Cleansing No No -Bioengineered Tissue No No -Bleeding Controlled with Pressure Pressure -Treatment Response Procedure Procedure Tolerated Well Tolerated Well -Offloading No No -Debridement - Subq, 1st 20sq cm Yes Yes #1- L LAT FOOT POST OP -Time 15:07 15:29 -Correct Patient Yes Yes -Correct Side, Site, Position Yes Yes -Correct Procedure Yes Yes -Procedure Performed Yes Yes -Type of Procedure Debridement Debridement -Clinical Debridement Subcutaneous Subcutaneous -Tissue Removed Subcutaneous Subcutaneous -Post Debridement (cm) - Length 4.4 4.5 -Post Debridement (cm) - Width 1.7 1.8 -Post Debridement (cm) - Depth 0.3 0.3 -Total Square (Post) (cm) 7.48 8.10 -Area of Debridement (cm) - Length 4.4 4.5 -Area of Debridement (cm) - Width 1.7 1.8 -Total Square (Area) (cm) 7.48 8.10 -Tunneling No No -Undermining/Tunneling No No -Circular Undermining No No -Wound/Ulcer Outcome Not Healed Not Healed -Ulcer Cleansing Rinsed/ Rinsed/ Irrigated with Irrigated with Saline Saline -Foul Odor after Cleansing No No -Bioengineered Tissue Yes Yes -Type of Bioengineered Tissue Epifix Mesh Epifix Mesh -Type of Bioengineered Tissue -Expiration Date 11/12/27 11/12/27 -Product Lot Number [id number] -Percent Used 100 100 -Lot number of Saline Used [id number] -Bleeding Controlled with Pressure Pressure -Treatment Response Procedure Procedure Tolerated Well Tolerated Well -Offloading No No -Type of Offloading -Debridement - Subq, 1st 20sq cm No No -Debridement - Muscle / Fascia, 1st 20sq cm -Apply Skin Sub - 1st 25 sq cm - Legs -Apply Skin Sub - 1st 25 sq cm - Feet 1 1 -Epifix Mesh (per sq cm) 11 11 Pain Scale: 0-10 Numeric Is Patient Pain Free? Yes Yes WC - Nurse 3 - General Ulcer D/C NN Start: 03/15/23 14:42 Freq: Status: Active Protocol: Activity Type Activity Date Activity User E-sign Co-sign Detail Recorded Client Recorded Date Recorded By Document 03/15/23 16:00 Laptop 03/22/23 15:18 Document 03/22/23 15:27 KW Desktop 03/22/23 15:27 KW Document 03/29/23 15:48 Desktop 03/29/23 15:50 GM Document 04/05/23 15:13 GM Desktop 04/05/23 15:15 GM Document 04/12/23 15:35 GM Desktop 04/12/23 15:39 GM 03/15/23 03/22/23 03/29/23 16:00 15:27 15:48 Wound Care Center Nurse 3 #2- L DORSAL FOOT CLUSTER -Ulcer Cleansing Rinsed/ Not Cleansed Irrigated with Saline -Foul Odor after Cleansing No No -Negative Pressure Wound Therapy N/A -Primary Dressing Applied C Hydrogel ($) -Primary Dressing Covered/Secured with Dry Gauze & Dry Gauze & Dry Gauze & Roll Gauze, Roll Gauze, Roll Gauze, Secured with Secured with Secured with Tape Tape Tape #1- L LAT FOOT POST OP -Ulcer Cleansing Rinsed/ Not Cleansed Irrigated with Saline -Foul Odor after Cleansing No No -Negative Pressure Wound Therapy N/A -Negative Pressure is -Primary Dressing Covered/Secured with Dry Gauze & Dry Gauze & Dry Gauze, Roll Gauze, Roll Gauze, Secured with Secured with Secured with Tape Tape Tape -NPWT Application Charge Left -Compression Wrap Tyler Wrap Tyler Wrap Pain Scale: 0-10 Numeric Is Patient Pain Free? Yes Yes Yes Teaching: Wound Center Dressing wound -Person Taught Patient,Family -Teaching Method Discussion, Demonstration -Response to teaching Verbalize understanding Wound Vac -Person Taught -Teaching Method -Response to teaching WC - Visit Discharge Discharge Condition Stable Stable Stable Ambulatory Status Ambulatory, Ambulatory Ambulatory Crutches Transportation Private Auto [email or web address] Auto Medication Reconcilliation completed & Yes No Yes provided to patient/care provider Clinical Summary of Care Provided Yes Yes Yes 04/05/23 04/12/23 15:13 15:35 Wound Care Center Nurse 3 #2- L DORSAL FOOT CLUSTER -Ulcer Cleansing Not Cleansed Not Cleansed -Foul Odor after Cleansing No No -Negative Pressure Wound Therapy -Primary Dressing Applied -Primary Dressing Covered/Secured with Dry Gauze & Dry Gauze, Roll Gauze, Secured with Secured with Tape Tape #1- L LAT FOOT POST OP -Ulcer Cleansing Not Cleansed Not Cleansed -Foul Odor after Cleansing No No -Negative Pressure Wound Therapy Start -Negative Pressure is Continuous -Primary Dressing Covered/Secured with Dry Gauze, Secured with Tape -NPWT Application Charge NPWT & Debridement (nc ) Left -Compression Wrap Tyler Wrap Tyler Wrap Pain Scale: 0-10 Numeric Is Patient Pain Free? Yes Yes Teaching: Wound Center Dressing wound -Person Taught Patient Patient,Family -Teaching Method Discussion Discussion -Response to teaching Verbalize Verbalize understanding understanding Wound Vac -Person Taught Patient,Family -Teaching Method Discussion, Demonstration -Response to teaching Verbalize understanding WC - Visit Discharge Discharge Condition Stable Stable Ambulatory Status Ambulatory Ambulatory Transportation Private Auto [email or web address] Auto Medication Reconcilliation completed & Yes Yes provided to patient/care provider Clinical Summary of Care Provided Yes Yes Assessment/Plan Assessment/Plan (1) Non-pressure chronic ulcer of other part of left foot with fat layer exposed: CODE(S): L97.522 - Non-pressure chronic ulcer of other part of left foot with fat layer exposed PLAN: Patient was examined and evaluated. All findings were discussed with the patient. All questions were answered to the patient's satisfaction. Excisional debridement down to and including subcutaneous tissue of the left dorsum foot/ankle with a number 5 mm dermal curette without incident. Predebridement measurement is 0.8 x 0.4 x 0.1 cm. Post right measurement is 1.2 x 0.6 x 0.1 cm. Excisional debridement down to and including subcutaneous tissue and fascia of the left foot lateral ulceration with a number 5 mm dermal curette without incident. Predebridement measurement is 4.4 x 1.6 x 0.2 cm. Postdebridement measurement is 4.5 x 1.8 x 0.3 cm. EpiMesh 4 x 4.5 cm was applied to the left lateral full-thickness ulceration with 100% use. Fifth application. The graft site was free and clear of any infection. The wound/skin graft substitute was dressed with nonadherent bandage secured in place with Steri-Strips followed by bolster dressing and Tyler bandage. Snap negative pressure device was applied to left lower extremity. Follow-up at the wound care center with Dr. Sandhu in 1 week. (2) Left foot pain: CODE(S): M79.672 - Pain in left foot
== END 2023-04-12 23:59 | disposition home or self-care (01) ==
LOC: WC 14:45
PROVIDERS: Referring Provider Podiatrist Foot & Ankle Surgery; Visit Provider Podiatrist Foot & Ankle Surgery
DX: L97.322 Non-pressure chronic ulcer of left ankle with fat layer exposed (principal); M79.672 Pain in left foot; Z79.82 Long term (current) use of aspirin; Z79.01 Long term (current) use of anticoagulants; Z79.02 Long term (current) use of antithrombotics/antiplatelets; Z79.899 Other long term (current) drug therapy
CPT/HCPCS: 11042; 15271; 15275; 99214; Q4186; G0463

== ENCOUNTER → 2023-04-28 | Outpatient (CLI) | payer MEDICAID, SELFPAY ==
--- NOTE | 2023-04-28 13:44 | ADUL_ITS ---
Reason For Study: HX LLE BPG Left Velocities Ext Iliac Artery, dist = 126.1 cm./sec. Common Femoral Artery, mid = 164.4 cm./sec. Supf. Femoral Artery, prox = 28.5 cm./sec. Prox/Mid SFA Known Occlusion. SFA to Distal POP BPG noted. Bypass graft, prox [place] vessel = 235.0 cm./sec. Bypass graft prox.anastamosis = 172.2 cm./sec. Bypass graft, mid = 98.6 cm./sec. Bypass graft, distal anastamosis = 103.0 cm./sec. Bypass graft, dist [place] vessel = 138.1 cm./sec. Profunda Femoral Artery = 65.6 cm./sec. Post. Tibial Artery, prox = 98.6 cm./sec. Post Tibial Artery, mid = 135.9 cm./sec. Post Tibial Artery, dist. = 124.9 cm./sec. Peroneal Artery, prox = 70.0 cm./sec. Peroneal Artery, mid = 56.9 cm./sec. Peroneal Artery,dist. = 50.3 cm./sec. Ant.Tibial Artery, prox = 120.5 cm./sec. Ant Tibial Artery, mid = 157.2 cm./sec. Ant. Tibial Artery, distal = 97.9 cm./sec. /US Art Duplex Unilat Lower Ext Interpretation Summary Patent left femoral-popliteal bypass graft with normal velocities and no eviden ce of stenosis. Ordering Physician: Meli Edwards Referring Physician: Richard Valle MD Performed By: Adán Patel T
--- OUTSIDE RECORDS SUMMARY | 2023-04-28 14:04 | XMS RPT_ITS | CCD ---
Author Name Unknown Address [address] [place] [address] Organization [facility] Care Team Providers Care Recycling Crew Supervisor Name Role Phone No, Physician Primary Care Provider Unavailabl e Unavailable Primary Care Provider Unavailabl MAHAMED Ocasio Referring Unavailable MAHAMED SAUER Attending Unavailable KELLY [...] Unavailable PASHA LERNER Attending Unavailable LYLA AGOSTO Attending Unavaila ble SPIELDENNELYLA Salas Referring Unavaila ble SPIELDENNELYLA Salas Primary Care Unavaila ble NICHO TORRES Referring Unavailabl e KETAN, PHYSICIAN Primary Care Unavailable LYLA AGOSTO Primary Care Unavaila ble SPIELDENNELYLA Salas Referring Unavaila ble SPIELDENNELYLA Salas Admitting Unavaila ble MARÍA BAKER Attending Guzman ACEVES, PHYSICIAN Primary Care Unavailable MARÍA BAKER Attending LYLA Chicas Primary Care Unavaila ble MARÍA BAKER Attending LYLA Chicas [facility] Unavaila ble Medications Current Medications Medication [...] lower limb ischemia ; Translations: [Atherosclerosis of tununak arteries of extremities with gangrene, left leg] [...] and due to atherosclerosis; Translations: [Atherosclerosis of tunun[place] arteries of extremities with intermittent claudication, bilateral [...] Date Time Vital Sign Value Performing Clinician Faci lity 02-23-2023 09:50-0500 Diastolic blood pressure 80 mm[Hg] Lyla Spidaydayenner MOLDER OFFBEARER Work Phone: [facility] 02-23-2023 09:50-0500 Systolic blood pressure 128 mm[Hg] Lyla Spidaydayenner MOLDER OFFBEARER Work Phone: [facility] 02-23-2023 09:10-0500 Body height 185.4 cm Lyla Tomekaenner MOLDER OFFBEARER Work Phone: [facility] 02-23-2023 09:10-0500 Body mass index (BMI) [Ratio] 23.09 kg/m2 Lyla Spidaydayenner MOLDER OFFBEARER Work Phone: [facility] 02-23-2023 09:10-0500 Body temperature 98.49 [degF] Lyla Tomekaenner MOLDER OFFBEARER Work Phone: [facility] 02-23-2023 09:10-0500 Body weight 79.38 kg Lyla Tomekaenner MOLDER OFFBEARER Work Phone: [facility] 02-23-2023 09:10-0500 Heart rate 81 /min Lyla Eckertsaba MOLDER OFFBEARER Work Phone: [facility] 02-23-2023 09:10-0500 SaO2% (BldA) [Mass fraction] 98 % Lyla Medinaviraj MOLDER OFFBEARER Work Phone: [facility] 12-28-2022 10:29-0400 Diastolic blood pressure 90 mm[Hg] Nicho Torres MD Work Phone: [facility] 12-28-2022 10:29-0400 Heart rate 93 /min Nicho Torres MD Work Phone: [facility] 12-28-2022 10:29-0400 Systolic blood pressure 141 mm[Hg] Nicho Torres MD Work Phone: [facility] 12-28-2022 10:21-0400 Body height 185.4 cm Nicho Torres MD Work Phone: [facility] 12-28-2022 10:21-0400 Body mass index (BMI) [Ratio] 22.69 kg/m2 Nicho Torres MD Work Phone: [facility] 12-28-2022 10:21-0400 Body weight 78.02 kg Nicho Torres MD Work Phone: [facility] 12-21-2022 11:27-0400 Body temperature 97.7 [degF] Jeannine [facility] 12-21-2022 11:27-0400 Diastolic blood pressure 92 mm[Hg] Jeannine [facility] Encounters Encounter Date Encounter Type Care Provider Facility Start: 03-20-2023 End: 03-24-2023 ambulatory LYLA MIRZA [facility] Start: 03-20-2023 End: 03-24-2023 Encounter for general adult medical examination without abnormal findings [facility] Start: 03-17-2023 ambulatory Priscila Person [facility] Start: 03-15-2023 End: 03-15-2023 ambulatory [facility] Start: 03-08-2023 End: 03-08-2023 ambulatory [facility] Start: 03-01-2023 Orders Only Lyla mendosa MOLDER OFFBEARER Work Phone: [facility] Procedures Date Procedure Procedure Detail Performing Clinician Start: 02-23-2023 Adult depression scr eening assessment Lyla Moultonnavya MOLDER OFFBEARER Work Phone: Start: 12-21-2022 Cta abdl aorta&bi il iofem w/contrast&postp Mahamed Arron Swiatek DPM Work Phone: Start: 12-21-2022 Assay of lactate Ady Rohit PA-C Work Phone: Start: 12-21-2022 C-reactive protein Envoimoinscher loren Rohit PA-C Work Phone: Start: 12-21-2022 Complete blood count with white cell differential, automated Ady Bee PA-C Work Phone: Start: 12-21-2022 Renal function panel De jaime Bee PA-C Work Phone: Start: 12-20-2022 Drug test prsmv read direct optical obs pr date Ady Bee PA-C Work Phone: Start: 12-20-2022 Mri lower extrem oth /thn jt w/o contr matrl Ady Bee PA-C Work Phone: Start: 12-20-2022 Dup-scan xtr veins complete bilateral study Ady Rohit PA-C Work Phone: Start: 12-20-2022 Cultyp nuc acid amp prb cult/isolate ea monique Lowe DO Start: 12-20-2022 Assay of lactate Drake Zuñiga APPLICATIONS COORDINATOR-MOLDER OFFBEARER Work Phone: Start: 12-20-2022 Radex foot complete minimum 3 views Drake Zuñiga APPLICATIONS COORDINATOR-MOLDER OFFBEARER Work Phone: Start: 12-20-2022 Cul bact xcpt urine blood/stool aerobic isol Drake Zuñiga APPLICATIONS COORDINATOR-MOLDER OFFBEARER Work Phone: Start: 12-20-2022 Comprehensive metabo lic panel Drake Zuñiga APPLICATIONS COORDINATOR-MOLDER OFFBEARER Work Phone: Start: 12-20-2022 Lipid panel Ady grajeda PA-C Work Phone: Start: 12-20-2022 Lipid 1996 panel - S adolfo or Plasma Jeannine Lowe DO Start: 11-05-2022 Complete blood count with white cell differential, automated Kelly Dennis PA-C Work Phone: Start: 11-05-2022 Culture bacterial bl ood aerobic w/id isolates Eklly Dennis PA-C Work Phone: Start: 11-05-2022 Sedimentation rate r bc automated Kelly Dennis PA-C Work Phone: Start: 11-05-2022 Radex foot complete minimum 3 views Kelly Denins PA-C Work Phone: Plan of Treatment Date Care Activity Detail Author Start: 01-06-2033 Tetanus vaccination Tetanus: Every 1 0yrs [facility] Start: 12-21-2027 Lipid panel LIPID SCREENING [facility] [employer] Start: 03-20-2025 Prostate specific an tigen measurement PSA Level [facility] Start: 03-20-2024 Screening for malign ant neoplasm of lung Low-dose CT Lung Cancer Screen [facility] Start: 02-27-2024 COVID-19 Vaccine (#1) COVID-19 Vacci ne (#1) [facility] Immunizations Immunization Date Immunization Notes Care Provider Fa luana 01-06-2023 tetanus toxoid, redu glenda diphtheria toxoid, and acellular pertussis vaccine, adsorbed Lyla Agosto MOLDER OFFBEARER Work Phone: [facility] Payers Date Payer Category Payer Medicaid [id number] 2022 Medicaid [id number] 2022 Private Health Insurance [employer] [id number] 2022-Present [address] [place] [address] [id number] 2022 Private Health Insurance [id number] 1965 Unknown [id number] [id number]. 983 1965 Unknown [id number] 2.16.840.1.769822.3.579.2. 983 1965 Unknown [id number] 2.16.840.1.916159.3.579.2. 983 1965 Unknown [id number] 2.16.840.1.535125.3.579.2. 98 1965 Unknown [id number] 2..840.1.998941.3.579.2. 1964 Unknown [id number] 2.16.840.1.141761.3.579.2. 900 1965 Unknown [id number] 2.840.1.612960.3.579.2 1964 Unknown [id number] 2.840.1.410220.3.579.2. 1964 Unknown [id number] 2.16840.1.028910.3.579.2. 1964 Unknown [id number] 2.16840.1.674121.3.579.2. 3 1965 Unknown [id number] 2.840.1.341858.3.579.2. 1964 Unknown [id number] 2.16.840.1.082357.3.579.2. 90 1965 Unknown [id number] 2.16.840.1.704941.3.579.2. 1964 Unknown [id number] 2.16.840.1.817623.3.579.2. 90 1965 Unknown [id number] 2.16.840.1.876294.3.579.2. 1965 Unknown [id number] 2.16.840.1.736122.3.579.2. 903 Unknown DENTAL ODH DENTA L ODH xxx- Effective for all dates xxx- [id number]. [id number] Social History Date Type Detail Facility Tobacco smoking stat us [facility] Unknown if ever smoked [facility] Start: 1965 Sex Assigned At Not on file [facility] Start: 11-05-2022 End: 12-28-2022 Tobacco smoking status NHIS Smokes tobacco daily [facility] History of tobacco use Cigarette Smoker [facility] Start: 11-05-2022 End: 02-23-2023 Cigarettes smoked current (pack per day) - Reported 0.5 [facility] Start: 11-05-2022 End: 12-28-2022 Tobacco use and exposure Smokeless tobacco non-user [facility] Start: 11-05-2022 End: 02-23-2023 Alcohol intake Current drinker of alcohol (finding) [facility] Start: 11-05-2022 End: 02-23-2023 Tobacco use panel [facility] Start: 11-05-2022 Alcohol Comment 1 can a day [facility] Start: 12-28-2022 Alcohol Comment 2 to 3 shot weekends [facility] Start: 04-05-2018 Gender identity Identifies as male gender (finding) [facility] Start: 04-05-2018 Sexual orientation Heterosexual (fin ding) [facility] Start: 02-23-2023 Alcohol Comment 2 to 3 shot we ekends/5 beers [facility] Adult Depression Screening Assessment 0 [facility] Clinical Notes 11-05-2022 to 03-21-2023 Rowena Patel MD - 03/21/2023 3:19 PM ESTSLyla lentz CNP - 02/23/2023 9:19 AM ESTAssessment & [...] Diagnoses Screening for colon cancer Relevant Orders [facility] maintenance Relevant Orders CBC and Differential [...] Total Score 0 documented in this encounter [facility] 02-23-2023 Evaluation + Plan note Associated Problem(s): Anemia Chronic, uncontrolled MVI with iron [facility] 02-23-2023 Evaluation + Plan note Associated Problem(s): HLD (hyperlipidemia) Chronic, control? Await labs [facility] 02-23-2023 Evaluation + Plan note Associated Problem(s): Tobacco abuse Chronic, uncontrolled Stop smoking [facility] 02-23-2023 Miscellaneous Notes Associated Problem(s): Anemia Chronic, uncontrolled MVI with iron Associated Problem(s): HLD (hyperlipidemia) Chronic, control? Await labs Associated Problem(s): Tobacco abuse Chronic, uncontrolled Stop smoking Associated Problem(s): Benign hypertension Chronic, controlled Associated Problem(s): IFG (impaired fasting glucose) Chronic, control? Await A1c documented in this encounter [facility] 02-23-2023 Miscellaneous Notes Associated Problem(s): Anemia Chronic, uncontrolled MVI with iron Associated Problem(s): HLD (hyperlipidemia) Chronic, control? Await labs Associated Problem(s): Tobacco abuse Chronic, uncontrolled Stop smoking Associated Problem(s): Benign hypertension Chronic, controlled Associated Problem(s): IFG (impaired fasting glucose) Chronic, control? Await A1c documented in this encounter [facility] 02-23-2023 Evaluation + Plan note Associated Problem(s): Benign hypertension Chronic, controlled [facility] 02-23-2023 Evaluation + Plan note Associated Problem(s): IFG (impaired fasting glucose) Chronic, control? Await A1c [facility] 02-23-2023 History of Presen t illness Narrative [...] Diagnoses Screening for colon cancer Relevant Orders [facility] maintenance Relevant Orders CBC and Differential [...] Total Score 0 documented in this encounter [facility] 01-09-2023 History of Presen t illness Narrative Message left for patient to make an appointment with Dr. Torres in follow up in the out pt setting, per Dr. Vargas request. Attempted multiple times to direct admit this patient, but every time the patient was contacted by the bed coordinator, he declined for various reasons. documented in this encounter [facility] 12-28-2022 Evaluation + Plan note Associated Problem(s): Critical limb ischemia of left lower extremity with gangrene (HCC) The patient clearly has critical limb ischemia. There is a monophasic dorsalis pedis Doppler signal similar to his popliteal Doppler signal. His CT angiography also shows severe occlusive disease. Plan: 1. I prescribed Percocet for the patient not realizing that Dr. Lerner had prescribed [place]. When I spoke with Dr. Lerner she told me she would discontinue the [place] prescription. He needs opiate to get him [...] make a target for bypass more transparent. [facility] 12-28-2022 Miscellaneous Notes Associated Problem(s): Critical limb ischemia of left lower extremity with gangrene (HCC) The patient clearly has critical limb ischemia. There is a monophasic dorsalis pedis Doppler signal similar to his popliteal Doppler signal. His CT angiography also shows severe occlusive disease. Plan: 1. I prescribed Percocet for the patient not realizing that Dr. Lerner had prescribed [place]. When I spoke with Dr. Lerner she told me she would discontinue the [place] prescription. He needs opiate to get him [...] bypass more transparent. documented in this encounter [facility] 12-28-2022 History of Presen t illness Narrative Assessment Critical limb ischemia of left lower extremity with gangrene (HCC) The patient clearly has critical limb ischemia. There is a monophasic dorsalis pedis Doppler signal similar to his popliteal Doppler signal. His CT angiography also shows severe occlusive disease. Plan: 1. I prescribed Percocet for the patient not realizing that Dr. Lerner had prescribed [place]. When I spoke with Dr. Lerner she told me she would discontinue the [place] prescription. He needs opiate to get him [...] independen CT angiogram tly reviewed the from [facility] and agree with the interpretation(s) with the [...] some calcification are stenotic or not. Jb Merritt 1965 57 y.o. male who presents to the office in consultation for gangrene of the left fifth toe. He saw his ski patrol director Dr. Pasha Lerner his ski patrol director who immediately noted that he had significant [...] to his care with antibiotics at the [facility]. Past Medical History: Diagnosis Date Claudication (HCC) [...] content normal. The note was dictated using 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 dictation system. The voice recognition software is inherently subject to errors including those of syntax and sound-alike substitutions which may escape proofreading. In such instances, original meaning may be extrapolated by contextual derivation. documented in this encounter [facility] 12-28-2022 Instructions Skyler Hunter MA - 12/28/2022 10:21 AM EDT How to contact your Care Team: Provider: MD Kaur Pereira CNP Jill Bender, PA Nurse: Ange Graves RN To reschedule office appointments call Scheduling [phone] In case of an emergency please call 911. When in need of refills please call the phone number listed above. Please include medication name, pharmacy name and specify 30 or 90 day supply Please check with your pharmacy within 24 hours of your request for refill. You must follow up as directed to continue current refills. Thank you! documented in this encounter [facility] 12-21-2022 History of Presen t illness Narrative [...] Supine to Sit, Rehab Eval Level of Ringling: Supine/Sit independent Transfer Skill: Sit To Stand, Rehab Eval [place] (Sit-Stand Transfers) independent Gait Skills, PT Eval Level of [place]: Gait independent Gait Distance 200 feet Gait [...] spouse Information Source Name Marivel Contact Information Supervisor Electric Motor Testing/SW Added to Care Team Yes This Classroom Coordinator is Primary Supervisor [employer]/SW Yes Social Work Contact Name [place] HOLLANDW Level Vial Inspector And Tester's Phone Number [phone] Living Environment Lives With spouse Living Arrangements [...] none Initial Discharge Planning Home Care Services (LIFE SKILLS TEACHER) No Home Therapies (LIFE SKILLS TEACHER) None DME (LIFE SKILLS TEACHER) None Medical Supplies (LIFE SKILLS TEACHER) None Anticipated discharge disposition Home Anticipated Changes Related to Illness none Transportation Available car Assessment/Concerns to be Addressed Concerns To Be Addressed no discharge needs identified LEAD RADIATION THERAPIST spoke with Marivel. She states they live in a 2 story home. She reports that he is completely independent, denies DME use or home O2. states patient has access to food, medication, and transportation. Patient has no PCP and gave permission to complete a referral for an [facility] PCP. LEAD RADIATION THERAPIST completed this. denies needs at this time. [...] Dose - Vancomycin Progress Note PATIENT: Jb Merritt Room/Bed: E017/E017 Indication: osteomyelitis Trough Goal: 15-20 [...] me with any further questions. Roge Cook [facility] Phone: [phone] Date/Time: 12/20/2022 1:43 PM documented in this [facility] 12-21-2022 Hospital course Narrative Discharge Summary Name: Jb Merritt Age: 57 y.o. Birthday: 1965 Admit Date: 12/20/2022 11:21 AM Discharge Date: 12/21/2022 Pt left AMA Discharge Assesment and Plan: Present on Admission: Cellulitis of left lower extremity Tobacco abuse Benign hypertension Acute hematogenous osteomyelitis of left foot PAD (peripheral artery disease) Brief Summary of Hospital Course: Patient is a 57 y.o. male presents to [facility] for evaluation of left toe [...] known as: ULTRAM For diagnoses: Atherosclerosis of [place] artery of both lower extremities with intermittent claudication, Diabetic ulcer of left fifth toe Discharge Activity: Resume pre-hospital activities as tolerated. Discharge Diet: Resume pre-hospital diet as tolerated. Discharge Follow-up: No follow-up provider specified. Discharge Disposition: Patient left ama Raul Romero CNP completing Discharge Summary for attending physician. Please note Portions of this note utilized [employer] dictation software, please excuse any typographical or grammatical errors Associated attestation - Jeannine Lowe DO - 12/21/2022 4:44 PM EDT Patient left AMA. documented in this encounter [facility] 12-21-2022 Miscellaneous Notes Pt walked to nurse [...] light w/in reach. documented in this encounter [facility] 12-21-2022 Nurse Note Pt walked to nurse station stating he was leaving. Signed AMA form, IV removed, Dr. Sauer notified pt left. [facility] 12-21-2022 Nurse Note Assessment is complete and remains unchanged from previous at this time with any exceptions noted in the flowsheet. Patient denies further needs and is left with call light and personals in reach. [facility] 12-21-2022 Note CLINICAL DATA: Leg p [...] venous thrombosis. 2. No superficial venous thrombosis. [facility] 12-21-[address] Sauer at this time for podiatry consult. Added to care team. [facility] 12-21-2022 Note CLINICAL DATA: Leg p [...] at this time. Call light within reach. [facility] 12-21-2022 Nurse Note Pt c/o 9/10 pain in L pinky toe. Percocet given- see MAR. [facility] 12-21-2022 Nurse Note Pt assessment remains unchanged with any exceptions noted in flowsheets. Pt denies any pain at this time. Pt denies any further needs at this time. Call light within reach. [facility] 12-20-2022 Nurse Note Pt assessment complete. POC reviewed with pt. Pt denies any pain at this time. Pt denies any further needs at this time. Call light within reach. [facility] 12-20-2022 Nurse Note Pt sitting up in bed watching TV. Pt says he is in 10/10 pain and is requesting pain meds. Message sent to PA, awaiting orders. Will cont to monitor. Call light w/in reach. [facility] 12-20-2022 History and physical note History and Physical Examination 12/20/22 3:43 PM Chief Complaint: Left toe cellulitis History of Present Illness: Patient is a 57 y.o. male presents to [facility] for evaluation of left toe [...] Please note Portions of this note utilized [employer] dictation software, please excuse any typographical or grammatical errors I spent a total of 8 minutes in management of this patient. The details of my visit are listed in my documentation above. [facility] Medicine Associated attestation - Jeannine Lowe DO [...] the MDM for this encounter. OBS Admit. [facility] 12-20-2022 History and physical note History and Physical Examination 12/20/22 3:43 PM Chief Complaint: Left toe cellulitis History of Present Illness: Patient is a 57 y.o. male presents to [facility] for evaluation of left toe [...] Please note Portions of this note utilized [employer] dictation software, please excuse any typographical or grammatical errors I spent a total of 8 minutes in management of this patient. The details of my visit are listed in my documentation above. [facility] Medicine Associated attestation - Jeannine Lowe DO [...] encounter. OBS Admit. documented in this encounter [facility] 12-20-2022 Emergency department Note Patient transferred to [facility] room at this time. Patient taken up in stable condition and with all belongings. Patient declined to remove sweat pants. Patient was given hospital socks but declined to put them on at this time. Report sheet and extra stickers given to RADHA Mulligan [facility] 12-20-2022 Emergency department Note Patient transferred to [facility] room at this time. Patient taken up in stable condition and with all belongings. Patient declined to remove sweat pants. Patient was given hospital socks but declined to put them on at this time. Report sheet and extra stickers given to RADHA Mulligan Report to RADHA Mulligan at this time [facility] gave room number 3767 Report to RADHA Onofre Patient wishes to leave his sweat pants on at this time Dr. Lowe returned my call, transferred to [facility]. Images from the original note were not included. Emergency Department Report [facility] Service Date:.12/20/22 PCP: No primary care provider on file. Chief Complaint: Chief Complaint Patient presents with Wound Check Wound to left pinky toe. Was seen here for same complaint last month. Rates pain 12/20 @ this time. Wound noted to all around the left pinky toe. Temp is 98.3F oral in triage HPI Jb Merritt is a 57 y.o. male presents to [...] with above information. . . Drake Zuñiga, APPLICATIONS COORDINATOR-MOLDER OFFBEARER 12/20/[address] Lowe Lab @ bedside for blood culture draw. documented in this encounter [facility] 12-20-2022 Emergency department Note Report to RADHA Mulligan at this time [facility] 12-20-2022 Emergency department Note [facility] gave room number 3767 [facility] 12-20-2022 Emergency department Note Report to RADHA Onofre [facility] 12-20-2022 Emergency department Note Patient wishes to leave his sweat pants on at this time [facility] 12-20-[address] Lowe returned my call, transferred to Drake Zuñiga. [facility] 12-20-2022 Physician Emergency department Note Images from the original note were not included. Emergency Department Report [facility] Service Date:.12/20/22 PCP: No primary care provider on file. Chief Complaint: Chief Complaint Patient presents with Wound Check Wound to left pinky toe. Was seen here for same complaint last month. Rates pain 12/20 @ this time. Wound noted to all around the left pinky toe. Temp is 98.3F oral in triage HPI Jb Merritt is a 57 y.o. male presents to [...] information. . . Drake Zuñiga APRN-STARR 12/20/22 1343 [facility] 12-20-2022 Emergency department Note Isaak Lowe [facility] 12-20-2022 Emergency department Note Lab @ bedside for blood culture draw. [facility] 11-10-2022 History of Presen t illness Narrative [...] nervous/anxious. Nursing Assessment: Physical Exam Patient: Jb Merritt Date: 11/10/2022 Approximate date ulcer/sore started: middle [...] every 6 hours for 10 days. nystatin [id number] UNIT/GM Powder powder Apply 1 Application topically [...] DAYS 11/05/2022 Impression: ICD-10-CM 1. Atherosclerosis of [place] artery of both lower extremities with intermittent [...] any problems arise. documented in this encounter [facility] 11-10-2022 Instructions Mahamed Sauer DPM - 11/10/2022 2:[address] Sauer has ordered a test for you. Please call Central Scheduling @ [phone] Name of test: Arterial Brachial Index (RONI) Also known as a vascular ankle brachial index What is the test for? Blood flow study for your feet. Dr. Sauer's office will call you with the results. documented in this encounter [facility] 11-05-2022 Emergency department Note Pt wound dressed at this time, per providers request. [facility] 11-05-2022 Emergency department Note Pt wound dressed at this time, per providers request. Dr.Harper Milton at bedside X ray at bedside. documented in this encounter [facility] 11-05-[address]Harper Milton at bedside [facility] 11-05-2022 Emergency department Note X ray at bedside. [facility] Critical limb ischemia of left lower extremity- Primary Atherosclerosis of [place] artery of both lower extremities with intermittent claudication Atherosclerosis of [place] arteries of the extremities with intermittent claudication Diabetic ulcer of left fifth toe [facility] Diagnosis Cellulitis of left lower extremity- Primary Cellulitis and abscess of leg, except foot Cellulitis of toe of left foot Cellulitis and abscess of toe, unspecified Tobacco abuse Tobacco use disorder Benign hypertension Essential hypertension, benign [facility] Diagnosis Gangrene due to peripheral vascular [...] toe (HCC) [facility] Anemia, unspecified type- Primary Hyperlipidemia, unspecified hyperlipidemia type IFG (impaired fasting glucose) Tobacco abuse Tobacco use disorder Screening for colon cancer Special screening for malignant neoplasms, colon Benign hypertension Essential hypertension, benign Healthcare maintenance [facility] Diagnosis IFG (impaired fasting glucose)- Primary [facility] Diagnosis Anemia, unspecified type- Primary Hyperlipidemia, unspecified hyperlipidemia type IFG (impaired fasting glucose) Tobacco abuse Tobacco use disorder Screening for colon cancer Special screening for malignant neoplasms, colon Benign hypertension Essential hypertension, benign Healthcare maintenance Tobacco abuse Tobacco use disorder documented in this encounter [facility] Discharge instructions* Attachments The following attachments cannot be sent through Care Everywhere. * Cellulitis Skin Infection ([facility]) ([place]) [facility] ([facility])* Consultation (Urgent) - New Request Specialty Diagnoses / Procedures Referred By Brianda espinoza Referred To Contact Podiatry Diagnoses Abscess or cellulitis of toe, left Kelly Dennis PA-C [address] [place] [address] Mahamed Sauer DPM [address] [place] [address] Referral ID Status Reason Start Date Expiration Date V isits Requested Visits Authorized [id number] New Request 11/05/2022 11/30/2023 1 1 [facility] for referral (narrative)* Consultation (Urgent) - New Request Specialty Diagnoses / Procedures Referred By Contac t Referred To Contact Vascular Surgery Diagnoses Atherosclerosis of [place] artery of both lower extremities with intermittent claudication Diabetic ulcer of left fifth toe Mahamed Sauer, DPM [address] [place] [address] Sonu Mcgrath MD [address] [place] [address] Referral ID Status Reason Start Date Expiration Date V isits Requested Visits Authorized [id number] New Request 11/10/2022 12/05/2023 1 1 * Radiology (Routine) - New Request Specialty Diagnoses / Procedures Referred By Contac t Referred To Contact Diagnoses Atherosclerosis of [place] artery of both lower extremities with intermittent claudication Diabetic ulcer of left fifth toe Procedures VASC ANKLE BRACHIAL INDEX LA NONINVASV EXTREM EXAM,1LEVEL,BILMahamed Mercado, DPM [address] [place] [address] Referral ID Status Reason Start Date Expiration Date V isits Requested Visits Authorized [id number] New Request 11/10/2022 12/05/2023 1 1 [facility] for referral (narrative)* (Routine) Specialty Diagnoses / Procedures Referred By Contac t Referred To Contact [facility] [address] [place] [place] [address] Referral ID Status Reason Start Date Expiration Date Visits Re quested Visits Authorized * (Routine) - New Request Specialty Diagnoses / Procedures Referred By Contac t Referred To Contact Procedures INPATIENT ADMISSION NOTIFICATION Jeannine Lowe, [address] [place] [address] Referral ID Status Reason Start Date Expiration Date V isits Requested Visits Authorized [id number] New Request 12/20/2022 01/14/2024 1 1 [facility] Advance Directives No Advanced Directives Records FoundLatest [...] Procedures CT Lung Cancer Screening Lyla Agosto, MOLDER OFFBEARER [address] [place] [address] [address] Referral ID Status Reason Start Date Expiration Date V isits Requested Visits Authorized [id number] Authorized 02/23/2023 02/23/2024 1 1 Referral ID Status Reason Start Date Expiration Date Visits Re quested Visits Authorized [id number] Closed 02/23/2023 02/23/2024 1 1 Additional Source Comments Reason for Visit (unrecogniz ed section and content) Reason Comments Cellulitis Specialty Diagnoses / Procedures Referred By Contac t Referred To Contact Podiatry Diagnoses Abscess or cellulitis of toe, left Dennis, OCHOA Soto [address] [place] [address] Mahamed Sauer DPM [address] [place] [address] Referral ID Status Reason Start Date Expiration Date V isits Requested Visits Authorized [id number] New Request 11/05/2022 11/30/2023 1 1 Specialty Diagnoses / Procedures Referred By Contac t Referred To Contact Ultrasound Diagnoses Atherosclerosis of [place] artery of both lower extremities with intermittent claudication Diabetic ulcer of left fifth toe Procedures VASC ANKLE BRACHIAL INDEX LA NONINVASV EXTREM EXAM,1LEVEL,Mahamed Lopez, DPM [address] [place] [address] [facility] Ultrasound [address] [place] [address] Referral ID Status Reason Start Date Expiration Date Visits Re quested Visits Authorized [id number] Closed 11/10/2022 12/05/2023 1 1 Reason Comments Wound Check Wound to left pinky toe. Was seen here for same complaint last month. Rates pain 12/20 @ this time. Wound noted to all around the left pinky toe. Temp is 98.3F oral in triage Specialty Diagnoses / Procedures Referred By Brianda espinoza Referred To Contact [facility] Referral ID Status Reason Start Date Expiration Date Visits Re quested Visits Authorized [id number] 1 1 Reason Comments Evaluation Reason Comments [...] minutes. Infuse other doses over 4 hours. 7902 ($$New Bag$$ - Provider: Ese Ruiz RN) [...] therapy 1340 ($$New Bag$$ - Provider: Juli Poe RN)1412 (Stopped - Provider: Marcin Valerio RN) [...] at 1300 1224 (Given - Provider: Marcin Valreio RN) Vancomycin (VANCOCIN) 1,750 mg in Sodium [...] Risk 1417 ($$New Bag$$ - Provider: Marcin Valerio RN) 0442 ($$New Bag$$ - Provider: Ese [...] (Rate/Dose Change - Provider: Ese Ruiz RN) 0900 ($$New Bag$$ - Provider: Rachell Breen, RADHA)1452 (Stopped - Provider: Rachell Breen RN) PRN [...] Severe Pain 1802 (Given - Provider: Ese Ruiz, RN) 0139 (Given - Provider: Ese Montez)0930 [...] DATE CREATED AUTHOR AUTHOR'S ORGANIZ ATION 01/06/2023 [facility] DATE CREATED AUTHOR AUTHOR'S ORGANIZ ATION 02/25/2023 [facility] DATE CREATED AUTHOR AUTHOR'S ORGANIZ ATION 03/26/2023 [facility] Care Teams (unrecognized sec tion and content) Recycling Crew Supervisor Relationship Specialty Start Date End Date No, Physician [facility] PCP - General 12/28/22 Recycling Crew Supervisor Relationship Specialty Start Date End Date Lyla Agosto CNP [address] [place] [address] PCP - General Nurse Practitioner 02/23/23 [employer]ycling Crew Supervisor Relationship Specialty Start Date End Date KenneyLyla mendosa CNP [address] [place] [address] PCP - General Nurse Practitioner 02/23/23 Recycling Crew Supervisor Relationship Specialty Start Date End Date KenneydaydayauryLyla salas CNP [address] [place] [address] PCP - General Nurse Practitioner 02/23/23 Priscila Person Community Health Worker Case Management 03/17/23 03/17/23 Recycling Crew Supervisor Relationship Specialty Start Date End Date TomekaauryLyla salas CNP [address] [place] [address] PCP - General Nurse Practitioner 02/23/23 Jie Pettit, masticatorChain Pegger 03/14/23 03/14/23 Priscila Person Community Health Worker [...] BE BASED ON THE PRIMARY CLINICAL RECORDS. [employer] [facility]. provides no warranty or guarantee of the accuracy or completeness of information in this document.
== END | disposition home or self-care (01) ==
LOC: CVS 13:39
PROVIDERS: Referring Provider Physician Assistant; Visit Provider Physician Assistant
DX: I70.262 Atherosclerosis of native arteries of extremities with gangrene, left leg (principal); Z48.812 Encounter for surgical aftercare following surgery on the circulatory system
CPT/HCPCS: 93926

== ENCOUNTER 2023-05-10 14:00 | Outpatient (RCR) | payer MEDICAID, SELFPAY ==
[2023-04-13 00:21] VITALS: BP 152/85; PULSE 87; RESP 16; TEMP 36.6; BMI 21.7
[2023-04-19 14:35] VITALS: BP 157/86; PULSE 84; RESP 18; TEMP 36.5; BMI 21.7
--- NOTE | 2023-04-19 15:14 | PN.PCM_ITS ---
History of Present Illness Date of Service: 04/19/23 Chief Complaint: Left full-thickness wound. History of Wound: Chronic nonhealing left full-thickness wound Subjective Subjective Mr. Medina is a 57-year-old male presenting to the wound care center for follow-up and evaluation of full-thickness ulceration to the left foot status post excisional debridement with skin graft prep with application of skin graft substitute. Date of surgery: 03/24/2022. Patient presents today for graft application and snap application to left lower extremity. He admits his pain is improved. He denies drainage. He denies constitutional symptoms. He denies trauma. No other pedal complaints at this time. Objective Data Objective Data Vital Signs: Vital Signs Temp Pulse Resp BP O2 Del Method 97.7 F L 84 18 157/86 H Room Air 04/19/23 14:35 04/19/23 14:35 04/19/23 14:35 04/19/23 14:35 04/19/23 14:35 Oxygen Delivery Method Room Air Weight: 74.843 kg Body Mass Index (BMI) 21.7 Physical Exam Narrative Vascular: DP and PT pulses are audible on Doppler. +1 pitting edema appreciated to left lower extremity. Skin temperature great is warm to warm from proximal ankle to distal digit. No evidence of focal increase is appreciated. Neurological: Light touch intact. Patient does respond to painful stimuli. Dermatological: Full-thickness ulceration appreciated to the left anterior ankle and the lateral foot. The left lateral foot ulceration measures 4.0 x 1.4 x 0.3 cm. The left dorsum ankle measures 1.0 x 0.4 x 0.1 cm. Wound bases are 100% granular nature with no malodor. Excisional debridement down to and including subcutaneous tissue of the left dorsum foot/ankle with a number 5 mm dermal curette without incident. Predebridement measurement is 0.8 x 0.3 x 0.1 cm. Post right measurement is 1.0 x 0.4 x 0.1 cm. Excisional debridement down to and including subcutaneous tissue and fascia of the left foot lateral ulceration with a number 5 mm dermal curette without incident. Predebridement measurement is 3.8 x 1.3 x 0.2 cm. Postdebridement measurement is 4.0 x 1.4 x 0.3 cm. EpiMesh 4 x 4.5 cm was applied to the left lateral full-thickness ulceration with 100% use. Sixth application. The graft site was free and clear of any infection. The wound/skin graft substitute was dressed with nonadherent bandage secured in place with Steri-Strips followed by bolster dressing and Tyler bandage. Snap negative pressure device was applied to left lower extremity. Musculoskeletal: Muscle strength was deferred. Moderate palpatory tenderness appreciated to both ulcerations to left lower extremity. No pain with calf compression. Debridement Note Debridement Note Debridement Free Text: Excisional debridement down to and including subcutaneous tissue of the left dorsum foot/ankle with a number 5 mm dermal curette without incident. Predebridement measurement is 0.8 x 0.3 x 0.1 cm. Post right measurement is 1.0 x 0.4 x 0.1 cm. Excisional debridement down to and including subcutaneous tissue and fascia of the left foot lateral ulceration with a number 5 mm dermal curette without incident. Predebridement measurement is 3.8 x 1.3 x 0.2 cm. Postdebridement measurement is 4.0 x 1.4 x 0.3 cm. EpiMesh 4 x 4.5 cm was applied to the left lateral full-thickness ulceration with 100% use. Sixth application. The graft site was free and clear of any infection. The wound/skin graft substitute was dressed with nonadherent bandage secured in place with Steri-Strips followed by bolster dressing and Tyler bandage. Snap negative pressure device was applied to left lower extremity. 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 ) Arrival Mode Ambulatory, Crutches Transfer Assistance None Transfer Assist (Other) Patient Identification Verified (Name & Yes ) Patient Requires Transmission-Based No Precautions Height and Weight Body Mass Index (BMI) 21.7 BMI Classification Normal Vital Signs Temperature (97.8 F-99.1 F) 97.7 F L Temperature Source Temporal Pulse Rate (60-100) 84 Pulse Location Monitor Respiratory Rate (12-18) 18 Respiratory rate source Observation Oxygen Delivery Method Room Air Blood Pressure (90/60-120/80) 157/86 H Blood Pressure Mean (mm Hg) 109 Source Monitor Position Sitting Blood Pressure Location Left Arm History Since Last Visit- (Skip if this is Patient's initial visit) Have you changed medications since your No last visit? Any new allergies or adverse reactions No Had a fall/change in ADL's that may No increase risk of falls Signs or symptoms of abuse and/or No neglect since last visit Have you been in the hospital since your No last visit? Has dressing in place as prescribed Yes Has compression in place as prescribed Yes Has offloadiing in place as prescribed Yes Experienced any changes in pain level or No management Pain Scale: 0-10 Numeric Is Patient Pain Free? Yes WC - Nurse 1 - General Ulcer Measurement Start: 04/19/23 14:35 Freq: Status: Active Protocol: Activity Type Activity Date Activity User E-sign Co-sign Detail Recorded Client Recorded Date Recorded By Document 04/19/23 14:35 GM Desktop 04/19/23 14:38 GM 04/19/23 14:35 Wound Center Nurse 1 #2- L DORSAL FOOT CLUSTER -Current Size (cm) - Length 0.1 -Current Size (cm) - Width 0.1 -Current Size (cm) - Depth 0.1 -Total Square Cm 0.01 -Epithelialization Small 1-33% -Tunneling No -Undermining/Tunneling No -Circular Undermining No -Exudate Amt Small -Exudate Type Yellow/Green -Wound Margin Flat & Intact -Granulation Amt Small (1-33%) -Granulation Quality [place] -Slough/Fibrin No -Structure Exposed N/A -Texture (Jovanna-wound Skin Appearance) Assessed -Moisture (Jovanna-wound Skin Appearance) Assessed -Color (Jovanna-wound Skin Appearance) Assessed -Temperature (Jovanna-wound Skin No Abnormality Appearance) (Pt Warm) -Ulcer Cleansing Soap and Water -Foul Odor after Cleansing No -Anesthetic Used 5% Lidocaine Gel #1- L LAT FOOT POST OP -Current Size (cm) - Length 1.5 -Current Size (cm) - Width 1.0 -Current Size (cm) - Depth 0.5 -Total Square Cm 1.50 -Photo Taken No -Epithelialization Small 1-33% -Tunneling No -Undermining/Tunneling No -Circular Undermining No -Exudate Amt Medium -Exudate Type Serosanguineous -Wound Margin Distinct, Outline Attached -Granulation Amt Small (1-33%) -Granulation Quality [place] -Slough/Fibrin Yes -Necrosis Amt Small (1-33%) -Necrotic Tissue Type Adherent Slough -Structure Exposed N/A -Texture (Jovanna-wound Skin Appearance) Assessed -Moisture (Jovanna-wound Skin Appearance) Assessed -Color (Jovanna-wound Skin Appearance) Assessed -Temperature (Jovanna-wound Skin No Abnormality Appearance) (Pt Warm) -Tenderness on Palpation (Jovanna-wound No Skin Appearance) -Ulcer Cleansing Soap and Water -Foul Odor after Cleansing No -Anesthetic Used 5% Lidocaine Gel WC - Nurse 2 - General Ulcer CM Notes Start: 04/19/23 14:35 Freq: Status: Active Protocol: Activity Type Activity Date Activity User E-sign Co-sign Detail Recorded Client Recorded Date Recorded By Document 04/19/23 14:57 Laptop 04/19/23 15:06 04/19/23 14:57 Wound Center Nurse 2 #2- L DORSAL FOOT CLUSTER -Time 14:58 -Correct Patient Yes -Correct Side, Site, Position Yes -Correct Procedure Yes -Procedure Performed Yes -Type of Procedure Debridement -Clinical Debridement Subcutaneous -Tissue Removed Subcutaneous -Post Debridement (cm) - Length 1.0 -Post Debridement (cm) - Width 0.4 -Post Debridement (cm) - Depth 0.1 -Total Square (Post) (cm) 0.40 -Area of Debridement (cm) - Length 1.0 -Area of Debridement (cm) - Width 0.4 -Total Square (Area) (cm) 0.40 -Tunneling No -Undermining/Tunneling No -Circular Undermining No -Wound/Ulcer Outcome Not Healed -Ulcer Cleansing Rinsed/ Irrigated with Saline -Foul Odor after Cleansing No -Bioengineered Tissue No -Bleeding Controlled with Pressure -Treatment Response Procedure Tolerated Well -Offloading Yes -Type of Offloading Surgical Shoe -Debridement - Subq, 1st 20sq cm Yes #1- L LAT FOOT POST OP -Time 14:58 -Correct Patient Yes -Correct Side, Site, Position Yes -Correct Procedure Yes -Procedure Performed Yes -Type of Procedure Debridement -Clinical Debridement Subcutaneous -Tissue Removed Subcutaneous -Post Debridement (cm) - Length 4.0 -Post Debridement (cm) - Width 1.4 -Post Debridement (cm) - Depth 0.3 -Total Square (Post) (cm) 5.60 -Area of Debridement (cm) - Length 4.0 -Area of Debridement (cm) - Width 1.4 -Total Square (Area) (cm) 5.60 -Tunneling No -Undermining/Tunneling No -Circular Undermining No -Wound/Ulcer Outcome Not Healed -Ulcer Cleansing Rinsed/ Irrigated with Saline -Foul Odor after Cleansing No -Bioengineered Tissue Yes -Type of Bioengineered Tissue Epifix Mesh -Expiration Date 11/12/27 -Product Lot Number [id number] -Percent Used 100 -Lot number of Saline Used [id number] -Debridement - Subq, 1st 20sq cm No -Apply Skin Sub - 1st 25 sq cm - Feet 1 -Epifix Mesh (per sq cm) 11 Pain Scale: 0-10 Numeric Is Patient Pain Free? Yes Assessment/Plan Assessment/Plan (1) Non-pressure chronic ulcer of other part of left foot with fat layer exposed: CODE(S): L97.522 - Non-pressure chronic ulcer of other part of left foot with fat layer exposed PLAN: Patient was examined and evaluated. All findings were discussed with the patient. All questions were answered to the patient's satisfaction. Excisional debridement down to and including subcutaneous tissue of the left dorsum foot/ankle with a number 5 mm dermal curette without incident. Predebridement measurement is 0.8 x 0.3 x 0.1 cm. Post right measurement is 1.0 x 0.4 x 0.1 cm. Excisional debridement down to and including subcutaneous tissue and fascia of the left foot lateral ulceration with a number 5 mm dermal curette without incident. Predebridement measurement is 3.8 x 1.3 x 0.2 cm. Postdebridement measurement is 4.0 x 1.4 x 0.3 cm. EpiMesh 4 x 4.5 cm was applied to the left lateral full-thickness ulceration with 100% use. Sixth application. The graft site was free and clear of any infection. The wound/skin graft substitute was dressed with nonadherent bandage secured in place with Steri-Strips followed by bolster dressing and Tyler bandage. Snap negative pressure device was applied to left lower extremity. Prescription for Percocet #28 pills to be sent to the patient's pharmacy to be taking every 6 H for 7 days. Follow-up at the wound care center with Dr. Sandhu in 1 week. (2) Peripheral vascular disease: CODE(S): I73.9 - Peripheral vascular disease, unspecified
[2023-04-28 12:03] VITALS: BP 142/69; PULSE 79; RESP 18; TEMP 36.6; BMI 21.7
[2023-05-03 15:13] VITALS: BP 148/67; PULSE 66; RESP 18; TEMP 36.4; BMI 21.7
--- NOTE | 2023-05-03 15:56 | PCM.WC.PN ---
History of Present Illness Date of Service: 05/03/23 Chief Complaint: Left full-thickness wound. History of Wound: Chronic nonhealing left full-thickness wound Subjective Subjective Mr. Medina is a 57-year-old male presenting to the wound care center for follow-up and evaluation of full-thickness ulceration to the left foot status post excisional debridement with skin graft prep with application of skin graft substitute. Date of surgery: 03/24/2022. Patient presents today for graft application and snap application to left lower extremity. He admits his pain is improved. He denies drainage. He denies constitutional symptoms. He denies trauma. No other pedal complaints at this time. Objective Data Objective Data Vital Signs: Vital Signs Temp Pulse Resp BP O2 Del Method 97.6 F L 66 18 148/67 H Room Air 05/03/23 15:13 05/03/23 15:13 05/03/23 15:13 05/03/23 15:13 05/03/23 15:13 Oxygen Delivery Method Room Air Weight: 74.843 kg Body Mass Index (BMI) 21.7 Physical Exam Narrative Vascular: DP and PT pulses are audible on Doppler. +1 pitting edema appreciated to left lower extremity. Skin temperature great is warm to warm from proximal ankle to distal digit. No evidence of focal increase is appreciated. Neurological: Light touch intact. Patient does respond to painful stimuli. Dermatological: Full-thickness ulceration appreciated to the left anterior ankle and the lateral foot. The left lateral foot ulceration measures 4.0 x 1.3 x 0.1 cm. The left dorsum ankle measures 0.9 x 0.8 x 0.1 cm. Wound bases are 100% granular nature with no malodor. Excisional debridement down to and including subcutaneous tissue of the left dorsum foot/ankle with a number 5 mm dermal curette without incident. Predebridement measurement is 0.8 x 0.7 x 0.1 cm. Post right measurement is 0.9 x 0.8 x 0.1 cm. Excisional debridement down to and including subcutaneous tissue and fascia of the left foot lateral ulceration with a number 5 mm dermal curette without incident. Predebridement measurement is 3.8 x 1.1 x 0.1 cm. Postdebridement measurement is 4.0 x 1.3 x 0.1 cm. EpiMesh 4 x 4.5 cm was applied to the left lateral full-thickness ulceration with 100% use. Seventh application. The graft site was free and clear of any infection. The wound/skin graft substitute was dressed with nonadherent bandage secured in place with Steri-Strips followed by bolster dressing and Tyler bandage. Snap negative pressure device was applied to left lower extremity. Musculoskeletal: Muscle strength was deferred. Moderate palpatory tenderness appreciated to both ulcerations to left lower extremity. No pain with calf compression. Debridement Note Debridement Note Debridement Free Text: Excisional debridement down to and including subcutaneous tissue of the left dorsum foot/ankle with a number 5 mm dermal curette without incident. Predebridement measurement is 0.8 x 0.7 x 0.1 cm. Post right measurement is 0.9 x 0.8 x 0.1 cm. Excisional debridement down to and including subcutaneous tissue and fascia of the left foot lateral ulceration with a number 5 mm dermal curette without incident. Predebridement measurement is 3.8 x 1.1 x 0.1 cm. Postdebridement measurement is 4.0 x 1.3 x 0.1 cm. EpiMesh 4 x 4.5 cm was applied to the left lateral full-thickness ulceration with 100% use. Seventh application. The graft site was free and clear of any infection. The wound/skin graft substitute was dressed with nonadherent bandage secured in place with Steri-Strips followed by bolster dressing and Tyler bandage. Snap negative pressure device was applied to left lower extremity. Post-Debridement Measurements and Additional Note: Post-Debridement Measurements/Treatment - Nurse 1 - General Ulcer Assessment Start: 04/19/23 14:35 Freq: Status: Active Protocol: ANTHONY Activity Type Activity Date Activity User E-sign Co-sign Detail Recorded Client Recorded Date Recorded By Document 04/19/23 14:35 Desktop 04/19/23 14:38 GM Document 04/28/23 12:03 KW Desktop 04/28/23 12:37 KW Document 05/03/23 15:13 Desktop 05/03/23 15:16 04/19/23 04/28/23 05/03/23 14:35 12:03 15:13 - Today's Visit Information Type of service Follow-up Visit Nurse-only Follow-up Visit (Physician/MANAGER UTILIZATION MANAGEMENT Visit (Physician/MANAGER UTILIZATION MANAGEMENT ) ) Arrival Mode Ambulatory, Ambulatory, Ambulatory, Crutches Crutches Crutches Transfer Assistance None None Transfer Assist (Other) Accompanied by Patient Identification Verified (Name & Yes Yes Yes ) Patient Requires Transmission-Based No No Precautions Height and Weight Body Mass Index (BMI) 21.7 21.7 21.7 BMI Classification Normal Normal Normal Vital Signs Temperature (97.8 F-99.1 F) 97.7 F L 97.9 F 97.6 F L Temperature Source Temporal Temporal Temporal Pulse Rate (60-100) 84 79 66 Pulse Location Monitor Monitor Monitor Respiratory Rate (12-18) 18 18 18 Respiratory rate source Observation Observation Observation Oxygen Delivery Method Room Air Room Air Room Air Blood Pressure (90/60-120/80) 157/86 H 142/69 H 148/67 H Blood Pressure Mean (mm Hg) 109 93 94 Source Monitor Monitor Monitor Position Sitting Sitting Sitting Blood Pressure Location Left Arm Left Forearm Right Arm History Since Last Visit- (Skip if this is Patient's initial visit) Have you changed medications since your No No No last visit? Any new allergies or adverse reactions No No No Had a fall/change in ADL's that may No No No increase risk of falls Signs or symptoms of abuse and/or No No No neglect since last visit Have you been in the hospital since your No No No last visit? Has dressing in place as prescribed Yes Yes Yes Has compression in place as prescribed Yes Yes No Has offloadiing in place as prescribed Yes Yes Yes Experienced any changes in pain level or No No management Left Footwear Surgical Shoe Surgical Shoe with pressure with pressure relief insole relief insole Right Footwear Slipper Pain Scale: 0-10 Numeric Is Patient Pain Free? Yes Yes Yes WC - Nurse 1 - General Ulcer Measurement Start: 04/19/23 14:35 Freq: Status: Active Protocol: Activity Type Activity Date Activity User E-sign Co-sign Detail Recorded Client Recorded Date Recorded By Document 04/19/23 14:35 Desktop 04/19/23 14:38 GM Document 05/03/23 15:13 Desktop 05/03/23 15:16 GM 04/19/23 05/03/23 14:35 15:13 Wound Center Nurse 1 #2- L DORSAL FOOT CLUSTER -Current Size (cm) - Length 0.1 1 -Current Size (cm) - Width 0.1 1.2 -Current Size (cm) - Depth 0.1 0.1 -Total Square Cm 0.01 1.2 -Photo Taken No -Epithelialization Small 1-33% Small 1-33% -Tunneling No No -Undermining/Tunneling No No -Circular Undermining No No -Exudate Amt Small -Exudate Type Yellow/Green -Wound Margin Flat & Intact Distinct, Outline Attached -Granulation Amt Small (1-33%) Medium (34-66%) -Granulation Quality [place] -Slough/Fibrin No Yes -Necrosis Amt None Present (0 %) -Necrotic Tissue Type Adherent Slough -Structure Exposed N/A N/A -Texture (Jovanna-wound Skin Appearance) Assessed Assessed, Scarring -Moisture (Jovanna-wound Skin Appearance) Assessed Assessed -Color (Jovanna-wound Skin Appearance) Assessed Assessed -Temperature (Jovanna-wound Skin No Abnormality No Abnormality Appearance) (Pt Warm) (Pt Warm) -Ulcer Cleansing Soap and Water Soap and Water -Foul Odor after Cleansing No No -Anesthetic Used 5% Lidocaine 5% Lidocaine Gel Gel #1- L LAT FOOT POST OP -Current Size (cm) - Length 1.5 4 -Current Size (cm) - Width 1.0 1.2 -Current Size (cm) - Depth 0.5 0.2 -Total Square Cm 1.50 4.8 -Photo Taken No No -Epithelialization Small 1-33% Small 1-33% -Tunneling No No -Undermining/Tunneling No No -Circular Undermining No No -Exudate Amt Medium -Exudate Type Serosanguineous -Wound Margin Distinct, Distinct, Outline Outline Attached Attached -Granulation Amt Small (1-33%) Small (1-33%) -Granulation Quality [place] -Slough/Fibrin Yes Yes -Necrosis Amt Small (1-33%) -Necrotic Tissue Type Adherent Slough Adherent Slough -Structure Exposed N/A N/A -Texture (Jovanna-wound Skin Appearance) Assessed Assessed, Scarring -Moisture (Jovanna-wound Skin Appearance) Assessed Assessed -Color (Jovanna-wound Skin Appearance) Assessed Assessed -Temperature (Jovanna-wound Skin No Abnormality No Abnormality Appearance) (Pt Warm) (Pt Warm) -Tenderness on Palpation (Jovanna-wound No Skin Appearance) -Ulcer Cleansing Soap and Water Soap and Water -Foul Odor after Cleansing No No -Anesthetic Used 5% Lidocaine 5% Lidocaine Gel Gel WC - Nurse 2 - General Ulcer CM Notes Start: 04/19/23 14:35 Freq: Status: Active Protocol: Activity Type Activity Date Activity User E-sign Co-sign Detail Recorded Client Recorded Date Recorded By Document 04/19/23 14:57 Laptop 04/19/23 15:06 Document 05/03/23 15:29 Laptop 05/03/23 15:36 04/19/23 05/03/23 14:57 15:29 Wound Center Nurse 2 #2- L DORSAL FOOT CLUSTER -Time 14:58 15:29 -Correct Patient Yes Yes -Correct Side, Site, Position Yes Yes -Correct Procedure Yes Yes -Procedure Performed Yes Yes -Type of Procedure Debridement Debridement -Clinical Debridement Subcutaneous Subcutaneous -Tissue Removed Subcutaneous Subcutaneous -Post Debridement (cm) - Length 1.0 0.9 -Post Debridement (cm) - Width 0.4 0.8 -Post Debridement (cm) - Depth 0.1 0.1 -Total Square (Post) (cm) 0.40 0.72 -Area of Debridement (cm) - Length 1.0 0.9 -Area of Debridement (cm) - Width 0.4 0.8 -Total Square (Area) (cm) 0.40 0.72 -Tunneling No No -Undermining/Tunneling No No -Circular Undermining No No -Wound/Ulcer Outcome Not Healed Not Healed -Ulcer Cleansing Rinsed/ Rinsed/ Irrigated with Irrigated with Saline Saline -Foul Odor after Cleansing No No -Bioengineered Tissue No No -Bleeding Controlled with Pressure Pressure -Treatment Response Procedure Procedure Tolerated Well Tolerated Well -Offloading Yes Yes -Type of Offloading Surgical Shoe Surgical Shoe -Debridement - Subq, 1st 20sq cm Yes Yes #1- L LAT FOOT POST OP -Time 14:58 15:35 -Correct Patient Yes Yes -Correct Side, Site, Position Yes Yes -Correct Procedure Yes Yes -Procedure Performed Yes Yes -Type of Procedure Debridement Debridement -Clinical Debridement Subcutaneous Subcutaneous -Tissue Removed Subcutaneous Subcutaneous -Post Debridement (cm) - Length 4.0 4.0 -Post Debridement (cm) - Width 1.4 1.3 -Post Debridement (cm) - Depth 0.3 0.1 -Total Square (Post) (cm) 5.60 5.20 -Area of Debridement (cm) - Length 4.0 4.0 -Area of Debridement (cm) - Width 1.4 1.3 -Total Square (Area) (cm) 5.60 5.20 -Tunneling No No -Undermining/Tunneling No No -Circular Undermining No No -Wound/Ulcer Outcome Not Healed Not Healed -Ulcer Cleansing Rinsed/ Rinsed/ Irrigated with Irrigated with Saline Saline -Foul Odor after Cleansing No No -Bioengineered Tissue Yes Yes -Type of Bioengineered Tissue Epifix Mesh Epifix Mesh -Expiration Date 11/12/27 11/12/27 -Product Lot Number [id number] -Percent Used 100 100 -Lot number of Saline Used [id number] -Bleeding Controlled with Pressure -Treatment Response Procedure Tolerated Well -Offloading Yes -Type of Offloading Surgical Shoe -Debridement - Subq, 1st 20sq cm No No -Apply Skin Sub - 1st 25 sq cm - Feet 1 1 -Epifix Mesh (per sq cm) 11 11 Pain Scale: 0-10 Numeric Is Patient Pain Free? Yes Yes WC - Nurse 3 - General Ulcer D/C NN Start: 04/19/23 14:35 Freq: Status: Active Protocol: Activity Type Activity Date Activity User E-sign Co-sign Detail Recorded Client Recorded Date Recorded By Document 04/19/23 15:19 DL Desktop 04/19/23 15:22 DL Document 04/19/23 15:38 GM Desktop 04/19/23 15:40 GM Document 04/28/23 12:03 KW Desktop 04/28/23 12:37 KW Document 05/03/23 15:44 KW Desktop 05/03/23 15:49 KW 04/19/23 04/19/23 04/28/23 15:19 15:38 12:03 Wound Care Center Nurse 3 #2- L DORSAL FOOT CLUSTER -Ulcer Cleansing Not Cleansed -Foul Odor after Cleansing No No -Other Dressing betadine// epimesh -Primary Dressing Covered/Secured with Dry Gauze & Dry Gauze & Roll Gauze, Roll Gauze, Secured with Secured with Tape Tape -NPWT Application Charge NPWT </= 50 sq cm (disp) ($) #1- L LAT FOOT POST OP -Ulcer Cleansing Not Cleansed -Foul Odor after Cleansing No No -Negative Pressure Wound Therapy Continue -Setting (mmHg) 125 -Negative Pressure is Continuous -Other Dressing Epimesh -Other Covering Snap Vac -NPWT Application Charge NPWT & NPWT </= 50 sq Debridement (nc cm (disp) ($) ) Treatment Response Procedure Tolerated Well Vital Signs Temperature (97.8 F-99.1 F) 97.9 F Temperature Source Temporal Pulse Rate (60-100) 79 Pulse Location Monitor Respiratory Rate (12-18) 18 Respiratory rate source Observation Oxygen Delivery Method Room Air Blood Pressure (90/60-120/80) 142/69 H Blood Pressure Mean (mm Hg) 93 Source Monitor Position Sitting Blood Pressure Location Left Forearm Pain Scale: 0-10 Numeric Is Patient Pain Free? Yes Yes Yes Teaching: Wound Center Dressing wound -Person Taught Patient -Teaching Method Discussion -Response to teaching Verbalize understanding Wound Vac -Person Taught Patient,Family -Teaching Method Discussion, Demonstration -Response to teaching Return demonstration, Verbalize understanding WC - Visit Discharge Discharge Condition Stable Stable Stable Ambulatory Status Ambulatory, Ambulatory, Ambulatory, Crutches Crutches Crutches Transportation Private Auto Private Auto Private Auto Accompanied by Medication Reconcilliation completed & Yes No provided to patient/care provider Clinical Summary of Care Provided Yes Yes Facility Type Home Health Orders Sent Yes 05/03/23 15:44 Wound Care Center Nurse 3 #2- L DORSAL FOOT CLUSTER -Ulcer Cleansing -Foul Odor after Cleansing -Other Dressing epimesh -Primary Dressing Covered/Secured with Dry Gauze & Roll Gauze, Secured with Tape -NPWT Application Charge #1- L LAT FOOT POST OP -Ulcer Cleansing -Foul Odor after Cleansing -Negative Pressure Wound Therapy -Setting (mmHg) -Negative Pressure is -Other Dressing epimesh -Other Covering -NPWT Application Charge NPWT & Debridement (nc ) Treatment Response Procedure Tolerated Well Vital Signs Temperature (97.8 F-99.1 F) Temperature Source Pulse Rate (60-100) Pulse Location Respiratory Rate (12-18) Respiratory rate source Oxygen Delivery Method Blood Pressure (90/60-120/80) Blood Pressure Mean (mm Hg) Source Position Blood Pressure Location Pain Scale: 0-10 Numeric Is Patient Pain Free? Yes Teaching: Wound Center Dressing wound -Person Taught -Teaching Method -Response to teaching Wound Vac -Person Taught -Teaching Method -Response to teaching WC - Visit Discharge Discharge Condition Stable Ambulatory Status Ambulatory, Crutches Transportation Private Auto Accompanied by Medication Reconcilliation completed & provided to patient/care provider Clinical Summary of Care Provided Facility Type Home Health Orders Sent Assessment/Plan Assessment/Plan (1) Non-pressure chronic ulcer of other part of left foot with fat layer exposed: CODE(S): L97.522 - Non-pressure chronic ulcer of other part of left foot with fat layer exposed PLAN: Patient was examined and evaluated. All findings were discussed with the patient. All questions were answered to the patient's satisfaction. Excisional debridement down to and including subcutaneous tissue of the left dorsum foot/ankle with a number 5 mm dermal curette without incident. Predebridement measurement is 0.8 x 0.7 x 0.1 cm. Post right measurement is 0.9 x 0.8 x 0.1 cm. Excisional debridement down to and including subcutaneous tissue and fascia of the left foot lateral ulceration with a number 5 mm dermal curette without incident. Predebridement measurement is 3.8 x 1.1 x 0.1 cm. Postdebridement measurement is 4.0 x 1.3 x 0.1 cm. EpiMesh 4 x 4.5 cm was applied to the left lateral full-thickness ulceration with 100% use. Seventh application. The graft site was free and clear of any infection. The wound/skin graft substitute was dressed with nonadherent bandage secured in place with Steri-Strips followed by bolster dressing and Tyler bandage. Snap negative pressure device was applied to left lower extremity. Patient can use [id number] Tylenol, ibuprofen or combination of both for pain control. Follow-up at the wound care center with Dr. Sandhu in 1 week. (2) Peripheral vascular disease: CODE(S): I73.9 - Peripheral vascular disease, unspecified
[2023-05-10 13:38] VITALS: BP 165/89; PULSE 79; RESP 18; TEMP 36.6; BMI 21.7
--- NOTE | 2023-05-10 14:28 | PCM.WC.PN ---
History of Present Illness Date of Service: 05/10/23 Chief Complaint: Left full-thickness wound. History of Wound: Chronic nonhealing left full-thickness wound Subjective Subjective Mr. Medina is a 57-year-old male presenting to the wound care center for follow-up and evaluation of full-thickness ulceration to the left foot status post excisional debridement with skin graft prep with application of skin graft substitute. Date of surgery: 03/24/2022. Patient presents today for graft application and snap application to left lower extremity. He admits his pain is improved. He denies drainage. He denies constitutional symptoms. He denies trauma. No other pedal complaints at this time. Objective Data Objective Data Vital Signs: Vital Signs Temp Pulse Resp BP O2 Del Method 97.9 F 79 18 165/89 H Room Air 05/10/23 13:38 05/10/23 13:38 05/10/23 13:38 05/10/23 13:38 05/10/23 13:38 Oxygen Delivery Method Room Air Weight: 74.843 kg Body Mass Index (BMI) 21.7 Physical Exam Narrative Vascular: DP and PT pulses are audible on Doppler. +1 pitting edema appreciated to left lower extremity. Skin temperature great is warm to warm from proximal ankle to distal digit. No evidence of focal increase is appreciated. Neurological: Light touch intact. Patient does respond to painful stimuli. Dermatological: Full-thickness ulceration appreciated to the left anterior ankle and the lateral foot. The left lateral foot ulceration measures 4.0 x 0.8 x 0.1 cm. The left dorsum ankle measures 0.3 x 0.4 x 0.1 cm. Wound bases are 100% granular nature with no malodor. Excisional debridement down to and including subcutaneous tissue of the left dorsum foot/ankle with a number 5 mm dermal curette without incident. Predebridement measurement is 0.2 x 0.3 x 0.1 cm. Post right measurement is 0.3 x 0.4 x 0.1 cm. Excisional debridement down to and including subcutaneous tissue and fascia of the left foot lateral ulceration with a number 5 mm dermal curette without incident. Predebridement measurement is 3.9 x 0.7 x 0.1 cm. Postdebridement measurement is 4.0 x 0.8 x 0.1 cm. EpiMesh 4 x 4.5 cm was applied to the left lateral full-thickness ulceration with 100% use. Eighth application. The graft site was free and clear of any infection. The wound/skin graft substitute was dressed with nonadherent bandage secured in place with Steri-Strips followed by bolster dressing and Tyler bandage. Musculoskeletal: Muscle strength was deferred. Moderate palpatory tenderness appreciated to both ulcerations to left lower extremity. No pain with calf compression. Debridement Note Debridement Note Debridement Free Text: Excisional debridement down to and including subcutaneous tissue of the left dorsum foot/ankle with a number 5 mm dermal curette without incident. Predebridement measurement is 0.2 x 0.3 x 0.1 cm. Post right measurement is 0.3 x 0.4 x 0.1 cm. Excisional debridement down to and including subcutaneous tissue and fascia of the left foot lateral ulceration with a number 5 mm dermal curette without incident. Predebridement measurement is 3.9 x 0.7 x 0.1 cm. Postdebridement measurement is 4.0 x 0.8 x 0.1 cm. EpiMesh 4 x 4.5 cm was applied to the left lateral full-thickness ulceration with 100% use. Eighth application. The graft site was free and clear of any infection. The wound/skin graft substitute was dressed with nonadherent bandage secured in place with Steri-Strips followed by bolster dressing and Tyler bandage. Post-Debridement Measurements and Additional Note: Post-Debridement Measurements/Treatment [facility] Nurse 1 - General Ulcer Assessment Start: 04/19/23 14:35 Freq: Status: Active Protocol: ANTHONY Activity Type Activity Date Activity User E-sign Co-sign Detail Recorded Client Recorded Date Recorded By Document 04/19/23 14:35 Desktop 04/19/23 14:38 Document 04/28/23 12:03 KW Desktop 04/28/23 12:37 KW Document 05/03/23 15:13 Desktop 05/03/23 15:16 Document 05/10/23 13:38 KW Desktop 05/10/23 13:48 KW 04/19/23 04/28/23 05/03/23 14:35 12:03 15:13 - Today's Visit Information Type of service Follow-up Visit Nurse-only Follow-up Visit (Physician/RETAIL [employer]CH[employer]ER Visit (Physician/RETAIL [employer] MERCHANDISER ) ) Arrival Mode Ambulatory, Ambulatory, Ambulatory, Crutches Crutches Crutches Transfer Assistance None None Transfer Assist (Other) Accompanied by Patient Identification Verified (Name & Yes Yes Yes ) Patient Requires Transmission-Based No No Precautions Height and Weight Body Mass Index (BMI) 21.7 21.7 21.7 BMI Classification Normal Normal Normal Vital Signs Temperature (97.8 F-99.1 F) 97.7 F L 97.9 F 97.6 F L Temperature Source Temporal Temporal Temporal Pulse Rate (60-100) 84 79 66 Pulse Location Monitor Monitor Monitor Respiratory Rate (12-18) 18 18 18 Respiratory rate source Observation Observation Observation Oxygen Delivery Method Room Air Room Air Room Air Blood Pressure (90/60-120/80) 157/86 H 142/69 H 148/67 H Blood Pressure Mean (mm Hg) 109 93 94 Source Monitor Monitor Monitor Position Sitting Sitting Sitting Blood Pressure Location Left Arm Left Forearm Right Arm History Since Last Visit- (Skip if this is Patient's initial visit) Have you changed medications since your No No No last visit? Any new allergies or adverse reactions No No No Had a fall/change in ADL's that may No No No increase risk of falls Signs or symptoms of abuse and/or No No No neglect since last visit Have you been in the hospital since your No No No last visit? Has dressing in place as prescribed Yes Yes Yes Has compression in place as prescribed Yes Yes No Has offloadiing in place as prescribed Yes Yes Yes Experienced any changes in pain level or No No management Left Footwear Surgical Shoe Surgical Shoe with pressure with pressure relief insole relief insole Right Footwear Slipper Pain Scale: 0-10 Numeric Is Patient Pain Free? Yes Yes Yes 05/10/23 13:38 - Today's Visit Information Type of service Follow-up Visit (Physician/RETAIL [employer]CH[employer]ER ) Arrival Mode Ambulatory, Crutches Transfer Assistance Transfer Assist (Other) Accompanied by Patient Identification Verified (Name & Yes ) Patient Requires Transmission-Based Precautions Height and Weight Body Mass Index (BMI) 21.7 BMI Classification Normal Vital Signs Temperature (97.8 F-99.1 F) 97.9 F Temperature Source Temporal Pulse Rate (60-100) 79 Pulse Location Monitor Respiratory Rate (12-18) 18 Respiratory rate source Observation Oxygen Delivery Method Room Air Blood Pressure (90/60-120/80) 165/89 H Blood Pressure Mean (mm Hg) 114 Source Monitor Position Semi-Fowlers Blood Pressure Location Left Arm History Since Last Visit- (Skip if this is Patient's initial visit) Have you changed medications since your No last visit? Any new allergies or adverse reactions No Had a fall/change in ADL's that may No increase risk of falls Signs or symptoms of abuse and/or No neglect since last visit Have you been in the hospital since your No last visit? Has dressing in place as prescribed Yes Has compression in place as prescribed N/A Has offloadiing in place as prescribed Yes Experienced any changes in pain level or No management Left Footwear Regular Shoe Right Footwear Surgical Shoe with pressure relief insole Pain Scale: 0-10 Numeric Is Patient Pain Free? Yes WC - Nurse 1 - General Ulcer Measurement Start: 04/19/23 14:35 Freq: Status: Active Protocol: Activity Type Activity Date Activity User E-sign Co-sign Detail Recorded Client Recorded Date Recorded By Document 04/19/23 14:35 [employer] 04/19/23 14:38 GM Document 05/03/23 15:13 [employer] Desktop 05/03/23 15:16 GM Document 05/10/23 13:38 KW Desktop 05/10/23 13:48 KW 04/19/23 05/03/23 05/10/23 14:35 15:13 13:38 Wound Center Nurse 1 #2- L DORSAL FOOT CLUSTER -Current Size (cm) - Length 0.1 1 0.6 -Current Size (cm) - Width 0.1 1.2 0.6 -Current Size (cm) - Depth 0.1 0.1 0.1 -Total Square Cm 0.01 1.2 0.36 -Photo Taken No -Epithelialization Small 1-33% Small 1-33% -Tunneling No No -Undermining/Tunneling No No -Circular Undermining No No -Exudate Amt Small Medium -Exudate Type Yellow/Green Serosanguineous -Wound Margin Flat & Intact Distinct, Distinct, Outline Outline Attached Attached -Granulation Amt Small (1-33%) Medium (34-66%) -Granulation Quality Ada Ada -Slough/Fibrin No Yes -Necrosis Amt None Present (0 %) -Necrotic Tissue Type Adherent Slough -Structure Exposed N/A N/A -Texture (Jovanna-wound Skin Appearance) Assessed Assessed, Assessed Scarring -Moisture (Jovanna-wound Skin Appearance) Assessed Assessed Assessed -Color (Jovanna-wound Skin Appearance) Assessed Assessed Assessed -Temperature (Jovanna-wound Skin No Abnormality No Abnormality Appearance) (Pt Warm) (Pt Warm) -Ulcer Cleansing Soap and Water Soap and Water Soap and Water -Foul Odor after Cleansing No No -Anesthetic Used 5% Lidocaine 5% Lidocaine 5% Lidocaine Gel Gel Gel #1- L LAT FOOT POST OP -Current Size (cm) - Length 1.5 4 3.9 -Current Size (cm) - Width 1.0 1.2 1.5 -Current Size (cm) - Depth 0.5 0.2 0.2 -Total Square Cm 1.50 4.8 5.85 -Photo Taken No No -Epithelialization Small 1-33% Small 1-33% -Tunneling No No -Undermining/Tunneling No No -Circular Undermining No No -Exudate Amt Medium Medium -Exudate Type Serosanguineous Serosanguineous -Wound Margin Distinct, Distinct, Distinct, Outline Outline Outline Attached Attached Attached -Granulation Amt Small (1-33%) Small (1-33%) Large (67-100%) -Granulation Quality Ada Ada Red -Slough/Fibrin Yes Yes -Necrosis Amt Small (1-33%) -Necrotic Tissue Type Adherent Slough Adherent Slough -Structure Exposed N/A N/A -Texture (Jovanna-wound Skin Appearance) Assessed Assessed, Assessed Scarring -Moisture (Jovanna-wound Skin Appearance) Assessed Assessed Assessed, Maceration -Color (Jovanna-wound Skin Appearance) Assessed Assessed Assessed -Temperature (Jovanna-wound Skin No Abnormality No Abnormality No Abnormality Appearance) (Pt Warm) (Pt Warm) (Pt Warm) -Tenderness on Palpation (Jovanna-wound No Skin Appearance) -Ulcer Cleansing Soap and Water Soap and Water Soap and Water -Foul Odor after Cleansing No No -Anesthetic Used 5% Lidocaine 5% Lidocaine 5% Lidocaine Gel Gel Gel WC - Nurse 2 - General Ulcer CM Notes Start: 04/19/23 14:35 Freq: Status: Active Protocol: Activity Type Activity Date Activity User E-sign Co-sign Detail Recorded Client Recorded Date Recorded By Document 04/19/23 14:57 Laptop 04/19/23 15:06 Document 05/03/23 15:29 Laptop 05/03/23 15:36 Document 05/10/23 14:04 Laptop 05/10/23 14:06 04/19/23 05/03/23 05/10/23 14:57 15:29 14:04 Wound Center Nurse 2 #2- L DORSAL FOOT CLUSTER -Time 14:58 15:29 14:04 -Correct Patient Yes Yes Yes -Correct Side, Site, Position Yes Yes Yes -Correct Procedure Yes Yes Yes -Procedure Performed Yes Yes Yes -Type of Procedure Debridement Debridement Debridement -Clinical Debridement Subcutaneous Subcutaneous Subcutaneous -Tissue Removed Subcutaneous Subcutaneous Subcutaneous -Post Debridement (cm) - Length 1.0 0.9 0.3 -Post Debridement (cm) - Width 0.4 0.8 0.4 -Post Debridement (cm) - Depth 0.1 0.1 0.1 -Total Square (Post) (cm) 0.40 0.72 0.12 -Area of Debridement (cm) - Length 1.0 0.9 0.3 -Area of Debridement (cm) - Width 0.4 0.8 0.4 -Total Square (Area) (cm) 0.40 0.72 0.12 -Tunneling No No No -Undermining/Tunneling No No No -Circular Undermining No No No -Wound/Ulcer Outcome Not Healed Not Healed Not Healed -Ulcer Cleansing Rinsed/ Rinsed/ Rinsed/ Irrigated with Irrigated with Irrigated with Saline Saline Saline -Foul Odor after Cleansing No No No -Bioengineered Tissue No No No -Bleeding Controlled with Pressure Pressure Pressure -Treatment Response Procedure Procedure Procedure Tolerated Well Tolerated Well Tolerated Well -Offloading Yes Yes Yes -Type of Offloading Surgical Shoe Surgical Shoe Surgical Shoe -Debridement - Subq, 1st 20sq cm Yes Yes Yes #1- L LAT FOOT POST OP -Time 14:58 15:35 14:05 -Correct Patient Yes Yes Yes -Correct Side, Site, Position Yes Yes Yes -Correct Procedure Yes Yes Yes -Procedure Performed Yes Yes Yes -Type of Procedure Debridement Debridement Debridement -Clinical Debridement Subcutaneous Subcutaneous Subcutaneous -Tissue Removed Subcutaneous Subcutaneous Subcutaneous -Post Debridement (cm) - Length 4.0 4.0 4.0 -Post Debridement (cm) - Width 1.4 1.3 0.8 -Post Debridement (cm) - Depth 0.3 0.1 0.1 -Total Square (Post) (cm) 5.60 5.20 3.20 -Area of Debridement (cm) - Length 4.0 4.0 4.0 -Area of Debridement (cm) - Width 1.4 1.3 0.8 -Total Square (Area) (cm) 5.60 5.20 3.20 -Tunneling No No No -Undermining/Tunneling No No No -Circular Undermining No No No -Wound/Ulcer Outcome Not Healed Not Healed Not Healed -Ulcer Cleansing Rinsed/ Rinsed/ Rinsed/ Irrigated with Irrigated with Irrigated with Saline Saline Saline -Foul Odor after Cleansing No No No -Bioengineered Tissue Yes Yes Yes -Type of Bioengineered Tissue Epifix Mesh Epifix Mesh Epifix -Expiration Date 11/12/27 11/12/27 01/12/28 -Product Lot Number [id number] -Percent Used 100 100 100 -Lot number of Saline Used [id number] -Bleeding Controlled with Pressure Pressure -Treatment Response Procedure Procedure Tolerated Well Tolerated Well -Offloading Yes Yes -Type of Offloading Surgical Shoe Surgical Shoe -Debridement - Subq, 1st 20sq cm No No No -Apply Skin Sub - 1st 25 sq cm - Feet 1 1 1 -Epifix (per sq cm) 4 -Epifix Mesh (per sq cm) 11 11 Pain Scale: 0-10 Numeric Is Patient Pain Free? Yes Yes Yes - Nurse 3 - General Ulcer D/C NN Start: 04/19/23 14:35 Freq: Status: Active Protocol: Activity Type Activity Date Activity User E-sign Co-sign Detail Recorded Client Recorded Date Recorded By Document 04/19/23 15:19 DL Desktop 04/19/23 15:22 DL Document 04/19/23 15:38 GM Desktop 04/19/23 15:40 GM Document 04/28/23 12:03 KW Desktop 04/28/23 12:37 KW Document 05/03/23 15:44 KW Desktop 05/03/23 15:49 KW Document 05/10/23 14:12 KW Desktop 05/10/23 14:12 KW 04/19/23 04/19/23 04/28/23 15:19 15:38 12:03 Wound Care Center Nurse 3 #2- L DORSAL FOOT CLUSTER -Ulcer Cleansing Not Cleansed -Foul Odor after Cleansing No No -Other Dressing betadine// epimesh -Primary Dressing Covered/Secured with Dry Gauze & Dry Gauze & Roll Gauze, Roll Gauze, Secured with Secured with Tape Tape -NPWT Application Charge NPWT </= 50 sq cm (disp) ($) #1- L LAT FOOT POST OP -Ulcer Cleansing Not Cleansed -Foul Odor after Cleansing No No -Negative Pressure Wound Therapy Continue -Setting (mmHg) 125 -Negative Pressure is Continuous -Primary Dressing Applied -Other Dressing Epimesh -Primary Dressing Covered/Secured with -Other Covering Snap Vac -NPWT Application Charge NPWT & NPWT </= 50 sq Debridement (nc cm (disp) ($) ) Treatment Response Procedure Tolerated Well Vital Signs Temperature (97.8 F-99.1 F) 97.9 F Temperature Source Temporal Pulse Rate (60-100) 79 Pulse Location Monitor Respiratory Rate (12-18) 18 Respiratory rate source Observation Oxygen Delivery Method Room Air Blood Pressure (90/60-120/80) 142/69 H Blood Pressure Mean (mm Hg) 93 Source Monitor Position Sitting Blood Pressure Location Left Forearm Pain Scale: 0-10 Numeric Is Patient Pain Free? Yes Yes Yes Teaching: Wound Center Dressing wound -Person Taught Patient -Teaching Method Discussion -Response to teaching Verbalize understanding Wound Vac -Person Taught Patient,Family -Teaching Method Discussion, Demonstration -Response to teaching Return demonstration, Verbalize understanding WC - Visit Discharge Discharge Condition Stable Stable Stable Ambulatory Status Ambulatory, Ambulatory, Ambulatory, Crutches Crutches Crutches Transportation Private Auto Private Auto Private Auto Accompanied by Medication Reconcilliation completed & Yes No provided to patient/care provider Clinical Summary of Care Provided Yes Yes Facility Type Home Health Orders Sent Yes 05/03/23 05/10/23 15:44 14:12 Wound Care Center Nurse 3 #2- L DORSAL FOOT CLUSTER -Ulcer Cleansing -Foul Odor after Cleansing -Other Dressing epimesh -Primary Dressing Covered/Secured with Dry Gauze & Dry Gauze & Roll Gauze, Roll Gauze, Secured with Secured with Tape Tape -NPWT Application Charge #1- L LAT FOOT POST OP -Ulcer Cleansing -Foul Odor after Cleansing -Negative Pressure Wound Therapy -Setting (mmHg) -Negative Pressure is -Primary Dressing Applied Other -Other Dressing epimesh betadine -Primary Dressing Covered/Secured with Dry Gauze & Roll Gauze, Secured with Tape -Other Covering -NPWT Application Charge NPWT & Debridement (nc ) Treatment Response Procedure Tolerated Well Vital Signs Temperature (97.8 F-99.1 F) Temperature Source Pulse Rate (60-100) Pulse Location Respiratory Rate (12-18) Respiratory rate source Oxygen Delivery Method Blood Pressure (90/60-120/80) Blood Pressure Mean (mm Hg) Source Position Blood Pressure Location Pain Scale: 0-10 Numeric Is Patient Pain Free? Yes Yes Teaching: Wound Center Dressing wound -Person Taught -Teaching Method -Response to teaching Wound Vac -Person Taught -Teaching Method -Response to teaching WC - Visit Discharge Discharge Condition Stable Stable Ambulatory Status Ambulatory, Ambulatory, Crutches Crutches Transportation Private Auto Private Auto Accompanied by Medication Reconcilliation completed & No provided to patient/care provider Clinical Summary of Care Provided Yes Facility Type Home Health Orders Sent Assessment/Plan Assessment/Plan (1) Non-pressure chronic ulcer of other part of left foot with fat layer exposed: CODE(S): L97.522 - Non-pressure chronic ulcer of other part of left foot with fat layer exposed PLAN: Patient was examined and evaluated. All findings were discussed with the patient. All questions were answered to the patient's satisfaction. Excisional debridement down to and including subcutaneous tissue of the left dorsum foot/ankle with a number 5 mm dermal curette without incident. Predebridement measurement is 0.2 x 0.3 x 0.1 cm. Post right measurement is 0.3 x 0.4 x 0.1 cm. Excisional debridement down to and including subcutaneous tissue and fascia of the left foot lateral ulceration with a number 5 mm dermal curette without incident. Predebridement measurement is 3.9 x 0.7 x 0.1 cm. Postdebridement measurement is 4.0 x 0.8 x 0.1 cm. EpiMesh 4 x 4.5 cm was applied to the left lateral full-thickness ulceration with 100% use. Eighth application. The graft site was free and clear of any infection. The wound/skin graft substitute was dressed with nonadherent bandage secured in place with Steri-Strips followed by bolster dressing and Tyler bandage. Patient can use [id number] Tylenol, ibuprofen or combination of both for pain control. Follow-up at the wound care center with Dr. Sandhu in 1 week. (2) Peripheral vascular disease: CODE(S): I73.9 - Peripheral vascular disease, unspecified
== END 2023-05-11 23:59 | disposition home or self-care (01) ==
LOC: WC 14:00
PROVIDERS: Referring Provider Podiatrist Foot & Ankle Surgery; Visit Provider Podiatrist Foot & Ankle Surgery
DX: I70.262 Atherosclerosis of native arteries of extremities with gangrene, left leg (principal); L97.322 Non-pressure chronic ulcer of left ankle with fat layer exposed; L97.522 Non-pressure chronic ulcer of other part of left foot with fat layer exposed; Z48.812 Encounter for surgical aftercare following surgery on the circulatory system; Z79.82 Long term (current) use of aspirin; Z79.84 Long term (current) use of oral hypoglycemic drugs; Z79.01 Long term (current) use of anticoagulants; Z79.02 Long term (current) use of antithrombotics/antiplatelets; Z79.899 Other long term (current) drug therapy
CPT/HCPCS: 11042; 15275; 93926; 97607; 99211; Q4186; G0463

== ENCOUNTER 2023-05-31 14:30 | Outpatient (RCR) | payer MEDICAID, SELFPAY ==
[2023-05-12 00:26] VITALS: BP 165/89; PULSE 79; RESP 18; TEMP 36.6; BMI 21.7
[2023-05-17 14:22] VITALS: BP 149/80; PULSE 68; RESP 18; TEMP 36.3; BMI 21.7
--- NOTE | 2023-05-17 16:30 | PN.PCM_ITS ---
History of Present Illness Date of Service: 05/17/23 Chief Complaint: Left full-thickness wound. History of Wound: Chronic nonhealing left full-thickness wound Subjective Subjective Mr. Medina is a 57-year-old male presenting to the wound care center for follow-up and evaluation of full-thickness ulceration to the left foot status post excisional debridement with skin graft prep with application of skin graft substitute. Date of surgery: 03/24/2022. Patient presents today for graft application to left lower extremity. He admits his pain is back. He denies drainage. He denies constitutional symptoms. He denies trauma. No other pedal complaints at this time. Objective Data Objective Data Vital Signs: Vital Signs Temp Pulse Resp BP 97.3 F L 68 18 149/80 H 05/17/23 14:22 05/17/23 14:22 05/17/23 14:22 05/17/23 14:22 Weight: 74.843 kg Body Mass Index (BMI) 21.7 Physical Exam Narrative Vascular: DP and PT pulses are audible on Doppler. +1 pitting edema appreciated to left lower extremity. Skin temperature great is warm to warm from proximal ankle to distal digit. No evidence of focal increase is appreciated. Neurological: Light touch intact. Patient does respond to painful stimuli. Dermatological: Full-thickness ulceration appreciated to the left anterior ankle which is now healed and the lateral foot. The left lateral foot ulceration measures 3.5 x 0.7 x 0.1 cm. Wound base are 100% granular nature with no malodor. Excisional debridement down to and including subcutaneous tissue of the left foot lateral ulceration with a number 5 mm dermal curette without incident. Predebridement measurement is 3.3 x 0.6 x 0.1 cm. Postdebridement measurement is 3.5 x 0.7 x 0.1 cm. EpiMesh 2 x 2 cm was applied to the left lateral full-thickness ulceration with 100% use. Ninth application. The graft site was free and clear of any infection. The wound/skin graft substitute was dressed with nonadherent bandage secured in place with Steri-Strips followed by bolster dressing and Tyler bandage. Musculoskeletal: Muscle strength was deferred. Moderate palpatory tenderness appreciated to both ulcerations to left lower extremity. No pain with calf compression Debridement Note Debridement Note Debridement Free Text: Excisional debridement down to and including subcutaneous tissue of the left foot lateral ulceration with a number 5 mm dermal curette without incident. Predebridement measurement is 3.3 x 0.6 x 0.1 cm. Postdebridement measurement is 3.5 x 0.7 x 0.1 cm. EpiMesh 2 x 2 cm was applied to the left lateral full-thickness ulceration with 100% use. Ninth application. The graft site was free and clear of any infec tion. The wound/skin graft substitute was dressed with nonadherent bandage secured in place with Steri-Strips followed by bolster dressing and Tyler bandage. 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 ) Arrival Mode Ambulatory, Crutches Accompanied by Patient Identification Verified (Name & Yes ) Height and Weight Body Mass Index (BMI) 21.7 BMI Classification Normal Vital Signs Temperature (97.8 F-99.1 F) 97.3 F L Temperature Source Temporal Pulse Rate (60-100) 68 Pulse Location Monitor Respiratory Rate (12-18) 18 Respiratory rate source Observation Blood Pressure (90/60-120/80) 149/80 H Blood Pressure Mean (mm Hg) 103 Source Monitor Position Semi-Fowlers Blood Pressure Location Left Arm History Since Last Visit- (Skip if this is Patient's initial visit) Have you changed medications since your No last visit? Any new allergies or adverse reactions No Had a fall/change in ADL's that may No increase risk of falls Signs or symptoms of abuse and/or No neglect since last visit Have you been in the hospital since your No last visit? Has dressing in place as prescribed Yes Has compression in place as prescribed N/A Has offloadiing in place as prescribed Yes Experienced any changes in pain level or No management Left Footwear Surgical Shoe with pressure relief insole Right Footwear Regular Shoe Pain Scale: 0-10 Numeric Is Patient Pain Free? Yes - Nurse 1 - General Ulcer Measurement Start: 05/17/23 14:22 Freq: Status: Active Protocol: Activity Type Activity Date Activity User E-sign Co-sign Detail Recorded Client Recorded Date Recorded By Document 05/17/23 14:22 KW Desktop 05/17/23 14:28 KW 05/17/23 14:22 Wound Center Nurse 1 #2- L DORSAL FOOT CLUSTER -Current Size (cm) - Length 0.1 -Current Size (cm) - Width 0.1 -Current Size (cm) - Depth 0.1 -Total Square Cm 0.01 -Exudate Amt None Present -Wound Margin Thickened -Granulation Amt None Present (0 %) -Necrosis Amt Small (1-33%) -Necrotic Tissue Type Eschar -Structure Exposed N/A -Texture (Jovanna-wound Skin Appearance) Scarring -Moisture (Jovanna-wound Skin Appearance) Dry/Scaly -Color (Jovanna-wound Skin Appearance) Hemosiderin Staining -Temperature (Jovanna-wound Skin No Abnormality Appearance) (Pt Warm) -Tenderness on Palpation (Jovanna-wound No Skin Appearance) -Ulcer Cleansing Soap and Water -Foul Odor after Cleansing No -Anesthetic Used 5% Lidocaine Gel #1- L LAT FOOT POST OP -Current Size (cm) - Length 4 -Current Size (cm) - Width 0.7 -Current Size (cm) - Depth 0.2 -Total Square Cm 2.8 -Exudate Amt Small -Wound Margin Distinct, Outline Attached -Granulation Amt Large (67-100%) -Granulation Quality [place] -Necrosis Amt Small (1-33%) -Necrotic Tissue Type Adherent Slough -Structure Exposed N/A -Texture (Jovanna-wound Skin Appearance) Callus,Scarring -Moisture (Jovanna-wound Skin Appearance) Dry/Scaly -Color (Jovanna-wound Skin Appearance) Hemosiderin Staining -Temperature (Jovanna-wound Skin No Abnormality Appearance) (Pt Warm) -Tenderness on Palpation (Jovanna-wound No Skin Appearance) -Ulcer Cleansing Soap and Water -Foul Odor after Cleansing No -Anesthetic Used 5% Lidocaine Gel WC - Nurse 2 - General Ulcer CM Notes Start: 05/17/23 14:22 Freq: Status: Active Protocol: Activity Type Activity Date Activity User E-sign Co-sign Detail Recorded Client Recorded Date Recorded By Document 05/17/23 14:47 JF Desktop 05/17/23 14:49 JF 05/17/23 14:47 Wound Center Nurse 2 #2- L DORSAL FOOT CLUSTER -Correct Patient No -Correct Side, Site, Position No -Correct Procedure No -Procedure Performed No -Tissue Removed Dermis -Post Debridement (cm) - Length 0 -Post Debridement (cm) - Width 0 -Post Debridement (cm) - Depth 0 -Total Square (Post) (cm) 0 -Area of Debridement (cm) - Length 0 -Area of Debridement (cm) - Width 0 -Total Square (Area) (cm) 0 -Wound/Ulcer Outcome Healed- Epithelialized #1- L LAT FOOT POST OP -Time 14:47 -Correct Patient Yes -Correct Side, Site, Position Yes -Correct Procedure Yes -Procedure Performed Yes -Type of Procedure Debridement -Clinical Debridement Subcutaneous -Tissue Removed Subcutaneous -Post Debridement (cm) - Length 3.5 -Post Debridement (cm) - Width 0.7 -Post Debridement (cm) - Depth 0.1 -Total Square (Post) (cm) 2.45 -Area of Debridement (cm) - Length 3.5 -Area of Debridement (cm) - Width 0.7 -Total Square (Area) (cm) 2.45 -Tunneling No -Undermining/Tunneling No -Circular Undermining No -Wound/Ulcer Outcome Not Healed -Ulcer Cleansing Rinsed/ Irrigated with Saline -Bioengineered Tissue Yes -Type of Bioengineered Tissue [facility] -Expiration Date 01/12/28 -Product Lot Number [id number] -Percent Used 100 -Lot number of Saline Used [id number] -Bleeding Controlled with Pressure -Treatment Response Procedure Tolerated Well -Offloading Yes -Type of Offloading Surgical Shoe -Debridement - Subq, 1st 20sq cm No -Apply Skin Sub - 1st 25 sq cm - Feet 1 -Epifix (per sq cm) 4 Pain Scale: 0-10 Numeric Is Patient Pain Free? Yes WC - Nurse 3 - General Ulcer D/C NN Start: 05/17/23 14:22 Freq: Status: Active Protocol: Activity Type Activity Date Activity User E-sign Co-sign Detail Recorded Client Recorded Date Recorded By Document 05/17/23 14:59 DL Desktop 05/17/23 15:00 DL 05/17/23 14:59 Wound Care Center Nurse 3 #1- L LAT FOOT POST OP -Foul Odor after Cleansing No -Other Dressing Epifix -Primary Dressing Covered/Secured with Dry Gauze & Roll Gauze, Secured with Tape -Other Covering ABD Treatment Response Procedure Tolerated Well Pain Scale: 0-10 Numeric Is Patient Pain Free? Yes WC - Visit Discharge Discharge Condition Stable Ambulatory Status Ambulatory Transportation Private Auto Assessment/Plan Assessment/Plan (1) Non-pressure chronic ulcer of other part of left foot with fat layer exposed: CODE(S): L97.522 - Non-pressure chronic ulcer of other part of left foot with fat layer exposed PLAN: Patient was examined and evaluated. All findings were discussed with the patient. All questions were answered to the patient's satisfaction. Excisional debridement down to and including subcutaneous tissue of the left foot lateral ulceration with a number 5 mm dermal curette without incident. Predebridement measurement is 3.3 x 0.6 x 0.1 cm. Postdebridement measurement is 3.5 x 0.7 x 0.1 cm. EpiMesh 2 x 2 cm was applied to the left lateral full-thickness ulceration with 100% use. Ninth application. The graft site was free and clear of any infection. The wound/skin graft substitute was dressed with nonadherent bandage secured in place with Steri-Strips followed by bolster dressing and Tyler bandage. Since the patient still having pain he will be sent in a small prescription for Percocet #21 pills to be taken every 8 hours as needed as needed for pain for 7 days. Follow-up at the wound care center with Dr. Sandhu in 1 week. (2) Peripheral vascular disease: CODE(S): I73.9 - Peripheral vascular disease, unspecified
[2023-05-24 14:22] VITALS: BP 148/90; PULSE 79; RESP 18; BMI 21.7
--- NOTE | 2023-05-24 16:22 | PCM.WC.PN ---
History of Present Illness Date of Service: 05/24/23 Chief Complaint: Left full-thickness wound. History of Wound: Chronic nonhealing left full-thickness wound Subjective Subjective Mr. Medina is a 57-year-old male presenting to the wound care center for follow-up and evaluation of full-thickness ulceration to the left foot status post excisional debridement with skin graft prep with application of skin graft substitute. Date of surgery: 03/24/2022. Patient presents today for graft application to left lower extremity. He admits his pain is back. He denies drainage. He denies constitutional symptoms. He denies trauma. No other pedal complaints at this time. Objective Data Objective Data Vital Signs: Vital Signs Temp Pulse Resp BP O2 Del Method 97.3 F L 79 18 148/90 H Room Air 05/17/23 14:22 05/24/23 14:22 05/24/23 14:22 05/24/23 14:22 05/24/23 14:22 Oxygen Delivery Method Room Air Weight: 74.843 kg Body Mass Index (BMI) 21.7 Physical Exam Narrative Vascular: DP and PT pulses are audible on Doppler. +1 pitting edema appreciated to left lower extremity. Skin temperature great is warm to warm from proximal ankle to distal digit. No evidence of focal increase is appreciated. Neurological: Light touch intact. Patient does respond to painful stimuli. Dermatological: Full-thickness ulceration appreciated to the left anterior ankle which is now healed and the lateral foot. The left lateral foot ulceration measures 3.2 x 0.6 x 0.1 cm. Wound base are 100% granular nature with no malodor. Excisional debridement down to and including subcutaneous tissue of the left foot lateral ulceration with a number 5 mm dermal curette without incident. Predebridement measurement is 3.1 x 0.5 x 0.1 cm. Postdebridement measurement is 3.2 x 0.6 x 0.1 cm. EpiMesh 2 x 2 cm was applied to the left lateral full-thickness ulceration with 100% use. 10th application. The graft site was free and clear of any infection. The wound/skin graft substitute was dressed with nonadherent bandage secured in place with Steri-Strips followed by bolster dressing and Tyler bandage. Musculoskeletal: Muscle strength was deferred. Moderate palpatory tenderness appreciated to both ulcerations to left lower extremity. No pain with calf compression Debridement Note Debridement Note Debridement Free Text: Excisional debridement down to and including subcutaneous tissue of the left foot lateral ulceration with a number 5 mm dermal curette without incident. Predebridement measurement is 3.1 x 0.5 x 0.1 cm. Postdebridement measurement is 3.2 x 0.6 x 0.1 cm. EpiMesh 2 x 2 cm was applied to the left lateral full-thickness ulceration with 100% use. 10th application. The graft site was free and clear of any infection. The wound/skin graft substitute was dressed with nonadherent bandage secured in place with Steri-Strips followed by bolster dressing and Tyler bandage. 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 ) ) Arrival Mode Ambulatory, Ambulatory, Crutches Crutches Accompanied by Patient Identification Verified (Name & Yes Yes ) Height and Weight Body Mass Index (BMI) 21.7 21.7 BMI Classification Normal Normal Vital Signs Temperature (97.8 F-99.1 F) 97.3 F L Temperature Source Temporal Pulse Rate (60-100) 68 79 Pulse Location Monitor Monitor Respiratory Rate (12-18) 18 18 Respiratory rate source Observation Observation Oxygen Delivery Method Room Air Blood Pressure (90/60-120/80) 149/80 H 148/90 H Blood Pressure Mean (mm Hg) 103 109 Source Monitor Monitor Position Semi-Fowlers Semi-Fowlers Blood Pressure Location Left Arm Left Arm History Since Last Visit- (Skip if this is Patient's initial visit) Have you changed medications since your No No last visit? Any new allergies or adverse reactions No No Had a fall/change in ADL's that may No No increase risk of falls Signs or symptoms of abuse and/or No No neglect since last visit Have you been in the hospital since your No No last visit? Has dressing in place as prescribed Yes Yes Has compression in place as prescribed N/A N/A Has offloadiing in place as prescribed Yes Yes Experienced any changes in pain level or No Yes management Left Footwear Surgical Shoe Surgical Shoe with pressure with pressure relief insole relief insole Right Footwear Regular Shoe Regular Shoe Pain Scale: 0-10 Numeric Is Patient Pain Free? Yes Yes WC - Nurse 1 - General Ulcer Measurement Start: 05/17/23 14:22 Freq: Status: Active Protocol: Activity Type Activity Date Activity User E-sign Co-sign Detail Recorded Client Recorded Date Recorded By Document 05/17/23 14:22 KW Desktop 05/17/23 14:28 KW Document 05/24/23 14:22 KW Desktop 05/24/23 14:32 KW 05/17/23 05/24/23 14:22 14:22 Wound Center Nurse 1 #2- L DORSAL FOOT CLUSTER -Current Size (cm) - Length 0.1 -Current Size (cm) - Width 0.1 -Current Size (cm) - Depth 0.1 -Total Square Cm 0.01 -Exudate Amt None Present -Wound Margin Thickened -Granulation Amt None Present (0 %) -Necrosis Amt Small (1-33%) -Necrotic Tissue Type Eschar -Structure Exposed N/A -Texture (Jovanna-wound Skin Appearance) Scarring -Moisture (Jovanna-wound Skin Appearance) Dry/Scaly -Color (Jovanna-wound Skin Appearance) Hemosiderin Staining -Temperature (Jovanna-wound Skin No Abnormality Appearance) (Pt Warm) -Tenderness on Palpation (Jovanna-wound No Skin Appearance) -Ulcer Cleansing Soap and Water -Foul Odor after Cleansing No -Anesthetic Used 5% Lidocaine Gel #1- L LAT FOOT POST OP -Current Size (cm) - Length 4 3 -Current Size (cm) - Width 0.7 0.8 -Current Size (cm) - Depth 0.2 0.1 -Total Square Cm 2.8 2.4 -Exudate Amt Small Small -Exudate Type Serosanguineous -Wound Margin Distinct, Distinct, Outline Outline Attached Attached -Granulation Amt Large (67-100%) Large (67-100%) -Granulation Quality [place] -Necrosis Amt Small (1-33%) Small (1-33%) -Necrotic Tissue Type Adherent Slough Adherent Slough -Structure Exposed N/A -Texture (Jovanna-wound Skin Appearance) Callus,Scarring Assessed -Moisture (Jovanna-wound Skin Appearance) Dry/Scaly Assessed -Color (Jovanna-wound Skin Appearance) Hemosiderin Assessed Staining -Temperature (Jovanna-wound Skin No Abnormality No Abnormality Appearance) (Pt Warm) (Pt Warm) -Tenderness on Palpation (Jovanna-wound No No Skin Appearance) -Ulcer Cleansing Soap and Water Soap and Water -Foul Odor after Cleansing No -Anesthetic Used 5% Lidocaine 5% Lidocaine Gel Gel WC - Nurse 2 - General Ulcer CM Notes Start: 05/17/23 14:22 Freq: Status: Active Protocol: Activity Type Activity Date Activity User E-sign Co-sign Detail Recorded Client Recorded Date Recorded By Document 05/17/23 14:47 Desktop 05/17/23 14:49 Edit Result 05/17/23 14:47 (1) Laptop 05/22/23 15:30 Document 05/24/23 14:56 Laptop 05/24/23 14:59 (1) #1- L LAT FOOT POST OP - Type of Bioengineered Tissue NuShield => Epifix 05/17/23 05/24/23 14:47 14:56 Wound Center Nurse 2 #2- L DORSAL FOOT CLUSTER -Correct Patient No -Correct Side, Site, Position No -Correct Procedure No -Procedure Performed No -Tissue Removed Dermis -Post Debridement (cm) - Length 0 -Post Debridement (cm) - Width 0 -Post Debridement (cm) - Depth 0 -Total Square (Post) (cm) 0 -Area of Debridement (cm) - Length 0 -Area of Debridement (cm) - Width 0 -Total Square (Area) (cm) 0 -Wound/Ulcer Outcome Healed- Epithelialized #1- L LAT FOOT POST OP -Time 14:47 14:56 -Correct Patient Yes Yes -Correct Side, Site, Position Yes Yes -Correct Procedure Yes Yes -Procedure Performed Yes Yes -Type of Procedure Debridement Debridement -Clinical Debridement Subcutaneous Subcutaneous -Tissue Removed Subcutaneous Subcutaneous -Post Debridement (cm) - Length 3.5 3.2 -Post Debridement (cm) - Width 0.7 0.6 -Post Debridement (cm) - Depth 0.1 0.1 -Total Square (Post) (cm) 2.45 1.92 -Area of Debridement (cm) - Length 3.5 3.2 -Area of Debridement (cm) - Width 0.7 0.6 -Total Square (Area) (cm) 2.45 1.92 -Tunneling No No -Undermining/Tunneling No No -Circular Undermining No No -Wound/Ulcer Outcome Not Healed Not Healed -Ulcer Cleansing Rinsed/ Rinsed/ Irrigated with Irrigated with Saline Saline -Foul Odor after Cleansing No -Bioengineered Tissue Yes Yes -Type of Bioengineered Tissue Epifix Epifix -Expiration Date 01/12/28 01/12/28 -Product Lot Number [id number] -Percent Used 100 100 -Lot number of Saline Used [id number] -Bleeding Controlled with Pressure Pressure -Treatment Response Procedure Procedure Tolerated Well Tolerated Well -Offloading Yes Yes -Type of Offloading Surgical Shoe Surgical Shoe -Debridement - Subq, 1st 20sq cm No No -Apply Skin Sub - 1st 25 sq cm - Feet 1 1 -Epifix (per sq cm) 4 4 Pain Scale: 0-10 Numeric Is Patient Pain Free? Yes Yes - Nurse 3 - General Ulcer D/C NN Start: 05/17/23 14:22 Freq: Status: Active Protocol: Activity Type Activity Date Activity User E-sign Co-sign Detail Recorded Client Recorded Date Recorded By Document 05/17/23 14:59 DL Desktop 05/17/23 15:00 DL Document 05/24/23 15:22 Desktop 05/24/23 15:22 05/17/23 05/24/23 14:59 15:22 Wound Care Center Nurse 3 #1- L LAT FOOT POST OP -Ulcer Cleansing Not Cleansed -Foul Odor after Cleansing No No -Other Dressing Epifix -Primary Dressing Covered/Secured with Dry Gauze & Dry Gauze & Roll Gauze, Roll Gauze, Secured with Secured with Tape Tape -Other Covering ABD Treatment Response Procedure Tolerated Well Pain Scale: 0-10 Numeric Is Patient Pain Free? Yes Yes Teaching: Wound Center Dressing wound -Person Taught Patient,Family -Teaching Method Discussion -Response to teaching Verbalize understanding WC - Visit Discharge Discharge Condition Stable Stable Ambulatory Status Ambulatory Ambulatory Transportation Private Auto Private Auto Medication Reconcilliation completed & Yes provided to patient/care provider Clinical Summary of Care Provided Yes Assessment/Plan Assessment/Plan (1) Non-pressure chronic ulcer of other part of left foot with fat layer exposed: CODE(S): L97.522 - Non-pressure chronic ulcer of other part of left foot with fat layer exposed PLAN: Patient was examined and evaluated. All findings were discussed with the patient. All questions were answered to the patient's satisfaction. Excisional debridement down to and including subcutaneous tissue of the left foot lateral ulceration with a number 5 mm dermal curette without incident. Predebridement measurement is 3.1 x 0.5 x 0.1 cm. Postdebridement measurement is 3.2 x 0.6 x 0.1 cm. EpiMesh 2 x 2 cm was applied to the left lateral full-thickness ulceration with 100% use. 10th application. The graft site was free and clear of any infection. The wound/skin graft substitute was dressed with nonadherent bandage secured in place with Steri-Strips followed by bolster dressing and Tyler bandage. Follow-up at the wound care center with Dr. Sandhu in 1 week. (2) Peripheral vascular disease: CODE(S): I73.9 - Peripheral vascular disease, unspecified
[2023-05-31 14:51] VITALS: BP 138/80; PULSE 77; RESP 18; TEMP 36.4; BMI 21.7
--- NOTE | 2023-05-31 20:55 | PCM.WC.PN ---
History of Present Illness Date of Service: 05/31/23 Chief Complaint: Left full-thickness wound. History of Wound: Chronic nonhealing left full-thickness wound Subjective Subjective Mr. Medina is a 57-year-old male presenting to the wound care center for follow-up and evaluation of full-thickness ulceration to the left foot status post excisional debridement with skin graft prep with application of skin graft substitute. Date of surgery: 03/24/2022. Patient presents today for graft application to left lower extremity. He admits his pain is back. He denies drainage. He denies constitutional symptoms. He denies trauma. No other pedal complaints at this time. Objective Data Objective Data Vital Signs: Vital Signs Temp Pulse Resp BP O2 Del Method 97.5 F L 77 18 138/80 H Room Air 05/31/23 14:51 05/31/23 14:51 05/31/23 14:51 05/31/23 14:51 05/24/23 14:22 Oxygen Delivery Method Room Air Weight: 74.843 kg Body Mass Index (BMI) 21.7 Physical Exam Narrative Vascular: DP and PT pulses are audible on Doppler. +1 pitting edema appreciated to left lower extremity. Skin temperature great is warm to warm from proximal ankle to distal digit. No evidence of focal increase is appreciated. Neurological: Light touch intact. Patient does respond to painful stimuli. Dermatological: Full-thickness ulceration appreciated to the left anterior ankle which is now healed and the lateral foot. The left lateral foot ulceration measures 3.0 x 0.5 x 0.1 cm. Wound base are 100% granular nature with no malodor. Excisional debridement down to and including subcutaneous tissue of the left foot lateral ulceration with a number 5 mm dermal curette without incident. Predebridement measurement is 2.8 x 0.4 x 0.1 cm. Postdebridement measurement is 3.0 x 0.5 x 0.1 cm. Musculoskeletal: Muscle strength was deferred. Moderate palpatory tenderness appreciated to both ulcerations to left lower extremity. No pain with calf compression Debridement Note Debridement Note Debridement Free Text: Excisional debridement down to and including subcutaneous tissue of the left foot lateral ulceration with a number 5 mm dermal curette without incident. Predebridement measurement is 2.8 x 0.4 x 0.1 cm. Postdebridement measurement is 3.0 x 0.5 x 0.1 cm. Post-Debridement Measurements and Additional Note: Post-Debridement Measurements/Treatment WC - Nurse 1 - General Ulcer Assessment Start: 05/17/23 14:22 Freq: Status: Active Protocol: ANTHONY Activity Type Activity Date Activity User E-sign Co-sign Detail Recorded Client Recorded Date Recorded By Document 05/17/23 14:22 KW Desktop 05/17/23 14:28 KW Document 05/24/23 14:22 KW Desktop 05/24/23 14:32 KW Document 05/31/23 14:51 DL Desktop 05/31/23 15:16 DL 05/17/23 05/24/23 05/31/23 14:22 14:22 14:51 WC - Today's Visit Information Type of service Follow-up Visit Follow-up Visit Follow-up Visit (Physician/HEAD STRENGTH AND CONDITIONING COACH (Physician/HEAD STRENGTH AND CONDITIONING COACH (Physician/HEAD STRENGTH AND CONDITIONING COACH ) ) ) Arrival Mode Ambulatory, Ambulatory, Ambulatory, Crutches Crutches Crutches Transfer Assistance None Accompanied by Patient Identification Verified (Name & Yes Yes Yes ) Patient Requires Transmission-Based No Precautions Height and Weight Body Mass Index (BMI) 21.7 21.7 21.7 BMI Classification Normal Normal Normal Vital Signs Temperature (97.8 F-99.1 F) 97.3 F L 97.5 F L Temperature Source Temporal Temporal Pulse Rate (60-100) 68 79 77 Pulse Location Monitor Monitor Monitor Respiratory Rate (12-18) 18 18 18 Respiratory rate source Observation Observation Observation Oxygen Delivery Method Room Air Blood Pressure (90/60-120/80) 149/80 H 148/90 H 138/80 H Blood Pressure Mean (mm Hg) 103 109 99 Source Monitor Monitor Monitor Position Semi-Fowlers Semi-Fowlers Blood Pressure Location Left Arm Left Arm History Since Last Visit- (Skip if this is Patient's initial visit) Have you changed medications since your No No No last visit? Any new allergies or adverse reactions No No No Had a fall/change in ADL's that may No No No increase risk of falls Signs or symptoms of abuse and/or No No No neglect since last visit Have you been in the hospital since your No No No last visit? Has dressing in place as prescribed Yes Yes Yes Has compression in place as prescribed N/A N/A Yes Has offloadiing in place as prescribed Yes Yes Yes Experienced any changes in pain level or No Yes No management Left Footwear Surgical Shoe Surgical Shoe No Footwear with pressure with pressure relief insole relief insole Right Footwear Regular Shoe Regular Shoe Pain Scale: 0-10 Numeric Is Patient Pain Free? Yes Yes Yes WC - Nurse 1 - General Ulcer Measurement Start: 05/17/23 14:22 Freq: Status: Active Protocol: Activity Type Activity Date Activity User E-sign Co-sign Detail Recorded Client Recorded Date Recorded By Document 05/17/23 14:22 KW Desktop 05/17/23 14:28 KW Document 05/24/23 14:22 KW Desktop 05/24/23 14:32 KW Document 05/31/23 14:51 DL Desktop 05/31/23 15:16 DL 05/17/23 05/24/23 05/31/23 14:22 14:22 14:51 Wound Center Nurse 1 #2- L DORSAL FOOT CLUSTER -Current Size (cm) - Length 0.1 -Current Size (cm) - Width 0.1 -Current Size (cm) - Depth 0.1 -Total Square Cm 0.01 -Exudate Amt None Present -Wound Margin Thickened -Granulation Amt None Present (0 %) -Necrosis Amt Small (1-33%) -Necrotic Tissue Type Eschar -Structure Exposed N/A -Texture (Jovanna-wound Skin Appearance) Scarring -Moisture (Jovanna-wound Skin Appearance) Dry/Scaly -Color (Jovanna-wound Skin Appearance) Hemosiderin Staining -Temperature (Jovanna-wound Skin No Abnormality Appearance) (Pt Warm) -Tenderness on Palpation (Jovanna-wound No Skin Appearance) -Ulcer Cleansing Soap and Water -Foul Odor after Cleansing No -Anesthetic Used 5% Lidocaine Gel #1- L LAT FOOT POST OP -Current Size (cm) - Length 4 3 2.2 -Current Size (cm) - Width 0.7 0.8 0.5 -Current Size (cm) - Depth 0.2 0.1 0.1 -Total Square Cm 2.8 2.4 1.10 -Photo Taken Yes -Exudate Amt Small Small Small -Exudate Type Serosanguineous Serosanguineous -Wound Margin Distinct, Distinct, Distinct, Outline Outline Outline Attached Attached Attached -Granulation Amt Large (67-100%) Large (67-100%) Large (67-100%) -Granulation Quality [place] -Necrosis Amt Small (1-33%) Small (1-33%) Small (1-33%) -Necrotic Tissue Type Adherent Slough Adherent Slough Adherent Slough -Structure Exposed N/A N/A -Texture (Jovanna-wound Skin Appearance) Callus,Scarring Assessed Scarring -Moisture (Jovanna-wound Skin Appearance) Dry/Scaly Assessed Dry/Scaly -Color (Jovanna-wound Skin Appearance) Hemosiderin Assessed Hemosiderin Staining Staining -Temperature (Jovanna-wound Skin No Abnormality No Abnormality No Abnormality Appearance) (Pt Warm) (Pt Warm) (Pt Warm) -Tenderness on Palpation (Jovanna-wound No No Skin Appearance) -Ulcer Cleansing Soap and Water Soap and Water Soap and Water -Foul Odor after Cleansing No No -Anesthetic Used 5% Lidocaine 5% Lidocaine 5% Lidocaine Gel Gel Gel WC - Nurse 2 - General Ulcer CM Notes Start: 05/17/23 14:22 Freq: Status: Active Protocol: Activity Type Activity Date Activity User E-sign Co-sign Detail Recorded Client Recorded Date Recorded By Document 05/17/23 14:47 Desktop 05/17/23 14:49 Edit Result 05/17/23 14:47 (1) Laptop 05/22/23 15:30 Document 05/24/23 14:56 JF Laptop 05/24/23 14:59 Document 05/31/23 15:11 JF Laptop 05/31/23 15:13 JF (1) #1- L LAT FOOT POST OP - Type of Bioengineered Tissue NuShield => Epifix 05/17/23 05/24/23 05/31/23 14:47 14:56 15:11 Wound Center Nurse 2 #2- L DORSAL FOOT CLUSTER -Correct Patient No -Correct Side, Site, Position No -Correct Procedure No -Procedure Performed No -Tissue Removed Dermis -Post Debridement (cm) - Length 0 -Post Debridement (cm) - Width 0 -Post Debridement (cm) - Depth 0 -Total Square (Post) (cm) 0 -Area of Debridement (cm) - Length 0 -Area of Debridement (cm) - Width 0 -Total Square (Area) (cm) 0 -Wound/Ulcer Outcome Healed- Epithelialized #1- L LAT FOOT POST OP -Time 14:47 14:56 15:11 -Correct Patient Yes Yes Yes -Correct Side, Site, Position Yes Yes Yes -Correct Procedure Yes Yes Yes -Procedure Performed Yes Yes Yes -Type of Procedure Debridement Debridement Debridement -Clinical Debridement Subcutaneous Subcutaneous Subcutaneous -Tissue Removed Subcutaneous Subcutaneous Subcutaneous -Post Debridement (cm) - Length 3.5 3.2 3.0 -Post Debridement (cm) - Width 0.7 0.6 0.5 -Post Debridement (cm) - Depth 0.1 0.1 0.1 -Total Square (Post) (cm) 2.45 1.92 1.50 -Area of Debridement (cm) - Length 3.5 3.2 3.0 -Area of Debridement (cm) - Width 0.7 0.6 0.5 -Total Square (Area) (cm) 2.45 1.92 1.50 -Tunneling No No No -Undermining/Tunneling No No No -Circular Undermining No No No -Wound/Ulcer Outcome Not Healed Not Healed Not Healed -Ulcer Cleansing Rinsed/ Rinsed/ Rinsed/ Irrigated with Irrigated with Irrigated with Saline Saline Saline -Foul Odor after Cleansing No No -Bioengineered Tissue Yes Yes No -Type of Bioengineered Tissue Epifix Epifix -Expiration Date 01/12/28 01/12/28 -Product Lot Number [id number] -Percent Used 100 100 -Lot number of Saline Used [id number] -Bleeding Controlled with Pressure Pressure Pressure -Treatment Response Procedure Procedure Procedure Tolerated Well Tolerated Well Tolerated Well -Offloading Yes Yes Yes -Type of Offloading Surgical Shoe Surgical Shoe Surgical Shoe -Assistive Device(s) Crutches -Debridement - Subq, 1st 20sq cm No No Yes -Apply Skin Sub - 1st 25 sq cm - Feet 1 1 -Epifix (per sq cm) 4 4 Pain Scale: 0-10 Numeric Is Patient Pain Free? Yes Yes Yes WC - Nurse 3 - General Ulcer D/C NN Start: 05/17/23 14:22 Freq: Status: Active Protocol: Activity Type Activity Date Activity User E-sign Co-sign Detail Recorded Client Recorded Date Recorded By Document 05/17/23 14:59 DL Desktop 05/17/23 15:00 DL Document 05/24/23 15:22 GM Desktop 05/24/23 15:22 GM Document 05/31/23 15:26 GM Desktop 05/31/23 15:26 GM 05/17/23 05/24/23 05/31/23 14:59 15:22 15:26 Wound Care Center Nurse 3 #1- L LAT FOOT POST OP -Ulcer Cleansing Not Cleansed Not Cleansed -Foul Odor after Cleansing No No No -Primary Dressing Applied Promogran Elizabeth Matter -Other Dressing Epifix -Primary Dressing Covered/Secured with Dry Gauze & Dry Gauze & Dry Gauze & Roll Gauze, Roll Gauze, Roll Gauze, Secured with Secured with Secured with Tape Tape Tape -Other Covering ABD -Promogran Elizabeth Matter 1 Treatment Response Procedure Tolerated Well Pain Scale: 0-10 Numeric Is Patient Pain Free? Yes Yes Yes Teaching: Wound Center Dressing wound -Person Taught Patient,Family Patient,Family -Teaching Method Discussion Discussion, Demonstration -Response to teaching Verbalize Verbalize understanding understanding WC - Visit Discharge Discharge Condition Stable Stable Stable Ambulatory Status Ambulatory Ambulatory Ambulatory, Crutches Transportation Private Auto Private Auto Private Auto Medication Reconcilliation completed & Yes Yes provided to patient/care provider Clinical Summary of Care Provided Yes Yes Assessment/Plan Assessment/Plan (1) Non-pressure chronic ulcer of other part of left foot with fat layer exposed: CODE(S): L97.522 - Non-pressure chronic ulcer of other part of left foot with fat layer exposed PLAN: Patient was examined and evaluated. All findings were discussed with the patient. All questions were answered to the patient satisfaction. Excisional debridement down to and including subcutaneous tissue of the left foot lateral ulceration with a number 5 mm dermal curette without incident. Predebridement measurement is 2.8 x 0.4 x 0.1 cm. Postdebridement measurement is 3.0 x 0.5 x 0.1 cm. The ulceration was dressed with Elizabeth, dry sterile dressing and a single-layer Tubigrip was donned to left lower extremity. Patient was given the okay to shower his left lower extremity with warm soap and water and continue home dressing supplies every other day and follow-up in [address] Sandhu. Patient will follow-up with Dr. Sandhu at the wound care center in 2 week. (2) Peripheral vascular disease: CODE(S): I73.9 - Peripheral vascular disease, unspecified
== END 2023-06-11 23:59 | disposition home or self-care (01) ==
LOC: WC 14:30
PROVIDERS: Referring Provider Podiatrist Foot & Ankle Surgery; Visit Provider Podiatrist Foot & Ankle Surgery
DX: L97.522 Non-pressure chronic ulcer of other part of left foot with fat layer exposed (principal); I73.9 Peripheral vascular disease, unspecified
CPT/HCPCS: 11042; 15275; Q4186

== ENCOUNTER → 2023-06-26 | Outpatient (CLI) | payer MEDICAID, SELFPAY ==
--- NOTE | 2023-06-26 08:51 | ART_ITS ---
Reason For Study: s/p Lt Fem-BK Pop Bypass, At/PT Thrombectomy Procedure A bilateral lower extremity continuous wave Doppler with analog waveform analysis and ankle brachial indexes. Left Segmental Pressures Left brachial= 137mmHg. Left posterior tibial artery = 130mmHg. Left dorsalis pedis artery = 156mmHg. Left digit = 116 mmHg. Right Segmental Pressures Right brachial= 127mmHg. Right posterior tibial artery = 70mmHg. Right dorsalis pedis artery = 86mmHg. Right digit = 58 mmHg. Indices The right ankle brachial index by the posterior tibial artery is 0.51. The right ankle brachial index by the dorsalis pedis is 0.63. The right digital-brachial index is 0.42. The left ankle brachial index by the posterior tibial artery is 1.14. The left ankle brachial index by the dorsalis pedis is 0.95. The left digital-brachial index is 0.85. VL/Ankle Brachial Index Interpretation Summary Right RONI 0.63, moderate arterial insufficiency. Doppler/PVR waveforms of the r ight ankle moderately diminished at rest. Left RONI 1.14, normal. TBI and Doppler/PVR waveforms of the left ankle normal a t rest. Ordering Physician: Meli Edwards Referring Physician: MELI EDWARDS PA Performed By: Jaylene Ellison RDCS/RVT
--- NOTE | 2023-06-26 08:51 | ADUL_ITS ---
Reason For Study: s/p Lt Fem-BK Pop Bypass, AT/PT Thrombectomy Left Velocities Ext Iliac Artery, dist = 105 cm./sec. Common Femoral Artery, mid = 90 cm./sec. Supf. Femoral Artery, prox = 27 cm./sec. Known occlusion Lt SFA to [place] Prox Anast: 107cm/s Prox Graft: 101cm/s Prox/Mid Graft: 71cm/s Mid Graft: 87cm/s Mid/Distal Graft: 54cm/s Distal Graft: 45cm/s Distal Anast: 75 cm/s. Profunda Femoral Artery = 120 cm./sec. Post. Tibial Artery, prox = 89 cm./sec. Post Tibial Artery, mid = 74 cm./sec. Post Tibial Artery, dist. = 68 cm./sec. Peroneal Artery, prox = 41 cm./sec. Peroneal Artery, mid = 45 cm./sec. Peroneal Artery,dist. = 26 cm./sec. Ant.Tibial Artery, prox = 148 cm./sec. Ant Tibial Artery, mid = 93 cm./sec. Ant. Tibial Artery, distal = 83 cm./sec. Procedure Exam performed in department. /US Art Duplex Unilat Lower Ext Interpretation Summary Left SFA-popliteal bypass patent with normal velocities and no evidence of sten osis Ordering Physician: Meli Edwards Referring Physician: Meli Edwards Performed By: Jaylene Ellison, JUAN, RVT
== END | disposition home or self-care (01) ==
LOC: CVS 08:48
PROVIDERS: Referring Provider Physician Assistant; Visit Provider Physician Assistant
DX: I70.245 Atherosclerosis of native arteries of left leg with ulceration of other part of foot (principal); L97.525 Non-pressure chronic ulcer of other part of left foot with muscle involvement without evidence of necrosis; Z95.820 Peripheral vascular angioplasty status with implants and grafts
CPT/HCPCS: 93922; 93926

== ENCOUNTER 2023-06-28 14:30 | Outpatient (RCR) | payer MEDICAID, SELFPAY ==
[2023-06-12 00:43] VITALS: BP 138/80; PULSE 77; RESP 18; TEMP 36.4; BMI 21.7
[2023-06-14 14:26] VITALS: BP 156/87; PULSE 70; RESP 18; TEMP 36.6; BMI 21.7
--- NOTE | 2023-06-14 15:07 | PN.PCM_ITS ---
History of Present Illness Date of Service: 06/14/23 Chief Complaint: Left full-thickness wound. History of Wound: Chronic nonhealing left full-thickness wound Subjective Subjective Mr. Medina is a 57-year-old male presenting to the wound care center for follow-up and evaluation of full-thickness ulceration to the left foot status post excisional debridement with skin graft prep with application of skin graft substitute. Date of surgery: 03/24/2022. Patient has been doing home dressing changes with Elizabeth and dry sterile dressing and Tyler wrap. He admits to great improvement to his left lower extremity. He states minimal pain but when it hits it hits he says. Denies trauma. Denies constitutional symptoms. No other pedal complaints at this time. Patient does admit that he will be having a stress test tomorrow for his heart per Dr. Spencer. Objective Data Objective Data Vital Signs: Vital Signs Temp Pulse Resp BP O2 Del Method 97.8 F 70 18 156/87 H Room Air 06/14/23 14:26 06/14/23 14:26 06/14/23 14:26 06/14/23 14:26 06/14/23 14:26 Oxygen Delivery Method Room Air Weight: 74.843 kg Body Mass Index (BMI) 21.7 Physical Exam Narrative Vascular: DP and PT pulses are audible on Doppler. +1 pitting edema appreciated to left lower extremity. Skin temperature great is warm to warm from proximal ankle to distal digit. No evidence of focal increase is appreciated. Neurological: Light touch intact. Patient does respond to painful stimuli. Dermatological: Full-thickness ulceration appreciated to the left anterior ankle which is now healed and the lateral foot. The left lateral foot ulceration me asures 1.2 x 0.3 x 0.1 cm. Wound base are 100% granular nature with no malodor. Excisional debridement down to and including subcutaneous tissue of the left foot lateral ulceration with a number 5 mm dermal curette without incident. Predebridement measurement is 1.0 x 0.2 x 0.1 cm. Postdebridement measurement is 1.2 x 0.3 x 0.1 cm. Musculoskeletal: Muscle strength was deferred. Moderate palpatory tenderness appreciated to both ulcerations to left lower extremity. No pain with calf compression Debridement Note Debridement Note Debridement Free Text: Excisional debridement down to and including subcutaneous tissue of the left foot lateral ulceration with a number 5 mm dermal curette without incident. Predebridement measurement is 1.0 x 0.2 x 0.1 cm. Postdebridement measurement is 1.2 x 0.3 x 0.1 cm. 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 ) Arrival Mode Ambulatory Accompanied by Patient Identification Verified (Name & Yes ) Height and Weight Body Mass Index (BMI) 21.7 BMI Classification Normal Vital Signs Temperature (97.8 F-99.1 F) 97.8 F Temperature Source Temporal Pulse Rate (60-100) 70 Pulse Location Monitor Respiratory Rate (12-18) 18 Respiratory rate source Observation Oxygen Delivery Method Room Air Blood Pressure (90/60-120/80) 156/87 H Blood Pressure Mean (mm Hg) 110 Source Monitor Position Semi-Fowlers Blood Pressure Location Left Arm History Since Last Visit- (Skip if this is Patient's initial visit) Have you changed medications since your No last visit? Any new allergies or adverse reactions No Had a fall/change in ADL's that may No increase risk of falls Signs or symptoms of abuse and/or No neglect since last visit Have you been in the hospital since your No last visit? Has dressing in place as prescribed Yes Has compression in place as prescribed Yes Has offloadiing in place as prescribed Yes Experienced any changes in pain level or No management Left Footwear Surgical Shoe with pressure relief insole Right Footwear Regular Shoe Pain Scale: 0-10 Numeric Is Patient Pain Free? Yes - Nurse 1 - General Ulcer Measurement Start: 06/14/23 14:26 Freq: Status: Active Protocol: Activity Type Activity Date Activity User E-sign Co-sign Detail Recorded Client Recorded Date Recorded By Document 06/14/23 14:26 Desktop 06/14/23 14:33 06/14/23 14:26 Wound Center Nurse 1 #1- L LAT FOOT POST OP -Current Size (cm) - Length 0.1 -Current Size (cm) - Width 0.1 -Current Size (cm) - Depth 0.1 -Total Square Cm 0.01 -Exudate Amt Small -Exudate Type Serosanguineous -Wound Margin Distinct, Outline Attached -Granulation Amt Large (67-100%) -Granulation Quality [place] -Necrosis Amt Small (1-33%) -Necrotic Tissue Type Adherent Slough -Texture (Jovanna-wound Skin Appearance) Assessed -Moisture (Jovanna-wound Skin Appearance) Assessed -Color (Jovanna-wound Skin Appearance) Assessed -Temperature (Jovanna-wound Skin No Abnormality Appearance) (Pt Warm) -Ulcer Cleansing Rinsed/ Irrigated with Saline -Foul Odor after Cleansing No -Anesthetic Used 5% Lidocaine Gel -Wound Comment(s) scabbing WC - Nurse 2 - General Ulcer CM Notes Start: 06/14/23 14:26 Freq: Status: Active Protocol: Activity Type Activity Date Activity User E-sign Co-sign Detail Recorded Client Recorded Date Recorded By Document 06/14/23 15:04 Laptop 06/14/23 15:05 06/14/23 15:04 Wound Center Nurse 2 -Time 15:04 -Correct Patient Yes -Correct Side, Site, Position Yes -Correct Procedure Yes -Procedure Performed Yes -Type of Procedure Debridement -Clinical Debridement Subcutaneous -Tissue Removed Subcutaneous -Post Debridement (cm) - Length 1.2 -Post Debridement (cm) - Width 0.3 -Post Debridement (cm) - Depth 0.1 -Total Square (Post) (cm) 0.36 -Area of Debridement (cm) - Length 1.2 -Area of Debridement (cm) - Width 0.3 -Total Square (Area) (cm) 0.36 -Tunneling No -Undermining/Tunneling No -Circular Undermining No -Wound/Ulcer Outcome Not Healed -Ulcer Cleansing Rinsed/ Irrigated with Saline -Foul Odor after Cleansing No -Bioengineered Tissue No -Bleeding Controlled with Pressure -Treatment Response Procedure Tolerated Well -Offloading Yes -Type of Offloading Surgical Shoe -Debridement - Subq, 1st 20sq cm Yes Pain Scale: 0-10 Numeric Is Patient Pain Free? Yes Assessment/Plan Assessment/Plan (1) Non-pressure chronic ulcer of other part of left foot with fat layer exposed: CODE(S): L97.522 - Non-pressure chronic ulcer of other part of left foot with fat layer exposed PLAN: Patient was examined and evaluated. All findings were discussed with the patient. All questions were answered to the patient's satisfaction. Excisional debridement down to and including subcutaneous tissue of the left foot lateral ulceration with a number 5 mm dermal curette without incident. Predebridement measurement is 1.0 x 0.2 x 0.1 cm. Postdebridement measurement is 1.2 x 0.3 x 0.1 cm. Left lower extremities were cleaned and patted dry. The patient ulceration was dressed with moist Elizabeth, dry sterile dressing and Tyler bandage. Patient will continue daily or every other day dressing changes. The patient will be following up at [facility] for a stress test tomorrow. Follow-up at the wound care center with Dr. Sandhu in 2 week.
--- NOTE | 2023-06-16 12:28 | WC ---
4.3.24 LT LAT FT
[2023-06-28 14:29] VITALS: BP 152/71; PULSE 76; RESP 16; TEMP 36.7; BMI 21.7
--- NOTE | 2023-06-28 15:15 | PN.PCM_ITS ---
History of Present Illness Date of Service: 06/28/23 Chief Complaint: Left full-thickness wound. History of Wound: Chronic nonhealing left full-thickness wound Subjective Subjective Mr. Medina is a 57-year-old male presenting to the wound care center for follow-up and evaluation of full-thickness ulceration to the left foot status post excisional debridement with skin graft prep with application of skin graft substitute. Date of surgery: 03/24/2022. Patient has been doing home dressing changes with Elizabeth and dry sterile dressing and Tyler wrap. He admits to great improvement to his left lower extremity. He states minimal pain but when it hits it hits he says. Denies trauma. Denies constitutional symptoms. No other pedal complaints at this time. Objective Data Objective Data Vital Signs: Vital Signs Temp Pulse Resp BP O2 Del Method 98.1 F 76 16 152/71 H Room Air 06/28/23 14:29 06/28/23 14:29 06/28/23 14:29 06/28/23 14:29 06/28/23 14:29 Oxygen Delivery Method Room Air Weight: 74.843 kg Body Mass Index (BMI) 21.7 Physical Exam Narrative Vascular: DP and PT pulses are audible on Doppler. +1 pitting edema appreciated to left lower extremity. Skin temperature great is warm to warm from proximal ankle to distal digit. No evidence of focal increase is appreciated. Neurological: Light touch intact. Patient does respond to painful stimuli. Dermatological: Full-thickness ulceration appreciated to the left anterior ankle which is now healed and the lateral foot. The left lateral foot ulceration measures 0.6 x 0.3 x 0.1 cm. Wound base are 100% granular nature with no malodor. Excisional debridement down to and including subcutaneous tissue of the left foot lateral ulceration with a number 5 mm dermal curette without incident. Predebridement measurement is 0.5 x 0.2 x 0.1 cm. Postdebridement measurement is 0.6 x 0.3 x 0.1 cm. Musculoskeletal: Muscle strength was deferred. Moderate palpatory tenderness appreciated to both ulcerations to left lower extremity. No pain with calf c ompression Debridement Note Debridement Note Debridement Free Text: Excisional debridement down to and including subcutaneous tissue of the left foot lateral ulceration with a number 5 mm dermal curette without incident. Predebridement measurement is 0.5 x 0.2 x 0.1 cm. Postdebridement measurement is 0.6 x 0.3 x 0.1 cm. Post-Debridement Measurements and Additional Note: Post-Debridement Measurements/Treatment WC - Nurse 1 - General Ulcer Assessment Start: 06/14/23 14:26 Freq: Status: Active Protocol: [email or web address] Activity Type Activity Date Activity User E-sign Co-sign Detail Recorded Client Recorded Date Recorded By Document 06/14/23 14:26 GM Desktop 06/14/23 14:33 GM Document 06/28/23 14:29 CP Desktop 06/28/23 14:32 CP 06/14/23 06/28/23 14:26 14:29 WC - Today's Visit Information Type of service Follow-up Visit Follow-up Visit (Physician/[facility] [employer] [facility] (Physician/[facility] [employer] [facility] ) ) Arrival Mode Ambulatory Ambulatory Transfer Assistance None Accompanied by Patient Identification Verified (Name & Yes Yes ) Patient Requires Transmission-Based No Precautions Height and Weight Body Mass Index (BMI) 21.7 21.7 BMI Classification Normal Normal Vital Signs Temperature (97.8 F-99.1 F) 97.8 F 98.1 F Temperature Source Temporal Temporal Pulse Rate (60-100) 70 76 Pulse Location Monitor Monitor Respiratory Rate (12-18) 18 16 Respiratory rate source Observation Observation Oxygen Delivery Method Room Air Room Air Blood Pressure (90/60-120/80) 156/87 H 152/71 H Blood Pressure Mean (mm Hg) 110 98 Source Monitor Monitor Position Semi-Fowlers Sitting Blood Pressure Location Left Arm Left Arm History Since Last Visit- (Skip if this is Patient's initial visit) Have you changed medications since your No No last visit? Any new allergies or adverse reactions No No Had a fall/change in ADL's that may No No increase risk of falls Signs or symptoms of abuse and/or No No neglect since last visit Have you been in the hospital since your No No last visit? Has dressing in place as prescribed Yes Yes Has compression in place as prescribed Yes N/A Has offloadiing in place as prescribed Yes Yes Experienced any changes in pain level or No No management Left Footwear Surgical Shoe Surgical Shoe with pressure with pressure relief insole relief insole Right Footwear Regular Shoe Pain Scale: 0-10 Numeric Is Patient Pain Free? Yes Yes MARITZA - Nurse 1 - General Ulcer Measurement Start: 06/14/23 14:26 Freq: Status: Active Protocol: Activity Type Activity Date Activity User E-sign Co-sign Detail Recorded Client Recorded Date Recorded By Document 06/14/23 14:26 Desktop 06/14/23 14:33 Document 06/28/23 14:29 Desktop 06/28/23 14:32 06/14/23 06/28/23 14:26 14:29 Wound Center Nurse 1 #1- L LAT FOOT POST OP -Current Size (cm) - Length 0.1 0.4 -Current Size (cm) - Width 0.1 0.3 -Current Size (cm) - Depth 0.1 0.1 -Total Square Cm 0.01 0.12 -Epithelialization Medium 34-66% -Tunneling No -Undermining/Tunneling No -Exudate Amt Small Small -Exudate Type Serosanguineous Sanguineous -Wound Margin Distinct, Flat & Intact Outline Attached -Granulation Amt Large (67-100%) Large (67-100%) -Granulation Quality [place] -Slough/Fibrin Yes -Necrosis Amt Small (1-33%) Small (1-33%) -Necrotic Tissue Type Adherent Slough Adherent Slough -Structure Exposed N/A -Texture (Jovanna-wound Skin Appearance) Assessed No Abnormality -Moisture (Jovanna-wound Skin Appearance) Assessed Dry/Scaly -Color (Jovanna-wound Skin Appearance) Assessed No Abnormality -Temperature (Jovanna-wound Skin No Abnormality No Abnormality Appearance) (Pt Warm) (Pt Warm) -Tenderness on Palpation (Jovanna-wound Yes Skin Appearance) -Ulcer Cleansing Rinsed/ Rinsed/ Irrigated with Irrigated with Saline Saline -Foul Odor after Cleansing No No -Anesthetic Used 5% Lidocaine 5% Lidocaine Gel Gel -Wound Comment(s) scabbing WC - Nurse 2 - General Ulcer CM Notes Start: 06/14/23 14:26 Freq: Status: Active Protocol: Activity Type Activity Date Activity User E-sign Co-sign Detail Recorded Client Recorded Date Recorded By Document 06/14/23 15:04 Laptop 06/14/23 15:05 Document 06/28/23 14:57 Laptop 06/28/23 14:59 06/14/23 06/28/23 15:04 14:57 Wound Center Nurse 2 #1- L LAT FOOT POST OP -Time 15:04 14:57 -Correct Patient Yes Yes -Correct Side, Site, Position Yes Yes -Correct Procedure Yes Yes -Procedure Performed Yes Yes -Type of Procedure Debridement Debridement -Clinical Debridement Subcutaneous Subcutaneous -Tissue Removed Subcutaneous Subcutaneous -Post Debridement (cm) - Length 1.2 0.6 -Post Debridement (cm) - Width 0.3 0.3 -Post Debridement (cm) - Depth 0.1 0.1 -Total Square (Post) (cm) 0.36 0.18 -Area of Debridement (cm) - Length 1.2 0.6 -Area of Debridement (cm) - Width 0.3 0.3 -Total Square (Area) (cm) 0.36 0.18 -Tunneling No No -Undermining/Tunneling No No -Circular Undermining No No -Wound/Ulcer Outcome Not Healed Not Healed -Ulcer Cleansing Rinsed/ Rinsed/ Irrigated with Irrigated with Saline Saline -Foul Odor after Cleansing No No -Bioengineered Tissue No No -Bleeding Controlled with Pressure Pressure -Treatment Response Procedure Procedure Tolerated Well Tolerated Well -Offloading Yes Yes -Type of Offloading Surgical Shoe Surgical Shoe -Debridement - Subq, 1st 20sq cm Yes Yes Pain Scale: 0-10 Numeric Is Patient Pain Free? Yes Yes - Nurse 3 - General Ulcer D/C NN Start: 06/14/23 14:26 Freq: Status: Active Protocol: Activity Type Activity Date Activity User E-sign Co-sign Detail Recorded Client Recorded Date Recorded By Document 06/14/23 15:09 KW Desktop 06/14/23 15:10 KW Document 06/28/23 15:05 DL Desktop 06/28/23 15:06 DL 06/14/23 06/28/23 15:09 15:05 Wound Care Center Nurse 3 #1- L LAT FOOT POST OP -Ulcer Cleansing Rinsed/ Rinsed/ Irrigated with Irrigated with Saline Saline -Foul Odor after Cleansing No -Primary Dressing Applied Promogran Promogran Elizabeth Matter -Primary Dressing Covered/Secured with Dry Gauze & Dry Gauze, Roll Gauze, Secured with Secured with Tape Tape -Other Covering tyler -Promogran 1 -Promogran Elizabeth Matter 1 Left -Compression Wrap Tyler Wrap Tyler Wrap Treatment Response Procedure Tolerated Well Pain Scale: 0-10 Numeric Is Patient Pain Free? Yes Yes - Visit Discharge Discharge Condition Stable Stable Ambulatory Status Ambulatory Ambulatory Transportation Private Auto Private Auto Accompanied by Medication Reconcilliation completed & No provided to patient/care provider Clinical Summary of Care Provided Yes Assessment/Plan Assessment/Plan (1) Non-pressure chronic ulcer of other part of left foot with fat layer exposed: CODE(S): L97.522 - Non-pressure chronic ulcer of other part of left foot with fat layer exposed PLAN: Patient was examined and evaluated. All findings were discussed with the patient. All questions were answered to the patient's satisfaction. Excisional debridement down to and including subcutaneous tissue of the left foot lateral ulceration with a number 5 mm dermal curette without incident. Predebridement measurement is 0.5 x 0.2 x 0.1 cm. Postdebridement measurement is 0.6 x 0.3 x 0.1 cm. Patient will continue to apply moist Elizabeth dry sterile dressing and wrap to the left foot. Patient has been grateful for his care. Follow-up at the wound care center with Dr. Sandhu in 2 week.
== END 2023-07-11 23:59 | disposition home or self-care (01) ==
LOC: WC 14:30
PROVIDERS: Referring Provider Podiatrist Foot & Ankle Surgery; Visit Provider Podiatrist Foot & Ankle Surgery
DX: L97.522 Non-pressure chronic ulcer of other part of left foot with fat layer exposed (principal); Z95.820 Peripheral vascular angioplasty status with implants and grafts; Z79.82 Long term (current) use of aspirin; Z79.01 Long term (current) use of anticoagulants; Z79.02 Long term (current) use of antithrombotics/antiplatelets; Z79.899 Other long term (current) drug therapy
CPT/HCPCS: 11042

== ENCOUNTER 2023-07-12 13:46 | Outpatient (RCR) | payer MEDICAID, SELFPAY ==
[2023-07-12 00:25] VITALS: BP 152/71; PULSE 76; RESP 16; TEMP 36.7; BMI 21.7
[2023-07-12 13:45] VITALS: BP 126/76; PULSE 81; RESP 18; TEMP 36.1; BMI 21.7
--- NOTE | 2023-07-12 16:26 | PCM.WC.PN ---
History of Present Illness Date of Service: 07/12/23 Chief Complaint: Left full-thickness wound. History of Wound: Chronic nonhealing left full-thickness wound Subjective Subjective Mr. Medina is a 57-year-old male presenting to the wound care center for follow-up and evaluation of full-thickness ulceration to the left foot status post excisional debridement with skin graft prep with application of skin graft substitute. Date of surgery: 03/24/2022. Patient has been doing home dressing changes with Elizabeth and dry sterile dressing and Tyler wrap. Patient states he is now healed. Has been grateful for his care. Denies trauma. Denies constitutional symptoms. No other pedal complaints at this time. Objective Data Objective Data Vital Signs: Vital Signs Temp Pulse Resp BP 97 F L 81 18 126/76 H 07/12/23 13:45 07/12/23 13:45 07/12/23 13:45 07/12/23 13:45 Weight: 74.843 kg Body Mass Index (BMI) 21.7 Physical Exam Narrative Vascular: DP and PT pulses are audible on Doppler. +1 pitting edema appreciated to left lower extremity. Skin temperature great is warm to warm from proximal ankle to distal digit. No evidence of focal increase is appreciated. Neurological: Light touch intact. Dermatological: Full-thickness ulceration appreciated to the left anterior ankle which is now healed and the lateral foot are now healed. Musculoskeletal: Muscle strength was deferred. Moderate palpatory tenderness appreciated to both ulcerations to left lower extremity. No pain with calf compression Debridement Note Debridement Note Post-Debridement Measurements and Additional Note: Post-Debridement Measurements/Treatment - Nurse 1 - General Ulcer Assessment Start: 07/12/23 13:45 Freq: Status: Active Protocol: [email or web address] Activity Type Activity Date Activity User E-sign Co-sign Detail Recorded Client Recorded Date Recorded By Document 07/12/23 13:45 RB Desktop 07/12/23 13:48 RB 07/12/23 13:45 - Today's Visit Information Type of service Follow-up Visit (Physician/[facility] [employer] ) Arrival Mode Ambulatory Transfer Assistance None Patient Identification Verified (Name & Yes ) Patient Requires Transmission-Based No Precautions Height and Weight Body Mass Index (BMI) 21.7 BMI Classification Normal Vital Signs Temperature (97.8 F-99.1 F) 97 F L Temperature Source Temporal Pulse Rate (60-100) 81 Pulse Location Monitor Respiratory Rate (12-18) 18 Respiratory rate source Observation Blood Pressure (90/60-120/80) 126/76 H Blood Pressure Mean (mm Hg) 92 Source Monitor Position Sitting Blood Pressure Location Left Arm History Since Last Visit- (Skip if this is Patient's initial visit) Have you changed medications since your No last visit? Any new allergies or adverse reactions No Had a fall/change in ADL's that may No increase risk of falls Signs or symptoms of abuse and/or No neglect since last visit Have you been in the hospital since your No last visit? Has dressing in place as prescribed Yes Has compression in place as prescribed Yes Has offloadiing in place as prescribed No Experienced any changes in pain level or No management Pain Scale: 0-10 Numeric Is Patient Pain Free? Yes - Nurse 1 - General Ulcer Measurement Start: 07/12/23 13:45 Freq: Status: Active Protocol: Activity Type Activity Date Activity User E-sign Co-sign Detail Recorded Client Recorded Date Recorded By Document 07/12/23 13:45 RB Desktop 07/12/23 13:48 RB 07/12/23 13:45 Wound Center Nurse 1 #1- L LAT FOOT POST OP -Combined with other wound No -Current Size (cm) - Length 0.1 -Current Size (cm) - Width 0.1 -Current Size (cm) - Depth 0.1 -Total Square Cm 0.01 -Photo Taken Yes -Tunneling No -Undermining/Tunneling No -Circular Undermining No -Exudate Amt Medium -Exudate Type Serosanguineous -Wound Margin Distinct, Outline Attached -Granulation Amt Large (67-100%) -Granulation Quality [place] -Slough/Fibrin Yes -Necrosis Amt Small (1-33%) -Necrotic Tissue Type Adherent Slough -Structure Exposed N/A -Texture (Jovanna-wound Skin Appearance) Assessed -Moisture (Jovanna-wound Skin Appearance) Assessed -Color (Jovanna-wound Skin Appearance) Assessed -Temperature (Jovanna-wound Skin No Abnormality Appearance) (Pt Warm) -Tenderness on Palpation (Jovanna-wound No Skin Appearance) -Ulcer Cleansing Wound Cleanser -Foul Odor after Cleansing No Lower Limb Edema Present Yes Left Calf (cm) 36.5 Left Ankle (cm) 25 MARITZA - Nurse 2 - General Ulcer CM Notes Start: 07/12/23 13:45 Freq: Status: Active Protocol: Activity Type Activity Date Activity User E-sign Co-sign Detail Recorded Client Recorded Date Recorded By Document 07/12/23 14:02 [employer] Laptop 07/12/23 14:03 07/12/23 14:02 Wound Center Nurse 2 #1- L LAT FOOT POST OP -Correct Patient No -Correct Side, Site, Position No -Correct Procedure No -Procedure Performed No -Post Debridement (cm) - Length 0 -Post Debridement (cm) - Width 0 -Post Debridement (cm) - Depth 0 -Total Square (Post) (cm) 0 -Area of Debridement (cm) - Length 0 -Area of Debridement (cm) - Width 0 -Total Square (Area) (cm) 0 -Wound/Ulcer Outcome Healed- Epithelialized Pain Scale: 0-10 Numeric Is Patient Pain Free? Yes - Nurse 3 - General Ulcer D/C NN Start: 07/12/23 13:45 Freq: Status: Active Protocol: Activity Type Activity Date Activity User E-sign Co-sign Detail Recorded Client Recorded Date Recorded By Document 07/12/23 14:03 [place] 07/12/23 14:04 07/12/23 14:03 Is Patient Pain Free? Yes WC - Visit Discharge Discharge Condition Stable Ambulatory Status Ambulatory Transportation Private Auto Medication Reconcilliation completed & Yes provided to patient/care provider Clinical Summary of Care Provided Yes Assessment/Plan Assessment/Plan (1) Non-pressure chronic ulcer of other part of left foot with fat layer exposed: CODE(S): L97.522 - Non-pressure chronic ulcer of other part of left foot with fat layer exposed PLAN: Patient was examined and evaluated. All findings were discussed with the patient. All questions were answered to the patient's satisfaction. Patient's left foot lateral wound is now healed. Patient grateful for his care. Patient was educated to continue to follow-up with his postoperative visit with vascular surgeon cardiology was understanding of this. The patient will follow-up with me in private office in 2 months. He left the office pleased with this visit. (2) Peripheral vascular disease: CODE(S): I73.9 - Peripheral vascular disease, unspecified
--- NOTE | 2023-07-13 11:51 | WC ---
07/12/2023 LEFT LATERAL FOOT
== END 2023-08-11 23:59 | disposition home or self-care (01) ==
LOC: WC 13:46
PROVIDERS: Referring Provider Podiatrist Foot & Ankle Surgery; Visit Provider Podiatrist Foot & Ankle Surgery
DX: Z09 Encounter for follow-up examination after completed treatment for conditions other than malignant neoplasm (principal); I73.9 Peripheral vascular disease, unspecified
CPT/HCPCS: 99213; G0463